=== PATIENT | female | born 2000 | race Asian ===

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

== ENCOUNTER 2018-05-29 17:30 | Emergency (ER) | payer MEDICAID, SELFPAY ==
[2018-05-29 17:32] VITALS: BP 162/122; PULSE 86; RESP 18; TEMP 36.7; O2SAT 98; BMI 34.2
--- NOTE | 2018-05-29 17:54 | ED.VISSUMM ---
- ER Visit Summary Date of Service: 05/29/18 Chief Complaint: Cyclic vomiting History of Present Illness: The patient is a 17 F presenting for evaluation secondary to cyclic vomiting syndrome. Patient has a history of this in the past, states that it typically is associated with onset of her menses. About 4 days ago she had onset of menses and profuse nausea and vomiting. She reports that she has a mild amount of chest burning associated with this. She denies any fevers or abdominal pain. She denies any diarrhea. View of systems otherwise negative. Physical Examination: Vital signs are within normal limits, patient is afebrile. General: Patient is well-nourished well-developed and in no acute distress. Head: Normocephalic, atraumatic Eyes: Pupils equal round and reactive bilaterally, extra occular motion intact bialterally ENT: Dry mucous membranes Neck: Supple, no lymphadenopathy, no JVD, no meningismus CVS: Heart regular rate and rhythm, no murmurs, rubs or gallops, radial pulses 2+ bilaterally Resp: Respirations nondistressed, lung sounds clear bilaterally, minimal chest tenderness that is diffuse without any evidence of crepitus or Vinicio's crunch Abdomen: Soft, nontender, nondistended, no palpable masses, normal bowel sounds Back: Nontender Extremities: Nontender, atraumatic, active full range of motion, no peripheral edema Skin: warm, no rashes, no petechia Neuro: Alert and oriented x 4, CN 2-12 intact, no lateralizing neurological defecits Psyc: Normal affect Test Results: CBC shows mild leukocytosis 11.2, chemistry shows hypochloremia at 97 and an elevated creatinine of 1.1 Emergency Department Course and Treatment: Patient presented secondary to cyclic vomiting syndrome. Laboratory studies were not significantly abnormal. Patient was given Ativan and Zofran and a liter normal saline. Repeat evaluation showed improvement. I believe the patient to be safe for discharge. She was discharged home with family. Disposition: Discharge Impression: 1. Cyclic vomiting syndrome This note was generated with [employer] dictation software. It may contain incorrect words, spelling, and punctuation that were not noted in review of the chart prior to signing ED Disposition - Plan for ED Patient: Disposition: Home or Assisted Living Chief Complaint: Nausea/Vomiting Diagnosis: Cyclical vomiting Instructions: When Your Child Has Cyclic Vomiting Syndrome (CVS) Referrals: Fanny Sharif MD [Primary Care Provider] - 1-2 Days if not improving
[2018-05-29 18:02] LABS: Absolute Lymphocyte Count 2.95 X10^3/ul (0.83-4.51); Absolute Neutrophil Count 7.5 X10^3/uL (2.0-7.7); Basophil# 0.02 X10^3/uL; Basophil% 0.2 % (0-1); Eosinophil# 0.05 X10^3/uL; Eosinophils% 0.4 % (0-5); Hematocrit 41.5 % (37-47); Hemoglobin 13.3 g/dl (12.0-15.0); Lymphocyte # 2.95 X10^3/ul (4.0); Lymphocyte % 26.4 % (19-41); Mean Corpuscular Hgb 22.3 pg (27.0-32.0); Mean Corpuscular Volume 69.6 fL (81-99); Mean Platelet Vol. 11.3 fl (6.2-12.0); Monocyte# 0.68 X10^3/uL; Monocyte% 6.1 % (0-10); Neutrophil # 7.45 X10^3/uL (2.7-7.7); Neutrophil % 66.7 % (47-70); POSITIVE COUNT NO; POSITIVE DIFFERENTIAL NO; POSITIVE MORPHOLOGY NO; Platelet Count 446 K/mm3 (150-450); RBC Distribution Width CV 15.4 % (11.6-14.6); RBC Distribution Width SD 39.1 fl (35.1-43.9); Red Blood Count 5.96 M/mm3 (4.2-5.4); White Blood Count 11.2 K/mm3 (4.4-11.0)
[2018-05-29 18:14] LABS: Anion Gap 14 (5-15); BUN 23 mg/dL (7-18); BUN/Creat Ratio 20.4 RATIO (10-20); Calcium,Total 9.8 mg/dL (8.5-10.1); Chloride 97 mmol/L (98-107); Creatinine, Serum 1.13 mg/dL (0.55-1.02); EST Glomerular Filtration Rate 65 mL/min (>60); Est Glom Filt Rate - Afr Amer 79 mL/min (>60); Estimated Creatinine Clearance 69.15 ml/min; Glucose 80 mg/dL (74-106); Potassium 4.5 mmol/L (3.5-5.1); Sodium Level 135 mmol/L (136-145)
[2018-05-29] MEDS: 0.9% Normal Saline 1,000 ML 999 ML IV (18:38)
[2018-05-29] MEDS: Ondansetron 4 MG/2 ML Vial IV ×2 (18:38→19:30)
[2018-05-29] MEDS: LORazepam 2 MG/ML Syringe 0.5 MG IV (18:38)
[2018-05-29] MEDS: Ketorolac 15 MG/ML Vial IV (19:07)
[2018-05-29 19:59] VITALS: BP 145/70; BP 145/75; PULSE 75; RESP 14; O2SAT 98
== END 2018-05-29 20:14 | disposition home or self-care (01) ==
PROVIDERS: Emergency Provider Emergency Medicine; Family Provider Pediatrics; PCP Pediatrics
DX: G43.A0 Cyclical vomiting, in migraine, not intractable (principal)
CPT/HCPCS: 80048; 85025; 96374; 96375; 96376; 99283; J7030; A4216; J2405

== ENCOUNTER 2018-06-06 21:31 | Emergency (ER) | payer MEDICAID, SELFPAY ==
[2018-06-06 21:31] VITALS: BP 163/111; PULSE 116; RESP 20; O2SAT 94
[2018-06-06 21:32] VITALS: BP 195/137; PULSE 129; RESP 18; TEMP 36.7; O2SAT 99; BMI 33.5
--- NOTE | 2018-06-06 22:09 | ED.DCSUM_ITS ---
- ER Visit Summary Date of Service: 06/06/18 Chief Complaint: Nausea and vomiting History of Present Illness: The patient is a 17 F well-known to this emergency department with a history of cyclic vomiting syndrome. No prior abdominal surgeries. Patient states she started having nausea and vomiting this morning. No abdominal pain. No fever. No dysuria. No abdominal trauma. No diarrhea. No constipation. No vaginal bleeding. Last menstrual period was a week ago. Physical Examination: Young female. Vital signs initial blood pressure 195/113. Heart rate 129. Pulse ox 9 9% on room air no hypoxia. Afebrile. She does not look septic or toxic. HEENT exam mildly dry mucous membranes. Otherwise unremarkable. Neck nontender. No lymphadenopathy. Lungs clear to auscultation bilaterally. Heart tachycardic rate about 125 no murmur. Abdomen is soft. Nontender. Nondistended. No hernias or masses. No signs of obstruction. Patient is moving all 4 extremities. No edema. Back nontender. Neurologically awake and alert with no focal motor deficits. Test Results: BMP shows no acute abnormality. Emergency Department Course and Treatment: Patient treated with 1 L normal saline. Phenergan IV. Thorazine IV. Multiple repeat exams patient is doing well. Resting comfortably. Abdomen is benign. After being medicated she is had no further vomiting in the ER. I spoke to her sister at bedside and she is comfortable with her being discharged to home. Treatment Plan: Fluids and rest. She already has both Zofran and Phenergan at home. Increase diet slowly. Follow-up as needed. Disposition: Discharge Impression: Acute nausea and vomiting Acute exacerbation of cyclic vomiting syndrome This note was generated with [employer] dictation software. It may contain incorrect words, spelling, and punctuation that were not noted in review of the chart prior to signing ED Disposition - Plan for ED Patient: Disposition: Home or Assisted Living Instructions: ED Nausea Vomiting Referrals: Fanny Sharif MD [Primary Care Provider] - 3-5 Days if not improving Additional Instructions: Plenty of fluids and rest. Increase diet slowly and as tolerated. Zofran and/or Phenergan as needed for nausea. Follow-up with your doctor as needed.
[2018-06-06] MEDS: proMETHazine 25 MG/ML Syringe 12.5 MG IV (22:26)
[2018-06-06] MEDS: ChlorproMAZINE 50 MG/2 ML Ampul IV (22:26)
[2018-06-06] MEDS: 0.9% Normal Saline 1,000 ML 1000 ML IV (22:26)
[2018-06-06 22:46] LABS: Anion Gap 9 (5-15); BUN 8 mg/dL (7-18); BUN/Creat Ratio 7.7 RATIO (10-20); Calcium,Total 9.4 mg/dL (8.5-10.1); Chloride 106 mmol/L (98-107); Creatinine, Serum 1.04 mg/dL (0.55-1.02); EST Glomerular Filtration Rate 72 mL/min (>60); Est Glom Filt Rate - Afr Amer 87 mL/min (>60); Estimated Creatinine Clearance 75.13 ml/min; Glucose 112 mg/dL (74-106); Potassium 4.1 mmol/L (3.5-5.1); Sodium Level 138 mmol/L (136-145)
== END 2018-06-06 23:48 | disposition home or self-care (01) ==
PROVIDERS: Emergency Provider Emergency Medicine; Family Provider Pediatrics; PCP Pediatrics
DX: G43.A0 Cyclical vomiting, in migraine, not intractable (principal)
CPT/HCPCS: 80048; 96361; 96374; 96375; 99285; J7030

== ENCOUNTER 2018-06-30 16:57 | Emergency (ER) | payer MEDICAID, SELFPAY ==
[2018-06-30 16:58] VITALS: BP 136/93; PULSE 111; RESP 18; TEMP 36.3; O2SAT 98; BMI 33.4
[2018-06-30] MEDS: Ondansetron 4 MG/2 ML Vial IV (18:38)
[2018-06-30] MEDS: 0.9% Normal Saline 1,000 ML 1000 ML IV (18:38)
[2018-06-30] MEDS: Ketorolac 30 MG/ML Syringe IV (18:38)
[2018-06-30 18:55] LABS: Absolute Lymphocyte Count 2.52 X10^3/ul (0.83-4.51); Absolute Neutrophil Count 7.9 X10^3/uL (2.0-7.7); Basophil# 0.02 X10^3/uL; Basophil% 0.2 % (0-1); Eosinophil# 0.01 X10^3/uL; Eosinophils% 0.1 % (0-5); Hematocrit 41.7 % (37-47); Lymphocyte # 2.52 X10^3/ul (4.0); Lymphocyte % 22.6 % (19-41); Mean Corp Hgb Conc 31.2 g/gl (32-36); Mean Corpuscular Volume 70.7 fL (81-99); Mean Platelet Vol. 9.8 fl (6.2-12.0); Monocyte# 0.73 X10^3/uL; Monocyte% 6.5 % (0-10); Neutrophil # 7.87 X10^3/uL (2.7-7.7); Neutrophil % 70.4 % (47-70); Platelet Count 519 K/mm3 (150-450); RBC Distribution Width CV 15.4 % (11.6-14.6); RBC Distribution Width SD 39.8 fl (35.1-43.9); White Blood Count 11.2 K/mm3 (4.4-11.0)
[2018-06-30 18:56] LABS: POSITIVE COUNT NO; POSITIVE DIFFERENTIAL NO; POSITIVE MORPHOLOGY NO
[2018-06-30 18:59] LABS: Anion Gap 11 (5-15); BUN 21 mg/dL (7-18); BUN/Creat Ratio 20.2 RATIO (10-20); Chloride 99 mmol/L (98-107); Creatinine, Serum 1.04 mg/dL (0.55-1.02); EST Glomerular Filtration Rate 72 mL/min (>60); Est Glom Filt Rate - Afr Amer 87 mL/min (>60); Estimated Creatinine Clearance 75.13 ml/min; Glucose 88 mg/dL (74-106); Potassium 3.5 mmol/L (3.5-5.1); Sodium Level 135 mmol/L (136-145)
[2018-06-30 20:10] LABS: Pregnancy, Serum, hCG Quali. NEGATIVE Negative (0-9 Nonpreg)
--- NOTE | 2018-06-30 20:29 | ED.VISSUMM ---
- ER Visit Summary Date of Service: 06/30/18 Chief Complaint: Nausea and vomiting History of Present Illness: The patient is a 17 F who presents for abdominal pain and flank pain for the past 3 days. Patient admits to nausea and vomiting. Patient states she did have one episode of hematemesis a couple days ago but this has resolved. Patient denies any diarrhea, melena, or hematochezia. Patient states she has a history of cyclic vomiting syndrome. Patient denies any urinary complaints. Patient describes her pain is sharp. Patient states the pain is over the left upper quadrant and left flank area. Physical Examination: Vital signs are stable. Patient is afebrile. Patient is in no acute distress. Oral mucosa is pink and moist. Neck is supple. Trachea is midline. There is no JVD noted. Heart was regular rate and rhythm. Lungs are clear and equal bilateral. Abdomen is soft. Bowel sounds are normal. There is left upper quadrant tenderness. There is no rebound or guarding noted. There is some left CVA tenderness noted. Skin is warm dry. Cranial nerves II through XII are intact. There are no focal motor or sensory deficits noted. The remaining physical exam is within normal limits. Test Results: CBC shows a white blood cell count of 11.2. Platelets were slightly elevated at 519. BUN and creatinine was slightly elevated at 21 and 1.04. hCG was negative. Emergency Department Course and Treatment: Patient was given IV fluids, Zofran, and Toradol here. Patient was feeling better on reevaluation. Patient was given prescriptions for Zofran and analgesics. Patient was instructed to use start with a liquid diet and advance as tolerated. Patient was instructed to follow-up with her primary care physician in 7-10 days. Patient understood and was agreeable with the plan. All questions were answered. Disposition: Discharge home Impression: 1. Abdominal pain 2. Nausea and vomiting This note was generated with [employer] dictation software. It may contain incorrect words, spelling, and punctuation that were not noted in review of the chart prior to signing ED Disposition - Plan for ED Patient: Disposition: Home or Assisted Living Diagnosis: Abdominal pain, Nausea and vomiting Instructions: ED Abdominal Pain Unkn Cause, ED Nausea Vomiting Prescriptions: Ondansetron [Zofran Odt] 4 mg PO Q8H PRN PRN #10 tab PRN Reason: Nausea RX: Dicyclomine HCl [Bentyl] 20 mg PO TIDAC PRN #20 cap PRN Reason: Pain Referrals: Fanny Sharif MD [Primary Care Provider] -
[2018-06-30] MEDS: Morphine 2 MG/ML Syringe IV (20:36)
[2018-06-30 20:38] VITALS: BP 141/102; PULSE 82; RESP 16; O2SAT 100
[2018-06-30 20:56] VITALS: BP 139/80; PULSE 73; RESP 17; O2SAT 98
--- NOTE | 2018-06-30 20:57 | ED.RN ---
IV DC'ED, CATHETER INTACT, SMALL GAUZE DRESSING PLACED. DISCHARGE INSTRUCTIONS GIVEN TO AND REVIEWED WITH PATIENT, PATIENT DENIES QUESTIONS OR CONCERNS AND VOICES UNDERSTANDING OF DISCHARGE INSTRUCTIONS. PT AMBULATES OUT OF ROOM WITHOUT ISSUE.
== END 2018-06-30 20:57 | disposition home or self-care (01) ==
PROVIDERS: Emergency Provider Emergency Medicine; Family Provider Pediatrics; PCP Pediatrics
DX: R11.2 Nausea with vomiting, unspecified (principal); R10.12 Left upper quadrant pain
CPT/HCPCS: 80048; 84703; 85025; 96361; 96374; 96375; 99285; J7030; A4216; J2405

== ENCOUNTER 2018-07-01 11:26 | Emergency (ER) | payer MEDICAID, SELFPAY ==
[2018-06-30 16:58] VITALS: BMI 33.4
[2018-07-01 11:27] VITALS: BP 166/119; PULSE 87; RESP 18; TEMP 36.6; O2SAT 100; BMI 33.4
[2018-07-01] MEDS: LORazepam 2 MG/ML Syringe 0.5 MG IV (11:48)
[2018-07-01] MEDS: Ondansetron 4 MG/2 ML Vial IV (11:48)
[2018-07-01] MEDS: 0.9% Normal Saline 1,000 ML 1000 ML IV (11:48)
[2018-07-01 11:54] LABS: Absolute Lymphocyte Count 2.39 X10^3/ul (0.83-4.51); Basophil# 0.02 X10^3/uL; Basophil% 0.2 % (0-1); Eosinophil# 0.01 X10^3/uL; Eosinophils% 0.1 % (0-5); Hematocrit 40.6 % (37-47); Hemoglobin 12.3 g/dl (12.0-15.0); Lymphocyte # 2.39 X10^3/ul (4.0); Lymphocyte % 21.5 % (19-41); Mean Corp Hgb Conc 30.3 g/gl (32-36); Mean Corpuscular Hgb 21.6 pg (27.0-32.0); Mean Corpuscular Volume 71.2 fL (81-99); Mean Platelet Vol. 9.4 fl (6.2-12.0); Monocyte# 0.74 X10^3/uL; Monocyte% 6.6 % (0-10); Neutrophil # 7.95 X10^3/uL (2.7-7.7); Neutrophil % 71.4 % (47-70); Platelet Count 483 K/mm3 (150-450); RBC Distribution Width CV 15.3 % (11.6-14.6); RBC Distribution Width SD 39.9 fl (35.1-43.9); White Blood Count 11.1 K/mm3 (4.4-11.0)
[2018-07-01 11:56] LABS: POSITIVE COUNT NO; POSITIVE DIFFERENTIAL NO
[2018-07-01 11:57] LABS: Differential Indicated SCAN CRITERIA MET; POSITIVE MORPHOLOGY YES
[2018-07-01 12:05] LABS: Anion Gap 12 (5-15); BUN 24 mg/dL (7-18); BUN/Creat Ratio 21.6 RATIO (10-20); Calcium,Total 9.3 mg/dL (8.5-10.1); Chloride 99 mmol/L (98-107); Creatinine, Serum 1.11 mg/dL (0.55-1.02); EST Glomerular Filtration Rate 67 mL/min (>60); Est Glom Filt Rate - Afr Amer 81 mL/min (>60); Estimated Creatinine Clearance 70.39 ml/min; Glucose 94 mg/dL (74-106); Potassium 3.4 mmol/L (3.5-5.1); Sodium Level 134 mmol/L (136-145)
[2018-07-01 12:28] LABS: Pregnancy, Serum, hCG Quali. NEGATIVE Negative (0-9 Nonpreg)
--- NOTE | 2018-07-01 12:30 | CM.ED ---
Social Work Assessment Referral Date: 07/01/18 Date of Assessment: 07/01/18 Informant: NURSING Reason for Consult:FREQUENT VISITS Information obtained from: PATIENT AND PATIENT'S SISTERPRIYANKA Living Arrangements: PATIENT LIVES HOME WITH MOTHER, FATHER AND SISTER. 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 PATIENT CURRENTLY NOT ATTENDING COLLEGE AT THIS TIME. Supports: PATIENT REPORTS GOOD SUPPORT FROM FAMILY. PATIENT STATES IS CURRENTLY ACTIVE WITH COUNSELING AT [facility] [id number] AND FOLLOWS WITH RONY. Social/Family Stressors: PATIENT REPORTS STRESS FROM DEALING WITH NAUSEA AND VOMITING FOR 4 YEARS. PATIENT EXTREMELY TEARFUL DURING ASSESSMENT. MUCH EMOTIONAL SUPPORT PROVIDED. Mental Health History: PATIENT ADMITS TO HX OF ANXIETY AND DEPRESSION AND STATES IS NOT PRESCRIBED MEDICATION. Substance Abuse History: PATIENT AND SISTER BOTH DENY ANY SUBSTANCE ABUSE. Interventions: PCP-DR. MARQUEZ FOLLOW UP APPOINTMENT 07/09/18 AT 2:15P. COUNSELING APPOINTMENT AT [facility] SCHEDULED FOR 07/07/18 AT 1P. Assessment: PATIENT IS A 17 Y/O FEMALE WHO PRESENTS TO ED C/O NAUSEA AND VOMITING. PT WITH FREQUENT VISITS FOR SAME. INTRODUCED THIS WORKER'S ROLE AND REASON FOR REFERRAL. PT GAVE PERMISSION FOR PRIYANKA BULLOCK TO STAY IN ROOM DURING ASSESSMENT. SISTER VOICED MUCH CONCERN FOR PT. SISTER STATES PARENTS HAD BEEN AGAINST COUNSELING, BUT SISTER ADVOCATED FOR PT TO START COUNSELING SERVICES AT [facility]. PT ADMITS TO HX OF ANXIETY AND DEPRESSION. PT DENIES ANY SUBSTANCE ABUSE AND SISTER CONFIRMED. PT STATES MANY STRESSORS FROM DEALING WITH THE NAUSEA AND VOMITING. SISTER REPORTS IT HAS CAUSED PT TO HAVE MORE ANXIETY. DISCUSSED FOLLOWING UP WITH PSYCH OR PRIMARY CARE FOR MEDICATION TO ASSIST WITH ANXIETY AND DEPRESSION. PT AND SISTER IN AGREEMENT. PT GAVE PERMISSION FOR THIS WORKER TO SET UP FOLLOW UP APPOINTMENTS WITH PCP AND COUNSELING. PT AND SISTER UPDATED ON DATE AND TIMES OF APPOINTMENTS. THIS WORKER TO REMAIN AVAILABLE FOR NEEDS. PLAN: HOME WITH FAMILY AND FOLLOW UP SCHEDULED
--- NOTE | 2018-07-01 12:40 | CM.ED ---
SOCIAL WORK NOTE PT'S MOTHER PRESENT IN ED. THIS WORKER MET WITH PT'S MOTHER. MOTHER TEARFUL WHEN DISCUSSING PT'S MEDICAL NEEDS OVER THE LAST 4 YEARS. MUCH EMOTIONAL SUPPORT AND EDUCATION PROVIDED. DISCUSSED PT'S MENTAL HEALTH. MOTHER STATES PT IS NORMALLY A HAPPY PERSON AND REPORTS PT WITH MANY STRESSORS AND ANXIETY. MOTHER DENIES ANY DRUG USE FOR PT. DISCUSSED FOLLOW UP APPOINTMENTS AND ENCOURAGED MOTHER TO ATTEND APPOINTMENTS WITH PT. MOTHER VERBALIZED UNDERSTANDING AND IN AGREEMENT WITH PLAN. DR. DAMON AND NURSING UPDATED ON THIS WORKER'S ASSESSMENT OF PT AND CONVERSATION WITH MOTHER. MARITZA QUINONES, AUDIO ENGINEER, CASE RESOLUTION SPECIALIST.
--- NOTE | 2018-07-01 14:08 | ED.VISSUMM ---
- ER Visit Summary Date of Service: 07/01/18 Chief Complaint: [Nausea and vomiting] History of Present Illness: The patient is a 17 F [presents the emergency department complaint of nausea and vomiting that started 3 days ago. Patient has a history of cyclic vomiting syndrome and states that her symptoms are typical. Patient does describe diffuse abdominal discomfort. She has had no fever. She denies any diarrhea. She denies urinary symptoms. Last menstrual period was end of May. Patient does not believe she is .] Physical Examination: [HEENT-PERRLA, EOMI. Cranial nerves II through XII grossly intact. TMs clear. Mucous membranes moist. No adenopathy. Cardiovascular-regular rate and rhythm without murmur or ectopy Lungs-clear to auscultation, chest wall stable without crepitus or subcu emphysema Abdomen-normoactive bowel sounds, soft. Patient has diffuse tenderness to palpation. There is no rebound, rigidity, or perineal signs. Extremities-intact ?4, normal range of motion, normal pulses, atraumatic] Test Results: [CBC with differential obtained showed a white count 11.1, hemoglobin 12, hematocrit 41, platelets 483. Chemistries unremarkable. BUN was 24 and creatinine 1.11. HCG was negative.] Emergency Department Course and Treatment: [Patient was medicated with Ativan as well as Benadryl and Thorazine. Patient also received Zofran. Patient was given a liter normal same fluid bolus.] Treatment Plan: [Patient has antiemetics at home and she is to continue with those. Patient also was seen by social service coordinator in the emergency department as patient has had multiple visits for same. Patient is not had any further vomiting in the emergency department. Patient advised to push fluids and follow-up with her physicians.] Disposition: [Discharged home in stable condition] Impression: [Cyclic vomiting syndrome] This note was generated with [employer] dictation software. It may contain incorrect words, spelling, and punctuation that were not noted in review of the chart prior to signing ED Disposition - Plan for ED Patient: Referrals: Fanny Sharif MD [Primary Care Provider] -
--- NOTE | 2018-07-01 14:10 | ED.DEP ---
ED Disposition - Plan for ED Patient: Instructions: ED Nausea Vomiting, When Your Child Has Cyclic Vomiting Syndrome (CVS) Referrals: Fanny Sharif MD [Primary Care Provider] - 3-5 Days
[2018-07-01 14:27] VITALS: BP 132/99; PULSE 91; RESP 16; O2SAT 97
== END 2018-07-01 14:29 | disposition home or self-care (01) ==
LOC: ED 12:50
PROVIDERS: Emergency Provider Emergency Medicine; Family Provider Pediatrics; PCP Pediatrics
DX: G43.A0 Cyclical vomiting, in migraine, not intractable (principal)
CPT/HCPCS: 80048; 84703; 85025; 96361; 96365; 96375; 99283; J7030; J2405; J3490

== ENCOUNTER 2018-07-03 14:50 | Emergency (ER) | payer MEDICAID, SELFPAY ==
[2018-07-03 14:53] VITALS: BP 146/91; PULSE 84; RESP 16; TEMP 36.5; O2SAT 99; BMI 33.7
--- NOTE | 2018-07-03 16:12 | ED.DCSUM_ITS ---
- ER Visit Summary Date of Service: 07/03/18 Chief Complaint: Vomiting History of Present Illness: The patient is a [address] Almanzar. She has a history of cyclic vomiting. She reports that she started her period today and that often with this her vomiting worsens. States that she began vomiting again today. She is vomited 10-15 times. No blood in her emesis. She also complains of diffuse cramping abdominal pain is 10 out of 10 severity. Patient also reports that she had 2 episodes of diarrhea today. No blood in her stools or black tarry stools. No dysuria or frequency. Physical Examination: Vitals: Stable. Afebrile. General: Well-nourished and well-developed. Head: Normocephalic atraumatic. Neck: Supple, no lymphadenopathy. No JVD. Nontender. Cardiovascular: Regular rate and rhythm. No murmurs. Respiratory: No respiratory distress. Clear to auscultation bilaterally. Abdominal: Soft, mild diffuse tenderness to palpation nondistended, normal bowel sounds. No guarding, rebound, or peritoneal signs. Back: Nontender. Extremities: Nontender, no edema. Skin: Normal color, no rash. Neurologic: Alert and oriented ?3. Cranial nerves II through XII are intact. Normal strength and sensation. Psych: Normal affect. Test Results: test is negative. Emergency Department Course and Treatment: Patient had an IV placed. She was given a liter normal saline. She was given Toradol, Benadryl, Zofran, Ativan, and Thorazine IV. She has had no vomiting while here. Treatment Plan: Patient will be discharged with Zofran. Instructed to follow-up her primary care physician 1-2 days if not improving. Return to the emergency department for any worsening symptoms. Disposition: To home in improved and stable condition. Impression: 1. Cyclic vomiting. This note was generated with [employer] dictation software. It may contain incorrect words, spelling, and punctuation that were not noted in review of the chart prior to signing ED Disposition - Plan for ED Patient: Instructions: When Your Child Has Cyclic Vomiting Syndrome (CVS) Prescriptions: Ondansetron [Zofran Odt] 4 mg PO Q8H PRN PRN #10 tablet PRN Reason: Nausea Referrals: Fanny Sharif MD [Primary Care Provider] - 1-2 Days if not improving
[2018-07-03] MEDS: Ondansetron 4 MG/2 ML Vial IV (16:24)
[2018-07-03] MEDS: 0.9% Normal Saline 1,000 ML 1000 ML IV (16:24)
[2018-07-03] MEDS: Ketorolac 30 MG/ML Syringe IV (16:25)
[2018-07-03] MEDS: LORazepam 2 MG/ML Syringe 0.5 MG IV (16:26)
[2018-07-03 16:54] LABS: Pregnancy, Serum, hCG Quali. NEGATIVE Negative (0-9 Nonpreg)
--- NOTE | 2018-07-03 17:15 | ED.RN ---
called for new Benadryl and Thorazine. 1st medication was unclamped and fell on floor.
[2018-07-03 17:19] VITALS: PULSE 81; RESP 18; O2SAT 100
[2018-07-03 17:29] VITALS: BP 154/104
[2018-07-03] MEDS: proMETHazine 25 MG/ML Syringe 6.25 MG IV (18:53)
[2018-07-03 19:23] VITALS: BP 145/78; PULSE 87; RESP 16; O2SAT 95
== END 2018-07-03 19:28 | disposition home or self-care (01) ==
LOC: ED 16:41
PROVIDERS: Emergency Provider Emergency Medicine; Family Provider Pediatrics; PCP Pediatrics
DX: G43.A0 Cyclical vomiting, in migraine, not intractable (principal)
CPT/HCPCS: 84703; 96365; 96366; 96375; 99283; J7030; A4216; J2405; J3490

== ENCOUNTER 2018-07-23 15:22 | Emergency (ER) | payer MEDICAID, SELFPAY ==
[2018-07-23 15:24] VITALS: BP 156/80; PULSE 96; RESP 15; TEMP 36.4; O2SAT 99
--- NOTE | 2018-07-23 15:54 | ED.DCSUM_ITS ---
- ER Visit Summary Date of Service: 07/23/18 Chief Complaint: Nausea and vomiting History of Present Illness: The patient is a 17 F who presents with nausea and vomiting that began today. Patient has a history of cyclic vomiting syndrome. Patient denies any hematemesis or coffee-ground emesis. Patient admits to diffuse abdominal pain. Patient denies any diarrhea, melena, or hematochezia. Patient denies any dysuria or hematuria. Patient states her last menstrual period was 07/08/2018. Patient denies any abnormal vaginal bleeding or discharge. Physical Examination: Vital signs are stable. Patient is afebrile. Patient is in no acute distress. Oral mucosa is pink and moist. Neck is supple. Trachea is midline. Heart was regular rate and rhythm. Lungs are clear and equal bilateral. Abdomen is soft. Bowel sounds are normal. There is diffuse tenderness. There is no rebound or guarding noted. Cranial nerves II through XII are intact. There are no focal deficits noted. Test Results: HCG was negative. Emergency Department Course and Treatment: Patient was given IV fluids here. Patient was given Toradol, Phenergan, and Thorazine. Patient still complained of nausea and abdominal pain. Patient was given Zofran and Bentyl. Patient states she had minimal relief with this. Patient was given Compazine and Benadryl. Patient was instructed to go home and rest. Patient had no further episodes of vomiting here in the emergency department. Patient and family understood and were agreeable with the plan. All questions were answered. Disposition: Discharge home Impression: Nausea and vomiting This note was generated with [employer] dictation software. It may contain incorrect words, spelling, and punctuation that were not noted in review of the chart prior to signing ED Disposition - Plan for ED Patient: Disposition: Home or Assisted Living Diagnosis: Nausea and vomiting Instructions: ED Nausea Vomiting Prescriptions: Ondansetron [Zofran Odt] 4 mg PO Q8H PRN PRN #10 tab PRN Reason: Nausea Referrals: Fanny Sharif MD [Primary Care Provider] - 3-5 Days
[2018-07-23] MEDS: proMETHazine 25 MG/ML Syringe 6.25 MG IV (16:06)
[2018-07-23] MEDS: Ketorolac 30 MG/ML Syringe IV (16:06)
[2018-07-23] MEDS: 0.9% Normal Saline 1,000 ML 1000 ML IV (16:07)
[2018-07-23] MEDS: ChlorproMAZINE 50 MG/2 ML Ampul 25 MG IM (16:15)
[2018-07-23 16:45] LABS: Pregnancy, Serum, hCG Quali. NEGATIVE Negative (0-9 Nonpreg)
[2018-07-23] MEDS: Ondansetron 4 MG/2 ML Vial IV (17:53)
[2018-07-23] MEDS: proCHLORPERazine 10 MG/2 ML Vial IV (18:47)
[2018-07-23] MEDS: DiphenhydrAMINE 50 MG/ML Syringe 25 MG IV (18:47)
[2018-07-23 18:50] VITALS: PULSE 82; RESP 17; O2SAT 99
[2018-07-23 19:11] VITALS: RESP 14
== END 2018-07-23 19:11 | disposition home or self-care (01) ==
PROVIDERS: Emergency Provider Emergency Medicine; Family Provider Pediatrics; PCP Pediatrics
DX: R11.2 Nausea with vomiting, unspecified (principal); Z79.899 Other long term (current) drug therapy
CPT/HCPCS: 84703; 96361; 96372; 96374; 96375; 99284; J7030; A4216; J2405

== ENCOUNTER 2018-07-25 08:26 | Emergency (ER) | payer MEDICAID, SELFPAY ==
[2018-07-25 08:27] VITALS: BP 159/106; PULSE 86; RESP 15; TEMP 36.8; O2SAT 100; BMI 33.5
[2018-07-25 09:39] LABS: Anion Gap 9 (5-15); BUN 14 mg/dL (7-18); Calcium,Total 9.3 mg/dL (8.5-10.1); Chloride 101 mmol/L (98-107); EST Glomerular Filtration Rate 75 mL/min (>60); Est Glom Filt Rate - Afr Amer 91 mL/min (>60); Estimated Creatinine Clearance 78.14 ml/min; Glucose 86 mg/dL (74-106); Potassium 3.7 mmol/L (3.5-5.1); Sodium Level 135 mmol/L (136-145)
[2018-07-25 09:40] LABS: Absolute Lymphocyte Count 2.26 X10^3/ul (0.83-4.51); Absolute Neutrophil Count 7.5 X10^3/uL (2.0-7.7); Basophil# 0.02 X10^3/uL; Basophil% 0.2 % (0-1); Hematocrit 38.7 % (37-47); Hemoglobin 11.9 g/dl (12.0-15.0); Lymphocyte # 2.26 X10^3/ul (4.0); Lymphocyte % 21.8 % (19-41); Mean Corp Hgb Conc 30.7 g/gl (32-36); Mean Corpuscular Hgb 22.1 pg (27.0-32.0); Mean Corpuscular Volume 71.9 fL (81-99); Mean Platelet Vol. 9.7 fl (6.2-12.0); Monocyte# 0.53 X10^3/uL; Monocyte% 5.1 % (0-10); Neutrophil # 7.53 X10^3/uL (2.7-7.7); Neutrophil % 72.7 % (47-70); Platelet Count 455 K/mm3 (150-450); RBC Distribution Width CV 16.2 % (11.6-14.6); RBC Distribution Width SD 42.8 fl (35.1-43.9); Red Blood Count 5.38 M/mm3 (4.2-5.4); White Blood Count 10.4 K/mm3 (4.4-11.0)
[2018-07-25 09:42] LABS: Differential Indicated SCAN CRITERIA MET; POSITIVE COUNT NO; POSITIVE DIFFERENTIAL NO; POSITIVE MORPHOLOGY YES
[2018-07-25 09:43] LABS: Pregnancy, Serum, hCG Quali. NEGATIVE Negative (0-9 Nonpreg)
[2018-07-25 09:59] LABS: Anisocytosis 2+; Differential Comment SCANNED; Microcytosis 2+; Ovalocyte 1+; Poikilocytosis 1+
--- NOTE | 2018-07-25 10:05 | ED.DCSUM_ITS ---
- ER Visit Summary Date of Service: 07/25/18 Chief Complaint: Cyclic vomiting History of Present Illness: The patient is a 17 F well-known to this emergency room with a history of cyclic vomiting. She states this episode started 4 days ago. She has diffuse abdominal pain, worse in the epigastric region. She denies fever. She has no urinary symptoms. Physical Examination: Vital signs significant for blood pressure of 159/106, otherwise unremarkable. Patient is lying in bed. Head neck examination does reveal moist mucous membranes. Heart is regular rate and rhythm. Lung sounds are clear pedal and abdomen is soft with epigastric tenderness. No guarding or rebound. Hypoactive bowel sounds noted. Test Results: CBC significant only for hemoglobin 11.9 and platelet count of 455,000. Chemistry studies normal. test negative. Emergency Department Course and Treatment: Patient was given a liter IV fluids along with Ativan and Zofran. On repeat evaluation she is resting comfortably. She states her nausea is improved but she still complaining of abdominal pain. We discussed the fact that she has been vomiting for the past 4 days and will still have some pain. She will be given a dose of Bentyl. At this time patient feels comfortable with discharge to home. Treatment Plan: [] Disposition: Discharge Impression: Vomiting, improved This note was generated with [employer] dictation software. It may contain incorrect words, spelling, and punctuation that were not noted in review of the chart prior to signing ED Disposition - Plan for ED Patient: Referrals: Fanny Sharif MD [Primary Care Provider] -
[2018-07-25] MEDS: LORazepam 2 MG/ML Syringe 0.5 MG IV (10:56)
[2018-07-25] MEDS: Ondansetron 4 MG/2 ML Vial IV (10:56)
[2018-07-25] MEDS: 0.9% Normal Saline 1,000 ML 1000 ML IV (10:57)
--- NOTE | 2018-07-25 12:13 | ED.DEP ---
ED Disposition - Plan for ED Patient: Disposition: Home or Assisted Living Instructions: ED Nausea Vomiting Referrals: Fanny Sharif MD [Primary Care Provider] - 5-7 Days
[2018-07-25] MEDS: Ketorolac 60 MG/2 ML Vial IM (12:37)
[2018-07-25 12:42] VITALS: BP 121/85; PULSE 80; O2SAT 100
== END 2018-07-25 13:02 | disposition home or self-care (01) ==
PROVIDERS: Emergency Provider Emergency Medicine; Family Provider Pediatrics; PCP Pediatrics
DX: R11.2 Nausea with vomiting, unspecified (principal); Z79.899 Other long term (current) drug therapy
CPT/HCPCS: 80048; 84703; 85025; 96361; 96372; 96374; 96375; 99284; J7030; J2405

== ENCOUNTER 2018-07-28 11:10 | Emergency (ER) | payer MEDICAID, SELFPAY ==
[2018-07-28 11:11] VITALS: BP 160/108; PULSE 110; RESP 18; TEMP 36.9; O2SAT 100
[2018-07-28 11:12] VITALS: BP 160/108; PULSE 95; RESP 18; TEMP 36.9; O2SAT 95; BMI 34.3
--- NOTE | 2018-07-28 11:23 | ED.VISSUMM ---
- ER Visit Summary Date of Service: 07/28/18 Chief Complaint: Nausea, vomiting History of Present Illness: The patient is a 18 F with history of cyclic vomiting syndrome presents to the emergency department nausea and vomiting. The patient was seen here 3 days ago. At that time, she was treated with antiemetics and fluids and felt improved. However, since being home, she is continued to vomit. She states she is vomiting multiple times a day. She is been trying oral Zofran with little improvement. She had diffuse abdominal cramping pain. The patient has no history of abdominal surgery. She has had both upper and lower endoscopy. She does follow with [facility]. She denies any blood in her emesis. Physical Examination: Vital signs reviewed General: Well-nourished, well-developed Head: Normocephalic, atraumatic Eyes: Pupils equal and reactive, extraocular muscles intact Neck, supple, no lymphadenopathy Heart: Regular rate and rhythm Respiratory: No distress, clear bilaterally Abdomen: Soft, nontender, nondistended, no peritoneal signs Back: Nontender Extremities: Nontender, no edema, no cords Skin: Normal color no rash Neuro: Alert and oriented, no focal or lateralizing deficits Test Results: [] Emergency Department Course and Treatment: The patient's abdomen soft nontender. She has a history of recurrent cyclic vomiting syndrome. IV was established. She was given fluids, Ativan, and Zofran. She was complaining of some pain. Pain was addressed. Her symptoms were improved. The patient had no further emesis for an hour and a half. She was resting comfortably. I did obtain a urine. We are unable to obtain any blood work, but the patient did have normal labs 3 days ago. Her urine shows no ketones. I do not suspect her to be dehydrated. At this time, if the patient is safe for outpatient therapy. She will be discharged home. Treatment Plan: [] Disposition: Discharge Impression: 1. Cyclic vomiting syndrome This note was generated with [employer] software. It may contain incorrect words, spelling, and punctuation that were not noted in review of the chart prior to signing ED Disposition - Plan for ED Patient: Instructions: ED Nausea Vomiting Referrals: Fanny Sharif MD [Primary Care Provider] -
[2018-07-28] MEDS: LORazepam 2 MG/ML Syringe 0.5 MG IV (11:30)
[2018-07-28] MEDS: 0.9% Normal Saline 1,000 ML 999 ML IV ×2 (11:30→11:44)
[2018-07-28] MEDS: Ondansetron 4 MG/2 ML Vial IV (11:30)
[2018-07-28] MEDS: Morphine 4 MG/ML Syringe IV (11:52)
[2018-07-28 12:54] LABS: Bacteria 0 SEEN /hpf (None Seen); Mucous, Urine 0 SEEN /hpf (<or=2+); Red Blood Cells-Urine 0 SEEN /hpf (0-5); White Blood Cells 0 SEEN /hpf (0-5)
[2018-07-28 12:58] LABS: Color, Urine Yellow (Yellow); Glucose, Dipstick Normal (Normal); Ketone-Dipstick Negative (Negative); Leukocyte Esterase-Dipstick Negative /ul (Negative); Nitrite-Dipstick Negative (Negative); Occult Blood-Urine Negative /ul (Negative); Protein-Dipstick Negative (Negative); Urine Bilirubin Dipstick Negative (Negative); Urine Clarity Sl. Cloudy (Clear); Urine Urobilinogen Normal (Normal)
[2018-07-28 13:05] LABS: Squamous Epithelial Cells - UA 0-5 SEEN /hpf (5-10)
[2018-07-28 14:42] VITALS: BP 163/93; PULSE 90; RESP 14; RESP 17; O2SAT 99
== END 2018-07-28 14:45 | disposition home or self-care (01) ==
LOC: ED 12:04
PROVIDERS: Emergency Provider Emergency Medicine; Family Provider Pediatrics; PCP Pediatrics
DX: K31.89 Other diseases of stomach and duodenum (principal); R11.2 Nausea with vomiting, unspecified
CPT/HCPCS: 81001; 96361; 96365; 96366; 96375; 99282; J7030; A4216; J2405; J3490

== ENCOUNTER 2018-08-16 15:45 | Emergency (ER) | payer MEDICAID, SELFPAY ==
[2018-08-16 15:45] VITALS: BP 162/104; PULSE 97; RESP 16; TEMP 37.2; O2SAT 99; BMI 33.9
[2018-08-16] MEDS: LORazepam 2 MG/ML Syringe 0.5 MG IV (17:48)
[2018-08-16] MEDS: Ondansetron 4 MG/2 ML Vial IV (17:48)
[2018-08-16] MEDS: 0.9% Normal Saline 1,000 ML 999 ML IV (17:57)
[2018-08-16 18:34] VITALS: BP 147/74; PULSE 115; RESP 17; O2SAT 97
--- NOTE | 2018-08-16 19:39 | ED.DCSUM_ITS ---
- ER Visit Summary Date of Service: 08/16/18 Chief Complaint: [Nausea and vomiting] History of Present Illness: The patient is a 18 F [presents to the emergency department complaint of nausea and vomiting that started yesterday. Patient has a history of cyclic vomiting syndrome. Patient having a exacerbation. Her last visit to the ER she believes was on 30 July. Patient denies any fevers. She describes diffuse abdominal discomfort that is typical with her exacerbations. She denies any urinary symptoms. Her last menstrual period was August 07. She does not believe to be Reglan.] Physical Examination: HEENT-PERRLA, EOMI. Cranial nerves II through XII grossly intact. TMs clear. Mucous membranes moist. No adenopathy. Cardiovascular-regular rate and rhythm without murmur or ectopy Lungs-clear to auscultation, chest wall stable without crepitus or subcu emphysema Abdomen-normoactive bowel sounds, soft, nontender, no rebound or rigidity, no peritoneal signs. Extremities-intact ?4, normal range of motion, normal pulses, atraumatic [] Test Results: None indicated [] Emergency Department Course and Treatment: [Patient was medicated with a liter normal same fluid bolus as well as Ativan, Zofran, Thorazine, and Benadryl. Patient had no further vomiting.] Treatment Plan: [Discharged to home with instructions to follow-up with her primary care physician. Given a prescription for Zofran.] Disposition: [Discharged home in stable condition] Impression: [Cyclic vomiting syndrome] This note was generated with [employer] dictation software. It may contain incorrect words, spelling, and punctuation that were not noted in review of the chart prior to signing ED Disposition - Plan for ED Patient: Referrals: Fanny Sharif MD [Primary Care Provider] -
--- NOTE | 2018-08-16 19:39 | ED.DEP ---
ED Disposition - Plan for ED Patient: Instructions: ED Nausea Vomiting Prescriptions: Ondansetron [Zofran Odt] 4 mg PO Q8H PRN PRN #10 tab PRN Reason: Nausea Referrals: Fanny Sharif MD [Primary Care Provider] - 3-5 Days
[2018-08-16] MEDS: proMETHazine 25 MG/ML Syringe 12.5 MG IV (19:53)
[2018-08-16 20:37] VITALS: BP 114/71; PULSE 96; RESP 16; O2SAT 98
== END 2018-08-16 20:38 | disposition home or self-care (01) ==
LOC: ED 18:06
PROVIDERS: Emergency Provider Emergency Medicine; Family Provider Pediatrics; PCP Pediatrics
DX: G43.A0 Cyclical vomiting, in migraine, not intractable (principal)
CPT/HCPCS: 96365; 96375; 99282; J7030; A4216; J2405; J3490

== ENCOUNTER 2018-08-17 14:18 | Emergency (ER) | payer MEDICAID, SELFPAY ==
[2018-08-16 15:45] VITALS: BMI 33.9
[2018-08-17 14:19] VITALS: BP 161/81; PULSE 92; RESP 18; TEMP 37.1; O2SAT 100; BMI 33.1
[2018-08-17] MEDS: LORazepam 2 MG/ML Syringe 1 MG IV (14:56)
[2018-08-17] MEDS: Ondansetron 4 MG/2 ML Vial IV (14:56)
[2018-08-17] MEDS: 0.9% Normal Saline 1,000 ML 1000 ML IV (14:56)
--- NOTE | 2018-08-17 15:09 | ED.DCSUM_ITS ---
- ER Visit Summary Date of Service: 08/17/18 Chief Complaint: Vomiting History of Present Illness: The patient is a 18 F who is well-known to the emergency department for her frequent presentations for cyclic vomiting syndrome. This is her 10th visit this year. She was seen here yesterday. She states that she has an appointment at the [facility] on with her chisel grinder. She denies any fevers. No diarrhea. She notes abdominal pain which she has with her vomiting. Physical Examination: Afebrile vital signs are stable Gen: Well-nourished well-developed Head: Normocephalic atraumatic Eyes: Perrl EOMI patient is tearful ENT: TMs clear no rhinorrhea moist mucous membranes Neck: Supple no lymphadenopathy no JVD nontender CVS: Regular rate rhythm no murmurs normal S1-S2 Respiratory: No distress clear to auscultation bilaterally chest nontender Abdomen: Soft diffuse tenderness nonsurgical nondistended normal bowel sounds no masses Back: Nontender Extremity: Nontender no edema Skin: Normal color no rash Neuro: alert orientated ?3 CN II-XII intact normal strength sensation reflexes Psych: Tearful Emergency Department Course and Treatment: IV was established and the patient received Ativan and Zofran and IV fluids. Patient will be checked out to oncoming physician for repeat examination and final appropriate disposition Impression: 1. Cyclic vomiting syndrome This note was generated with [employer] dictation software. It may contain incorrect words, spelling, and punctuation that were not noted in review of the chart prior to signing <Kishor Mccain - Last Filed: 08/17/18 15:14> - ER Visit Summary Date of Service: 08/17/18 Chief Complaint: Patient was signed out to me for reevaluation after receiving medication for her cyclic vomiting syndrome. Patient was sleeping at time of reevaluation, and upon wakening her, she stated she still was having abdominal discomfort. Patient was given a dose of IV Haldol. Upon reevaluation, patient was again sleeping. She was awakened and stated she felt much better. Father requested rx for her abdominal pain. Pt given rx for bentyl. DC home in improved condition. Impression: 1) cyclic vomiting syndrome This note was generated with [employer] dictation software. It may contain incorrect words, spelling, and punctuation that were not noted in review of the chart prior to signing <Lauren Alberto - Last Filed: 08/17/18 17:50> ED Disposition <Kishor Mccain - Last Filed: 08/17/18 15:14> <Lauren Alberto - Last Filed: 08/17/18 17:50> - Plan for ED Patient: Disposition: Home or Assisted Living Instructions: When Your Child Has Cyclic Vomiting Syndrome ([facility]) Prescriptions: Dicyclomine HCl [Bentyl] 20 mg PO TIDAC 5 Days #40 cap Referrals: Fanny Sharif MD [Primary Care Provider] - As Needed
--- NOTE | 2018-08-17 16:57 | ED.RN ---
FATHER STATED HE WAS READY TO TAKE PT HOME BUT WANTED PAIN MEDICINE TO GO HOME. PT IS SOUND ASLEEP WITH NO DISTRESS NOTED. FACIAL EXPRESSION IS RELAXED BREATHING IS EQUAL AND UNLABORED. WHEN PT IS WOKEN UP SHE THEN ASKS FOR PAIN MEDICINE. NE EVIDENCE OF PAIN BUT PHYSICIAN ORDERED HALDOL.
[2018-08-17] MEDS: Haloperidol Lactate 5 MG/ML Vial IV (17:03)
[2018-08-17 17:33] VITALS: RESP 18
--- NOTE | 2018-08-17 17:34 | ED.RN ---
PT SLEEPING, MEDICATION GIVEN PER ORDER, SEE MAR. FAMILY MEMBER AT BEDSIDE REQUESTS MEDICATION FOR HOME. PT GIVEN MEDICATION AT BEDSIDE. WILL CONTINUE TO MONITOR.
[2018-08-17 18:01] VITALS: BP 110/70; PULSE 73; RESP 16
== END 2018-08-17 18:01 | disposition home or self-care (01) ==
PROVIDERS: Emergency Provider Emergency Medicine; Family Provider Pediatrics; PCP Pediatrics
DX: G43.A0 Cyclical vomiting, in migraine, not intractable (principal); K21.9 Gastro-esophageal reflux disease without esophagitis
CPT/HCPCS: 96361; 96374; 96375; 99284; J7030; J7050; A4216; J2405

== ENCOUNTER 2018-08-24 12:14 | Emergency (ER) | payer MEDICAID, SELFPAY ==
[2018-08-24 12:16] VITALS: BP 176/106; PULSE 110; RESP 18; TEMP 36.4; O2SAT 98; BMI 34.3
[2018-08-24] MEDS: ChlorproMAZINE 50 MG/2 ML Ampul 25 MG IV (15:09)
[2018-08-24] MEDS: LORazepam 2 MG/ML Syringe 1 MG IV (15:10)
[2018-08-24] MEDS: 0.9% Normal Saline 1,000 ML 1000 ML IV (15:11)
[2018-08-24] MEDS: proMETHazine 25 MG/ML Syringe 12.5 MG IV (15:13)
[2018-08-24 15:26] VITALS: BP 150/80; PULSE 110; RESP 14; O2SAT 99
[2018-08-24 15:40] LABS: Internal QC Validated? YES +Cl - CLEAR BKGD; Pregnancy, Serum, hCG Quali. NEGATIVE Negative
[2018-08-24 15:45] LABS: Absolute Lymphocyte Count 1.11 X10^3/ul (0.83-4.51); Absolute Neutrophil Count 5.8 X10^3/uL (2.0-7.7); Basophil# 0.01 X10^3/uL; Basophil% 0.1 % (0-1); Hematocrit 36.7 % (37-47); Hemoglobin 11.4 g/dl (12.0-15.0); Lymphocyte # 1.11 X10^3/ul (4.0); Lymphocyte % 15.7 % (19-41); Mean Corp Hgb Conc 31.1 g/gl (32-36); Mean Corpuscular Hgb 22.2 pg (27.0-32.0); Mean Corpuscular Volume 71.5 fL (81-99); Mean Platelet Vol. 10.4 fl (6.2-12.0); Monocyte# 0.14 X10^3/uL; Neutrophil # 5.81 X10^3/uL (2.7-7.7); Neutrophil % 82.1 % (47-70); Platelet Count 358 K/mm3 (150-450); RBC Distribution Width CV 15.3 % (11.6-14.6); RBC Distribution Width SD 40.4 fl (35.1-43.9); Red Blood Count 5.13 M/mm3 (4.2-5.4); White Blood Count 7.1 K/mm3 (4.4-11.0)
[2018-08-24 15:46] LABS: AST(SGOT) 13 U/L (15-37); Alanine Aminotransfer ALT/SGPT 22 U/L (13-56); Albumin, Serum 4.8 g/dL (3.2-5.0); Alkaline Phosphatase 79 U/L (45-117); Anion Gap 8 (5-15); BUN 7 mg/dL (7-18); BUN/Creat Ratio 8.9 RATIO (10-20); Bilirubin, Direct 0.08 mg/dL (0.00-0.30); Calcium,Total 9.2 mg/dL (8.5-10.1); Chloride 107 mmol/L (98-107); Creatinine, Serum 0.79 mg/dL (0.55-1.02); EST Glomerular Filtration Rate 99 mL/min (>60); Est Glom Filt Rate - Afr Amer 120 mL/min (>60); Estimated Creatinine Clearance 98.09 ml/min; Globulin 3.7 g/dL (2.2-4.2); Glucose 111 mg/dL (74-106); Lipase 89 U/L (73-393); Potassium 3.6 mmol/L (3.5-5.1); Protein, Total 8.5 g/dL (6.4-8.2); Sodium Level 139 mmol/L (136-145)
[2018-08-24 15:50] LABS: POSITIVE COUNT NO; POSITIVE DIFFERENTIAL NO; POSITIVE MORPHOLOGY NO
--- NOTE | 2018-08-24 16:19 | ED.DCSUM_ITS ---
- ER Visit Summary Date of Service: 08/24/18 Chief Complaint: Nausea, vomiting and abdominal pain with a history of cyclic vomiting syndrome History of Present Illness: The patient is a 18 F history of cyclic vomiting. Started having nausea and vomiting this morning. Complaining of epigastric abdominal pain. No hematemesis. No melena. No fever. No dysuria. No prior abdominal surgeries. Last menstrual period was 08/07/2018. Similar episodes in the past. She is on antinausea medications at home. Physical Examination: Young female actively retching vomiting the room. Initial blood pressure is 176/106. Otherwise vital signs are stable and afebrile. HEENT exam unremarkable. Moist weeks membranes. Neck nontender no lymphadenopathy. Lungs clear to auscultation bilaterally. Heart regular rhythm no murmur rate about 110. Abdomen is soft. Nondistended normal bowel sounds. No peritoneal signs. Right upper and lower quadrants are unremarkable. Normal bowel sounds. No hernias or masses. No signs of obstruction. Patient is moving all 4 extremities. Neurologically she is awake and alert. No focal motor deficit. Test Results: CBC normal. White count of 7. She is chronically anemic her hemoglobin is 11. That is her baseline. Electrolytes normal gap of 8. Normal creatinine. Liver and lipase are normal. Serum test negative. Emergency Department Course and Treatment: Treated with IV fluids, Thorazine and Phenergan. Next On repeat exam at 1605 p.m. she is doing well. She is resting comfortably. Her nausea and vomiting is resolved. Her abdomen is benign. I discussed with her mom and her mom is comfortable with her being discharged home. She has antinausea medications at home. Treatment Plan: Phenergan at home for nausea. Disposition: dc Impression: Acute nausea and vomiting secondary to exacerbation of cyclic vomiting syndrome Abdominal pain secondary to above This note was generated with [employer] software. It may contain incorrect words, spelling, and punctuation that were not noted in review of the chart prior to signing ED Disposition - Plan for ED Patient: Referrals: Fanny Sharif MD [Primary Care Provider] -
--- NOTE | 2018-08-24 16:19 | ED.DEP ---
ED Disposition - Plan for ED Patient: Disposition: Home or Assisted Living Instructions: ED Nausea Vomiting, When Your Child Has Cyclic Vomiting Syndrome ([facility]) Referrals: Fanny Sharif MD [Primary Care Provider] - 3-5 Days if not improving Additional Instructions: Plenty of fluids and rest. Phenergan as needed for nausea. Follow-up if not improving return to ER if getting worse.
[2018-08-24 16:29] VITALS: BP 106/73; PULSE 52; RESP 16; O2SAT 99
== END 2018-08-24 16:31 | disposition home or self-care (01) ==
PROVIDERS: Emergency Provider Emergency Medicine; Family Provider Pediatrics; PCP Pediatrics
DX: G43.A0 Cyclical vomiting, in migraine, not intractable (principal); R10.13 Epigastric pain; D64.9 Anemia, unspecified
CPT/HCPCS: 80048; 80076; 83690; 84703; 85025; 96361; 96374; 96375; 99283; J7030; A4216

== ENCOUNTER 2018-08-26 07:27 | Emergency (ER) | payer MEDICAID, SELFPAY ==
[2018-08-26 07:29] VITALS: BP 157/96; PULSE 84; RESP 17; TEMP 36.7; O2SAT 99; BMI 33.5
--- NOTE | 2018-08-26 07:49 | ED.VISSUMM ---
- ER Visit Summary Date of Service: 08/26/18 Chief Complaint: Nausea and vomiting History of Present Illness: The patient is a 18 F history of cyclic vomiting syndrome. Seen and treated here 2 days ago. Has had multiple visits over the last several months. Patient's had both upper and lower endoscopy over the last year without any significant findings. She has had no other abdominal surgeries. Was seen here on Friday was feeling better prior to being discharged and has been vomiting the last day and a half. No hematemesis. No melena. No fever. Never she has these episodes she has also associated abdominal pain. No diarrhea or dysuria. No fever. Physical Examination: Vital signs are stable afebrile with initial blood pressure 157/96. She does not look septic or toxic. Currently she is not actively vomiting. HEENT exam unremarkable. Moist mucous membranes. Neck nontender no lymphadenopathy. Lungs clear to auscultation bilaterally. Heart regular rhythm no murmur. Abdomen is soft. Nondistended normal bowel sounds. There is no rebound, guarding or rigidity. Patient is moving all 4 extremities. They are neurovascularly intact. There is no edema. Neurologically she is awake and alert with no focal motor deficits. Test Results: None. Patient had multiple labs done 2 days ago all of which were negative. Including a CBC, chemistry, liver, lipase and test. Emergency Department Course and Treatment: Treated with IV fluids, Phenergan, Ativan and Thorazine IV. Repeat exam patient is doing well at 10:50 AM. Abdomen is benign. Resting comfortably. No further vomiting since being medicated. I do long discussion with mom she does need to follow-up with her primary care physician. She saw her public works technician last week. Treatment Plan: Continue her current nausea medications and follow-up with her primary care physician. Disposition: Discharge Impression: Acute nausea and vomiting secondary to exacerbation of cyclic vomiting syndrome This note was generated with [employer] dictation software. It may contain incorrect words, spelling, and punctuation that were not noted in review of the chart prior to signing ED Disposition - Plan for ED Patient: Disposition: Home or Assisted Living Instructions: ED Nausea Vomiting Prescriptions: proMETHazine tablet [Phenergan tablet] 25 mg PO Q4H PRN PRN #10 tab PRN Reason: Nausea Referrals: Fanny Sharif MD [Primary Care Provider] - As soon as possible Additional Instructions: Phenergan as needed for nausea. Plenty of fluids and rest. Follow-up with primary care physician and/or public works technician. Next Advance her diet slowly.
--- NOTE | 2018-08-26 07:52 | ED.DCSUM_ITS ---
- ER Visit Summary Date of Service: 08/26/18 Chief Complaint: Nausea and vomiting History of Present Illness: The patient is a 18 F history of cyclic vomiting syndrome. Seen and treated here 2 days ago. Has had multiple visits over the last several months. Patient's had both upper and lower endoscopy over the last year without any significant findings. She has had no other abdominal surgeries. Was seen here on Friday was feeling better prior to being discharged and has been vomiting the last day and a half. No hematemesis. No melena. No fever. Never she has these episodes she has also associated abdominal pain. No diarrhea or dysuria. No fever. Physical Examination: Vital signs are stable afebrile with initial blood pressure 157/96. She does not look septic or toxic. Currently she is not actively vomiting. HEENT exam unremarkable. Moist mucous membranes. Neck nontender no lymphadenopathy. Lungs clear to auscultation bilaterally. Heart regular rhythm no murmur. Abdomen is soft. Nondistended normal bowel sounds. There is no rebound, guarding or rigidity. Patient is moving all 4 extremities. They are neurovascularly intact. There is no edema. Neurologically she is awake and alert with no focal motor deficits. Test Results: None. Patient had multiple labs done 2 days ago all of which were negative. Including a CBC, chemistry, liver, lipase and test. Emergency Department Course and Treatment: Treated with IV fluids, Phenergan, Ativan and Thorazine IV. Repeat exam patient is doing well at 10:50 AM. Abdomen is benign. Resting comfortably. No further vomiting since being medicated. I do long discussion with mom she does need to follow-up with her primary care physician. She saw her musical instrument maker or repairer last week. Treatment Plan: Continue her current nausea medications and follow-up with her primary care physician. Disposition: Discharge Impression: Acute nausea and vomiting secondary to exacerbation of cyclic vomiting syndrome This note was generated with [employer] dictation software. It may contain incorrect words, spelling, and punctuation that were not noted in review of the chart pr ior to signing ED Disposition - Plan for ED Patient: Disposition: Home or Assisted Living Instructions: ED Nausea Vomiting Prescriptions: proMETHazine tablet [Phenergan tablet] 25 mg PO Q4H PRN PRN #10 tab PRN Reason: Nausea Referrals: Fanny Sharif MD [Primary Care Provider] - As soon as possible Additional Instructions: Phenergan as needed for nausea. Plenty of fluids and rest. Follow-up with primary care physician and/or musical instrument maker or repairer. Next Advance her diet slowly.
--- NOTE | 2018-08-26 07:55 | DCINST.ED_ITS ---
ED Disposition - Plan for ED Patient: Disposition: Home or Assisted Living Instructions: ED Nausea Vomiting Prescriptions: proMETHazine tablet [Phenergan tablet] 25 mg PO Q4H PRN PRN #10 tab PRN Reason: Nausea Referrals: Fanny Sharif MD [Primary Care Provider] - As soon as possible Additional Instructions: Phenergan as needed for nausea. Plenty of fluids and rest. Follow-up with primary care physician and/or district fire chief. Next Advance her diet slowly.
[2018-08-26] MEDS: proMETHazine 25 MG/ML Syringe 12.5 MG IV (08:15)
[2018-08-26] MEDS: LORazepam 2 MG/ML Syringe 1 MG IV (08:15)
[2018-08-26] MEDS: 0.9% Normal Saline 1,000 ML 1000 ML IV (08:15)
[2018-08-26] MEDS: ChlorproMAZINE 50 MG/2 ML Ampul 25 MG IV (08:16)
== END 2018-08-26 11:13 | disposition home or self-care (01) ==
PROVIDERS: Emergency Provider Emergency Medicine; Family Provider Pediatrics; PCP Pediatrics
DX: G43.A0 Cyclical vomiting, in migraine, not intractable (principal)
CPT/HCPCS: 96361; 96374; 96375; 99283; J7030

== ENCOUNTER 2018-09-10 19:21 | Observation (INO) | payer MEDICAID, SELFPAY ==
[2018-09-10 19:22] VITALS: BP 155/106; PULSE 113; RESP 18; TEMP 36.9; O2SAT 96; BMI 33.7
[2018-09-10] MEDS: 0.9% Normal Saline 1,000 ML 1000 ML IV (20:00)
[2018-09-10] MEDS: LORazepam 2 MG/ML Syringe 0.5 MG IV (20:00)
[2018-09-10] MEDS: Ondansetron 4 MG/2 ML Vial IV (20:01)
--- NOTE | 2018-09-10 20:19 | ED.VISSUMM ---
- ER Visit Summary Date of Service: 09/10/18 Chief Complaint: [Nausea, vomiting, abdominal pain.] History of Present Illness: The patient is a 18 F [resents the emergency department with symptoms that started yesterday. Patient has history of cyclic vomiting syndrome. She denies any fever. She denies urinary symptoms. Patient states that this feels like her typical exacerbations. Patient had multiple visits to this emergency department for same. Patient does not believe she might be . She otherwise has no medical history. No prior surgeries.] Physical Examination: [HEENT-PERRLA, EOMI. Cranial nerves II through XII grossly intact. TMs clear. Mucous membranes moist. No adenopathy. Cardiovascular-regular rate and rhythm without murmur or ectopy Lungs-clear to auscultation, chest wall stable without crepitus or subcu emphysema Abdomen-normoactive bowel sounds, soft. Patient has tenderness to palpation diffusely about the abdomen. There is no rebound, rigidity, or perineal signs. Extremities-intact ?4, normal range of motion, normal pulses, atraumatic] Test Results: [CBC, chemistries, hCG will be pending.] Emergency Department Course and Treatment: [Patient had an IV line established she was given a liter normal same fluid bolus. Patient was medicated with Ativan, Thorazine, and Benadryl.] Treatment Plan: [Patient continues to complain of nausea and continues to vomit despite multiple antiemetics. Patient had to be remedicated with Thorazine. Patient was also given Reglan. At this point decision was made to admit patient for intractable nausea and vomiting.] Disposition: [Admit] Impression: [Intractable nausea and vomiting secondary to cyclic vomiting syndrome] This note was generated with [employer] software. It may contain incorrect words, spelling, and punctuation that were not noted in review of the chart prior to signing ED Disposition - Plan for ED Patient: Referrals: Fanny Sharif MD [Primary Care Provider] -
[2018-09-10 21:34] VITALS: PULSE 101; RESP 16; O2SAT 98
[2018-09-10] MEDS: Metoclopramide 10 MG/2 ML Vial IV (21:50)
[2018-09-10 21:53] VITALS: BP 124/77; PULSE 106; RESP 18; O2SAT 100
--- NOTE | 2018-09-10 22:47 | PCM.HP.STD ---
Problem List (1) Intractable nausea and vomiting Status: Acute Qualifiers: Vomiting type: cyclical vomiting Qualified Code(s): G43.A1 - Cyclical vomiting, intractable (2) Cyclic vomiting syndrome Status: Chronic Qualifiers: Vomiting Intractability: unspecified Nausea presence: with nausea Qualified Code(s): G43.A0 - Cyclical vomiting, not intractable (3) Obesity (BMI 30.0-34.9) Status: Chronic History of Present Illness Date of Admission: 09/10/18 Chief Complaint: Intractable nausea, emesis The patient is a 18 y/o F w/ PMHx: GERD, Obesity, Known Cyclic Vomiting Syndrome w/ serial ED visits who presents to the [facility] ED on 09/10/18 with history of ongoing intractable generalized cramping abdominal pain, severe, 02/11 with intractable nausea, emesis starting the evening prior with no marked changes in recent bowel movements, presentation very similar to all prior upon ED presentation. Despite aggressive ED regimen patient w/ ongoing nausea, emesis in the ED. Work-up in the ED included T 98.5, heart rate 113, BP 155/106, respiratory rate 18, 96% on room air, CBC, CMP, lipase, serum ordered per ED physician but not obtained prior to requested evaluation of patient, no imaging obtained prior to requested evaluation of patient. In the ED patient administered normal saline, Zofran, Reglan, Ativan, Thorazine, diphenhydramine chloral promazine IV. Past Medical History Past Medical History (Chronic Problems): Chronic Problems Cyclic vomiting syndrome (Chronic) Obesity (BMI 30.0-34.9) (Chronic) Allergies No Known Allergies Allergy (Verified 08/26/18 07:28) Home Medications: Ambulatory Orders Medication Instructions Recorded RX: Amitriptyline HCl 50 mg PO QHS 02/26/16 Omeprazole 40 mg PO DAILY 12/23/17 RX: Norgestimate-Ethinyl Estradiol 1 tab PO DAILY 12/23/17 [Previfem] Ondansetron [Zofran Odt] 4 mg PO Q8H PRN PRN 05/29/18 RX: Dicyclomine HCl [Bentyl] 20 mg PO TIDAC PRN #20 cap 06/30/18 proMETHazine tablet [Phenergan 25 mg PO Q4H PRN PRN #10 tab 08/26/18 tablet] Surgical History: no surgical history Psychiatric History: No pertinent psych hx [employer]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 Paternal History Items: - - Patient denies any marked maternal or paternal family history including heart disease, diabetes or cancer. Review of Systems Constitutional: Reports: Anorexia, Malaise, Weakness, Fatigue. Denies: Chills, Fever, Weight Change HEENT: Denies: Head Aches, Sinus Congestion, Sinus Drainage Cardiovascular: Denies: Chest Pain, Palpitations Respiratory: Denies: Cough, Shortness of breath at rest, Sputum production Gastrointestinal: Reports: Abdominal Pain, Nausea, Vomiting Genitourinary: Denies: Dysuria Musculoskeletal: Denies: Joint Pain, Joint Tenderness Skin: Denies: Rash, Wounds Neurological: Denies: Numbness, Tingling, Focal weakness Psychiatric: Denies: Anxiety, Depression, Homicidal Ideations, Suicidal Ideations Hematologic/ Lymphatic: Denies: Easy Bruising, Easy Bleeding VTE Information - Inpt Only VTE Present on Admission: No VTE Mechan Device Prophylaxis: None Reason prophylaxis not ordered:: Treatment Not Indicated Subjective: Fatigued, laying in the ED bed, mild improvement from prior, lethargic. Objective: Physical Examination: General: awakens to stimuli but very fatigued, decreased alertness, does answer some questions appropriately but has been given notable sedate of regimens for nausea and emesis, family states she has not had any recent assist, laying in the ED bed. Skin: normal color, turgor, no icterus, cyanosis. HEENT: AT/NC, EOMI, PERRLA, dry MM, no carotid bruits or JVD noted. Lungs: CTA bilaterally, moderate effort, mild decrease BL bases, no rales, ronchi or wheezing. Heart: Tachycardic with regular rhythm; no gallop, rub audible. Abdomen: soft, obese, with palpation and stethoscope no grimacing but had been prior having generalized discomfort per ED physician, difficult to assess distention with habitus, hyperactive bowel sounds currently, no HSM but difficult assessment given habitus. Extremities: no cyanosis, clubbing, or edema. Neurological: awakens to stimuli but very fatigued, decreased alertness, does answer some questions appropriately but has been given notable sedate of regimens for nausea and emesis, family states she has not had any recent assist, laying in the ED bed; cognitive function currently decreased given sedate of regimen; pupils equally reactive to light and accomodation; cranial nerves II-XII grossly normal, moving all 4 extremities, strength severely global decreased secondary to acute presentation and recent sedate of medications. Psychiatric: affect appears fatigued, flat, no acute evidence of depressive or anxiety feelings. - Physical Exam Vital Signs Temp Pulse Resp BP Pulse Ox 98.5 F 106 H 18 124/77 H 100 09/10/18 19:22 09/10/18 21:53 09/10/18 21:53 09/10/18 21:53 09/10/18 21:53 Oxygen Delivery Method Room Air Weight: 196 lb 10.437 oz Body Mass Index (BMI) 33.7 Assessment/Plan All Active Problems Intractable nausea and vomiting (Acute) The patient is a 18 y/o F w/ PMHx: GERD, Obesity, Known Cyclic Vomiting Syndrome w/ serial ED visits who presents to the [facility] ED on 09/10/18 with history of ongoing intractable generalized cramping abdominal pain, severe, / with intractable nausea, emesis. (1) Acute on Chronic Cyclic Vomiting Syndrome: Pending ED CBC, CMP, , lipase, also requested addition of UDS but denied drug abuse. Will admit to [facility], maintain on IVFs, clears once improving with ADAT, continue aggressive antiemetic regimen w/ PRN zofran, phenergan, thorazine, from records review no prior MRI has been obtained and unclear autonomic dysfunction work-up, maintain on IV PPI, scheduled toradol, increase home amitriptyline to 100 mg q HS, from discussion with family patient has had prior endoscopic evaluation as well as MRI brain therefore per discussion with family likely cyclic vomiting syndrome etiology and noted prior 12/2017 CT A/P unremarkable but unenhanced. Family also notes that she has had abdominal ultrasounds prior as well. (2) Obesity: Weight loss and lifestyle changes encouraged. (3) GERD: IV PPI while unable to tolerate oral intake. (4) DVT prophylaxis: Low risk, ambulation once able. Code Visit OBSV E&M: 28059 Initial observation care L3
--- NOTE | 2018-09-10 22:53 | HP.PCM_ITS ---
Problem List (1) Intractable nausea and vomiting Status: Acute Qualifiers: Vomiting type: cyclical vomiting Qualified Code(s): G43.A1 - Cyclical vomiting, intractable (2) Cyclic vomiting syndrome Status: Chronic Qualifiers: Vomiting Intractability: unspecified Nausea presence: with nausea Qualified Code(s): G43.A0 - Cyclical vomiting, not intractable (3) Obesity (BMI 30.0-34.9) Status: Chronic History of Present Illness Date of Admission: 09/10/18 Chief Complaint: Intractable nausea, emesis The patient is a 18 y/o F w/ PMHx: GERD, Obesity, Known Cyclic Vomiting Syndrome w/ serial ED visits who presents to the [facility] ED on 09/10/18 with history of ongoing intractable generalized cramping abdominal pain, severe, 02/11 with intractable nausea, emesis starting the evening prior with no marked changes in recent bowel movements, presentation very similar to all prior upon ED presentation. Despite aggressive ED regimen patient w/ ongoing nausea, emesis in the ED. Work-up in the ED included T 98.5, heart rate 113, BP 155/106, respiratory rate 18, 96% on room air, CBC, CMP, lipase, serum ordered per ED physician but not obtained prior to requested evaluation of patient, no imaging obtained prior to requested evaluation of patient. In the ED patient administered normal saline, Zofran, Reglan, Ativan, Thorazine, diphenhydramine chloral promazine IV. Past Medical History Past Medical History (Chronic Problems): Chronic Problems Cyclic vomiting syndrome (Chronic) Obesity (BMI 30.0-34.9) (Chronic) Allergies No Known Allergies Allergy (Verified 08/26/18 07:28) Home Medications: Ambulatory Orders Medication Instructions Recorded RX: Amitriptyline HCl 50 mg PO QHS 02/26/16 Omeprazole 40 mg PO DAILY 12/23/17 RX: Norgestimate-Ethinyl Estradiol 1 tab PO DAILY 12/23/17 [Previfem] Ondansetron [Zofran Odt] 4 mg PO Q8H PRN PRN 05/29/18 RX: Dicyclomine HCl [Bentyl] 20 mg PO TIDAC PRN #20 cap 06/30/18 proMETHazine tablet [Phenergan 25 mg PO Q4H PRN PRN #10 tab 08/26/18 tablet] Surgical History: no surgical history Psychiatric History: No pertinent psych hx [employer]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 Paternal History Items: - - Patient denies any marked maternal or paternal family history including heart disease, diabetes or cancer. Review of Systems Constitutional: Reports: Anorexia, Malaise, Weakness, Fatigue. Denies: Chills, Fever, Weight Change HEENT: Denies: Head Aches, Sinus Congestion, Sinus Drainage Cardiovascular: Denies: Chest Pain, Palpitations Respiratory: Denies: Cough, Shortness of breath at rest, Sputum production Gastrointestinal: Reports: Abdominal Pain, Nausea, Vomiting Genitourinary: Denies: Dysuria Musculoskeletal: Denies: Joint Pain, Joint Tenderness Skin: Denies: Rash, Wounds Neurological: Denies: Numbness, Tingling, Focal weakness Psychiatric: Denies: Anxiety, Depression, Homicidal Ideations, Suicidal Ideations Hematologic/ Lymphatic: Denies: Easy Bruising, Easy Bleeding VTE Information - Inpt Only VTE Present on Admission: No VTE Mechan Device Prophylaxis: None Reason prophylaxis not ordered:: Treatment Not Indicated Subjective: Fatigued, laying in the ED bed, mild improvement from prior, lethargic. Objective: Physical Examination: General: awakens to stimuli but very fatigued, decreased alertness, does answer some questions appropriately but has been given notable sedate of regimens for nausea and emesis, family states she has not had any recent assist, laying in the ED bed. Skin: normal color, turgor, no icterus, cyanosis. HEENT: AT/NC, EOMI, PERRLA, dry MM, no carotid bruits or JVD noted. Lungs: CTA bilaterally, moderate effort, mild decrease BL bases, no rales, ronchi or wheezing. Heart: Tachycardic with regular rhythm; no gallop, rub audible. Abdomen: soft, obese, with palpation and stethoscope no grimacing but had been prior having generalized discomfort per ED physician, difficult to assess distention with habitus, hyperactive bowel sounds currently, no HSM but difficult assessment given habitus. Extremities: no cyanosis, clubbing, or edema. Neurological: awakens to stimuli but very fatigued, decreased alertness, does answer some questions appropriately but has been given notable sedate of regimens for nausea and emesis, family states she has not had any recent assist, laying in the ED bed; cognitive function currently decreased given sedate of regimen; pupils equally reactive to light and accomodation; cranial nerves II- XII grossly normal, moving all 4 extremities, strength severely global decreased secondary to acute presentation and recent sedate of medications. Psychiatric: affect appears fatigued, flat, no acute evidence of depressive or anxiety feelings. - Physical Exam Vital Signs Temp Pulse Resp BP Pulse Ox 98.5 F 106 H 18 124/77 H 100 09/10/18 19:22 09/10/18 21:53 09/10/18 21:53 09/10/18 21:53 09/10/18 21:53 Oxygen Delivery Method Room Air Weight: 196 lb 10.437 oz Body Mass Index (BMI) 33.7 Assessment/Plan All Active Problems Intractable nausea and vomiting (Acute) The patient is a 18 y/o F w/ PMHx: GERD, Obesity, Known Cyclic Vomiting Syndrome w/ serial ED visits who presents to the [facility] ED on 09/10/18 with history of ongoing intractable generalized cramping abdominal pain, severe, / with intractable nausea, emesis. (1) Acute on Chronic Cyclic Vomiting Syndrome: Pending ED CBC, CMP, , lipase, also requested addition of UDS but denied drug abuse. Will admit to MS, maintain on IVFs, clears once improving with ADAT, continue aggressive antiemetic regimen w/ PRN zofran, phenergan, thorazine, from records review no prior MRI has been obtained and unclear autonomic dysfunction work-up, maintain on IV PPI, scheduled toradol, increase home amitriptyline to 100 mg q HS, from discussion with family patient has had prior endoscopic evaluation as well as MRI brain therefore per discussion with family likely cyclic vomiting syndrome etiology and noted prior 12/2017 CT A/P unremarkable but unenhanced. Family also notes that she has had abdominal ultrasounds prior as well. (2) Obesity: Weight loss and lifestyle changes encouraged. (3) GERD: IV PPI while unable to tolerate oral intake. (4) DVT prophylaxis: Low risk, ambulation once able. Code Visit OBSV E&M: 93340 Initial observation care L3
[2018-09-10 22:57] LABS: Absolute Lymphocyte Count 2.25 X10^3/ul (0.83-4.51); Absolute Neutrophil Count 5.8 X10^3/uL (2.0-7.7); Basophil# 0.02 X10^3/uL; Basophil% 0.2 % (0-1); Eosinophil# 0.02 X10^3/uL; Eosinophils% 0.2 % (0-5); Hematocrit 38.8 % (37-47); Lymphocyte # 2.25 X10^3/ul (4.0); Lymphocyte % 26.8 % (19-41); Mean Corp Hgb Conc 30.9 g/gl (32-36); Mean Corpuscular Hgb 22.2 pg (27.0-32.0); Mean Corpuscular Volume 71.7 fL (81-99); Mean Platelet Vol. 10.8 fl (6.2-12.0); Monocyte% 3.6 % (0-10); Neutrophil # 5.82 X10^3/uL (2.7-7.7); Neutrophil % 69.2 % (47-70); Platelet Count 457 K/mm3 (150-450); RBC Distribution Width CV 14.8 % (11.6-14.6); RBC Distribution Width SD 39.2 fl (35.1-43.9); Red Blood Count 5.41 M/mm3 (4.2-5.4); White Blood Count 8.4 K/mm3 (4.4-11.0)
[2018-09-10 23:02] LABS: Differential Indicated SCAN CRITERIA MET; POSITIVE COUNT NO; POSITIVE DIFFERENTIAL NO; POSITIVE MORPHOLOGY YES
[2018-09-10 23:10] LABS: Internal QC Validated? YES +Cl - CLEAR BKGD; Pregnancy, Serum, hCG Quali. NEGATIVE Negative
[2018-09-10 23:12] LABS: ALB/GLOB Ratio 1.2 RATIO (0.9-2.4); AST(SGOT) 18 U/L (15-37); Alanine Aminotransfer ALT/SGPT 31 U/L (13-56); Albumin, Serum 4.9 g/dL (3.2-5.0); Alkaline Phosphatase 76 U/L (45-117); Anion Gap 10 (5-15); BUN 13 mg/dL (7-18); Calcium,Total 9.7 mg/dL (8.5-10.1); Chloride 106 mmol/L (98-107); Creatinine, Serum 1.08 mg/dL (0.55-1.02); EST Glomerular Filtration Rate 69 mL/min (>60); Est Glom Filt Rate - Afr Amer 83 mL/min (>60); Estimated Creatinine Clearance 71.75 ml/min; Globulin 4.1 g/dL (2.2-4.2); Glucose 88 mg/dL (74-106); Lipase 110 U/L (73-393); Potassium 3.9 mmol/L (3.5-5.1); Sodium Level 141 mmol/L (136-145)
[2018-09-10 23:29] LABS: Platelet Estimate SLT INC (ADEQ)
[2018-09-10 23:30] LABS: Anisocytosis 1+; Microcytosis 1+; Ovalocyte 1+
[2018-09-10 23:33] VITALS: PULSE 99; RESP 16; O2SAT 100
[2018-09-10] MEDS: ChlorproMAZINE 50 MG/2 ML Ampul 25 MG IV (23:33)
[2018-09-10 23:39] LABS: Magnesium 2.2 mg/dL (1.6-2.6); Phosphorus 4.6 mg/dL (2.5-4.9); Thyroid Stim Hormone (TSH) 0.54 uIU/mL (0.358-3.74)
[2018-09-11 00:05] VITALS: BMI 33.9
[2018-09-11 00:08] VITALS: BMI 33.9
[2018-09-11] MEDS: Ketorolac 30 MG/ML Syringe IV ×4 (00:19→22:38)
[2018-09-11] MEDS: proMETHazine 25 MG/ML Syringe 12.5 MG IV ×3 (00:19→11:48)
[2018-09-11] MEDS: 0.9% Normal Saline 1,000 ML 150 ML IV ×2 (00:19→05:54)
[2018-09-11 00:29] VITALS: BP 124/69; PULSE 125; RESP 18; TEMP 36.9; O2SAT 98
[2018-09-11] MEDS: Ondansetron 4 MG/2 ML Vial IV ×3 (03:28→22:31)
[2018-09-11 03:30] VITALS: BP 152/100; PULSE 120; RESP 18; TEMP 36.7; O2SAT 97
[2018-09-11] MEDS: DiphenhydrAMINE 50 MG/ML Syringe 25 MG IV ×2 (04:47→11:48)
[2018-09-11 06:25] LABS: Absolute Lymphocyte Count 1.11 X10^3/ul (0.83-4.51); Absolute Neutrophil Count 7.5 X10^3/uL (2.0-7.7); Basophil# 0.01 X10^3/uL; Basophil% 0.1 % (0-1); Hematocrit 34.3 % (37-47); Hemoglobin 10.7 g/dl (12.0-15.0); Lymphocyte # 1.11 X10^3/ul (4.0); Lymphocyte % 12.6 % (19-41); Mean Corp Hgb Conc 31.2 g/gl (32-36); Mean Corpuscular Hgb 22.1 pg (27.0-32.0); Mean Corpuscular Volume 70.7 fL (81-99); Mean Platelet Vol. 10.9 fl (6.2-12.0); Monocyte# 0.18 X10^3/uL; Monocyte% 2.1 % (0-10); Neutrophil # 7.46 X10^3/uL (2.7-7.7); Platelet Count 340 K/mm3 (150-450); RBC Distribution Width CV 14.9 % (11.6-14.6); RBC Distribution Width SD 37.2 fl (35.1-43.9); Red Blood Count 4.85 M/mm3 (4.2-5.4); White Blood Count 8.8 K/mm3 (4.4-11.0)
[2018-09-11 06:31] LABS: Differential Indicated SCAN CRITERIA MET; POSITIVE COUNT NO; POSITIVE DIFFERENTIAL NO; POSITIVE MORPHOLOGY YES
[2018-09-11 06:37] LABS: AST(SGOT) 15 U/L (15-37); Alanine Aminotransfer ALT/SGPT 29 U/L (13-56); Albumin, Serum 4.1 g/dL (3.2-5.0); Alkaline Phosphatase 69 U/L (45-117); Anion Gap 12 (5-15); BUN 11 mg/dL (7-18); BUN/Creat Ratio 14.2 RATIO (10-20); Calcium,Total 9.1 mg/dL (8.5-10.1); Chloride 107 mmol/L (98-107); Creatinine, Serum 0.77 mg/dL (0.55-1.02); EST Glomerular Filtration Rate 101 mL/min (>60); Est Glom Filt Rate - Afr Amer 122 mL/min (>60); Estimated Creatinine Clearance 100.64 ml/min; Glucose 109 mg/dL (74-106); Protein, Total 8.1 g/dL (6.4-8.2); Sodium Level 141 mmol/L (136-145)
[2018-09-11 06:50] LABS: Differential Comment SCAN; Platelet Estimate ADEQUATE (ADEQ)
[2018-09-11 06:51] LABS: Anisocytosis 1+; Hypochromasia 1+; Microcytosis 1+
[2018-09-11 07:35] LABS: Amphetamine Urine VISTA NEGATIVE (<1000 ng/mL); Barbiturate Urine VISTA NEGATIVE (< 200 ng/mL); Benzodiazepine Urine VISTA NEGATIVE (< 200 ng/mL); Cocaine Urine VISTA NEGATIVE (< 300 ng/mL); Ecstacy Urine VISTA NEGATIVE (< 500 ng/mL); Methadone Urine VISTA NEGATIVE (< 300 ng/mL); PCP Urine VISTA NEGATIVE (< 25 ng/mL); THC Urine VISTA NEGATIVE (< 50 ng/mL); Vista UDS pH Range 5
[2018-09-11 09:30] VITALS: BP 143/89; PULSE 89; RESP 16; TEMP 36.7; O2SAT 100
--- NOTE | 2018-09-11 10:43 | PCM.PN.HOSP ---
Subjective: Patient is still has nausea vomiting and abdominal cramps. Patient is tossing on the bed because of pain. Patient had extensive work-up in [facility] including EGD and possible gastric emptying study was found negative and labeled as cyclical vomiting syndrome. She used to have this vomiting episode about 6 months or yearly but for last Vitals/I&O's: Vital Signs Temp Pulse Resp BP Pulse Ox 98.1 F 89 16 143/89 H 100 09/11/18 09:30 09/11/18 09:30 09/11/18 09:30 09/11/18 09:30 09/11/18 09:30 Oxygen Delivery Method Room Air Weight: 197 lb 12.074 oz Body Mass Index (BMI) 33.9 Intake and Output for Last 24 Hours 09/09/18 09/10/18 09/11/18 23:59 23:59 23:59 Intake Total 956 / 956 Balance 956 / 956 General: Alert, Oriented x3, Cooperative HEENT: Atraumatic, PERRLA, EOMI, Normocephalic Neck: Supple, No JVD, Negative Carotid Bruits Lungs: Clear to auscultation, Normal air movement, No rhonchi, No wheeze, No rales Cardiovascular: Regular rate, Regular Rhythm, Normal S1, Normal S2, No murmurs Abdomen: Bowel Sounds Present, Soft, Non-Distended, Tender Extremities: No edema, Capillary Refill Less than 3 Seconds Skin: No rashes, No breakdown Musculoskeletal: No Tenderness to Palpation of Joints or Extremities, Arthritic Changes Neurological: Cranial nerves II-XII grossly intact, Deep Tendon Reflexes 2+/4 and Symmetrical, Neuro grossly intact Psych/Mental Status: Normal Affect, Appropriate Laboratory Results 09/10/18 19:35: WBC 8.4, RBC 5.41 H, Hgb 12.0, Hct 38.8, MCV 71.7 L, MCH 22.2 L, MCHC 30.9 L, RDW 14.8 H, RDW Differential 39.2, Plt Count 457 H, MPV 10.8, Immature Gran % (Auto) 0.000, Neut % (Auto) 69.2, Lymph % (Auto) 26.8, [place] % (Auto) 3.6, Eos % (Auto) 0.2, Baso % (Auto) 0.2, Absolute Neuts (auto) 5.8, Absolute Lymphs (auto) 2.25, Total Counted Not Reportable, Platelet Estimate SLT INC, Anisocytosis 1+, Microcytosis 1+, Ovalocytes 1+ 09/10/18 19:35: Sodium 141, Potassium 3.9, Chloride 106, Carbon Dioxide 25.0, Anion Gap 10, BUN 13, Creatinine 1.08 H, Estim Creat Clear Calc 71.75, Est GFR (MDRD) Af Amer 83, Est GFR (MDRD) Non-Af 69, BUN/Creatinine Ratio 12.0, Glucose 88, Calcium 9.7, Total Bilirubin 0.50, AST 18, ALT 31, Alkaline Phosphatase 76, Total Protein 9.0 H, Albumin 4.9, Globulin 4.1, Albumin/Globulin Ratio 1.2, Lipase 110 09/10/18 19:35: Serum , Qual NEGATIVE 09/10/18 19:35: Phosphorus 4.6, Magnesium 2.2, TSH 0.54 09/10/18 22:48: Urine Opiates Screen NEGATIVE, Urine Methadone Screen NEGATIVE, Ur Barbiturates Screen NEGATIVE, Ur Phencyclidine Scrn NEGATIVE, Ur Amphetamines Screen NEGATIVE, U Methamphetamin-MDMA NEGATIVE, U Benzodiazepines Scrn NEGATIVE, Urine Cocaine Screen NEGATIVE, U Cannabinoids Screen NEGATIVE, Ur Drug Screen Comment 09/11/18 05:25: WBC 8.8, RBC 4.85, Hgb 10.7 L, Hct 34.3 L, MCV 70.7 L, MCH 22.1 L, MCHC 31.2 L, RDW 14.9 H, RDW Differential 37.2, Plt Count 340, MPV 10.9, Immature Gran % (Auto) 0.200, Neut % (Auto) 85.0 H, Lymph % (Auto) 12.6 L, [place] % (Auto) 2.1, Eos % (Auto) 0.0, Baso % (Auto) 0.1, Absolute Neuts (auto) 7.5, Absolute Lymphs (auto) 1.11, Total Counted Not Reportable, Differential Comment SCAN, Platelet Estimate ADEQUATE, Hypochromasia 1+, Anisocytosis 1+, Microcytosis 1+ 09/11/18 05:25: Sodium 141, Potassium 4.0, Chloride 107, Carbon Dioxide 22.0, Anion Gap 12, BUN 11, Creatinine 0.77, Estim Creat Clear Calc 100.64, Est GFR (MDRD) Af Amer 122, Est GFR (MDRD) Non-Af 101, BUN/Creatinine Ratio 14.2, Glucose 109 H, Calcium 9.1, Total Bilirubin 0.30, AST 15, ALT 29, Alkaline Phosphatase 69, Total Protein 8.1, Albumin 4.1, Globulin 4.0, Albumin/Globulin Ratio 1.0 Current Medications Acetaminophen (Tylenol) 650 mg PO Q6H PRN PRN PRN Reason: Non-cardiac pain (mod-severe) Al Hydroxide/Mg Hydroxide (Mylanta Ii) 15 - 30 ml PO Q4H PRN PRN PRN Reason: INDIGESTION Albuterol Sulfate (Ventolin Aerosols) 2.5 mg INHALATION Q2H PRN PRN PRN Reason: dyspnea, wheezing Amitriptyline HCl (Elavil) 100 mg PO QHS [facility] Last Admin: 09/11/18 00:25 Dose: Not Given Chlorpromazine HCl (Thorazine) 45 mg 0.5 mg/kg (45 mg) IV .X1 PRN PRN PRN Reason: intractable severe N/V Dicyclomine HCl (Bentyl) 20 mg PO TIDAC PRN PRN Reason: PAIN Diphenhydramine HCl (Benadryl) 25 mg IV Q6H [facility] Stop: 09/11/18 11:55 Last Admin: 09/11/18 04:47 Dose: 25 mg Hydralazine HCl (Apresoline Iv) 10 mg IV Q4H PRN PRN PRN Reason: SBP > 160 Sodium Chloride () 1,000 mls @ 150 mls/hr IV .Q6H40M [facility] Last Admin: 09/11/18 05:54 Dose: 150 mls/hr Pantoprazole Sodium 40 mg/ (Sodium Chloride) 110 mls @ 330 mls/hr IV Q12 [facility] Last Admin: 09/11/18 09:39 Dose: 330 mls/hr Ketorolac Tromethamine (Toradol) 30 mg IV Q8 [facility] Stop: 09/12/18 06:01 Last Admin: 09/11/18 05:54 Dose: 30 mg Ondansetron HCl (Zofran) 4 mg IV Q6H PRN PRN PRN Reason: nausea, emesis Last Admin: 09/11/18 03:28 Dose: 4 mg Promethazine HCl (Phenergan) 12.5 mg IV Q6 [facility] Stop: 09/11/18 12:01 Last Admin: 09/11/18 05:54 Dose: 12.5 mg Sodium Chloride () 5 - 15 ml IV UD PRN PRN Reason: SALINE FLUSH Temazepam (Restoril) 15 mg PO QHS PRN PRN PRN Reason: INSOMNIA Medical Necessity - Tobacco Use Smoking Status: Never smoker Tobacco Use: Non-smoker Assessment/Plan All Active Problems Intractable nausea and vomiting (Acute) This is a 18-year-old female with recurrent admission for persistent nausea and vomiting, intractable in nature. SHe had extensive evaluation for cause of nausea and vomiting in [facility] and later labeled to be cyclical vomiting syndrome. She was admitted for intractable nausea and vomiting and abdominal so due to retching and vomiting, 10 x 10 intensity and not able to keep food or fluid in the stomach. 1. Intractable nausea and vomiting due to cyclic vomiting syndrome -patient is on amitriptyline, Thorazine, Zofran, Phenergan. He is also on IV PPI, Bentyl. Benadryl. Labs reviewed. Electrolytes within normal limits. LFT within normal limit. H&H was hemoconcentrated. H&H 12.0-38.8 dropped to 10.7/34.3. No obvious GI bleed. Decreased IV fluid. Encouraged p.o. intake. 2. HTN - likely pain and N/V related - prn hydralazine 3. Anxiety / Depression -during previous admission in September 2016 patient had refused for evaluation for anxiety or depression. DVT ppx : not indicated Active Medications Acetaminophen (Tylenol) 650 mg PO Q6H PRN PRN PRN Reason: Non-cardiac pain (mod-severe) Al Hydroxide/Mg Hydroxide (Mylanta Ii) 15 - 30 ml PO Q4H PRN PRN PRN Reason: INDIGESTION Albuterol Sulfate (Ventolin Aerosols) 2.5 mg INHALATION Q2H PRN PRN PRN Reason: dyspnea, wheezing Amitriptyline HCl (Elavil) 100 mg PO QHS [facility] Last Admin: 09/11/18 00:25 Dose: Not Given Chlorpromazine HCl (Thorazine) 45 mg 0.5 mg/kg (45 mg) IV .X1 PRN PRN PRN Reason: intractable severe N/V Dicyclomine HCl (Bentyl) 20 mg PO TIDAC PRN PRN Reason: PAIN Diphenhydramine HCl (Benadryl) 25 mg IV Q6H [facility] Stop: 09/11/18 11:55 Last Admin: 09/11/18 04:47 Dose: 25 mg Hydralazine HCl (Apresoline Iv) 10 mg IV Q4H PRN PRN PRN Reason: SBP > 160 Sodium Chloride () 1,000 mls @ 150 mls/hr IV .Q6H40M [facility] Last Admin: 09/11/18 05:54 Dose: 150 mls/hr Pantoprazole Sodium 40 mg/ (Sodium Chloride) 110 mls @ 330 mls/hr IV Q12 [facility] Last Admin: 09/11/18 09:39 Dose: 330 mls/hr Ketorolac Tromethamine (Toradol) 30 mg IV Q8 [facility] Stop: 09/12/18 06:01 Last Admin: 09/11/18 05:54 Dose: 30 mg Ondansetron HCl (Zofran) 4 mg IV Q6H PRN PRN PRN Reason: nausea, emesis Last Admin: 09/11/18 03:28 Dose: 4 mg Promethazine HCl (Phenergan) 12.5 mg IV Q6 [facility] Stop: 09/11/18 12:01 Last Admin: 09/11/18 05:54 Dose: 12.5 mg Sodium Chloride () 5 - 15 ml IV UD PRN PRN Reason: SALINE FLUSH Temazepam (Restoril) 15 mg PO QHS PRN PRN PRN Reason: INSOMNIA Code Visit Inpatient E&M: 86102 Subs Hosp L3 OBSV E&M: 94566 Subsequent observation care L3
--- NOTE | 2018-09-11 10:54 | PN_ITS ---
Subjective: Patient is still has nausea vomiting and abdominal cramps. Patient is tossing on the bed because of pain. Patient had extensive work-up in [facility] including EGD and possible gastric emptying study was found negative and labeled as cyclical vomiting syndrome. She used to have this vomiting episode about 6 months or yearly but for last Vitals/I&O's: Vital Signs Temp Pulse Resp BP Pulse Ox 98.1 F 89 16 143/89 H 100 09/11/18 09:30 09/11/18 09:30 09/11/18 09:30 09/11/18 09:30 09/11/18 09:30 Oxygen Delivery Method Room Air Weight: 197 lb 12.074 oz Body Mass Index (BMI) 33.9 Intake and Output for Last 24 Hours 09/09/18 09/10/18 09/11/18 23:59 23:59 23:59 Intake Total 956 / 956 Balance 956 / 956 General: Alert, Oriented x3, Cooperative HEENT: Atraumatic, PERRLA, EOMI, Normocephalic Neck: Supple, No JVD, Negative Carotid Bruits Lungs: Clear to auscultation, Normal air movement, No rhonchi, No wheeze, No rales Cardiovascular: Regular rate, Regular Rhythm, Normal S1, Normal S2, No murmurs Abdomen: Bowel Sounds Present, Soft, Non-Distended, Tender Extremities: No edema, Capillary Refill Less than 3 Seconds Skin: No rashes, No breakdown Musculoskeletal: No Tenderness to Palpation of Joints or Extremities, Arthritic Changes Neurological: Cranial nerves II-XII grossly intact, Deep Tendon Reflexes 2+/4 and Symmetrical, Neuro grossly intact Psych/Mental Status: Normal Affect, Appropriate Laboratory Results 09/10/18 19:35: WBC 8.4, RBC 5.41 H, Hgb 12.0, Hct 38.8, MCV 71.7 L, MCH 22.2 L, MCHC 30.9 L, RDW 14.8 H, RDW Differential 39.2, Plt Count 457 H, MPV 10.8, Immature Gran % (Auto) 0.000, Neut % (Auto) 69.2, Lymph % (Auto) 26.8, Slope % (Auto) 3.6, Eos % (Auto) 0.2, Baso % (Auto) 0.2, Absolute Neuts (auto) 5.8, Absolute Lymphs (auto) 2.25, Total Counted Not Reportable, Platelet Estimate SLT INC, Anisocytosis 1+, Microcytosis 1+, Ovalocytes 1+ 09/10/18 19:35: Sodium 141, Potassium 3.9, Chloride 106, Carbon Dioxide 25.0, Anion Gap 10, BUN 13, Creatinine 1.08 H, Estim Creat Clear Calc 71.75, Est GFR (MDRD) Af Amer 83, Est GFR (MDRD) Non-Af 69, BUN/Creatinine Ratio 12.0, Glucose 88, Calcium 9.7, Total Bilirubin 0.50, AST 18, ALT 31, Alkaline Phosphatase 76, Total Protein 9.0 H, Albumin 4.9, Globulin 4.1, Albumin/Globulin Ratio 1.2, Lipase 110 09/10/18 19:35: Serum , Qual NEGATIVE 09/10/18 19:35: Phosphorus 4.6, Magnesium 2.2, TSH 0.54 09/10/18 22:48: Urine Opiates Screen NEGATIVE, Urine Methadone Screen NEGATIVE, Ur Barbiturates Screen NEGATIVE, Ur Phencyclidine Scrn NEGATIVE, Ur Amphetamines Screen NEGATIVE, U Methamphetamin-MDMA NEGATIVE, U Benzodiazepines Scrn NEGATIVE, Urine Cocaine Screen NEGATIVE, U Cannabinoids Screen NEGATIVE, Ur Drug Screen Comment 09/11/18 05:25: WBC 8.8, RBC 4.85, Hgb 10.7 L, Hct 34.3 L, MCV 70.7 L, MCH 22.1 L, MCHC 31.2 L, RDW 14.9 H, RDW Differential 37.2, Plt Count 340, MPV 10.9, Immature Gran % (Auto) 0.200, Neut % (Auto) 85.0 H, Lymph % (Auto) 12.6 L, Slope % (Auto) 2.1, Eos % (Auto) 0.0, Baso % (Auto) 0.1, Absolute Neuts (auto) 7.5, Absolute Lymphs (auto) 1.11, Total Counted Not Reportable, Differential Comment SCAN, Platelet Estimate ADEQUATE, Hypochromasia 1+, Anisocytosis 1+, Microcytosis 1+ 09/11/18 05:25: Sodium 141, Potassium 4.0, Chloride 107, Carbon Dioxide 22.0, Anion Gap 12, BUN 11, Creatinine 0.77, Estim Creat Clear Calc 100.64, Est GFR (MDRD) Af Amer 122, Est GFR (MDRD) Non-Af 101, BUN/Creatinine Ratio 14.2, Glucose 109 H, Calcium 9.1, Total Bilirubin 0.30, AST 15, ALT 29, Alkaline Phosphatase 69, Total Protein 8.1, Albumin 4.1, Globulin 4.0, Albumin/Globulin Ratio 1.0 Current Medications Acetaminophen (Tylenol) 650 mg PO Q6H PRN PRN PRN Reason: Non-cardiac pain (mod-severe) Al Hydroxide/Mg Hydroxide (Mylanta Ii) 15 - 30 ml PO Q4H PRN PRN PRN Reason: INDIGESTION Albuterol Sulfate (Ventolin Aerosols) 2.5 mg INHALATION Q2H PRN PRN PRN Reason: dyspnea, wheezing Amitriptyline HCl (Elavil) 100 mg PO QHS [facility] Last Admin: 09/11/18 00:25 Dose: Not Given Chlorpromazine HCl (Thorazine) 45 mg 0.5 mg/kg (45 mg) IV .X1 PRN PRN PRN Reason: intractable severe N/V Dicyclomine HCl (Bentyl) 20 mg PO TIDAC PRN PRN Reason: PAIN Diphenhydramine HCl (Benadryl) 25 mg IV Q6H [facility] Stop: 09/11/18 11:55 Last Admin: 09/11/18 04:47 Dose: 25 mg Hydralazine HCl (Apresoline Iv) 10 mg IV Q4H PRN PRN PRN Reason: SBP > 160 Sodium Chloride () 1,000 mls @ 150 mls/hr IV .Q6H40M [facility] Last Admin: 09/11/18 05:54 Dose: 150 mls/hr Pantoprazole Sodium 40 mg/ (Sodium Chloride) 110 mls @ 330 mls/hr IV Q12 [facility] Last Admin: 09/11/18 09:39 Dose: 330 mls/hr Ketorolac Tromethamine (Toradol) 30 mg IV Q8 [facility] Stop: 09/12/18 06:01 Last Admin: 09/11/18 05:54 Dose: 30 mg Ondansetron HCl (Zofran) 4 mg IV Q6H PRN PRN PRN Reason: nausea, emesis Last Admin: 09/11/18 03:28 Dose: 4 mg Promethazine HCl (Phenergan) 12.5 mg IV Q6 [facility] Stop: 09/11/18 12:01 Last Admin: 09/11/18 05:54 Dose: 12.5 mg Sodium Chloride () 5 - 15 ml IV UD PRN PRN Reason: SALINE FLUSH Temazepam (Restoril) 15 mg PO QHS PRN PRN PRN Reason: INSOMNIA Medical Necessity - Tobacco Use Smoking Status: Never smoker Tobacco Use: Non-smoker Assessment/Plan All Active Problems Intractable nausea and vomiting (Acute) This is a 18-year-old female with recurrent admission for persistent nausea and vomiting, intractable in nature. SHe had extensive evaluation for cause of nausea and vomiting in [facility] and later labeled to be cyclical vomiting syndrome. She was admitted for intractable nausea and vomiting and abdominal so due to retching and vomiting, 10 x 10 intensity and not able to keep food or fluid in the stomach. 1. Intractable nausea and vomiting due to cyclic vomiting syndrome -patient is on amitriptyline, Thorazine, Zofran, Phenergan. He is also on IV PPI, Bentyl. Benadryl. Labs reviewed. Electrolytes within normal limits. LFT within normal limit. H&H was hemoconcentrated. H&H 12.0-38.8 dropped to 10.7/34.3. No obvious GI bleed. Decreased IV fluid. Encouraged p.o. intake. 2. HTN - likely pain and N/V related - prn hydralazine 3. Anxiety / Depression -during previous admission in September 2016 patient had refused for evaluation for anxiety or depression. DVT ppx : not indicated Active Medications Acetaminophen (Tylenol) 650 mg PO Q6H PRN PRN PRN Reason: Non-cardiac pain (mod-severe) Al Hydroxide/Mg Hydroxide (Mylanta Ii) 15 - 30 ml PO Q4H PRN PRN PRN Reason: INDIGESTION Albuterol Sulfate (Ventolin Aerosols) 2.5 mg INHALATION Q2H PRN PRN PRN Reason: dyspnea, wheezing Amitriptyline HCl (Elavil) 100 mg PO QHS [facility] Last Admin: 09/11/18 00:25 Dose: Not Given Chlorpromazine HCl (Thorazine) 45 mg 0.5 mg/kg (45 mg) IV .X1 PRN PRN PRN Reason: intractable severe N/V Dicyclomine HCl (Bentyl) 20 mg PO TIDAC PRN PRN Reason: PAIN Diphenhydramine HCl (Benadryl) 25 mg IV Q6H [facility] Stop: 09/11/18 11:55 Last Admin: 09/11/18 04:47 Dose: 25 mg Hydralazine HCl (Apresoline Iv) 10 mg IV Q4H PRN PRN PRN Reason: SBP > 160 Sodium Chloride () 1,000 mls @ 150 mls/hr IV .Q6H40M [facility] Last Admin: 09/11/18 05:54 Dose: 150 mls/hr Pantoprazole Sodium 40 mg/ (Sodium Chloride) 110 mls @ 330 mls/hr IV Q12 [facility] Last Admin: 09/11/18 09:39 Dose: 330 mls/hr Ketorolac Tromethamine (Toradol) 30 mg IV Q8 [facility] Stop: 09/12/18 06:01 Last Admin: 09/11/18 05:54 Dose: 30 mg Ondansetron HCl (Zofran) 4 mg IV Q6H PRN PRN PRN Reason: nausea, emesis Last Admin: 09/11/18 03:28 Dose: 4 mg Promethazine HCl (Phenergan) 12.5 mg IV Q6 [facility] Stop: 09/11/18 12:01 Last Admin: 09/11/18 05:54 Dose: 12.5 mg Sodium Chloride () 5 - 15 ml IV UD PRN PRN Reason: SALINE FLUSH Temazepam (Restoril) 15 mg PO QHS PRN PRN PRN Reason: INSOMNIA Code Visit Inpatient E&M: 84411 Subs Hosp L3 OBSV E&M: 64326 Subsequent observation care L3
[2018-09-11] MEDS: Dextrose 5%-0.2% NS 1,000 ML 75 ML IV (11:49)
[2018-09-11 14:45] VITALS: BP 148/100; PULSE 82; RESP 16; TEMP 36.9; O2SAT 100
[2018-09-11] MEDS: Dicyclomine 10 MG Capsule 20 MG PO (19:25)
[2018-09-11 22:30] VITALS: BP 145/99; PULSE 82; RESP 18; TEMP 37.1; O2SAT 100
[2018-09-11] MEDS: Amitriptyline 100 MG Tablet PO (22:38)
[2018-09-11] MEDS: Temazepam 15 MG Capsule PO (22:48)
[2018-09-11 23:00] VITALS: O2SAT 100
[2018-09-12] MEDS: Dextrose 5%-0.2% NS 1,000 ML 75 ML IV (01:25)
[2018-09-12 04:49] VITALS: BP 109/71; PULSE 70; RESP 16; TEMP 36.3; O2SAT 100
[2018-09-12] MEDS: Ondansetron 4 MG/2 ML Vial IV (04:51)
[2018-09-12] MEDS: Dicyclomine 10 MG Capsule 20 MG PO (04:51)
[2018-09-12] MEDS: Ketorolac 30 MG/ML Syringe IV (06:07)
[2018-09-12 09:51] VITALS: BP 135/68; PULSE 90; RESP 18; TEMP 36.8; O2SAT 100
--- NOTE | 2018-09-12 11:03 | DCINST_ITS ---
- Discharge Diagnoses Current Active Problems: Current Active and Chronic Problems Cyclic vomiting syndrome (Chronic) Obesity (BMI 30.0-34.9) (Chronic) You will use the following diet at home:: Regular - Gradually advance from clear liquid to regular diet as per tolerated Your food should be the consistency of: Regular Discharge Activity: May Not Drive - For 2 to 3 days Call your doctor if you observe: Fever of 101 or Higher, Inability to urinate, Inability to have a bowel movement, Using more than one pad per hour, Shortness of breath, Fainting spells, Chest pain, Prolonged hiccoughing, Increased palpitations (irregular heartbeat), Uncontrolled pain Allergies/Adverse Reactions: Allergies No Known Allergies Allergy (Verified 09/11/18 00:10) Medications to take at Discharge Amitriptyline HCl 50 mg PO QHS 02/26/16 Norgestimate-Ethinyl Estradiol [Previfem] 1 tab PO DAILY 12/23/17 Omeprazole 40 mg PO DAILY 12/23/17 Dicyclomine HCl [Bentyl] 20 mg PO TIDAC PRN #20 cap 06/30/18 proMETHazine tablet [Phenergan tablet] 25 mg PO Q4H PRN PRN #10 tab 08/26/18 Ondansetron [Zofran Odt] 4 mg PO Q8H PRN PRN #20 tablet 09/12/18 The following prescriptions were given: Ondansetron [Zofran Odt] 4 mg PO Q8H PRN PRN #20 tablet PRN Reason: Vomiting Primary Care Physician: Fanny Sharif MD [Primary Care Provider] - Please follow up with your Primary Care Physician in: In 2 weeks Test Results: Test results from this visit will be discussed in further detail at your follow- up appointment, if applicable.
--- NOTE | 2018-09-12 11:03 | DS.PCM_ITS ---
Discharge Date and Diagnosis Date of Admission: 09/10/18 Date of Discharge: 09/12/18 - Primary Discharge Diagnosis Cyclical vomiting syndrome with intractable nausea and vomiting - Secondary Discharge Diagnosis Chronic Problems Cyclic vomiting syndrome (Chronic) Obesity (BMI 30.0-34.9) (Chronic) Hospital Course and Treatment Operations: None Summary of Care Provided: [] This is a 18-year-old female with recurrent admission for persistent nausea and vomiting, intractable in nature. SHe had extensive evaluation for cause of nausea and vomiting in [facility] and later labeled to be cyclical vomiting syndrome. She was admitted for intractable nausea and vomiting and abdominal so due to retching and vomiting, 10 x 10 intensity and not able to keep food or fluid in the stomach. 1. Intractable nausea and vomiting due to cyclic vomiting syndrome -patient is on amitriptyline, Thorazine, Zofran, Phenergan. He is also on IV PPI, Bentyl. Benadryl. Labs reviewed. Electrolytes within normal limits. LFT within normal limit. H&H was hemoconcentrated. H&H 12.0-38.8 dropped to 10.7/34.3. No obvious GI bleed. Decreased IV fluid. The patient is tolerating clear liquid diet. No further vomiting for more than 12 hours. Patient is currently stable to be discharged home on Zofran, Phenergan and amitriptyline. She did not require Thorazine. 2. HTN - likely pain and N/V related - prn hydralazine. Blood pressure is controlled. 3. Anxiety / Depression -during previous admission in September 2016 patient had ref used for evaluation for anxiety or depression. DVT ppx : not indicated Discharge medication reconciliation done. Discharge follow-up instructions completed. Discharge process discussed with the patient and patient's mother and all questions were answered to patient's satisfaction Subjective: Patient feels better. Had vomiting since last night. Able to drink clear liquid. Currently patient is sleeping. Had nausea and retching in the morning. - Physical Exam General: - - Sleeping but wakes up. HEENT: Atraumatic - Sleeping, PERRLA, EOMI, Normocephalic Neck: Supple, No JVD, Negative Carotid Bruits Lungs: Clear to auscultation, Normal air movement, No rhonchi, No wheeze, No rales Cardiovascular: Regular rate, Regular Rhythm, Normal S1, Normal S2, No murmurs Abdomen: Bowel Sounds Present, Soft, Non Tender, Non-Distended Extremities: No edema, Capillary Refill Less than 3 Seconds Skin: No rashes, No breakdown Musculoskeletal: No Tenderness to Palpation of Joints or Extremities Lymphatic: No Cervical, Supraclavicular, or Inguinal Adenopathy Neurological: Cranial nerves II-XII grossly intact, Deep Tendon Reflexes 2+/4 and Symmetrical, Neuro grossly intact, Motor Exam 5/5 strength throughout Vital Signs Temp Pulse Resp BP Pulse Ox 98.3 F 90 18 135/68 H 100 09/12/18 09:51 09/12/18 09:51 09/12/18 09:51 09/12/18 09:51 09/12/18 09:51 Oxygen Delivery Method Room Air Weight: 197 lb 12.074 oz Body Mass Index (BMI) 33.9 Intake and Output for Last 24 Hours 09/10/18 09/11/18 09/12/18 23:59 23:59 23:59 Intake Total 2315 / 2315 1036 / 1036 Output Total 1250 / 1250 Balance 2315 / 2315 -214 / -214 Discharge Activity: May Not Drive - For 2 to 3 days Call your doctor if you observe: Fever of 101 or Higher, Inability to urinate, Inability to have a bowel movement, Using more than one pad per hour, Shortness of breath, Fainting spells, Chest pain, Prolonged hiccoughing, Increased palpitations (irregular heartbeat), Uncontrolled pain Home Medications: Medications to take at Discharge Amitriptyline HCl 50 mg PO QHS 02/26/16 Norgestimate-Ethinyl Estradiol [Previfem] 1 tab PO DAILY 12/23/17 Omeprazole 40 mg PO DAILY 12/23/17 Dicyclomine HCl [Bentyl] 20 mg PO TIDAC PRN #20 cap 06/30/18 proMETHazine tablet [Phenergan tablet] 25 mg PO Q4H PRN PRN #10 tab 08/26/18 Ondansetron [Zofran Odt] 4 mg PO Q8H PRN PRN #20 tablet 09/12/18 Following Prescrptions Were Given to Patient: Ondansetron [Zofran Odt] 4 mg PO Q8H PRN PRN #20 tablet PRN Reason: Vomiting Primary Care Physician: Fanny Sharif MD [Primary Care Provider] - Please follow up with your Primary Care Physician in: In 2 weeks Medical Necessity - Tobacco Use Smoking Status: Never smoker Tobacco Use: Non-smoker Meaningful Use Info Meaningful Use Diagnoses (Choose all that apply): None applicable Code Visit Inpatient E&M: 72277 Disch Hosp
== END 2018-09-12 11:57 | disposition home or self-care (01) ==
LOC: ED 19:52 → MS3 23:09
PROVIDERS: Admitting Provider Family Medicine; Emergency Provider Emergency Medicine; Family Provider Pediatrics; PCP Pediatrics; Visit Provider Internal Medicine
DX: G43.A1 Cyclical vomiting, in migraine, intractable (principal); E66.9 Obesity, unspecified; Z71.3 Dietary counseling and surveillance; K21.9 Gastro-esophageal reflux disease without esophagitis; F41.9 Anxiety disorder, unspecified; F32.9 Major depressive disorder, single episode, unspecified; I10 Essential (primary) hypertension
CPT/HCPCS: 36415; 80053; 80307; 83690; 83735; 84100; 84443; 84703; 85025; 96361; 96365; 96366; 96367; 96375; 96376; 99218; 99285; J7030; A4216; G0378; J2405; J3490

== ENCOUNTER 2018-10-03 20:19 | Emergency (ER) | payer MEDICAID, SELFPAY ==
[2018-10-03 20:19] VITALS: BP 156/101; PULSE 117; RESP 15; TEMP 36.8; BMI 32.1
[2018-10-03] MEDS: proMETHazine 25 MG/ML Syringe 6.25 MG IV (21:24)
[2018-10-03] MEDS: DiphenhydrAMINE 50 MG/ML Syringe 25 MG IV (21:24)
[2018-10-03] MEDS: 0.9% Normal Saline 1,000 ML 999 ML IV (21:24)
[2018-10-03] MEDS: LORazepam 2 MG/ML Syringe 0.5 MG IV (21:25)
--- NOTE | 2018-10-03 21:56 | ED.DCSUM_ITS ---
- ER Visit Summary Date of Service: 10/03/18 Chief Complaint: Vomiting History of Present Illness: The patient is a 18 F presenting with vomiting. She states this started earlier today. She states that she has had over 20 episodes of vomiting today. She tried Zofran at home. She has history of cyclic vo miting syndrome with multiple visits with similar complaints. She denies fever. Denies possibility of . Physical Examination: Vitals are stable. Patient is afebrile. Alert no acute distress. HEENT exam dry mucous membranes Neck is supple. Lungs are clear and equal bilaterally. Heart is regular and tachycardic Abdomen is soft nontender nondistended. No guarding or rebound Extremities are unremarkable. Skin is warm and dry. No focal neurologic deficit. Remainder of exam is unremarkable. Emergency Department Course and Treatment: Patient given IV fluids, Phenergan, Benadryl, Ativan. On reevaluation, patient is improved. She is requesting a prescription for Bentyl. She is given prescription for Bentyl and Phenergan. She is advised to follow-up with her primary care physician. Advised return to ED if worsening complaints. Disposition: Discharge home Impression: Vomiting with history of cyclic vomiting syndrome This note was generated with [employer] dictation software. It may contain incorrect words, spelling, and punctuation that were not noted in review of the chart prior to signing ED Disposition - Plan for ED Patient: Instructions: ED Nausea Vomiting Prescriptions: proMETHazine tablet [Phenergan] 25 mg PO Q6H PRN PRN #10 tablet PRN Reason: Nausea Dicyclomine HCl [Bentyl] 20 mg PO TIDAC #20 capsule Referrals: Fanny Sharif MD [Primary Care Provider] -
--- NOTE | 2018-10-03 22:12 | ED.DEP ---
ED Disposition - Plan for ED Patient: Instructions: ED Nausea Vomiting Prescriptions: proMETHazine tablet [Phenergan] 25 mg PO Q6H PRN PRN #10 tablet PRN Reason: Nausea Dicyclomine HCl [Bentyl] 20 mg PO TIDAC #20 capsule Referrals: Fanny Sharif MD [Primary Care Provider] -
[2018-10-03] MEDS: Ondansetron 4 MG/2 ML Vial IV (22:32)
[2018-10-03] MEDS: Ketorolac 30 MG/ML Syringe IV (22:35)
[2018-10-03] MEDS: Dicyclomine 10 MG Capsule 20 MG PO (23:18)
[2018-10-03 23:26] VITALS: BP 144/106; PULSE 94; RESP 18; O2SAT 100
--- NOTE | 2018-10-03 23:26 | ED.RN ---
REVALED PATIENT AFTER MEDICATION. PATIENT ASLEEP IN BED SNORING. PER MOTHER SHE FEELS COMFORTABLE TAKING PATIENT HOME AT THIS TIME. DISCHARGE INSTRUCTIONS OBTAINED. CAME BACK INTO THE ROOM AND PATIENT IS DRY HEAVING AT THIS TIME. WATER GIVEN TO PATIENT ABLE TO KEEP DOWN. ORAL BENTYL GIVEN TO PATIENT. PATIENT ABLE TO KEEP MEDICATION DOWN. PATIENT DISCHARGED AT THIS TIME
== END 2018-10-03 23:28 | disposition home or self-care (01) ==
LOC: ED 20:49
PROVIDERS: Emergency Provider Emergency Medicine; Family Provider Pediatrics; PCP Pediatrics
DX: G43.A0 Cyclical vomiting, in migraine, not intractable (principal)
CPT/HCPCS: 96361; 96374; 96375; 99283; J7030; J2405

== ENCOUNTER 2018-10-09 19:12 | Emergency (ER) | payer MEDICAID, SELFPAY ==
[2018-10-09 19:12] VITALS: BP 162/106; PULSE 117; RESP 22; TEMP 36.7; O2SAT 99; BMI 34.0
[2018-10-09] MEDS: 0.9% Normal Saline 1,000 ML 999 ML IV (21:00)
--- NOTE | 2018-10-09 21:57 | ED.VIS.GEN ---
History of Present Illness Chief Complaint: Nausea/Vomiting Informant: Patient Onset: Hours - 24 Context: Gradual Onset Timing: Continuous Quality: pain Location: upper abd Current Severity: Severe Maximum Severity: Severe Worsened by: eating/drinking/vomiting Relieved by: nothing Associated Symptoms: n/v, no blood/coffee-ground emesis Narrative: Patient states she feels she is having a flareup of her cyclic vomiting syndrome. No fevers or diarrhea, urinating okay, no syncope. Prior similar symptoms: Yes - cyclic vtg - Past Medical History (1) Cyclic vomiting syndrome Status: Chronic Past Medical History - Allergies and Home Meds Allergies/Adverse Reactions: Allergies No Known Allergies Allergy (Verified 10/09/18 20:54) Primary Care Physician: Fanny Sharif MD [Primary Care Provider] - Surgical History: no surgical history Lives: Roommate Smoking Status: Never smoker - Family History Maternal Family History: Reports: - - Patient denies any marked maternal or paternal family history including heart disease, diabetes or cancer. Paternal Family History: Reports: - - Patient denies any marked maternal or paternal family history including heart disease, diabetes or cancer. Review of Systems General: Reports: Malaise. Denies: Chills, Fever, Sweats Eyes: Denies: Visual changes - bilaterally, Diplopia ENT: Denies: Rhinorrhea, Sore throat Cardiovascular: Denies: Chest pain, Palpitations Respiratory: Denies: Dyspnea, Cough, Dyspnea on exertion Gastrointestinal: Reports: Abdominal pain, Nausea, Vomiting. Denies: Diarrhea, Melena, Hematochezia Genitourinary: Denies: Dysuria, Hematuria, Frequency Musculoskeletal: Denies: Back pain, Extremity Pain Skin: Denies: Rash, Wounds Neurological: Denies: Headache, Weakness, Numbness Physical Exam Vital Signs/Narrative: Vital Signs Temp Pulse Resp BP Pulse Ox 10/09/18 19:12 98.0 F 117 H 22 H 162/106 H 99 Inital Vital Signs reviewed: Yes General: Well nourished, Well developed, No Acute Distress Head: Normocephalic, Atraumatic Eyes: Perrl, EOMI ENT: Moist mucous membranes, No rhinorrhea Neck: Supple, Nontender Cardiovascular: Regular rate, Regular rhythm, No murmurs, Tachycardia Respiratory: No distress, CTA bilaterally, Chest nontender Abdomen: Soft, Nondistended, Normal bowel sounds, Tender - Throughout upper abdomen, mostly epigastrium. Negative for: Guarding, Rebound tenderness Back: Nontender, Normal Inspection Extremities: Nontender, No edema Skin: Normal color, No rash, No Trauma Neurological: Alert, Oriented x3, Cranial nerves II-XII grossly intact, Normal Strength, Normal Sensation Psychological: - - anxious Diagnostic/Tx/Re-eval - Medical Decision Making Patient is frequent visitor to this emergency department with the symptoms. She was treated with a couple liters of IV fluid, initially Thorazine, morphine, she had some improvement but not a lot. We then added IV Zofran and IM Bentyl. She is feeling much better and she and her sister are comfortable taking her home. ED Disposition - Plan for ED Patient: Disposition: Home or Assisted Living Diagnosis: Cyclic vomiting syndrome Instructions: ED Nausea Vomiting Referrals: Fanny Sharif MD [Primary Care Provider] - 1-2 Days if not improving
[2018-10-09] MEDS: Morphine 4 MG/ML Syringe IV (22:05)
[2018-10-09] MEDS: ChlorproMAZINE 50 MG/2 ML Ampul 25 MG IV (22:05)
[2018-10-09] MEDS: DiphenhydrAMINE 50 MG/ML Syringe 25 MG IV (22:05)
[2018-10-09] MEDS: Ondansetron 4 MG/2 ML Vial IV (23:40)
[2018-10-09] MEDS: Dicyclomine 20 MG/2 ML Vial IM (23:41)
[2018-10-09 23:43] VITALS: BP 142/90; PULSE 72; RESP 16
[2018-10-10 00:57] VITALS: BP 142/77; PULSE 85; RESP 16; O2SAT 100
== END 2018-10-10 00:57 | disposition home or self-care (01) ==
PROVIDERS: Emergency Provider Emergency Medicine; Family Provider Pediatrics; PCP Pediatrics
DX: G43.A0 Cyclical vomiting, in migraine, not intractable (principal)
CPT/HCPCS: 96361; 96372; 96374; 96375; 99285; J7030; J7040; A4216; J2405

== ENCOUNTER 2018-11-03 17:46 | Emergency (ER) | payer MEDICAID, SELFPAY ==
[2018-11-03 17:46] VITALS: BP 154/104; PULSE 78; RESP 22; TEMP 36.1; O2SAT 100; BMI 33.3
--- NOTE | 2018-11-03 18:06 | ED.DCSUM_ITS ---
- ER Visit Summary Date of Service: 11/03/18 Chief Complaint: Cyclic vomiting History of Present Illness: The patient is a 18 F who presents with cyclic vomiting that became worse over the past 3 days. Patient states she has been unable to keep anything down. Patient states this is similar to prior episodes of her cyclic vomiting. Patient denies any hematemesis or coffee-ground emesis. Patient admits to left upper quadrant abdominal pain. Patient describes the pain as sharp. Patient states nothing makes the pain better or worse. Patient denies any diarrhea, melena, or hematochezia. Patient denies any dysuria hematuria. Patient denies any abnormal vaginal bleeding or discharge. Physical Examination: Vital signs are stable. Patient is afebrile. Patient is in no acute distress. Oromucosa is pink and moist. Neck is supple. Trachea is midline. There is no JVD noted. Heart was regular rate and rhythm. Lungs are clear and equal bilaterally. Abdomen is soft. Bowel sounds are normal. There is left upper quadrant tenderness. There is no rebound or guarding noted. Cranial nerves II through XII are intact. There are no focal motor or sensory deficits noted. Emergency Department Course and Treatment: Patient was given IV fluids, Phenergan, Bentyl, Thorazine, and Benadryl. Patient began complaining of tingling in her hands and feet. Patient was given a dose of Ativan here. Patient felt better after this and wants to go home. 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 Patient and family understood and were agreeable with plan. All questions were answered. Disposition: Discharge home Impression: Cyclic vomiting syndrome This note was generated with [employer] dictation software. It may contain incorrect words, spelling, and punctuation that were not noted in review of the chart prior to signing ED Disposition - Plan for ED Patient: Disposition: Home or Assisted Living Diagnosis: Cyclic vomiting syndrome Instructions: VOMITING (4y-Adult) Referrals: Fanny Sharif MD [Primary Care Provider] - 3-5 Days
[2018-11-03] MEDS: Dicyclomine 20 MG/2 ML Vial IM (18:28)
[2018-11-03] MEDS: proMETHazine 25 MG/ML Syringe 6.25 MG IV (18:28)
[2018-11-03] MEDS: 0.9% Normal Saline 1,000 ML 1000 ML IV (18:28)
[2018-11-03 20:48] VITALS: BP 134/84; PULSE 87; RESP 18; O2SAT 99
== END 2018-11-03 20:48 | disposition home or self-care (01) ==
PROVIDERS: Emergency Provider Emergency Medicine; Family Provider Pediatrics; PCP Pediatrics
DX: G43.A0 Cyclical vomiting, in migraine, not intractable (principal); R20.2 Paresthesia of skin
CPT/HCPCS: 96365; 96372; 96374; 99283; J7030; A4216; J3490

== ENCOUNTER 2018-11-04 12:55 | Emergency (ER) | payer MEDICAID, SELFPAY ==
[2018-11-03 17:46] VITALS: BMI 33.3
[2018-11-04 12:55] VITALS: BP 160/102; PULSE 75; RESP 16; TEMP 36.8; BMI 33.1
[2018-11-04] MEDS: LORazepam 2 MG/ML Syringe 1 MG IV (13:20)
[2018-11-04] MEDS: 0.9% Normal Saline 1,000 ML 1000 ML IV (13:20)
[2018-11-04] MEDS: Ondansetron 4 MG/2 ML Vial IV (13:20)
[2018-11-04] MEDS: 0.9% Normal Saline 1,000 ML 999 ML IV (13:20)
[2018-11-04] MEDS: Ziprasidone IM 20 MG/ML VIAL IM (13:21)
--- NOTE | 2018-11-04 13:22 | ED.DCSUM_ITS ---
History of Present Illness Chief Complaint: Nausea/Vomiting Informant: Patient, Family Onset: Days Current Severity: Mild Narrative: Patient has a history of cyclic vomiting syndrome presents with similar symptoms protracted vomiting she was seen yesterday in the emergency department work-up was unremarkable she improved and felt better went home and woke today and had persistence of vomiting per the patient and the family she has had extensive prior work-up in the [facility] area physicians with imaging studies multiple types scopes other procedures are unremarkable she was never told she required surgery per the father the physicians in [place] do not have any other management options for her and when she suffers exacerbations she comes to the emergency department. She was seen yesterday and treated she felt better than again this morning had recurrence of symptoms currently on her menstrual cycle which at times can trigger her cyclic vomiting but her menstrual cycles are very mild no other concurrent exacerbate her's Past Medical History - Allergies and Home Meds Allergies/Adverse Reactions: Allergies No Known Allergies Allergy (Verified 11/04/18 12:57) Primary Care Physician: Fanny Sharif MD [Primary Care Provider] - Past Medical History: - - As above Surgical History: no surgical history Smoking Status: Never smoker - Family History Maternal Family History: Reports: - - Patient denies any marked maternal or paternal family history including heart disease, diabetes or cancer. Paternal Family History: Reports: - - Patient denies any marked maternal or paternal family history including heart disease, diabetes or cancer. Review of Systems General: Denies: Chills, Fever, Sweats Eyes: Denies: Visual changes - bilaterally, Diplopia ENT: Denies: Rhinorrhea, Sore throat Cardiovascular: Denies: Chest pain, Palpitations Respiratory: Denies: Dyspnea, Cough, Dyspnea on exertion Gastrointestinal: Reports: Nausea, Vomiting. Denies: Abdominal pain, Diarrhea, Melena, Hematochezia Genitourinary: Denies: Dysuria, Hematuria, Frequency Musculoskeletal: Denies: Back pain, Extremity Pain Skin: Denies: Rash, Wounds Neurological: Denies: Headache, Weakness, Numbness Physical Exam Vital Signs/Narrative: Vital Signs Temp Pulse Resp BP 11/04/18 12:55 98.2 F 75 16 160/102 H General: Well nourished, Well developed, No Acute Distress Head: Normocephalic, Atraumatic Eyes: Perrl, EOMI ENT: Moist mucous membranes, No rhinorrhea Neck: Supple, Nontender Cardiovascular: Regular rate, Regular rhythm, No murmurs Respiratory: No distress, CTA bilaterally, Chest nontender Abdomen: Soft, Nontender, Nondistended, Normal bowel sounds Back: Nontender, Normal Inspection Extremities: Nontender, No edema Skin: Normal color, No rash Neurological: Alert, Oriented x3, Cranial nerves II-XII grossly intact, Normal Strength, Normal Sensation Psychological: Normal affect, Normal Mood Diagnostic/Tx/Re-eval - Medical Decision Making Patient's physical exam is generally unremarkable no acute findings on the abdominal exam really no pain just sense of protracted vomiting and nausea this time we will provide IV fluids Ativan Geodon as Thorazine because sense of uneasiness and the patient We were unable to obtain blood draw lab tried as well, except for hCG that was negative after IV fluids therapy as above the patient symptoms resolved no vomiting this time patient was discharged home on Zofran follow-up for outpatient providers for further management Home stable Final impression Acute recurrent vomiting syndrome ED Disposition - Plan for ED Patient: Diagnosis: Intractable nausea and vomiting, Cyclic vomiting syndrome Instructions: VOMITING (4y-Adult) Prescriptions: Ondansetron [Zofran Odt] 4 mg PO Q8H PRN PRN #10 tab PRN Reason: Nausea Prescription Printed Referrals: Fanny Sharif MD [Primary Care Provider] -
[2018-11-04 14:18] LABS: Internal QC Validated? YES +Cl - CLEAR BKGD; Pregnancy, Serum, hCG Quali. NEGATIVE Negative
[2018-11-04 15:36] VITALS: PULSE 87; RESP 16
== END 2018-11-04 15:37 | disposition home or self-care (01) ==
LOC: ED 13:26
PROVIDERS: Emergency Provider Emergency Medicine; Family Provider Pediatrics; PCP Pediatrics
DX: G43.A1 Cyclical vomiting, in migraine, intractable (principal)
CPT/HCPCS: 36415; 84703; 96361; 96372; 96374; 96375; 99283; J7030; A4216; J2405; J3486

== ENCOUNTER 2018-11-05 16:47 | Emergency (ER) | payer MEDICAID, SELFPAY ==
[2018-11-04 12:55] VITALS: BMI 33.1
[2018-11-05 16:48] VITALS: BP 162/116; PULSE 83; RESP 17; TEMP 36.1; O2SAT 100; BMI 32.5
--- NOTE | 2018-11-05 17:03 | ED.VISSUMM ---
- ER Visit Summary Date of Service: 11/05/18 Chief Complaint: Vomiting History of Present Illness: The patient is a 18 F who presents with nausea and vomiting that became worse again today. Patient has a history of cyclic vomiting syndrome. Patient has been seen here in the last 2 days and was treated. Patient felt better when she was discharged. Patient states that the vomiting came back again today. Patient denies any hematemesis or coffee-ground emesis. Patient states she has some pain over her upper abdomen. Patient states nothing makes it better or worse. Patient denies any diarrhea, melena, or hematochezia. Patient denies any dysuria or hematuria. Physical Examination: Vital signs are stable. Patient is afebrile. Patient is in no acute distress. Oral mucosa is pink and moist. Neck is supple. Trachea is midline. There is no JVD noted. Heart was regular rate and rhythm. Lungs are clear and equal bilaterally. Abdomen is soft. Bowel sounds are normal. There is some mild upper abdominal tenderness. There is no rebound or guarding noted. Cranial nerves II through XII are intact. There are no focal motor or sensory deficits noted. Test Results: CBC and comprehensive metabolic profile were within normal limits. Lipase was normal. Emergency Department Course and Treatment: Patient was given IV fluids, Zofran, Benadryl, and Ativan initially. Patient was also given an IM injection of Bentyl. Patient was sleeping on reevaluation. Patient is feeling better patient had no further episodes of vomiting. Patient was given a prescription for Bentyl. Patient was instructed to follow-up with her primary care physician in 3 to 5 days. Patient and her father understood and were agreeable with the plan. All questions were answered. Disposition: Discharge home Impression: Cyclic vomiting This note was generated with [employer] dictation software. It may contain incorrect words, spelling, and punctuation that were not noted in review of the chart prior to signing ED Disposition - Plan for ED Patient: Disposition: Home or Assisted Living Diagnosis: Cyclic vomiting syndrome Prescriptions: Dicyclomine HCl [Bentyl] 20 mg PO TIDAC #20 cap Prescription Printed Referrals: Fanny Sharif MD [Primary Care Provider] - 3-5 Days
[2018-11-05] MEDS: Dicyclomine 20 MG/2 ML Vial IM (17:52)
--- NOTE | 2018-11-05 18:31 | ED.RN ---
IV ATTEMPTS 8 X BY MULTIPLE STAFF. BLOOD WORK. IV FLUSHED. PT REPORTS PAINFUL.
[2018-11-05] MEDS: Ondansetron 4 MG/2 ML Vial IV (18:37)
[2018-11-05] MEDS: DiphenhydrAMINE 50 MG/ML Syringe 25 MG IV (18:37)
[2018-11-05] MEDS: LORazepam 2 MG/ML Syringe 0.5 MG IV (18:39)
[2018-11-05] MEDS: 0.9% Normal Saline 1,000 ML 1000 ML IV (18:42)
[2018-11-05 18:53] LABS: Absolute Lymphocyte Count 2.25 X10^3/ul (0.83-4.51); Absolute Neutrophil Count 6.8 X10^3/uL (2.0-7.7); Basophil# 0.01 X10^3/uL; Basophil% 0.1 % (0-1); Eosinophil# 0.05 X10^3/uL; Eosinophils% 0.5 % (0-5); Hematocrit 36.3 % (37-47); Hemoglobin 11.5 g/dl (12.0-15.0); Lymphocyte # 2.25 X10^3/ul (4.0); Lymphocyte % 23.3 % (19-41); Mean Corp Hgb Conc 31.7 g/gl (32-36); Mean Corpuscular Hgb 22.5 pg (27.0-32.0); Mean Corpuscular Volume 70.9 fL (81-99); Mean Platelet Vol. 10.1 fl (6.2-12.0); Monocyte# 0.58 X10^3/uL; Neutrophil # 6.75 X10^3/uL (2.7-7.7); Neutrophil % 69.9 % (47-70); Platelet Count 335 K/mm3 (150-450); RBC Distribution Width CV 14.6 % (11.6-14.6); RBC Distribution Width SD 38.2 fl (35.1-43.9); Red Blood Count 5.12 M/mm3 (4.2-5.4); White Blood Count 9.7 K/mm3 (4.4-11.0)
[2018-11-05 18:56] LABS: Differential Indicated SCAN CRITERIA MET; POSITIVE COUNT NO; POSITIVE DIFFERENTIAL NO; POSITIVE MORPHOLOGY YES
[2018-11-05 19:01] LABS: ALB/GLOB Ratio 1.2 RATIO (0.9-2.4); AST(SGOT) 12 U/L (15-37); Alanine Aminotransfer ALT/SGPT 20 U/L (13-56); Albumin, Serum 4.5 g/dL (3.2-5.0); Alkaline Phosphatase 74 U/L (45-117); Anion Gap 7 (5-15); BUN 14 mg/dL (7-18); BUN/Creat Ratio 15.8 RATIO (10-20); Calcium,Total 9.1 mg/dL (8.5-10.1); Chloride 102 mmol/L (98-107); Creatinine, Serum 0.88 mg/dL (0.55-1.02); EST Glomerular Filtration Rate 86 mL/min (>60); Est Glom Filt Rate - Afr Amer 105 mL/min (>60); Estimated Creatinine Clearance 88.06 ml/min; Globulin 3.9 g/dL (2.2-4.2); Glucose 76 mg/dL (74-106); Lipase 85 U/L (73-393); Potassium 3.3 mmol/L (3.5-5.1); Protein, Total 8.4 g/dL (6.4-8.2); Sodium Level 135 mmol/L (136-145)
[2018-11-05 19:05] VITALS: BP 151/100; PULSE 87; RESP 16; O2SAT 98
[2018-11-05 19:42] LABS: Differential Comment SCANNED
== END 2018-11-05 21:33 | disposition home or self-care (01) ==
PROVIDERS: Emergency Provider Emergency Medicine; Family Provider Pediatrics; PCP Pediatrics
DX: G43.A0 Cyclical vomiting, in migraine, not intractable (principal)
CPT/HCPCS: 80053; 83690; 85025; 96361; 96372; 96374; 96375; 99285; J7030; A4216; J2405; J3490

== ENCOUNTER 2018-12-27 18:41 | Emergency (ER) | payer MEDICAID, SELFPAY ==
[2018-12-27 18:42] VITALS: BP 136/89; PULSE 89; RESP 17; TEMP 36.2; O2SAT 100; BMI 32.5
[2018-12-27] MEDS: 0.9% Normal Saline 1,000 ML 1000 ML IV (19:20)
[2018-12-27 19:24] LABS: Absolute Neutrophil Count 5.1 X10^3/uL (2.0-7.7); Basophil# 0.04 X10^3/uL; Basophil% 0.5 % (0-1); Eosinophil# 0.03 X10^3/uL; Eosinophils% 0.4 % (0-5); Hematocrit 44.3 % (37-47); Hemoglobin 13.5 g/dL (12.0-15.0); Lymphocyte % 32.9 % (19-41); Mean Corp Hgb Conc 30.5 g/dL (32-36); Mean Corpuscular Hgb 22.4 pg (27.0-32.0); Mean Corpuscular Volume 73.3 fL (81-99); Mean Platelet Vol. 10.4 fl (6.2-12.0); Monocyte# 0.55 X10^3/uL; Monocyte% 6.5 % (0-10); NRBC Flagged by Analyzer 0 % (0-5); Neutrophil # 5.08 X10^3/uL (2.7-7.7); Neutrophil % 59.5 % (47-70); Platelet Count 390 K/mm3 (150-450); RBC Distribution Width CV 15.4 % (11.6-14.6); RBC Distribution Width SD 39.2 fl (35.1-43.9); Red Blood Count 6.04 M/mm3 (4.2-5.4); White Blood Count 8.5 K/mm3 (4.4-11.0)
[2018-12-27] MEDS: proMETHazine 25 MG/ML Syringe 12.5 MG IV (19:30)
[2018-12-27] MEDS: LORazepam 2 MG/ML Syringe 1 MG IV (19:32)
[2018-12-27] MEDS: Mag Hydrox/Al Hydrox/Simeth 30 ML UDC PO (19:34)
[2018-12-27 19:35] VITALS: RESP 18
[2018-12-27] MEDS: Dicyclomine 20 MG/2 ML Vial IM (19:37)
[2018-12-27 19:54] LABS: Internal QC Validated? YES +Cl - CLEAR BKGD; Pregnancy, Serum, hCG Quali. NEGATIVE Negative
[2018-12-27 19:56] LABS: ALB/GLOB Ratio 1.1 RATIO (0.9-2.4); AST(SGOT) 12 U/L (15-37); Alanine Aminotransfer ALT/SGPT 22 U/L (13-56); Albumin, Serum 4.9 g/dL (3.2-5.0); Alkaline Phosphatase 79 U/L (45-117); Anion Gap 9 (5-15); BUN 22 mg/dL (7-18); BUN/Creat Ratio 20.4 RATIO (10-20); Calcium,Total 9.5 mg/dL (8.5-10.1); Chloride 101 mmol/L (98-107); Creatinine, Serum 1.08 mg/dL (0.55-1.02); EST Glomerular Filtration Rate 69 mL/min (>60); Est Glom Filt Rate - Afr Amer 83 mL/min (>60); Estimated Creatinine Clearance 71.75 ml/min; Globulin 4.5 g/dL (2.2-4.2); Glucose 93 mg/dL (74-106); Lipase 77 U/L (73-393); Potassium 3.8 mmol/L (3.5-5.1); Protein, Total 9.4 g/dL (6.4-8.2); Sodium Level 139 mmol/L (136-145)
--- NOTE | 2018-12-27 20:42 | ED.DCSUM_ITS ---
- ER Visit Summary Date of Service: 12/27/18 Chief Complaint: Vomiting History of Present Illness: The patient is a 18 F with a history of cyclic vomiting syndrome. She reports increasing upper abdominal pain and vomiting over the past 5 to 6 days. No new or different symptoms from previous episodes. Physical Examination: Afebrile and vital signs unremarkable. Patient appears uncomfortable but not toxic or in distress. Heart regular. Lungs clear. Abdomen soft and nontender. Test Results: CBC, CMP, lipase unremarkable. hCG negative. Emergency Department Course and Treatment: Patient treated with fluids, Ativan, Bentyl, Phenergan, GI cocktail. On reevaluation, patient was still having some pain, but no further vomiting. She was resting. She would like to rest here in the ED. We will continue to monitor. She may be discharged when she is feeling better. Patient will follow up with her doctor. Treatment Plan: As above Disposition: Discharge Impression: 1. Nausea and vomiting This note was generated with [employer] dictation software. It may contain incorrect words, spelling, and punctuation that were not noted in review of the chart prior to signing ED Disposition - Plan for ED Patient: Referrals: Fanny Sharif MD [Primary Care Provider] -
--- NOTE | 2018-12-27 20:44 | ED.DEP ---
ED Disposition - Plan for ED Patient: Instructions: When Your Child Has Cyclic Vomiting Syndrome ([facility]) Prescriptions: proMETHazine tablet [Phenergan] 25 mg PO Q6H PRN PRN #10 tab PRN Reason: Nausea Prescription Printed Referrals: Fanny Sharif MD [Primary Care Provider] -
[2018-12-27 20:54] VITALS: BP 142/91; PULSE 82; RESP 16; O2SAT 98
== END 2018-12-27 20:56 | disposition home or self-care (01) ==
LOC: ED 19:09
PROVIDERS: Emergency Provider Emergency Medicine; Family Provider Pediatrics; PCP Pediatrics
DX: G43.A0 Cyclical vomiting, in migraine, not intractable (principal)
CPT/HCPCS: 80053; 83690; 84703; 85025; 96361; 96372; 96374; 96375; 99284; J7030; A4216

== ENCOUNTER 2019-01-22 17:25 | Emergency (ER) | payer MEDICAID, SELFPAY ==
[2019-01-22 17:26] VITALS: BP 168/96; PULSE 86; RESP 18; TEMP 36.6; O2SAT 100; BMI 38.0
[2019-01-22] MEDS: Morphine 4 MG/ML Syringe IV (17:56)
[2019-01-22] MEDS: proMETHazine 25 MG/ML Syringe 12.5 MG IV (17:57)
[2019-01-22] MEDS: LORazepam 2 MG/ML Syringe 1 MG IV (17:57)
--- NOTE | 2019-01-22 19:56 | ED.DCSUM_ITS ---
- ER Visit Summary Date of Service: 01/22/19 Chief Complaint: Vomiting History of Present Illness: The patient is a 18 F with a history of cyclic vomiting syndrome. She reports symptoms that started this morning. Denies any bleeding or any pain or any new symptoms. She normally receives Ativan, Phenergan, and morphine. Physical Examination: Afebrile and vital signs unremarkable. Patient is alert and oriented. No acute distress. Normal heart rate. No respiratory distress. Abdomen soft. Skin appears normal. Test Results: None performed Emergency Department Course and Treatment: Patient was treated with IV fluids, morphine, Phenergan, Ativan. On reevaluation, patient was resting comfortably. She still felt nauseated. We will also treat with Bentyl and additional fluids as this has worked in the past. Patient will be discharged home. Treatment Plan: As above Disposition: Discharge Impression: 1. Nausea and vomiting This note was generated with [employer] dictation software. It may contain incorrect words, spelling, and punctuation that were not noted in review of the chart prior to signing ED Disposition - Plan for ED Patient: Referrals: Fanny Sharif MD [Primary Care Provider] -
--- NOTE | 2019-01-22 19:59 | ED.DEP ---
ED Disposition - Plan for ED Patient: Instructions: When Your Child Has Cyclic Vomiting Syndrome ([facility]) Referrals: Fanny Sharif MD [Primary Care Provider] -
[2019-01-22] MEDS: Dicyclomine 20 MG/2 ML Vial IM (20:04)
[2019-01-22 20:05] VITALS: BP 147/101; PULSE 79; RESP 16; O2SAT 100
[2019-01-22] MEDS: Ondansetron 4 MG/2 ML Vial IV (20:15)
[2019-01-22 20:49] VITALS: BP 142/100; PULSE 85; RESP 18; O2SAT 95
== END 2019-01-22 20:50 | disposition home or self-care (01) ==
LOC: ED 18:03
PROVIDERS: Emergency Provider Emergency Medicine; Family Provider Pediatrics; PCP Pediatrics
DX: G43.A0 Cyclical vomiting, in migraine, not intractable (principal)
CPT/HCPCS: 96361; 96372; 96374; 96375; 99284; J7040; A4216; J2405

== ENCOUNTER 2019-01-24 16:10 | Emergency (ER) | payer MEDICAID, SELFPAY ==
[2019-01-24 16:10] VITALS: BP 148/89; PULSE 110; RESP 16
[2019-01-24 16:11] VITALS: BP 148/89; PULSE 110; RESP 16; TEMP 36.3; BMI 33.0
--- NOTE | 2019-01-24 16:29 | ED.VIS.GEN ---
History of Present Illness Chief Complaint: Nausea/Vomiting Informant: Patient Onset: Days Context: Gradual Onset Current Severity: Moderate Maximum Severity: Moderate Narrative: Patient has a history of cyclic vomiting. She reports this episode started 2 days ago. She has pain across the upper abdomen. She has not had any blood in her vomitus. She has not had fever. She denies dysuria. She is currently on her menstrual cycle. Past Medical History - Allergies and Home Meds Allergies/Adverse Reactions: Allergies chlorpromazine [From Thorazine] Adverse Reaction (Verified 01/22/19 17:27) Other BODY FEELS NUMB Primary Care Physician: Fanny Sharif MD [Primary Care Provider] - Surgical History: no surgical history Lives: With Family Smoking Status: Never smoker - Family History Maternal Family History: Reports: - - Patient denies any marked maternal or paternal family history including heart disease, diabetes or cancer. Paternal Family History: Reports: - - Patient denies any marked maternal or paternal family history including heart disease, diabetes or cancer. Review of Systems General: Denies: Chills, Fever Eyes: Denies: Visual changes - bilaterally ENT: Denies: Bilateral ear pain Cardiovascular: Denies: Chest pain Respiratory: Denies: Dyspnea Gastrointestinal: Reports: Abdominal pain, Nausea, Vomiting. Denies: Diarrhea Genitourinary: Denies: Dysuria Musculoskeletal: Reports: Back pain Neurological: Denies: Headache Endocrine: Denies: Polyuria, Polydipsia Hematologic: Denies: Easy bruising Allergy: Denies: Uticaria Physical Exam Vital Signs/Narrative: Vital Signs Temp Pulse Resp BP 01/24/19 16:11 97.4 F L 110 H 16 148/89 H 01/24/19 16:10 110 H 16 148/89 H General: Well nourished, Well developed Head: Normocephalic ENT: Moist mucous membranes Cardiovascular: Regular rate, Regular rhythm Respiratory: No distress, CTA bilaterally Abdomen: Soft, Tender - Epigastric tenderness palpation., Hypoactive bowel sounds. Negative for: Guarding, Rebound tenderness Back: Negative for: CVA tenderness Skin: Normal color, No rash Neurological: Alert, Oriented x3 Psychological: Tearful Diagnostic/Tx/Re-eval Laboratory Results 01/24/19 01/24/19 17:23 17:23 WBC 8.8 RBC 5.34 Hgb 11.9 L Hct 39.2 MCV 73.4 L MCH 22.3 L MCHC 30.4 L RDW Std Deviation 39.8 RDW Coeff of Iggy 15.1 H Plt Count 359 MPV 10.5 Immature Gran % (Auto) 0.500 Neut % (Auto) 65.7 Lymph % (Auto) 26.6 Laurens % (Auto) 6.6 Eos % (Auto) 0.1 Baso % (Auto) 0.5 Absolute Neuts (auto) 5.8 Absolute Lymphs (auto) 2.34 Nucleated RBC % 0 Sodium 138 Potassium 3.5 Chloride 106 Carbon Dioxide 24.0 Anion Gap 8 BUN 23 H Creatinine 0.98 Estim Creat Clear Calc 79.07 Est GFR (MDRD) Af Amer 93 Est GFR (MDRD) Non-Af 77 BUN/Creatinine Ratio 23.6 H Glucose 86 Calcium 9.1 Total Bilirubin 0.40 Direct Bilirubin 0.13 AST 11 L ALT 24 Alkaline Phosphatase 72 Total Protein 8.7 H Albumin 4.5 Globulin 4.2 Lipase 65 L - Medical Decision Making She was given morphine, Ativan, and Phenergan which usually resolves her symptoms. She is been sleeping comfortably. When I wake her she states she does feel improved. She is ready to go home and asks if it is okay for her to go to class tomorrow. ED Disposition - Plan for ED Patient: Disposition: Home or Assisted Living Diagnosis: Vomiting Instructions: VOMITING (4y-Adult) Referrals: Fanny Sharif MD [Primary Care Provider] -
[2019-01-24] MEDS: LORazepam 2 MG/ML Syringe 1 MG IV (16:52)
[2019-01-24] MEDS: 0.9% Normal Saline 1,000 ML 1000 ML IV (16:52)
[2019-01-24] MEDS: proMETHazine 25 MG/ML Syringe 12.5 MG IV (16:54)
[2019-01-24] MEDS: Morphine 4 MG/ML Syringe IV (16:57)
[2019-01-24 17:38] LABS: Absolute Lymphocyte Count 2.34 X10^3/uL (0.83-4.51); Absolute Neutrophil Count 5.8 X10^3/uL (2.0-7.7); Basophil# 0.04 X10^3/uL; Basophil% 0.5 % (0-1); Eosinophil# 0.01 X10^3/uL; Eosinophils% 0.1 % (0-5); Hematocrit 39.2 % (37-47); Hemoglobin 11.9 g/dL (12.0-15.0); Lymphocyte # 2.34 X10^3/ul (4.0); Lymphocyte % 26.6 % (19-41); Mean Corp Hgb Conc 30.4 g/dL (32-36); Mean Corpuscular Hgb 22.3 pg (27.0-32.0); Mean Corpuscular Volume 73.4 fL (81-99); Mean Platelet Vol. 10.5 fl (6.2-12.0); Monocyte# 0.58 X10^3/uL; Monocyte% 6.6 % (0-10); NRBC Flagged by Analyzer 0 % (0-5); Neutrophil # 5.78 X10^3/uL (2.7-7.7); Neutrophil % 65.7 % (47-70); Platelet Count 359 K/mm3 (150-450); RBC Distribution Width CV 15.1 % (11.6-14.6); RBC Distribution Width SD 39.8 fl (35.1-43.9); Red Blood Count 5.34 M/mm3 (4.2-5.4); White Blood Count 8.8 K/mm3 (4.4-11.0)
[2019-01-24 17:52] LABS: AST(SGOT) 11 U/L (15-37); Alanine Aminotransfer ALT/SGPT 24 U/L (13-56); Albumin, Serum 4.5 g/dL (3.2-5.0); Alkaline Phosphatase 72 U/L (45-117); Anion Gap 8 (5-15); BUN 23 mg/dL (7-18); BUN/Creat Ratio 23.6 RATIO (10-20); Bilirubin, Direct 0.13 mg/dL (0.00-0.30); Calcium,Total 9.1 mg/dL (8.5-10.1); Chloride 106 mmol/L (98-107); Creatinine, Serum 0.98 mg/dL (0.55-1.02); EST Glomerular Filtration Rate 77 mL/min (>60); Est Glom Filt Rate - Afr Amer 93 mL/min (>60); Estimated Creatinine Clearance 79.07 ml/min; Globulin 4.2 g/dL (2.2-4.2); Glucose 86 mg/dL (74-106); Lipase 65 U/L (73-393); Potassium 3.5 mmol/L (3.5-5.1); Protein, Total 8.7 g/dL (6.4-8.2); Sodium Level 138 mmol/L (136-145)
[2019-01-24 18:46] VITALS: BP 115/70; PULSE 73; RESP 16; O2SAT 99
[2019-01-24 19:14] VITALS: RESP 16
== END 2019-01-24 19:14 | disposition home or self-care (01) ==
PROVIDERS: Emergency Provider Emergency Medicine; Family Provider Pediatrics; PCP Pediatrics
DX: G43.A0 Cyclical vomiting, in migraine, not intractable (principal); M54.5 Low back pain
CPT/HCPCS: 36415; 80048; 80076; 83690; 85025; 96361; 96374; 96375; 99285; J7030; A4216

== ENCOUNTER 2019-02-02 07:29 | Emergency (ER) | payer MEDICAID, SELFPAY ==
[2019-02-02 07:30] VITALS: BP 163/120; PULSE 100; RESP 18; TEMP 36.6; O2SAT 99; BMI 32.5
--- NOTE | 2019-02-02 07:42 | ED.VISSUMM ---
- ER Visit Summary Date of Service: 02/02/19 Chief Complaint: Nausea and vomiting History of Present Illness: The patient is a 18 F who has nausea and vomiting. Started yesterday. Patient has a history of cyclical vomiting syndrome. She was last seen on January 24 for the same symptoms. She states that she took nothing for these symptoms at home this time. She states she has had multiple episodes of vomiting at home. She also combines with diffuse abdominal pain. She denies diarrhea. Physical Examination: Vital signs are reviewed. HEENT exam unremarkable. Heart is tachycardic and regular rhythm without murmurs. Lungs are clear to auscultation bilaterally. Abdomen is soft with diffuse tenderness. There is no guarding or rebound tenderness. Extremities have no edema. Her neurologic exam is normal. Skin exam reveals no rashes. Test Results: None performed Emergency Department Course and Treatment: Patient states that she is allergic to Thorazine as it makes her whole body go numb. The last time she was given morphine, Ativan and Phenergan and this helped. She was given the same medications here today. Upon reevaluation, the patient is feeling improved. Her abdomen is soft and nontender. Patient will finish her IV fluids and will be discharged to use her home medications. Treatment Plan: [] Disposition: Discharge Impression: Cyclical vomiting syndrome This note was generated with [employer] dictation software. It may contain incorrect words, spelling, and punctuation that were not noted in review of the chart prior to signing ED Disposition - Plan for ED Patient: Referrals: Fanny Sharif MD [Primary Care Provider] -
[2019-02-02] MEDS: LORazepam 2 MG/ML Syringe 1 MG IV (07:53)
[2019-02-02] MEDS: Morphine 4 MG/ML Syringe IV (07:53)
[2019-02-02] MEDS: proMETHazine 25 MG/ML Syringe 12.5 MG IV (07:53)
[2019-02-02] MEDS: 0.9% Normal Saline 1,000 ML 999 ML IV (07:54)
--- NOTE | 2019-02-02 08:31 | ED.DEP ---
ED Disposition - Plan for ED Patient: Disposition: Home or Assisted Living Instructions: VOMITING (4y-Adult) Prescriptions: proMETHazine tablet [Phenergan] 25 mg PO Q6H PRN PRN #10 tab PRN Reason: Nausea Prescription Printed Referrals: Fanny Sharif MD [Primary Care Provider] -
[2019-02-02 08:51] VITALS: BP 124/78; PULSE 81; RESP 16; O2SAT 99
== END 2019-02-02 08:54 | disposition home or self-care (01) ==
PROVIDERS: Emergency Provider Emergency Medicine; Family Provider Pediatrics; PCP Pediatrics
DX: G43.A0 Cyclical vomiting, in migraine, not intractable (principal)
CPT/HCPCS: 96361; 96374; 96375; 99283; J7030; A4216

== ENCOUNTER 2019-02-16 16:21 | Emergency (ER) | payer MEDICAID, SELFPAY ==
[2019-02-16 16:22] VITALS: BP 143/75; PULSE 97; RESP 16; TEMP 36.3; O2SAT 100; BMI 34.2
[2019-02-16 18:08] VITALS: BP 111/79; PULSE 94; RESP 17; O2SAT 100
[2019-02-16] MEDS: 0.9% Normal Saline 1,000 ML 999 ML IV (18:10)
[2019-02-16] MEDS: proMETHazine 25 MG/ML Syringe 6.25 MG IV ×2 (18:10→19:36)
[2019-02-16] MEDS: Morphine 4 MG/ML Syringe IV (18:11)
[2019-02-16] MEDS: LORazepam 2 MG/ML Syringe 1 MG IV (18:13)
--- NOTE | 2019-02-16 18:14 | ED.VISSUMM ---
- ER Visit Summary Date of Service: 02/16/19 Chief Complaint: Vomiting History of Present Illness: The patient is a 18 F presenting with vomiting. This started today. Patient has had several episodes of vomiting today. She has a history of cyclic vomiting syndrome and this feels similar. She denies fever. Denies possibility of . She did not try any medication prior to arrival. She has been seen by [facility]. Her family states all of her tests have been normal. Physical Examination: Vitals are stable. Patient is afebrile. Alert no acute distress. HEENT exam is unremarkable. Neck is supple. Lungs are clear and equal bilaterally. Heart is regular rate and rhythm. Abdomen is soft nontender nondistended. Extremities are unremarkable. Skin is warm and dry. No focal neurologic deficit. Remainder of exam is unremarkable. Emergency Department Course and Treatment: Patient states typically morphine, Phenergan, Ativan work for her. These medications were ordered. On repeat evaluation, patient continues to have nausea. She was given second dose of Phenergan and observed. She is now requesting discharge home. She is advised to follow-up with her primary care physician. She is given prescription for Zofran and Phenergan suppositories. Advised return to ED for worsening complaints. Disposition: Discharge home Impression: Cyclic vomiting syndrome This note was generated with [employer] dictation software. It may contain incorrect words, spelling, and punctuation that were not noted in review of the chart prior to signing ED Disposition - Plan for ED Patient: Instructions: VOMITING (4y-Adult) Prescriptions: proMETHazine suppository [Phenergan Suppository] 25 mg RECTAL Q6H PRN PRN #6 suppos. PRN Reason: Nausea Prescription Printed Ondansetron [Zofran Odt] 4 mg PO Q8H PRN PRN #10 tab PRN Reason: Nausea Prescription Printed Referrals: Fanny Sharif MD [Primary Care Provider] -
[2019-02-16 19:47] VITALS: PULSE 91; RESP 17; O2SAT 100
--- NOTE | 2019-02-16 20:12 | ED.DEP ---
ED Disposition - Plan for ED Patient: Instructions: VOMITING (4y-Adult) Prescriptions: proMETHazine suppository [Phenergan Suppository] 25 mg RECTAL Q6H PRN PRN #6 suppos. PRN Reason: Nausea Ondansetron [Zofran Odt] 4 mg PO Q8H PRN PRN #10 tablet PRN Reason: Nausea Referrals: Fanny Sharif MD [Primary Care Provider] -
[2019-02-16] MEDS: Ondansetron 4 MG/2 ML Vial IV (21:01)
[2019-02-16] MEDS: Ketorolac 15 MG/ML Vial IV (21:09)
[2019-02-16 21:30] VITALS: BP 156/97; PULSE 99; RESP 16; O2SAT 100
--- NOTE | 2019-02-16 21:31 | ED.RN ---
REVIEWED D/C INSTRUCTIONS, FOLLOW UP CARE, PRESCRIPTIONS, AND S/S THAT WOULD WARRANT A RETURN TO THE ED WITH PT. PT VERBALIZED AN UNDERSTANDING AND DENIES FURTHER QUESTIONS FOR THIS RN. PT SKIN WARM/DRY, RESP EVEN AND UNLABORED, PT A&O X 3, NO DISTRESS NOTED.
== END 2019-02-16 21:32 | disposition home or self-care (01) ==
LOC: ED 17:39
PROVIDERS: Emergency Provider Emergency Medicine; Family Provider Pediatrics; PCP Pediatrics
DX: R11.15 Cyclical vomiting syndrome unrelated to migraine (principal)
CPT/HCPCS: 96361; 96374; 96375; 96376; 99285; J7030; A4216; J2405

== ENCOUNTER 2019-02-22 22:33 | Emergency (ER) | payer MEDICAID, SELFPAY ==
[2019-02-22 22:34] VITALS: BP 146/113; PULSE 100; RESP 17; TEMP 37.5; O2SAT 100; BMI 34.3
--- NOTE | 2019-02-22 22:52 | ED.DCSUM_ITS ---
History of Present Illness Chief Complaint: Nausea/Vomiting Informant: Patient Onset: Today Current Severity: Moderate Maximum Severity: Moderate Narrative: Patient has a history of cyclic vomiting syndrome. She states she developed upper abdominal pain with nausea and vomiting this afternoon. This morning she felt well. Patient states that she is due to start her period this week and she thinks that typically sets off her episodes. Past Medical History - Allergies and Home Meds Allergies/Adverse Reactions: Allergies chlorpromazine [From Thorazine] Adverse Reaction (Verified 02/22/19 22:34) Other BODY FEELS NUMB Primary Care Physician: Fanny Sharif MD [Primary Care Provider] - Prior records reviewed: Yes Past Medical History: - - Reviewed Surgical History: no surgical history Lives: With Family Smoking Status: Never smoker - Family History Maternal Family History: Reports: - - Patient denies any marked maternal or paternal family history including heart disease, diabetes or cancer. Paternal Family History: Reports: - - Patient denies any marked maternal or paternal fa danielle history including heart disease, diabetes or cancer. Review of Systems General: Denies: Chills, Fever Eyes: Denies: Visual changes - bilaterally ENT: Denies: Bilateral ear pain Cardiovascular: Denies: Chest pain Respiratory: Denies: Dyspnea, Cough Gastrointestinal: Reports: Abdominal pain, Nausea, Vomiting Genitourinary: Denies: Dysuria Skin: Denies: Rash Neurological: Denies: Headache Hematologic: Denies: Easy bruising Allergy: Denies: Uticaria Physical Exam Vital Signs/Narrative: Vital Signs Temp Pulse Resp BP Pulse Ox 02/22/19 22:34 99.5 F H 100 17 146/113 H 100 Inital Vital Signs reviewed: Yes General: Well nourished, Well developed Head: Normocephalic ENT: Moist mucous membranes Neck: Supple, Nontender Cardiovascular: Regular rate, Regular rhythm Respiratory: No distress, CTA bilaterally Abdomen: Soft, Tender - Mild epigastric tenderness to palpation., Hypoactive bowel sounds. Negative for: Guarding, Rebound tenderness Extremities: Nontender Skin: Normal color Neurological: Alert, Oriented x3 Psychological: Tearful Diagnostic/Tx/Re-eval Laboratory Results 02/22/19 22:44 Sodium 142 Potassium 3.7 Chloride 106 Carbon Dioxide 27.0 Anion Gap 9 BUN 10 Creatinine 0.94 Estim Creat Clear Calc 82.44 Est GFR (MDRD) Af Amer 97 Est GFR (MDRD) Non-Af 80 BUN/Creatinine Ratio 10.6 Glucose 90 Calcium 9.7 - Medical Decision Making Patient was initially given morphine, Ativan, and Phenergan which typically resolves her symptoms. On repeat evaluation she states she was still having some pain, but nausea is improved. She will be given a dose of Bentyl. She will be rechecked by oncoming physician for final disposition. I anticipate discharge. ED Disposition - Plan for ED Patient: Disposition: Home or Assisted Living Diagnosis: Cyclical vomiting Instructions: VOMITING (4y-Adult) Referrals: Fanny Sharif MD [Primary Care Provider] - 3-5 Days if not improving
[2019-02-22] MEDS: 0.9% Normal Saline 1,000 ML 1000 ML IV (22:53)
[2019-02-22] MEDS: Morphine 4 MG/ML Syringe IV (22:54)
[2019-02-22] MEDS: LORazepam 2 MG/ML Syringe 1 MG IV (22:54)
[2019-02-22] MEDS: proMETHazine 25 MG/ML Syringe 6.25 MG IV (22:54)
[2019-02-22 23:06] LABS: Anion Gap 9 (5-15); BUN 10 mg/dL (7-18); BUN/Creat Ratio 10.6 RATIO (10-20); Calcium,Total 9.7 mg/dL (8.5-10.1); Chloride 106 mmol/L (98-107); Creatinine, Serum 0.94 mg/dL (0.55-1.02); EST Glomerular Filtration Rate 80 mL/min (>60); Est Glom Filt Rate - Afr Amer 97 mL/min (>60); Estimated Creatinine Clearance 82.44 ml/min; Glucose 90 mg/dL (74-106); Potassium 3.7 mmol/L (3.5-5.1); Sodium Level 142 mmol/L (136-145)
[2019-02-23 00:34] VITALS: RESP 18
[2019-02-23] MEDS: Ondansetron 4 MG/2 ML Vial IV (00:48)
[2019-02-23] MEDS: Dicyclomine 20 MG/2 ML Vial IM (00:53)
[2019-02-23] MEDS: Morphine 4 MG/ML Syringe IV (02:29)
[2019-02-23 02:35] VITALS: BP 156/87; PULSE 96; RESP 18; O2SAT 100
== END 2019-02-23 02:52 | disposition home or self-care (01) ==
PROVIDERS: Emergency Provider Emergency Medicine; Family Provider Pediatrics; PCP Pediatrics
DX: R11.15 Cyclical vomiting syndrome unrelated to migraine (principal)
CPT/HCPCS: 80048; 96361; 96372; 96374; 96375; 96376; 99283; J7030; A4216; J2405

== ENCOUNTER 2019-03-18 17:27 | Emergency (ER) | payer MEDICAID, SELFPAY ==
[2019-03-18 17:29] VITALS: BP 154/103; PULSE 94; RESP 18; TEMP 36.9; O2SAT 100; BMI 34.4
--- NOTE | 2019-03-18 18:25 | ED.RN ---
pt is a difficult iv access, delay in medicating.
--- NOTE | 2019-03-18 18:42 | ED.VIS.GEN ---
History of Present Illness Chief Complaint: Abd Pain Informant: Patient, Family Onset: Today - Vomiting started several hours prior to presentation. She states she vomited 7 times., Yesterday - Abdominal pain Context: Sudden Onset Timing: Continuous Quality: History of cyclic vomiting Location: GI Current Severity: Moderate Maximum Severity: Moderate Worsened by: Eat or drink anything Relieved by: Nothing Associated Symptoms: No other symptoms Narrative: Is a 18-year-old female has had a significant work-up and has history of cyclic vomiting. She presents with nausea vomiting x5 hours prior to presentation. She also relates abdominal pain. She reports she cannot take Thorazine. She has a dystonic reaction, akathisia. She denies any constitutional, ocular, visual auditory sense. She denies cardiac respiratory symptoms. She denies urologic symptoms. She does report thirst and dry mouth. Her abdominal pain is upper abdomen bilaterally. Prior similar symptoms: Yes Recent Illness/Hospitalization: Yes - Past Medical History (1) Cyclic vomiting syndrome Status: Chronic (2) Obesity (BMI 30.0-34.9) Status: Chronic Past Medical History - Allergies and Home Meds Allergies/Adverse Reactions: Allergies chlorpromazine [From Thorazine] Adverse Reaction (Verified 03/18/19 17:28) Other BODY FEELS NUMB Primary Care Physician: Fanny Sharif MD [Primary Care Provider] - Prior records reviewed: Yes Surgical History: no surgical history Lives: With Family Smoking Status: Never smoker Alcohol: None Drugs: None - Family History Maternal Family History: Reports: - - Patient denies any marked maternal or paternal family history including heart disease, diabetes or cancer. Paternal Family History: Reports: - - Patient denies any marked maternal or paternal family history including heart disease, diabetes or cancer. Review of Systems General: Denies: Chills, Fever, Sweats Eyes: Denies: Visual changes - bilaterally, Blurred Vision - bilaterally, Diplopia ENT: Denies: Rhinorrhea, Sore throat Cardiovascular: Denies: Chest pain, Palpitations Respiratory: Denies: Dyspnea, Cough, Dyspnea on exertion Gastrointestinal: Reports: Abdominal pain, Nausea, Vomiting. Denies: Diarrhea, Constipation, Melena, Hematochezia, -, - Genitourinary: Denies: Dysuria, Hematuria, Frequency Musculoskeletal: Denies: Myalgias, Arthralgias, Neck pain, Back pain, Swelling, Extremity Pain, -, - Skin: Denies: Rash, Wounds Neurological: Denies: Headache, Weakness, Numbness Hematologic: Denies: Easy bruising, Easy bleeding Physical Exam Vital Signs/Narrative: Vital Signs Temp Pulse Resp BP Pulse Ox 03/18/19 17:29 98.4 F 94 18 154/103 H 100 Inital Vital Signs reviewed: Yes General: Well nourished, Well developed, Obese Head: Normocephalic, Atraumatic Eyes: Perrl, EOMI ENT: No rhinorrhea, TM's clear, Dry mucous membranes Neck: Supple, Nontender, No lymphadenopathy, No JVD Cardiovascular: Regular rate, Regular rhythm, No murmurs, Normal S1, Normal S2 Respiratory: No distress, CTA bilaterally, Chest nontender Abdomen: Soft, Nondistended, Normal bowel sounds, Tender Back: Nontender, Normal Inspection. Negative for: CVA tenderness Extremities: Nontender, No edema Skin: Normal color, No rash Neurological: Alert, Oriented x3, Cranial nerves II-XII grossly intact, Normal Strength, Normal Sensation Psychological: Normal affect, Normal Mood Diagnostic/Tx/Re-eval - Medical Decision Making Patient is dehydrated. Will administer 1 L normal saline. Cyclic vomiting order set was initiated. Thorazine was held from the order set since she reports reaction in spite of appropriate dose of Benadryl. I was informed by nurse that she is requesting pain medicine. Patient was told she would not receive pain medicine since pain medicine has side effect of nausea and vomiting. Patient will receive promethazine IM since her IV blew. Patient is refusing p.o. challenge. I was informed at 2044 the patient was doing better. She was reevaluated at 2139. She is vomiting. Emesis appears yellow-green in color. Nurse was not informed that an IV was ordered and that she is to receive a liter of normal saline. An additional dose of Benadryl was ordered and 10 mg of Reglan IV push was ordered. She was reassessed at 2354. He has passed p.o. challenge. She states she feels markedly better. Parents would like to take her home. Procedures Procedure(s): 2 attempts were made to establish IV even using ultrasound guidance. Unable to after greater than 4 attempts by nursing staff. A 22-gauge was placed dorsal surface left foot by me. The area was prepped draped. The vessels cannula excessively at first attempt. Blood flowed freely. ED Disposition - Plan for ED Patient: Disposition: Home or Assisted Living Diagnosis: Cyclic vomiting syndrome, Dehydration Instructions: When Your Child Has Cyclic Vomiting Syndrome ([facility]) Referrals: Fanny Sharif MD [Primary Care Provider] - As Needed
[2019-03-18] MEDS: Ondansetron 4 MG/2 ML Vial IV (19:02)
[2019-03-18] MEDS: DiphenhydrAMINE 50 MG/ML Syringe IV (19:02)
[2019-03-18] MEDS: Famotidine 200 MG/20 ML MDV 20 MG in 0.9% Normal Saline (Pres. free 8 ML 300 MG IV (19:04)
[2019-03-18 19:29] VITALS: BP 148/108; PULSE 88; RESP 16; O2SAT 100
[2019-03-18] MEDS: proMETHazine 25 MG/ML Syringe 12.5 MG IM (20:36)
[2019-03-18 21:26] VITALS: BP 151/98; PULSE 77; O2SAT 100
[2019-03-18] MEDS: 0.9% Normal Saline 1,000 ML 999 ML IV (22:16)
[2019-03-18] MEDS: DiphenhydrAMINE 50 MG/ML Syringe 25 MG IV (22:20)
[2019-03-18] MEDS: Metoclopramide 10 MG/2 ML Vial IV (22:20)
[2019-03-18] MEDS: LORazepam 2 MG/ML Syringe 1 MG IV (22:24)
[2019-03-18 23:02] VITALS: BP 159/101; PULSE 70; RESP 16
== END 2019-03-18 23:20 | disposition home or self-care (01) ==
PROVIDERS: Emergency Provider Emergency Medicine; Family Provider Pediatrics; PCP Pediatrics
DX: R11.15 Cyclical vomiting syndrome unrelated to migraine (principal); E86.0 Dehydration; E66.9 Obesity, unspecified
CPT/HCPCS: 96361; 96372; 96374; 96375; 96376; 99285; J7030; A4216; J2405; J3490

== ENCOUNTER 2019-03-19 11:52 | Emergency (ER) | payer MEDICAID, SELFPAY ==
[2019-03-18 17:29] VITALS: BMI 34.4
[2019-03-19 11:53] VITALS: BP 161/82; PULSE 104; RESP 19; TEMP 36.8; O2SAT 100; BMI 33.5
--- NOTE | 2019-03-19 12:06 | ED.VISSUMM ---
- ER Visit Summary Date of Service: 03/19/19 Chief Complaint: [Abdominal pain] History of Present Illness: The patient is a 18 F [presents to the emergency department complaint of abdominal pain and nausea and vomiting. Patient was seen in the emergency department for same yesterday. Patient has history of cyclic vomiting syndrome. Patient states that when she is on her. Symptoms typically get worse and she is currently on her menstrual period. Patient denies any fever. Denies any diarrhea. She denies urinary symptoms. She denies blood in her stool. States symptoms are typical of her cyclic vomiting exacerbations.] Physical Examination: [HEENT-PERRLA, EOMI. Cranial nerves II through XII grossly intact. TMs clear. Mucous membranes moist. No adenopathy. Cardiovascular-regular rate and rhythm without murmur or ectopy Lungs-clear to auscultation, chest wall stable without crepitus or subcu emphysema Abdomen-normoactive bowel sounds, soft. Patient has mild diffuse tenderness. There is no rebound, rigidity, or perineal signs. Extremities-intact ?4, normal range of motion, normal pulses, atraumatic] Test Results: [CBC with differential obtained was normal. Chemistries unremarkable. hCG was negative.] Emergency Department Course and Treatment: [Had a liter normal same fluid bolus given. Patient was given Ativan 2 mg IV. Patient was given Phenergan 12.5 mill grams IV. She had no further vomiting.] Treatment Plan: [Follow-up with her customer quality specialist and continue to use her antiemetics at home.] Disposition: [Discharged to home in stable condition.] Impression: [Cyclic vomiting syndrome] This note was generated with [employer] dictation software. It may contain incorrect words, spelling, and punctuation that were not noted in review of the chart prior to signing ED Disposition - Plan for ED Patient: Referrals: Fanny Sharif MD [Primary Care Provider] -
[2019-03-19 12:45] LABS: Anion Gap 10 (5-15); BUN 15 mg/dL (7-18); BUN/Creat Ratio 16.4 RATIO (10-20); Calcium,Total 9.6 mg/dL (8.5-10.1); Chloride 108 mmol/L (98-107); Creatinine, Serum 0.92 mg/dL (0.55-1.02); EST Glomerular Filtration Rate 83 mL/min (>60); Est Glom Filt Rate - Afr Amer 100 mL/min (>60); Estimated Creatinine Clearance 84.23 ml/min; Glucose 101 mg/dL (74-106); Potassium 3.6 mmol/L (3.5-5.1); Sodium Level 141 mmol/L (136-145)
[2019-03-19 12:47] LABS: Absolute Lymphocyte Count 1.74 X10^3/uL (0.83-4.51); Absolute Neutrophil Count 6.9 X10^3/uL (2.0-7.7); Basophil# 0.01 X10^3/uL; Basophil% 0.1 % (0-1); Hematocrit 37.9 % (37-47); Hemoglobin 11.6 g/dL (12.0-15.0); Lymphocyte # 1.74 X10^3/ul (4.0); Lymphocyte % 19.2 % (19-41); Mean Corp Hgb Conc 30.6 g/dL (32-36); Mean Corpuscular Hgb 22.4 pg (27.0-32.0); Mean Corpuscular Volume 73.2 fL (81-99); Mean Platelet Vol. 10.9 fl (6.2-12.0); Monocyte# 0.44 X10^3/uL; Monocyte% 4.8 % (0-10); NRBC Flagged by Analyzer 0 % (0-5); Neutrophil # 6.86 X10^3/uL (2.7-7.7); Neutrophil % 75.6 % (47-70); Platelet Count 357 K/mm3 (150-450); RBC Distribution Width CV 15.1 % (11.6-14.6); RBC Distribution Width SD 39.7 fl (35.1-43.9); Red Blood Count 5.18 M/mm3 (4.2-5.4); White Blood Count 9.1 K/mm3 (4.4-11.0)
[2019-03-19] MEDS: proMETHazine 25 MG/ML Syringe 12.5 MG IV (12:53)
[2019-03-19] MEDS: 0.9% Normal Saline 1,000 ML 1000 ML IV (12:53)
[2019-03-19] MEDS: LORazepam 2 MG/ML Syringe IV (12:54)
[2019-03-19 13:05] LABS: Internal QC Validated? YES +Cl - CLEAR BKGD; Pregnancy, Serum, hCG Quali. NEGATIVE Negative
--- NOTE | 2019-03-19 14:31 | ED.DEP ---
ED Disposition - Plan for ED Patient: Instructions: When Your Child Has Cyclic Vomiting Syndrome ([facility]) Referrals: Fanny Sharif MD [Primary Care Provider] - 3-5 Days Additional Instructions: see your student services vice president
[2019-03-19 14:42] VITALS: BP 121/63; PULSE 59; RESP 16; O2SAT 97
== END 2019-03-19 14:44 | disposition home or self-care (01) ==
LOC: ED 12:16
PROVIDERS: Emergency Provider Emergency Medicine; Family Provider Pediatrics; PCP Pediatrics
DX: R11.15 Cyclical vomiting syndrome unrelated to migraine (principal)
CPT/HCPCS: 80048; 84703; 85025; 96361; 96374; 96375; 99283; J7030; A4216

== ENCOUNTER 2019-03-20 14:32 | Emergency (ER) | payer MEDICAID, SELFPAY ==
[2019-03-19 11:53] VITALS: BMI 33.5
[2019-03-20 14:33] VITALS: BP 149/102; RESP 101; TEMP 37.6; O2SAT 100; BMI 33.3
--- NOTE | 2019-03-20 15:19 | ED.VIS.GEN ---
History of Present Illness <Asael Quesada - Last Filed: 03/20/19 16:14> Informant: Patient Narrative: 1-year-old female with a history of cyclic vomiting syndrome presents with nausea vomiting abdominal pain. Patient states that she has been having symptoms over the last 3 days. Was seen in the ED twice in the last 2 days. States symptoms are typical of her cyclic vomiting syndrome. Admits to nausea, vomiting has been nonbloody nonbilious. Admits to diarrhea has been nonbloody. States that she has been having abdominal pain which is typical of her cyclic vomiting syndrome. States that morphine and Phenergan usually help her symptoms. She follows with a GI doctor in [facility] <Ned Benitez - Last Filed: 03/20/19 18:16> Chief Complaint: Nausea/Vomiting Past Medical History <Asael Quesada - Last Filed: 03/20/19 16:14> Surgical History: no surgical history Smoking Status: Never smoker - Family History Maternal Family History: Reports: - - Patient denies any marked maternal or paternal family history including heart disease, diabetes or cancer. Paternal Family History: Reports: - - Patient denies any marked maternal or paternal family history including heart disease, diabetes or cancer. <Ned Benitez - Last Filed: 03/20/19 18:16> - Allergies and Home Meds Allergies/Adverse Reactions: Allergies chlorpromazine [From Thorazine] Adverse Reaction (Verified 03/20/19 14:52) Other BODY FEELS NUMB Primary Care Physician: Fanny Sharif MD [Primary Care Provider] - 3-5 Days Review of Systems General: Denies: Chills, Fever, Sweats Eyes: Denies: Visual changes - bilaterally, Diplopia ENT: Denies: Rhinorrhea, Sore throat Cardiovascular: Denies: Chest pain, Palpitations Respiratory: Denies: Dyspnea, Cough, Dyspnea on exertion Gastrointestinal: Reports: Abdominal pain, Nausea, Vomiting, Diarrhea. Denies: Melena, Hematochezia Genitourinary: Denies: Dysuria, Hematuria, Frequency Musculoskeletal: Denies: Back pain, Extremity Pain Skin: Denies: Rash, Wounds Neurological: Denies: Headache, Weakness, Numbness <Ned Benitez - Last Filed: 03/20/19 18:16> Physical Exam Vital Signs/Narrative: Vital Signs Temp Resp BP Pulse Ox 03/20/19 14:33 99.6 F H 101 H 149/102 H 100 <Asael Quesada - Last Filed: 03/20/19 16:14> Vital Signs/Narrative: Vital Signs Temp Resp BP Pulse Ox 03/20/19 14:33 99.6 F H 101 H 149/102 H 100 General: Well nourished, Well developed, No Acute Distress Head: Normocephalic, Atraumatic Eyes: Perrl, EOMI ENT: Moist mucous membranes, No rhinorrhea Neck: Supple, Nontender Cardiovascular: Regular rate, Regular rhythm, No murmurs Respiratory: No distress, CTA bilaterally, Chest nontender Abdomen: Soft, Nondistended, Normal bowel sounds, - - Admits to diffuse tenderness during examination. Abdomen is soft, nondistended. Non-peritoneal. Extremities: Nontender, No edema Skin: Normal color, No rash Neurological: Alert, Oriented x3, Cranial nerves II-XII grossly intact, Normal Strength, Normal Sensation Psychological: Normal affect, Normal Mood <Ned Benitez - Last Filed: 03/20/19 18:16> Diagnostic/Tx/Re-eval - Medical Decision Making Seen and evaluated independently and in conjunction with resident physician. Agree with notes above unless documented otherwise. Pt well known to this ED for these symptoms. Labs unremarkable yest, adding preg to rule that out. Will treat her symptoms, hydrate, reevaluate. <Asael Quesada - Last Filed: 03/20/19 16:14> - Medical Decision Making Evaluate for nausea, vomiting abdominal pain. States that this is typical of her cyclic vomiting syndrome. Patient was seen in the ED yesterday. Labs were reviewed. She had normal BMP. Normal renal function. CBC was also obtained and was unremarkable. Given that this is typical of the patient's normal cyclic vomiting syndrome she will be given fluids, Phenergan and Toradol. Urine test obtained. I do not feel repeat blood work is indicated. On reevaluation patient symptoms improved with Toradol, morphine and Phenergan. He was comfortable going home at this time. Longer had emesis and was resting comfortably. Patient will be given Phenergan tablets and suppositories for home. Instructed to follow-up with her staff development manager. Patient was in agreement with the plan discharged home <Ned Benitez - Last Filed: 03/20/19 18:16> ED Disposition <Asael Quesada - Last Filed: 03/20/19 16:14> <Ned Benitez - Last Filed: 03/20/19 18:16> - Plan for ED Patient: Disposition: Home or Assisted Living Diagnosis: Cyclic vomiting syndrome Instructions: VOMITING (4y-Adult) Prescriptions: proMETHazine suppository [Phenergan Suppository] 25 mg RECTAL Q6H PRN PRN #6 suppos. PRN Reason: Nausea Prescription Printed proMETHazine tablet [Phenergan] 25 mg PO Q6H PRN PRN #10 tab PRN Reason: Nausea Prescription Printed Referrals: Fanny Sharif MD [Primary Care Provider] - 3-5 Days
[2019-03-20] MEDS: proMETHazine 25 MG/ML Syringe 12.5 MG IV (15:45)
[2019-03-20] MEDS: 0.9% Normal Saline 1,000 ML 1000 ML IV (15:45)
[2019-03-20 16:34] LABS: Internal QC Validated? YES +Cl - CLEAR BKGD; Pregnancy, Urine Negative Negative
[2019-03-20] MEDS: Morphine 4 MG/ML Syringe IV (16:57)
[2019-03-20] MEDS: Ketorolac 15 MG/ML Vial IV (16:57)
[2019-03-20 18:10] VITALS: PULSE 87; O2SAT 100
== END 2019-03-20 18:18 | disposition home or self-care (01) ==
PROVIDERS: Emergency Provider Emergency Medicine; Family Provider Pediatrics; PCP Pediatrics
DX: R11.15 Cyclical vomiting syndrome unrelated to migraine (principal)
CPT/HCPCS: 81025; 96361; 96374; 96375; 99285; J7030; A4216

== ENCOUNTER 2019-04-09 18:20 | Emergency (ER) | payer MEDICAID, SELFPAY ==
[2019-04-09 18:21] VITALS: BP 167/106; PULSE 109; RESP 18; TEMP 36.7; O2SAT 97; BMI 33.7
[2019-04-09] MEDS: Dicyclomine 20 MG/2 ML Vial IM (19:42)
[2019-04-09] MEDS: 0.9% Normal Saline 1,000 ML 999 ML IV (19:55)
[2019-04-09] MEDS: proMETHazine 25 MG/ML Syringe 12.5 MG IV (19:56)
[2019-04-09] MEDS: Morphine 4 MG/ML Syringe IV ×2 (19:56→22:21)
[2019-04-09] MEDS: DiphenhydrAMINE 50 MG/ML Syringe 25 MG IV (19:56)
[2019-04-09 22:00] VITALS: BP 159/98; PULSE 89; RESP 16; O2SAT 100
[2019-04-09] MEDS: proMETHazine 25 MG/ML Syringe 6.25 MG IV (22:21)
--- NOTE | 2019-04-09 22:26 | ED.DCSUM_ITS ---
- ER Visit Summary Date of Service: 04/09/19 Chief Complaint: Nausea and vomiting History of Present Illness: The patient is a 18 F with a history of cyclic vomiting syndrome. Presents for typical symptoms. Physical Examination: Afebrile and vital signs unremarkable except for heart r ate of 109. Abdomen is soft and nontender. Skin is normal. Test Results: None indicated. Emergency Department Course and Treatment: Patient treated with IV fluids, morphine, Phenergan, Benadryl, Bentyl. On reevaluation, she had continued pain and mild nausea. She was treated with additional morphine and Phenergan. Her exam, history, and vitals are reassuring. She is appropriate for outpatient care. She will follow-up with her [facility] information clerk. Treatment Plan: As above Disposition: Discharge Impression: 1. Cyclic vomiting syndrome This note was generated with [employer] dictation software. It may contain incorrect words, spelling, and punctuation that were not noted in review of the chart prior to signing ED Disposition - Plan for ED Patient: Referrals: Fanny Sharif MD [Primary Care Provider] -
--- NOTE | 2019-04-09 22:28 | ED.DEP ---
ED Disposition - Plan for ED Patient: Instructions: VOMITING (4y-Adult) Referrals: Fanny Sharif MD [Primary Care Provider] -
== END 2019-04-09 22:45 | disposition home or self-care (01) ==
PROVIDERS: Emergency Provider Emergency Medicine; Family Provider Pediatrics; PCP Pediatrics
DX: R11.15 Cyclical vomiting syndrome unrelated to migraine (principal)
CPT/HCPCS: 96361; 96372; 96374; 96375; 96376; 99285; J7030; A4216

== ENCOUNTER 2019-04-12 12:04 | Emergency (ER) | payer MEDICAID, SELFPAY ==
[2019-04-12 12:05] VITALS: BP 118/58; PULSE 84; RESP 16; TEMP 36.4; O2SAT 100; BMI 34.3
--- NOTE | 2019-04-12 12:33 | ED.VIS.GEN ---
History of Present Illness Chief Complaint: Nausea/Vomiting Informant: Patient Onset: Today, Month(s) Current Severity: Mild Narrative: Cyclic vomiting syndrome exacerbation today Patient reports chronic history of cyclic vomiting cysts syndrome extensive prior outpatient evaluation with multiple providers EGD scopes, CAT scans, all unremarkable she is scheduled to see her outpatient provider at 2:00 today she had an exacerbation of the cyclic vomiting syndrome and she came in for evaluation nothing triggered no fever no cough Exacerbation consists of chronic abdominal cramping some loose stools no exposures to tainted food sick individuals or antibiotics She indicates is always treated with morphine Ativan, her outpatient providers multiple have her on amitriptyline and her not using any controlled substances at home to control her symptoms Past Medical History - Allergies and Home Meds Allergies/Adverse Reactions: Allergies chlorpromazine [From Thorazine] Adverse Reaction (Verified 04/12/19 12:08) Other BODY FEELS NUMB Primary Care Physician: Fanny Sharif MD [Primary Care Provider] - Past Medical History: - - cyclic vomiting syndrome Surgical History: no surgical history Smoking Status: Never smoker - Family History Maternal Family History: Reports: - - Patient denies any marked maternal or paternal family history including heart disease, diabetes or cancer. Paternal Family History: Reports: - - Patient denies any marked maternal or paternal family history including heart disease, diabetes or cancer. Review of Systems General: Denies: Chills, Fever, Sweats Eyes: Denies: Visual changes - bilaterally, Diplopia ENT: Denies: Rhinorrhea, Sore throat Cardiovascular: Denies: Chest pain, Palpitations Respiratory: Denies: Dyspnea, Cough, Dyspnea on exertion Gastrointestinal: Reports: Abdominal pain, Nausea, Vomiting. Denies: Diarrhea, Melena, Hematochezia Genitourinary: Denies: Dysuria, Hematuria, Frequency Musculoskeletal: Denies: Back pain, Extremity Pain Skin: Denies: Rash, Wounds Neurological: Denies: Headache, Weakness, Numbness Physical Exam Vital Signs/Narrative: Vital Signs Temp Pulse Resp BP Pulse Ox 04/12/19 12:05 97.6 F L 84 16 118/58 L 100 General: Well nourished, Well developed, No Acute Distress, - - Patient is in no distress her mucous membranes are moist her vital signs are normal and unremarkable Head: Normocephalic, Atraumatic Eyes: Perrl, EOMI ENT: Moist mucous membranes, No rhinorrhea Neck: Supple, Nontender Cardiovascular: Regular rate, Regular rhythm, No murmurs Respiratory: No distress, CTA bilaterally, Chest nontender Abdomen: Soft, Nontender, Nondistended, Normal bowel sounds, - - Soft there is no rebound guarding organomegaly, Back: Nontender, Normal Inspection Extremities: Nontender, No edema Skin: Normal color, No rash Neurological: Alert, Oriented x3, Cranial nerves II-XII grossly intact, Normal Strength, Normal Sensation Psychological: Normal affect, Normal Mood Diagnostic/Tx/Re-eval - Medical Decision Making I had a long conversation with the patient regarding all of the above we discussed her outpatient prior management she agrees no studies are indicated at this time she is demanding to be treated with morphine and Ativan I explained to her that those are controlled substances that can radiate lead to addiction other complications I explained this to her mother that was here explained to her we would have to try to use non-addicting opioid type medications, she did agree to try Zofran Toradol and we will give her 1 dose of subcu morphine, and she will keep her appoint with her outpatient providers for further management of all the above Home stable Final impression acute recurrent cycles of vomiting and abdominal pain history of cyclic vomiting syndrome ED Disposition - Plan for ED Patient: Diagnosis: Cyclic vomiting syndrome Instructions: VOMITING AND DIARRHEA, Nonspecific (Adult) Referrals: Fanny Sharif MD [Primary Care Provider] -
[2019-04-12] MEDS: Ondansetron ODT 4 MG Tablet 8 MG PO (12:53)
[2019-04-12] MEDS: Morphine 4 MG/ML Syringe SC (12:53)
[2019-04-12] MEDS: Ketorolac 60 MG/2 ML Vial IM (12:54)
[2019-04-12 13:28] VITALS: BP 120/77; PULSE 84; RESP 16; O2SAT 98
--- NOTE | 2019-04-12 13:31 | ED.RN ---
pt states continues to have pain and nausea. MD aware and stated he already talked with pt and she can be discharged. pt waiting in room for mother to give ride home.
--- NOTE | 2019-04-12 13:35 | ED.RN ---
PT AMBULATES OUT OF ROOM WITHOUT DIFFICULTY.
== END 2019-04-12 13:36 | disposition home or self-care (01) ==
PROVIDERS: Emergency Provider Emergency Medicine; Family Provider Pediatrics; PCP Pediatrics
DX: R11.15 Cyclical vomiting syndrome unrelated to migraine (principal)
CPT/HCPCS: 96372; 99283

== ENCOUNTER 2019-04-16 14:49 | Emergency (ER) | payer MEDICAID, SELFPAY ==
[2019-04-16 14:50] VITALS: BP 160/109; PULSE 102; RESP 18; TEMP 36.6; O2SAT 98; BMI 32.5
--- NOTE | 2019-04-16 15:08 | ED.VISSUMM ---
- ER Visit Summary Date of Service: 04/16/19 Chief Complaint: Vomiting History of Present Illness: The patient is a 18 F presenting with vomiting. Patient states this has been going on for several days. She has history of cyclic vomiting syndrome. She has had 4 episodes of vomiting today. She tried Phenergan at home. She has diffuse abdominal pain similar to her chronic abdominal pain. She denies diarrhea. Denies urinary complaints. She is currently on her menstrual period and denies possibility of . She has a follow-up appointment with her primary care physician in May. She follows with [facility]. Denies new complaints. Physical Examination: Vitals are stable. Patient is afebrile. Alert no acute distress. HEENT exam dry mucous membranes Neck is supple. Lungs are clear and equal bilaterally. Heart is regular rate and rhythm. Abdomen is soft mild diffuse tenderness with no guarding or rebound Extremities are unremarkable. Skin is warm and dry. Remainder of exam is unremarkable. Emergency Department Course and Treatment: Patient was given IV fluids, Ativan, Zofran, Toradol, Pepcid. Patient is requesting morphine. She was seen by social work in the ED. Care plan is in process. I advised her that narcotic pain medication is not indicated for these symptoms. She was given Bentyl and Phenergan. She was set up to see behavioral health next week. On reevaluation, she is resting comfortably. Family is requesting prescription for Naprosyn. Advised to follow-up with primary care physician. Advised return to ED for worsening complaints. Disposition: Discharge home Impression: Cyclic vomiting syndrome This note was generated with [employer] dictation software. It may contain incorrect words, spelling, and punctuation that were not noted in review of the chart prior to signing ED Disposition - Plan for ED Patient: Instructions: VOMITING (4y-Adult) Prescriptions: Naproxen [Naprosyn] 500 mg PO BID PRN #20 tab Prescription Printed Referrals: Fanny Sharif MD [Primary Care Provider] -
[2019-04-16] MEDS: 0.9% Normal Saline 1,000 ML 999 ML IV (15:33)
[2019-04-16] MEDS: LORazepam 2 MG/ML Syringe 0.5 MG IV (15:34)
[2019-04-16] MEDS: Ondansetron 4 MG/2 ML Vial IV (15:34)
[2019-04-16] MEDS: Ketorolac 30 MG/ML Syringe IV (15:34)
[2019-04-16] MEDS: Famotidine 200 MG/20 ML MDV 20 MG in 0.9% Normal Saline (Pres. free 8 ML 300 MG IV (15:40)
--- NOTE | 2019-04-16 15:40 | CM.ED ---
SOCIAL WORK INFORMANT: DR. PINEDA REASON FOR REFERRAL: ED CARE PLAN/RESOURCES MET WITH PATIENT, MOTHER AND SISTER IN ROOM. INTRODUCED ROLE AND REASON FOR REFERRAL. PATIENT KNOWN TO SOCIAL WORK. DISCUSSED PREVIOUS VISITS AND RECOMMENDATIONS. PATIENT REPORTS HAS SEEN A COUNSELOR IN THE PAST. ASKED PATIENT ABOUT EMPLOYMENT AND SCHOOLING. PATIENT STATES ATTEND [employer] IN [place] AND WORKS AT [employer]. PATIENT REPORTS SCHOOL IS GOING WELL AND HAS BEEN ABLE TO MAINTAIN EMPLOYMENT. DISCUSSED MENTAL HEALTH AND PHYSICAL HEALTH. PATIENT ADMITS TO ANXIETY AND DEPRESSION AND STATES IS WORSE WHEN NOT FEELING WELL. PATIENT'S SISTER STRONGLY ENCOURAGING MENTAL HEALTH FOLLOW UP AND PATIENT SEEING A PSYCHIATRIST. PATIENT INFORMED OF RECOMMENDATION FOR ED CARE PLAN. EXPLAINED WHAT AN ED CARE PLAN LOOKS LIKE. PATIENT VERBALIZED UNDERSTANDING. EDUCATION PROVIDED ON THE [facility]. PATIENT OPEN TO INTAKE APPOINTMENT AND REQUESTS APPOINTMENT BE ON FRIDAY NEXT WEEK. CALL TO BEHAVIORAL HEALTH, SPOKE WITH [facility]. PATIENT SCHEDULED FOR INTAKE ON 04/21/19 AT . PATIENT PROVIDED WITH [facility] ON BEHAVIORAL HEALTH SERVICES AND GIVEN APPOINTMENT TIME, DATE AND LOCATION. PATIENT GIVEN WHEN AND WHERE TO GO HANDOUT. SISTER PROVIDED WITH THIS WORKER'S BUSINESS CARD PER REQUEST. THIS WORKER TO REMAIN AVAILABLE FOR NEEDS. NO FURTHER QUESTIONS AT THIS TIME. Nolan QUINONES, SKINNING MACHINE FEEDER, INKER AND OPAQUER.
--- NOTE | 2019-04-16 16:03 | ED.RN ---
PT REQUESTING PAIN MEDICATION. DR AWARE. MENDOZA FROM LIME SUPERVISOR IN PROCESS OF MAKING A CARE PLAN. PT NOT TO RECEIVE NARCOTIC MEDICATION. THIS RN IN TO TALK WITH PT REGARDING PLAN OF CARE AND THAT PT TO BE OBSERVED AT THIS TIME
--- NOTE | 2019-04-16 17:04 | ED.RN ---
PT REQUESTING SOMETHING MORE FOR PAIN AND PROMETHAZINE FOR NAUSEA
--- NOTE | 2019-04-16 17:15 | CM.ED ---
SOCIAL WORK PATIENT CONTINUES TO REQUEST PAIN MEDICATION. THIS WORKER AND DR. PINEDA TO ROOM. DR. PINEDA INFORMED PATIENT HAS BEEN GIVEN MEDICATION FOR PAIN AND WILL NOT GIVE MORPHINE. DISCUSSED RISKS OF BECOMING HABIT FORMING AND PATIENT'S MULTIPLE ED VISITS. PATIENT HAS BEEN SCHEDULED FOR INTAKE WITH THE [facility]. SOCIAL WORK WORKING ON ED CARE PLAN FOR PATIENT. Nolan QUINONES MSW, CORPORATE COORDINATOR.
[2019-04-16] MEDS: proMETHazine 25 MG/ML Syringe 6.25 MG IV (17:53)
[2019-04-16] MEDS: Dicyclomine 20 MG/2 ML Vial IM (17:55)
--- NOTE | 2019-04-16 19:00 | CM.ED ---
SOCIAL WORK UPDATED BY NURSING, PATIENT'S FATHER PRESENT. MET WITH PATIENT AND FAMILY IN ROOM. PATIENT SLEEPING. INTRODUCED SELF AND DISCUSSED DISCHARGE. FATHER ASKING FOR SCRIPT FOR OVER THE COUNTER PAIN MEDICATION FOR PATIENT. DR. PINEDA UPDATED. PLAN: HOME WITH REFERRAL FOR INTAKE APPOINTMENT WITH [facility]. PATIENT AND FAMILY AWARE OF ED CARE PLAN REFERRAL. Nolan QUINONES MSW, GINNER HELPER.
--- NOTE | 2019-04-16 19:01 | ED.DEP ---
ED Disposition - Plan for ED Patient: Instructions: VOMITING (4y-Adult) Prescriptions: Naproxen [Naprosyn] 500 mg PO BID PRN #20 tablet Referrals: Fanny Sharif MD [Primary Care Provider] -
--- NOTE | 2019-04-16 19:10 | ED.DEP ---
ED Disposition - Plan for ED Patient: Instructions: VOMITING (4y-Adult) Prescriptions: Naproxen [Naprosyn] 500 mg PO BID PRN #20 tab Prescription Printed Referrals: Fanny Sharif MD [Primary Care Provider] -
[2019-04-16 19:20] VITALS: BP 167/109; PULSE 94; RESP 16; O2SAT 99
== END 2019-04-16 19:22 | disposition home or self-care (01) ==
LOC: ED 15:00
PROVIDERS: Emergency Provider Emergency Medicine; Family Provider Pediatrics; PCP Pediatrics
DX: R11.15 Cyclical vomiting syndrome unrelated to migraine (principal)
CPT/HCPCS: 96361; 96372; 96374; 96375; 99284; J7030; A4216; J2405; J3490

== ENCOUNTER 2019-08-18 17:07 | Emergency (ER) | payer MEDICAID, SELFPAY ==
[2019-08-18 17:08] VITALS: BP 152/107; PULSE 84; RESP 17; TEMP 36.6; O2SAT 97; BMI 30.9
--- NOTE | 2019-08-18 17:34 | ED.DCSUM_ITS ---
- ER Visit Summary Date of Service: 08/18/19 Chief Complaint: Nausea and vomiting History of Present Illness: The patient is a 19 F who presents with nausea and vomiting that is been constant for the past 4 days. Patient states she has a history of cyclic vomiting syndrome and has been taking Zofran and Phenergan at home with no relief. Patient also admits to some diarrhea which is loose. Patient denies any hematemesis or coffee-ground emesis. Patient denies any melena or hematochezia. Patient denies any urinary complaints. Patient states she is currently on her menstrual cycle. Patient admits to some sharp pain over the epigastric area. Patient states this is been constant but waxes and wanes. Physical Examination: Vital signs are stable except for mildly elevated blood pressure of 152/107. Patient is afebrile. Patient is in no acute distress. Oral mucosa is pink and moist. Neck is supple. Trachea is midline. There is no JVD. Heart was regular rate and rhythm. Lungs are clear and equal bilaterally. Abdomen is soft. Bowel sounds are normal. There is epigastric tenderness. There is no rebound or guarding noted. Extremities are intact. There is no calf tenderness or edema. Cranial nerves II through XII are intact. There are no focal motor or sensory deficits. Test Results: CBC was obtained and was within normal limits. Comprehensive metabolic profile showed a mild hypokalemia of 3.1. The remainder was within normal limits. Lipase was normal. Emergency Department Course and Treatment: Patient was given IV fluids. Patient was given Ativan, Zofran and Pepcid. Patient's nausea has improved. Patient was still complaining of some mild pain. Patient was given a dose of morphine here. Patient was given prescriptions for Zofran ODT and Phenergan suppositories. Patient was instructed to start with a liquid diet and advance as tolerated. Patient was instructed to follow-up with her primary care physician in 3 to 5 days. Patient understood and was agreeable with the plan. All questions were answered. Disposition: Discharge home Impression: Cyclic vomiting This note was generated with [employer] software. It may contain incorrect words, spelling, and punctuation that were not noted in review of the chart prior to signing ED Disposition - Plan for ED Patient: Disposition: Home or Assisted Living Diagnosis: Cyclic vomiting syndrome Instructions: ED Nausea Vomiting Adult Prescriptions: proMETHazine suppository [Phenergan Suppository] 25 mg RECTAL Q6H PRN PRN #6 suppos. PRN Reason: Nausea Prescription Printed Ondansetron [Zofran Odt] 4 mg PO Q8H PRN PRN #10 tab PRN Reason: Nausea Prescription Printed Referrals: Fanny Sharif MD [Primary Care Provider] - 3-5 Days
[2019-08-18 18:07] LABS: Absolute Neutrophil Count 5.2 X10^3/uL (2.0-7.7); Basophil# 0.03 X10^3/uL; Basophil% 0.3 % (0-1); Eosinophil# 0.03 X10^3/uL; Eosinophils% 0.3 % (0-5); Hematocrit 42.3 % (37-47); Lymphocyte % 32.7 % (19-41); Mean Corp Hgb Conc 30.7 g/dL (32-36); Mean Corpuscular Hgb 22.6 pg (27.0-32.0); Mean Corpuscular Volume 73.4 fL (81-99); Mean Platelet Vol. 10.1 fl (6.2-12.0); Monocyte% 7.9 % (0-10); NRBC Flagged by Analyzer 0 % (0-5); Neutrophil # 5.17 X10^3/uL (2.7-7.7); Neutrophil % 58.5 % (47-70); Platelet Count 411 K/mm3 (150-450); RBC Distribution Width CV 14.5 % (11.6-14.6); RBC Distribution Width SD 37.6 fl (35.1-43.9); Red Blood Count 5.76 M/mm3 (4.2-5.4); White Blood Count 8.9 K/mm3 (4.4-11.0)
[2019-08-18] MEDS: Famotidine 200 MG/20 ML MDV 20 MG in 0.9% Normal Saline (Pres. free 8 ML 300 MG IV (18:14)
[2019-08-18] MEDS: 0.9% Normal Saline 1,000 ML 1000 ML IV (18:14)
[2019-08-18] MEDS: Ondansetron 4 MG/2 ML Vial IV (18:14)
[2019-08-18] MEDS: LORazepam 2 MG/ML Syringe 0.5 MG IV (18:15)
[2019-08-18 18:40] LABS: ALB/GLOB Ratio 1.2 RATIO (0.9-2.4); AST(SGOT) 77 U/L (15-37); Alanine Aminotransfer ALT/SGPT 59 U/L (13-56); Albumin, Serum 4.9 g/dL (3.2-5.0); Alkaline Phosphatase 80 U/L (45-117); Anion Gap 8 (5-15); BUN 25 mg/dL (7-18); BUN/Creat Ratio 24.5 RATIO (10-20); Calcium,Total 9.4 mg/dL (8.5-10.1); Chloride 102 mmol/L (98-107); Creatinine, Serum 1.02 mg/dL (0.55-1.02); EST Glomerular Filtration Rate 73 mL/min (>60); Est Glom Filt Rate - Afr Amer 88 mL/min (>60); Estimated Creatinine Clearance 75.34 ml/min; Globulin 4.1 g/dL (2.2-4.2); Glucose 95 mg/dL (74-106); Lipase 67 U/L (73-393); Potassium 3.1 mmol/L (3.5-5.1); Sodium Level 137 mmol/L (136-145)
[2019-08-18] MEDS: Morphine 2 MG/ML Syringe IV (19:00)
[2019-08-18 19:01] VITALS: BP 141/98; PULSE 96; RESP 14; O2SAT 99
== END 2019-08-18 19:03 | disposition home or self-care (01) ==
PROVIDERS: Emergency Provider Emergency Medicine; PCP Pediatrics
DX: R11.15 Cyclical vomiting syndrome unrelated to migraine (principal); E87.6 Hypokalemia
CPT/HCPCS: 80053; 83690; 85025; 96361; 96374; 96375; 99285; J7030; A4216; J2405; J3490

== ENCOUNTER 2019-09-27 20:55 | Emergency (ER) | payer MEDICAID, SELFPAY ==
[2019-09-27 20:56] VITALS: BP 143/36; PULSE 90; RESP 16; TEMP 36.6; O2SAT 100; BMI 33.0
--- NOTE | 2019-09-27 21:32 | ED.DCSUM_ITS ---
History of Present Illness Chief Complaint: Nausea/Vomiting Informant: Patient Onset: Days - 2 Narrative: History of cyclic vomiting syndrome recurrent symptoms for 2 days ago. No hematemesis. No diarrhea. Abdominal cramping due to vomiting. Sees [facility]. Reports has been placed on a new oral contraceptive regimen by [employer] and has come down symptoms somewhat. Last flare a month ago. Zofran and Phenergan oral no relief. No fevers. No chest pains or shortness of breath. No urinary symptoms. Last month's regimen reported Ativan, Zofran and Pepcid did help with symptoms. Prior similar symptoms: Yes Past Medical History - Allergies and Home Meds Allergies/Adverse Reactions: Allergies chlorpromazine [From Thorazine] Adverse Reaction (Verified 09/27/19 20:56) Other BODY FEELS NUMB Primary Care Physician: Fanny Sharif MD [Primary Care Provider] - Past Medical History: - - Cyclic vomiting syndrome Surgical History: no surgical history Smoking Status: Never smoker - Family History Maternal Family History: Reports: - - Patient denies any marked maternal or paternal family history including heart disease, diabetes or cancer. Paternal Family History: Reports: - - Patient denies any marked maternal or paternal family history including heart disease, diabetes or cancer. Review of Systems General: Denies: Chills, Fever, Sweats Eyes: Denies: Visual changes - bilaterally, Diplopia ENT: Denies: Rhinorrhea, Sore throat Cardiovascular: Denies: Chest pain, Palpitations Respiratory: Denies: Dyspnea, Cough, Dyspnea on exertion Gastrointestinal: Reports: Abdominal pain, Nausea, Vomiting. Denies: Diarrhea, Melena, Hematochezia Genitourinary: Denies: Dysuria, Hematuria, Frequency Musculoskeletal: Denies: Back pain, Extremity Pain Skin: Denies: Rash, Wounds Neurological: Denies: Headache, Weakness, Numbness Physical Exam Vital Signs/Narrative: Vital Signs Temp Pulse Resp BP Pulse Ox 09/27/19 20:56 97.9 F 90 16 143/36 H 100 Inital Vital Signs reviewed: Yes General: Well nourished, Well developed, No Acute Distress Head: Normocephalic, Atraumatic Eyes: Perrl, EOMI ENT: Moist mucous membranes, No rhinorrhea Neck: Supple, Nontender Cardiovascular: Regular rate, Regular rhythm, No murmurs Respiratory: No distress, CTA bilaterally, Chest nontender Abdomen: Soft, Nondistended, Normal bowel sounds, - - Mild epigastric tenderness, no guarding or rebound. Negative Agrawal's McBurney's tenderness. Back: Nontender, Normal Inspection Extremities: Nontender, No edema Skin: Normal color, No rash Neurological: Alert, Oriented x3, Cranial nerves II-XII grossly intact, Normal Strength, Normal Sensation Psychological: Normal affect, Normal Mood Diagnostic/Tx/Re-eval Abnormal Lab Results 09/27/19 09/27/19 21:50 22:28 Sodium 144 Potassium 4.3 Chloride 112 H Carbon Dioxide 23.0 Anion Gap 9 BUN 13 Creatinine 0.95 Estim Creat Clear Calc 80.89 Est GFR (MDRD) Af Amer 95 Est GFR (MDRD) Non-Af 79 BUN/Creatinine Ratio 13.7 Glucose 101 Calcium 9.6 Magnesium 2.5 Serum , Qual NEGATIVE - Medical Decision Making Patient vital signs stable, nonsurgical abdomen. She had abnormal electrolytes previously, her cyclic vomiting, IVs placed given fluids, checked electrolytes which were normal today. She reported her normal regimen was Ativan Zofran Pepcid which was given, reevaluation states still nauseated additional Reglan was given. States was improving compared to her when she arrived. She states typically with Phenergan and along with pain control morphine this can help alleviate her symptoms. She states she did not want to be admitted states the medication will help. This was ordered with improving symptoms. She does have prescriptions of Phenergan and Zofran at home to continue to use. She will follow-up as an outpatient, she return if any worsening symptoms. All questions were answered. ED Disposition - Plan for ED Patient: Disposition: Home or Assisted Living Diagnosis: Cyclic vomiting syndrome Instructions: When Your Child Has Cyclic Vomiting Syndrome ([facility]) Referrals: Fanny Sharif MD [Primary Care Provider] - 1-2 Days if not improving
[2019-09-27] MEDS: 0.9% Normal Saline 1,000 ML 1000 ML IV (21:43)
[2019-09-27] MEDS: Famotidine 200 MG/20 ML MDV 20 MG in 0.9% Normal Saline (Pres. free 8 ML 300 MG IV (21:43)
[2019-09-27] MEDS: Ondansetron 4 MG/2 ML Vial IV (21:44)
[2019-09-27] MEDS: LORazepam 2 MG/ML Syringe 1 MG IV (21:49)
[2019-09-27 22:15] LABS: Anion Gap 9 (5-15); BUN 13 mg/dL (7-18); BUN/Creat Ratio 13.7 RATIO (10-20); Calcium,Total 9.6 mg/dL (8.5-10.1); Chloride 112 mmol/L (98-107); Creatinine, Serum 0.95 mg/dL (0.55-1.02); EST Glomerular Filtration Rate 79 mL/min (>60); Est Glom Filt Rate - Afr Amer 95 mL/min (>60); Estimated Creatinine Clearance 80.89 ml/min; Glucose 101 mg/dL (74-106); Magnesium 2.5 mg/dL (1.6-2.6); Potassium 4.3 mmol/L (3.5-5.1); Sodium Level 144 mmol/L (136-145)
[2019-09-27 22:43] LABS: Internal QC Validated? YES +Cl - CLEAR BKGD
[2019-09-27 22:44] LABS: Pregnancy, Serum, hCG Quali. NEGATIVE Negative
[2019-09-27] MEDS: Metoclopramide 10 MG/2 ML Vial 5 MG IV (23:17)
[2019-09-28] MEDS: Morphine 4 MG/ML Syringe IV (00:35)
[2019-09-28] MEDS: proMETHazine 25 MG/ML Syringe 6.25 MG IV (00:35)
[2019-09-28] MEDS: 0.9% Normal Saline 1,000 ML 150 ML IV (00:47)
[2019-09-28 00:53] VITALS: BP 147/101; PULSE 97; RESP 14; O2SAT 100
--- NOTE | 2019-09-28 20:00 | CM.ED ---
[employer]IAL WORK ED CARE PLAN REVIEWED AND APPROVED BY DR. BANKS. COPY OF ED CARE PLAN AND RESOURCES MAILED TO PATIENT VIA CERTIFIED MAIL. TRACKING # [id number] [phone] [id number]. ED CARE PLAN FAXED TO PATIENT'S PCP- DR. MARQUEZ. Nolan QUINONES, CLAIMS ADJUDICATOR, MOBILE MARKETING MANAGER.
== END 2019-09-28 01:07 | disposition home or self-care (01) ==
PROVIDERS: Emergency Provider Emergency Medicine; PCP Pediatrics
DX: R11.15 Cyclical vomiting syndrome unrelated to migraine (principal)
CPT/HCPCS: 80048; 83735; 84703; 96361; 96374; 96375; 99283; J7030; A4216; J2405; J3490

== ENCOUNTER 2019-09-29 18:38 | Emergency (ER) | payer MEDICAID, SELFPAY ==
[2019-09-29 18:39] VITALS: BP 158/63; PULSE 90; RESP 16; TEMP 36.6; O2SAT 100; BMI 33.5
--- NOTE | 2019-09-29 19:06 | ED.DCSUM_ITS ---
History of Present Illness Chief Complaint: Nausea/Vomiting Informant: Patient - Abdominal Pain/Flank Pain Onset: Days Context: Gradual Onset Timing: Continuous Quality: Cramping Location: Diffuse Current Severity: Severe Maximum Severity: Severe Worsened by: Nothing Relieved by: Nothing - Nausea/Vomiting/Emesis GI Symptom: Nausea, Vomiting Onset: Days Quality: Nonbilious. Negative for: Blood streaks, Coffee ground, Hematemesis - Diarrhea/Melena/Hematochezia GI Symptom: Negative for: Diarrhea, Melena, Hematochezia Narrative: Patient is a 19-year-old female with history of cyclic vomiting syndrome well- known to our emergency room presenting with nausea, vomiting and abdominal pain. Patient seen 2 days ago for the same symptoms. She states she never felt significantly better and her symptoms persisted. She states she is vomited 7-8 times today. She denies any coffee-ground emesis or blood in her vomit. She states she has had normal bowel movements with no diarrhea, melena or bright red blood per rectum. She denies any urinary symptoms. She states she is actually better for a while and is not sure what triggered these episode/flare. She denies any fever or chills. She denies any change in her symptoms since 2 days ago when she was evaluated. She describes her abdominal pain is diffuse and cramping. She denies any other complaints at this time. Past Medical History - Allergies and Home Meds Allergies/Adverse Reactions: Allergies chlorpromazine [From Thorazine] Adverse Reaction (Verified 09/29/19 19:18) Other BODY FEELS NUMB Primary Care Physician: Fanny Sharif MD [Primary Care Provider] - Past Medical History: - - Anxiety, cyclic vomiting syndrome Surgical History: no surgical history Lives: With Family Smoking Status: Never smoker - Family History Maternal Family History: Reports: - - Patient denies any marked maternal or paternal family history including heart disease, diabetes or cancer. Paternal Family History: Reports: - - Patient denies any marked maternal or paternal fam tiffany history including heart disease, diabetes or cancer. Review of Systems General: Denies: Chills, Fever, Sweats Eyes: Denies: Visual changes - bilaterally, Diplopia ENT: Denies: Rhinorrhea, Sore throat Cardiovascular: Denies: Chest pain, Palpitations Respiratory: Denies: Dyspnea, Cough, Dyspnea on exertion Gastrointestinal: Reports: Abdominal pain, Nausea, Vomiting. Denies: Diarrhea, Melena, Hematochezia Genitourinary: Denies: Dysuria, Hematuria, Frequency Musculoskeletal: Denies: Back pain, Extremity Pain Skin: Denies: Rash, Wounds Neurological: Denies: Headache, Weakness, Numbness Physical Exam Vital Signs/Narrative: Vital Signs Temp Pulse Resp BP Pulse Ox 09/29/19 18:39 98 F 90 16 158/63 H 100 Inital Vital Signs reviewed: Yes General: Well nourished, Well developed, No Acute Distress Head: Normocephalic, Atraumatic Eyes: Perrl, EOMI ENT: Moist mucous membranes, No rhinorrhea Neck: Supple, Nontender Cardiovascular: Regular rate, Regular rhythm, No murmurs Respiratory: No distress, CTA bilaterally, Chest nontender Abdomen: Soft, Nondistended, Normal bowel sounds, Tender - Mild diffuse. Negative for: Guarding, Rebound tenderness Back: Nontender, Normal Inspection. Negative for: CVA tenderness Extremities: Nontender, No edema Skin: Normal color, No rash Neurological: Alert, Oriented x3, Cranial nerves II-XII grossly intact, Normal Strength, Normal Sensation Psychological: Normal affect, Normal Mood Diagnostic/Tx/Re-eval - Medical Decision Making Patient is evaluated for abdominal pain, nausea and vomiting. This is consistent with her episodes of cyclic vomiting syndrome. Patient is well-known to our emergency room and has a care plan. Patient was seen 2 days ago she did have lab work which was all grossly normal. She was treated and discharged home. Patient states she never really felt much better. The patient does not have an acute change of her symptoms and is hemodynamically stable I do not think repeat blood work is indicated today. Patient is given cyclic vomiting order set including Ativan, Zofran, Pepcid and then Benadryl and Thorazine. On reevaluation she states she is feeling much better but is sleepy. She will be discharged home. She states she has refills of her nausea medications at home. She is encouraged to follow-up with her GI specialist in [place]. Patient is counseled on signs and symptoms requiring return to the emergency room. Patient verbalizes agreement and understand this plan. Patient discharged home in stable and improved condition. ED Disposition - Plan for ED Patient: Disposition: Home or Assisted Living Diagnosis: Cyclic vomiting syndrome Instructions: ED Nausea Vomiting Adult Referrals: Fanny Sharif MD [Primary Care Provider] - Additional Instructions: Please follow-up with your GI specialist in [place].
[2019-09-29] MEDS: Ondansetron 4 MG/2 ML Vial IV (19:26)
[2019-09-29] MEDS: Famotidine 200 MG/20 ML MDV 20 MG in 0.9% Normal Saline (Pres. free 8 ML 300 MG IV (19:26)
[2019-09-29] MEDS: LORazepam 2 MG/ML Syringe 0.5 MG IV (19:29)
[2019-09-29 20:59] VITALS: BP 133/85; PULSE 70; RESP 14; O2SAT 100
[2019-09-29 23:48] VITALS: BP 132/81; PULSE 87; RESP 16; O2SAT 98
== END 2019-09-29 23:49 | disposition home or self-care (01) ==
PROVIDERS: Emergency Provider Emergency Medicine; PCP Pediatrics
DX: R11.15 Cyclical vomiting syndrome unrelated to migraine (principal)
CPT/HCPCS: 96365; 96374; 96375; 99283; J7030; A4216; J2405; J3490

== ENCOUNTER 2019-10-19 21:00 | Emergency (ER) | payer MEDICAID, SELFPAY ==
[2019-10-19 21:01] VITALS: BP 149/111; PULSE 100; RESP 15; TEMP 36.9; O2SAT 100; BMI 31.9
--- NOTE | 2019-10-19 21:26 | ED.VIS.GI ---
History of Present Illness Chief Complaint: Nausea/Vomiting Informant: Patient - Abdominal Pain/Flank Pain Onset: Yesterday Context: Gradual Onset Timing: Continuous Quality: Aching Location: Epigastric - Nausea/Vomiting/Emesis GI Symptom: Nausea, Vomiting Onset: Yesterday Quality: Nonbilious. Negative for: Blood streaks, Coffee ground, Hematemesis Severity: Severe - Diarrhea/Melena/Hematochezia GI Symptom: Negative for: Diarrhea, Melena, Hematochezia Associated Symptoms: Negative for: Dysuria, Frequency, Hematuria, Urgency LMP: this week Narrative: Patient is a 19-year-old female well-known to the emergency room with history of cyclic vomiting syndrome presenting with nausea and vomiting. Patient states started yesterday. It coincides with her starting her period. Patient states she is had numerous episodes of nausea and vomiting today and yesterday. She denies any black or blood in her vomit. She denies any change in her bowel movements and states they have been regular. She states is typical of her episodes. She did recently change control pills hoping that would help with her symptoms. Patient follows up with a GI specialist in [place] as well as an INSURANCE RISK MANAGER for her symptoms. She does also note that she feels that there is something lodged in her upper esophagus and she has some discomfort associated from her vomiting. She denies any difficulty breathing or shortness of breath. She denies any other complaints at this time. Past Medical History - Allergies and Home Meds Allergies/Adverse Reactions: Allergies chlorpromazine [From Thorazine] Adverse Reaction (Verified 10/19/19 21:01) Other BODY FEELS NUMB Primary Care Physician: Fanny Sharif MD [Primary Care Provider] - Past Medical History: - - Cyclic vomiting syndrome Surgical History: no surgical history Lives: With Family Smoking Status: Never smoker - Family History Maternal Family History: Reports: - - Patient denies any marked maternal or paternal family history including heart disease, diabetes or cancer. Paternal Family History: Reports: - - Patient denies any marked maternal or paternal family history including heart disease, diabetes or cancer. Review of Systems General: Denies: Chills, Fever, Sweats Eyes: Denies: Visual changes - bilaterally, Diplopia ENT: Denies: Rhinorrhea, Sore throat Cardiovascular: Denies: Chest pain, Palpitations Respiratory: Denies: Dyspnea, Cough, Dyspnea on exertion Gastrointestinal: Reports: Abdominal pain, Nausea, Vomiting. Denies: Diarrhea, Melena, Hematochezia Genitourinary: Denies: Dysuria, Hematuria, Frequency Musculoskeletal: Denies: Back pain, Extremity Pain Skin: Denies: Rash, Wounds Neurological: Denies: Headache, Weakness, Numbness Physical Exam Vital Signs/Narrative: Vital Signs Temp Pulse Resp BP Pulse Ox 10/19/19 21:01 98.4 F 100 15 149/111 H 100 Inital Vital Signs reviewed: Yes General: Well nourished, Well developed, No Acute Distress Head: Normocephalic, Atraumatic Eyes: Perrl, EOMI ENT: Moist mucous membranes, No rhinorrhea Neck: Supple, Nontender Cardiovascular: Regular rate, Regular rhythm, No murmurs Respiratory: No distress, CTA bilaterally, Chest nontender Abdomen: Soft, Nondistended, Normal bowel sounds, No masses, Tender - Diffuse. Negative for: Guarding, Rebound tenderness Back: Nontender, Normal Inspection Extremities: Nontender, No edema Skin: Normal color, No rash Neurological: Alert, Oriented x3, Cranial nerves II-XII grossly intact, Normal Strength, Normal Sensation Psychological: Normal affect, Normal Mood Diagnostic/Tx/Re-eval Clinical Impression(s) from Imaging Studies Chest X-Ray 10/19/19 22:34 IMPRESSION: No acute cardiopulmonary disease or interval change. Electronically Signed: Manuel Arita DO at 22:54 EDT Tel [phone], Service support , Laboratory Data 10/19/19 10/19/19 10/19/19 22:22 22:22 22:22 WBC 9.8 RBC 5.64 H Hgb 12.4 Hct 40.9 MCV 72.5 L MCH 22.0 L MCHC 30.3 L RDW Std Deviation 40.0 RDW Coeff of Iggy 15.8 H Plt Count 419 MPV 10.6 Immature Gran % (Auto) 0.300 Neut % (Auto) 75.0 H Lymph % (Auto) 19.8 Major % (Auto) 4.7 Eos % (Auto) 0.0 Baso % (Auto) 0.2 Absolute Neuts (auto) 7.3 Absolute Lymphs (auto) 1.94 Nucleated RBC % 0 Sodium 140 Potassium 3.6 Chloride 107 Carbon Dioxide 25.0 Anion Gap 8 BUN 13 Creatinine 0.94 Estim Creat Clear Calc 81.75 Est GFR (MDRD) Af Amer 97 Est GFR (MDRD) Non-Af 80 BUN/Creatinine Ratio 13.9 Glucose 90 Calcium 9.7 Total Bilirubin 0.40 Direct Bilirubin 0.13 AST 14 L ALT 27 Alkaline Phosphatase 63 Total Protein 8.9 H Albumin 4.7 Globulin 4.2 Lipase 80 - Medical Decision Making Patient is evaluated for nausea, vomiting and abdominal pain. This is consistent with her cyclic vomiting syndrome. She appears nontoxic and is hemodynamically stable in the emergency room. She does not appear clinically dehydrated. Abdomen is mildly tender. Her presentation is highly consistent with her prior episodes. She has having some chest discomfort so I did obtain a chest x-ray to rule out pneumomediastinum. This is negative. Patient is given medications for cyclic vomiting syndrome. She is now resting. Patient will be discharged home. Her episode today seems to be triggered by her menstrual cycle. She is encouraged to follow-up with her GI doctor as well as her INSURANCE RISK MANAGER. ED Disposition - Plan for ED Patient: Disposition: Home or Assisted Living Diagnosis: Cyclic vomiting syndrome Instructions: ED Nausea Vomiting Adult Referrals: Fanny Sharif MD [Primary Care Provider] -
--- NOTE | 2019-10-19 22:11 | ED.RN ---
DELAY IN CARE GETTING IV ACCESS. 3RD RN TO TRY NOW.
[2019-10-19] MEDS: 0.9% Normal Saline 1,000 ML 999 ML IV (22:27)
[2019-10-19 22:28] LABS: Absolute Lymphocyte Count 1.94 X10^3/uL (0.83-4.51); Absolute Neutrophil Count 7.3 X10^3/uL (2.0-7.7); Basophil# 0.02 X10^3/uL; Basophil% 0.2 % (0-1); Hematocrit 40.9 % (37-47); Hemoglobin 12.4 g/dL (12.0-15.0); Lymphocyte # 1.94 X10^3/ul (4.0); Lymphocyte % 19.8 % (19-41); Mean Corp Hgb Conc 30.3 g/dL (32-36); Mean Corpuscular Volume 72.5 fL (81-99); Mean Platelet Vol. 10.6 fl (6.2-12.0); Monocyte# 0.46 X10^3/uL; Monocyte% 4.7 % (0-10); NRBC Flagged by Analyzer 0 % (0-5); Neutrophil # 7.34 X10^3/uL (2.7-7.7); Platelet Count 419 K/mm3 (150-450); RBC Distribution Width CV 15.8 % (11.6-14.6); Red Blood Count 5.64 M/mm3 (4.2-5.4); White Blood Count 9.8 K/mm3 (4.4-11.0)
[2019-10-19] MEDS: Ondansetron 4 MG/2 ML Vial IV (22:28)
[2019-10-19] MEDS: LORazepam 2 MG/ML Syringe 0.5 MG IV (22:28)
[2019-10-19] MEDS: Famotidine 200 MG/20 ML MDV 20 MG in 0.9% Normal Saline (Pres. free 8 ML 300 MG IV (22:28)
--- NOTE | 2019-10-19 22:34 | RAD_ITS ---
STUDY: X-RAY CHEST REASON FOR EXAM: Female, 19 years old. Nausea and vomiting. TECHNIQUE: PIC line COMPARISON: None. FINDINGS: The lungs are clear and expanded. There is no demonstrated pleural abnormality. Normal size heart. Normal mediastinum and pal. Normal visualized pulmonary arteries. Normal visualized aortic arch and descending thoracic aorta. Normal visualized thoracic spine. Normal visualized ribs, clavicles, and shoulders. There is no demonstrated abnormality of the visualized soft tissue structures of the upper abdomen. RAD/Chest PA and Lateral IMPRESSION: No acute cardiopulmonary disease or interval change. Electronically Signed: Manuel Arita DO at 22:54 EDT Tel [phone], Service support ,
[2019-10-19 22:44] LABS: AST(SGOT) 14 U/L (15-37); Alanine Aminotransfer ALT/SGPT 27 U/L (13-56); Albumin, Serum 4.7 g/dL (3.2-5.0); Alkaline Phosphatase 63 U/L (45-117); Bilirubin, Direct 0.13 mg/dL (0.00-0.30); Globulin 4.2 g/dL (2.2-4.2); Protein, Total 8.9 g/dL (6.4-8.2)
[2019-10-19 22:46] LABS: Anion Gap 8 (5-15); BUN 13 mg/dL (7-18); BUN/Creat Ratio 13.9 RATIO (10-20); Calcium,Total 9.7 mg/dL (8.5-10.1); Chloride 107 mmol/L (98-107); Creatinine, Serum 0.94 mg/dL (0.55-1.02); EST Glomerular Filtration Rate 80 mL/min (>60); Est Glom Filt Rate - Afr Amer 97 mL/min (>60); Estimated Creatinine Clearance 81.75 ml/min; Glucose 90 mg/dL (74-106); Lipase 80 U/L (73-393); Potassium 3.6 mmol/L (3.5-5.1); Sodium Level 140 mmol/L (136-145)
[2019-10-19 23:40] VITALS: BP 107/63; PULSE 106; RESP 15; O2SAT 97
== END 2019-10-19 23:56 | disposition home or self-care (01) ==
PROVIDERS: Emergency Provider Emergency Medicine; PCP Pediatrics
DX: R11.15 Cyclical vomiting syndrome unrelated to migraine (principal); Z79.3 Long term (current) use of hormonal contraceptives
CPT/HCPCS: 71046; 80048; 80076; 83690; 85025; 96365; 96368; 96375; 99285; J7030; A4216; J2405; J3490

== ENCOUNTER 2019-11-05 23:34 | Emergency (ER) | payer MEDICAID, SELFPAY ==
[2019-11-05 23:34] VITALS: BP 151/77; PULSE 104; RESP 15; TEMP 36.2; O2SAT 99; BMI 32.1
--- NOTE | 2019-11-05 23:51 | ED.VIS.GEN ---
History of Present Illness Chief Complaint: Nausea/Vomiting/Diarrhea Informant: Patient, Family Onset: Yesterday Narrative: Patient presents the emergency department with a flare of her cyclic vomiting syndrome. Symptoms began yesterday. She states that she is due to start her menstrual period next week. She states that this is a very typical time for her to have a flare. She reports that this is a typical flare and that there is really nothing different from her normal flareups. No bleeding. No rashes. No fevers. She does have a care plan was reviewed. Past Medical History - Allergies and Home Meds Allergies/Adverse Reactions: Allergies chlorpromazine [From Thorazine] Adverse Reaction (Verified 11/05/19 23:38) Other BODY FEELS NUMB Primary Care Physician: Fanny Sharif MD [Primary Care Provider] - Surgical History: no surgical history Smoking Status: Never smoker - Family History Maternal Family History: Reports: - - Patient denies any marked maternal or paternal family history including heart disease, diabetes or cancer. Paternal Family History: Reports: - - Patient denies any marked maternal or paternal family history including heart disease, diabetes or cancer. Review of Systems General: Denies: Chills, Fever, Sweats Eyes: Denies: Visual changes - bilaterally, Diplopia ENT: Denies: Rhinorrhea, Sore throat Cardiovascular: Denies: Chest pain, Palpitations Respiratory: Denies: Dyspnea, Cough, Dyspnea on exertion Gastrointestinal: Reports: Abdominal pain, Nausea, Vomiting. Denies: Diarrhea, Melena, Hematochezia Genitourinary: Denies: Dysuria, Hematuria, Frequency Musculoskeletal: Denies: Back pain, Extremity Pain Skin: Denies: Rash, Wounds Neurological: Denies: Headache, Weakness, Numbness Physical Exam Vital Signs/Narrative: Vital Signs Temp Pulse Resp BP Pulse Ox 11/05/19 23:34 97.1 F L 104 H 15 151/77 H 99 Inital Vital Signs reviewed: Yes General: Well nourished, Well developed, No Acute Distress Head: Normocephalic, Atraumatic Eyes: Perrl, EOMI ENT: Moist mucous membranes, No rhinorrhea Neck: Supple, Nontender Cardiovascular: Regular rate, No murmurs, Tachycardia Respiratory: No distress, CTA bilaterally, Chest nontender Abdomen: Soft, Nondistended, Normal bowel sounds, Tender. Negative for: Guarding, Rebound tenderness Back: Nontender, Normal Inspection Extremities: Nontender, No edema Skin: Normal color, No rash Neurological: Alert, Oriented x3, Cranial nerves II-XII grossly intact, Normal Strength, Normal Sensation Psychological: Normal affect, Normal Mood Diagnostic/Tx/Re-eval - Medical Decision Making IV was established and the patient received Phenergan Ativan and Pepcid. She also received 2 L of IV fluids. Repeat examination the patient is resting comfortably. Her mother tells me that they have plenty of medication at home. She has had no further vomiting since she has been here. Patient will be discharged home return if worsening or concerns ED Disposition - Plan for ED Patient: Diagnosis: Cyclic vomiting syndrome Instructions: ED Nausea Vomiting Adult Referrals: Fanny Sharif MD [Primary Care Provider] - As Needed
[2019-11-06] MEDS: proMETHazine 25 MG/ML Syringe 12.5 MG IV (00:08)
[2019-11-06] MEDS: 0.9% Normal Saline 1,000 ML 1000 ML IV ×2 (00:08→01:55)
[2019-11-06] MEDS: LORazepam 2 MG/ML Syringe 1 MG IV (00:10)
[2019-11-06] MEDS: Famotidine 200 MG/20 ML MDV 20 MG in 0.9% Normal Saline (Pres. free 8 ML 300 MG IV (00:12)
[2019-11-06 02:54] VITALS: BP 140/80; PULSE 72; RESP 16; O2SAT 99
== END 2019-11-06 02:54 | disposition home or self-care (01) ==
LOC: ED 11-06 00:17
PROVIDERS: Emergency Provider Emergency Medicine; PCP Pediatrics
DX: R11.15 Cyclical vomiting syndrome unrelated to migraine (principal)
CPT/HCPCS: 96361; 96374; 96375; 99284; J7030; A4216; J3490

== ENCOUNTER 2019-11-23 20:44 | Emergency (ER) | payer MEDICAID, SELFPAY ==
[2019-11-23 20:45] VITALS: BP 148/99; PULSE 120; RESP 18; TEMP 36.2; O2SAT 97; BMI 31.1
[2019-11-23 22:16] VITALS: RESP 18
--- NOTE | 2019-11-23 22:24 | ED.VIS.GEN ---
History of Present Illness Chief Complaint: Nausea/Vomiting Informant: Patient Onset: Hours - 2 Context: Gradual Onset Timing: Continuous Quality: nonbilious nonbloody emesis Current Severity: Severe Maximum Severity: Severe Worsened by: trying to eat/drink Relieved by: nothing Associated Symptoms: epigastric/periumbilical pain Narrative: Patient has a history of cyclic vomiting syndrome and experiencing a flare. Started couple hours ago, no obvious trigger. She had her gallbladder and appendix taken out in July thinking that might help all this but it has not. That was done in [place]. She states that of her symptoms are unusual tonight. She had vomiting followed by development of discomfort. No urinary symptoms. Last normal menstrual cycle was about 1 week ago, normal timing, denies chance of . She states prior to this, she had no illnesses. She denies any respiratory symptoms, contact with coronavirus-infected persons that she knows of, or travel out of the area. - Past Medical History (1) Cyclic vomiting syndrome Status: Chronic Past Medical History - Allergies and Home Meds Allergies/Adverse Reactions: Allergies chlorpromazine [From Thorazine] Adverse Reaction (Verified 11/23/19 20:47) Other BODY FEELS NUMB Primary Care Physician: Fanny Sharif MD [Primary Care Provider] - Surgical History: appendectomy, cholecystectomy Lives: With Family Smoking Status: Never smoker - Family History Maternal Family History: Reports: - - Patient denies any marked maternal or paternal family history including heart disease, diabetes or cancer. Paternal Family History: Reports: - - Patient denies any marked maternal or paternal family history including heart disease, diabetes or cancer. Review of Systems General: Reports: Malaise. Denies: Chills, Fever, Sweats Eyes: Denies: Visual changes - bilaterally, Diplopia ENT: Denies: Bilateral ear pain, Rhinorrhea, Sore throat Cardiovascular: Denies: Chest pain, Palpitations Respiratory: Denies: Dyspnea, Cough, Dyspnea on exertion Gastrointestinal: Reports: Abdominal pain, Nausea, Vomiting. Denies: Diarrhea, Melena, Hematochezia Genitourinary: Denies: Dysuria, Hematuria, Frequency Musculoskeletal: Reports: Back pain - Chronic, low, unchanged. Denies: Swelling, Extremity Pain Skin: Denies: Rash, Wounds Neurological: Denies: Headache, Weakness, Numbness Physical Exam Vital Signs/Narrative: Vital Signs Temp Pulse Resp BP Pulse Ox 11/23/19 22:16 18 11/23/19 20:45 97.1 F L 120 H 18 148/99 H 97 Inital Vital Signs reviewed: Yes General: Well nourished, Well developed, No Acute Distress Head: Normocephalic, Atraumatic Eyes: Perrl, EOMI ENT: Moist mucous membranes, No rhinorrhea Neck: Supple, Nontender, No lymphadenopathy Cardiovascular: Regular rate, Regular rhythm, No murmurs Respiratory: No distress, CTA bilaterally, Chest nontender Abdomen: Soft, Nondistended, Normal bowel sounds, No masses, Tender - Epigastrium only. Negative for: Guarding, Rebound tenderness Back: Nontender, Normal Inspection. Negative for: CVA tenderness Extremities: Nontender, No edema Skin: Normal color, No rash, No Trauma Neurological: Alert, Oriented x3, Cranial nerves II-XII grossly intact, Normal Strength, Normal Sensation, Normal Gait Psychological: Normal affect, Normal Mood Diagnostic/Tx/Re-eval - Medical Decision Making Since patient has been vomiting for just a couple hours I do not think checking electrolytes would be necessary. This is similar presentation that she has had here in the past, she is fairly well-known to this emergency department, and she agrees that she does not need any testing tonight. She was initially given Reglan and Bentyl along with IV fluids and still had vomiting and pain but did not feel like she was much better. She was given Thorazine in the past and it helped and she agrees, and it has since appeared on her allergy list and she states that is because it makes her feel numb and she is comfortable getting it in context of the other medicines not helping. I would give her Phenergan which is also helped in the past, but there is restriction on giving it intravenously in his hospital. She wants to get the medication and then go home despite the fact that she has still been vomiting. She understands she may have to come back. I am fine with that I do not think she has an emergent medical condition. She will be given Zofran along with Thorazine, and discharged with family. She does not think she will be able to keep a GI cocktail down at this time. ED Disposition - Plan for ED Patient: Disposition: Home or Assisted Living Diagnosis: Cyclic vomiting syndrome, Vomiting Instructions: ED Nausea Vomiting Adult Referrals: Fanny Sharif MD [Primary Care Provider] - 1-2 Days if not improving (Or return to emergency department)
[2019-11-23] MEDS: 0.9% Normal Saline 1,000 ML 999 ML IV (23:45)
[2019-11-23] MEDS: Metoclopramide 10 MG/2 ML Vial IV (23:45)
[2019-11-23] MEDS: Ketorolac 30 MG/ML Syringe IV (23:46)
[2019-11-23] MEDS: Dicyclomine 20 MG/2 ML Vial IM (23:48)
[2019-11-24 01:55] VITALS: BP 152/113; PULSE 103; RESP 16; O2SAT 100
[2019-11-24] MEDS: Ondansetron 4 MG/2 ML Vial IV (02:21)
[2019-11-24] MEDS: ChlorproMAZINE 50 MG/2 ML Ampul 25 MG IM (02:22)
== END 2019-11-24 02:47 | disposition home or self-care (01) ==
PROVIDERS: Emergency Provider Emergency Medicine; PCP Pediatrics
DX: R11.15 Cyclical vomiting syndrome unrelated to migraine (principal)
CPT/HCPCS: 96361; 96372; 96374; 96375; 99282; J7030; A4216; J2405

== ENCOUNTER 2019-12-28 15:29 | Emergency (ER) | payer MEDICAID, SELFPAY ==
[2019-12-28 15:29] VITALS: BP 147/92; PULSE 95; RESP 18; TEMP 36.6; O2SAT 98; BMI 31.4
--- NOTE | 2019-12-28 16:45 | CM.ED ---
SOCIAL WORK Reason for Consult: Active ED Care Plan Staff educated on patient's ED Care Plan. This worker to remain available for needs. Nolan Parsons, MOVABLE B[employer] INSTALLER, F[employer]IT[employer] MECHANIC
--- NOTE | 2019-12-28 17:00 | ED.DCSUM_ITS ---
History of Present Illness Chief Complaint: Nausea/Vomiting Narrative: Patient has a history of cyclic vomiting syndrome she has had these symptoms for the past 4 days. She tried to manage it at home with her home antiemetics. She has no fever chills cough or congestion she has epigastric pain. She has no diarrhea or constipation. These are the same symptoms she has had multiple times before they have not changed. Past Medical History - Allergies and Home Meds Allergies/Adverse Reactions: Allergies chlorpromazine [From Thorazine] Adverse Reaction (Verified 12/28/19 15:32) Other BODY FEELS NUMB Primary Care Physician: Fanny Sharif MD [Primary Care Provider] - Past Medical History: - - Cyclic vomiting syndrome Surgical History: appendectomy, cholecystectomy Smoking Status: Former smoker - Family History Maternal Family History: Reports: - - Patient denies any marked maternal or paternal family history including heart disease, diabetes or cancer. Paternal Family History: Reports: - - Patient denies any marked maternal or paternal family history including heart disease, diabetes or cancer. Review of Systems General: Denies: Fever Cardiovascular: Denies: Chest pain, Palpitations Respiratory: Denies: Dyspnea, Cough Gastrointestinal: Reports: Abdominal pain, Nausea, Vomiting Genitourinary: Denies: Dysuria Musculoskeletal: Denies: Myalgias Skin: Denies: Rash Neurological: Denies: Headache Psych: Denies: Depression Endocrine: Denies: Polyuria Hematologic: Denies: Easy bruising Allergy: Denies: Uticaria, Swelling of the mouth Physical Exam Vital Signs/Narrative: Vital Signs Temp Pulse Resp BP Pulse Ox 12/28/19 15:29 97.9 F 95 18 147/92 H 98 General: - - He appears in some distress Head: Normocephalic ENT: - - Membranes are moist, no obvious signs of dehydration Neck: Supple Cardiovascular: Regular rate, Regular rhythm Respiratory: No distress, CTA bilaterally Abdomen: Soft, Nontender Back: Nontender, Normal Inspection Extremities: Nontender, No edema Skin: Normal color Neurological: Alert, Normal Strength, Weakness Diagnostic/Tx/Re-eval - Medical Decision Making Work-up she is hydrated with IV fluids, she received antiemetics antispasmodics and she is significantly improved I walked in the room she is comfortable she is sleeping I had to wake her up and she was no more evidence of vomiting. She wi ll be discharged in stable condition. ED Disposition - Plan for ED Patient: Diagnosis: Cyclical vomiting syndrome Instructions: ED Nausea Vomiting Adult Referrals: Fanny Sharif MD [Primary Care Provider] - 3-5 Days
[2019-12-28] MEDS: 0.9% Normal Saline 1,000 ML 1000 ML IV (18:00)
[2019-12-28] MEDS: Haloperidol Lactate 5 MG/ML Vial 2 MG IV (18:01)
[2019-12-28] MEDS: Metoclopramide 10 MG/2 ML Vial IV (18:01)
[2019-12-28] MEDS: Dicyclomine 20 MG/2 ML Vial IM (18:01)
[2019-12-28 18:36] LABS: Absolute Lymphocyte Count 2.27 X10^3/uL (0.83-4.51); Absolute Neutrophil Count 6.7 X10^3/uL (2.0-7.7); Basophil# 0.03 X10^3/uL; Basophil% 0.3 % (0-1); Eosinophil# 0.01 X10^3/uL; Eosinophils% 0.1 % (0-5); Hematocrit 41.1 % (37-47); Hemoglobin 12.2 g/dL (12.0-15.0); Lymphocyte # 2.27 X10^3/ul (4.0); Lymphocyte % 23.5 % (19-41); Mean Corp Hgb Conc 29.7 g/dL (32-36); Mean Corpuscular Hgb 22.7 pg (27.0-32.0); Mean Corpuscular Volume 76.5 fL (81-99); Mean Platelet Vol. 10.2 fl (6.2-12.0); Monocyte# 0.58 X10^3/uL; NRBC Flagged by Analyzer 0 % (0-5); Neutrophil # 6.72 X10^3/uL (2.7-7.7); Neutrophil % 69.8 % (47-70); Platelet Count 402 K/mm3 (150-450); RBC Distribution Width CV 15.5 % (11.6-14.6); RBC Distribution Width SD 42.6 fl (35.1-43.9); Red Blood Count 5.37 M/mm3 (4.2-5.4); White Blood Count 9.6 K/mm3 (4.4-11.0)
[2019-12-28 18:59] LABS: ALB/GLOB Ratio 1.2 RATIO (0.9-2.4); AST(SGOT) 14 U/L (15-37); Alanine Aminotransfer ALT/SGPT 21 U/L (13-56); Albumin, Serum 4.6 g/dL (3.2-5.0); Alkaline Phosphatase 66 U/L (45-117); Anion Gap 7 (5-15); BUN 22 mg/dL (7-18); BUN/Creat Ratio 21.8 RATIO (10-20); Calcium,Total 9.1 mg/dL (8.5-10.1); Chloride 106 mmol/L (98-107); Creatinine, Serum 1.01 mg/dL (0.55-1.02); EST Glomerular Filtration Rate 73 mL/min (>60); Est Glom Filt Rate - Afr Amer 89 mL/min (>60); Estimated Creatinine Clearance 76.09 ml/min; Glucose 91 mg/dL (74-106); Lipase 719 U/L (73-393); Potassium 3.1 mmol/L (3.5-5.1); Protein, Total 8.6 g/dL (6.4-8.2); Sodium Level 140 mmol/L (136-145)
[2019-12-28] MEDS: Ondansetron 4 MG/2 ML Vial IV (19:32)
[2019-12-28 19:42] VITALS: BP 166/99; PULSE 89; RESP 20; O2SAT 97
== END 2019-12-28 19:43 | disposition home or self-care (01) ==
PROVIDERS: Emergency Provider Emergency Medicine; PCP Pediatrics
DX: R11.15 Cyclical vomiting syndrome unrelated to migraine (principal); Z87.891 Personal history of nicotine dependence
CPT/HCPCS: 80053; 83690; 85025; 96361; 96372; 96374; 96375; 99285; J7030; J2405

== ENCOUNTER 2020-07-24 16:55 | Emergency (ER) | payer MEDICAID, SELFPAY ==
[2020-07-24 16:56] VITALS: BP 155/109; PULSE 107; RESP 19; TEMP 36.4; O2SAT 98; BMI 32.9
--- NOTE | 2020-07-24 17:12 | ED.VIS.GEN ---
History of Present Illness Chief Complaint: Nausea/Vomiting Informant: Patient Onset: Days Context: Sudden Onset Timing: Continuous Quality: Nausea and vomiting for the past 2 to 3 days Location: Home Current Severity: Severe Maximum Severity: Severe Worsened by: History of cyclic vomiting last ER visit December 2019 Relieved by: Nothing Associated Symptoms: Bilateral upper abdominal pain Narrative: Patient is a 19-year-old female with history of cyclic vomiting. She reports allergy to Thorazine. She has a dystonic reaction, akathisia. She denies fever or chills. She denies headache. She denies visual, ocular auditory symptoms. She denies rhinorrhea. She does report thirst and dry mouth. She states she is not having to eat in 4 days. She denies blood or coffee grounds in her emesis. She reports decreased urine output otherwise no urinary symptoms. She denies gynecologic symptoms. She denies myalgias or arthralgias. Prior similar symptoms: Yes Recent Illness/Hospitalization: No - Past Medical History (1) Cyclic vomiting syndrome Status: Chronic (2) Obesity (BMI 30.0-34.9) Status: Chronic Past Medical History - Allergies and Home Meds Allergies/Adverse Reactions: Allergies chlorpromazine [From Thorazine] Adverse Reaction (Verified 07/24/20 16:57) Other BODY FEELS NUMB Primary Care Physician: Fanny Sharif MD [Primary Care Provider] - Prior records reviewed: Yes Surgical History: appendectomy, cholecystectomy Lives: With Family Smoking Status: Former smoker Alcohol: None Drugs: None - Family History Maternal Family History: Reports: - - Patient denies any marked maternal or paternal family history including heart disease, diabetes or cancer. Paternal Family History: Reports: - - Patient denies any marked maternal or paternal family history including heart disease, diabetes or cancer. Review of Systems General: Reports: Malaise. Denies: Chills, Fever, Subjective, Sweats Eyes: Denies: Visual changes - bilaterally, Blurred Vision - bilaterally ENT: Reports: - - Dry mouth. Denies: Bilateral ear pain, Rhinorrhea, Sore throat Cardiovascular: Denies: Chest pain, Palpitations Respiratory: Denies: Dyspnea, Cough, Dyspnea on exertion Gastrointestinal: Reports: Abdominal pain, Nausea, Vomiting. Denies: Diarrhea, Melena, Hematochezia Genitourinary: Denies: Dysuria, Hematuria, Frequency Musculoskeletal: Denies: Myalgias, Arthralgias, Neck pain, Back pain, Swelling, Extremity Pain, -, - Skin: Denies: Rash, Wounds Neurological: Denies: Headache, Parasthesia, Numbness Psych: Reports: Depression, Anxiety Endocrine: Denies: Polyuria, Polydipsia Physical Exam Vital Signs/Narrative: Vital Signs Temp Pulse Resp BP Pulse Ox 07/24/20 16:56 97.5 F L 107 H 19 H 155/109 H 98 Inital Vital Signs reviewed: Yes General: Well nourished, Well developed, Obese, Acute Distress Head: Normocephalic, Atraumatic Eyes: Perrl, EOMI. Negative for: Pale conjunctiva, Scleral icterus ENT: No rhinorrhea, TM's clear, Dry mucous membranes, Nasal congestion Neck: Supple, Nontender, No lymphadenopathy, No JVD Cardiovascular: Regular rhythm, No murmurs, Normal S1, Normal S2, Tachycardia Respiratory: No distress, CTA bilaterally, Chest nontender Abdomen: Soft, Nondistended, Normal bowel sounds, No masses, Tender. Negative for: Nontender, Guarding, Rebound tenderness Rectal: Deferred Extremities: Nontender, No edema Skin: Normal color, No rash Neurological: Alert, Oriented x3, Cranial nerves II-XII grossly intact, Normal Strength, Normal Sensation Psychological: Depressed, Tearful Diagnostic/Tx/Re-eval - Medical Decision Making Patient presents with cyclic vomiting. She was treated with the cyclic vomiting order set meds except Thorazine was not given. She received Reglan instead. Will reassess in 1 hour. Patient was reassessed at 1825. She feels better, but she does not feel comfortable going home. Patient was still complained of nausea. She received an additional 5 mg of Reglan. She was able to drink small amount of fluid and take the Bentyl that was ordered without vomiting. She has been in the emergency department for 3.5 hours and has not vomited. Plan is to discharge to home. ED Disposition - Plan for ED Patient: Disposition: Home or Assisted Living Diagnosis: Acute bilateral upper abdominal pain, Cyclic vomiting syndrome, Mild dehydration Instructions: ED Vomiting (Adult), ED Dehydration (Adult) Referrals: Fanny Sharif MD [Primary Care Provider] - As Needed
[2020-07-24] MEDS: Famotidine 200 MG/20 ML MDV 20 MG in 0.9% Normal Saline (Pres. free 8 ML 300 MG IV (17:37)
[2020-07-24] MEDS: LORazepam 2 MG/ML Syringe 0.5 MG IV (17:37)
[2020-07-24] MEDS: DiphenhydrAMINE 50 MG/ML Syringe 25 MG IV (17:38)
[2020-07-24] MEDS: Ondansetron 4 MG/2 ML Vial IV (17:38)
[2020-07-24] MEDS: Metoclopramide 10 MG/2 ML Vial 5 MG IV ×2 (17:38→19:03)
[2020-07-24 18:55] VITALS: BP 145/95; PULSE 100; RESP 18; O2SAT 98
[2020-07-24] MEDS: Dicyclomine 10 MG Capsule 20 MG PO (20:12)
== END 2020-07-24 20:54 | disposition home or self-care (01) ==
PROVIDERS: Emergency Provider Emergency Medicine; PCP Pediatrics
DX: R11.15 Cyclical vomiting syndrome unrelated to migraine (principal); E86.0 Dehydration; R10.11 Right upper quadrant pain; R10.12 Left upper quadrant pain; E66.9 Obesity, unspecified; Z87.891 Personal history of nicotine dependence
CPT/HCPCS: 96365; 96375; 96376; 99283; J7030; A4216; J2405; J3490

== ENCOUNTER 2021-01-17 10:00 | Emergency (ER) | payer MEDICAID, SELFPAY ==
[2021-01-17 10:00] VITALS: BP 147/111; PULSE 114; RESP 16; TEMP 36.8; O2SAT 99; BMI 33.3
[2021-01-17 11:22] LABS: Absolute Lymphocyte Count 2.24 X10^3/uL (0.83-4.51); Absolute Neutrophil Count 6.8 X10^3/uL (2.0-7.7); Basophil# 0.04 X10^3/uL; Basophil% 0.4 % (0-1); Eosinophil# 0.01 X10^3/uL; Eosinophils% 0.1 % (0-5); Hematocrit 37.8 % (37-47); Hemoglobin 11.1 g/dL (12.0-15.0); Lymphocyte # 2.24 X10^3/ul (0.83-4.51); Lymphocyte % 23.4 % (19-41); Mean Corp Hgb Conc 29.4 g/dL (32-36); Mean Corpuscular Hgb 20.8 pg (27.0-32.0); Mean Corpuscular Volume 70.9 fL (81-99); Mean Platelet Vol. 11.3 fl (6.2-12.0); Monocyte# 0.44 X10^3/uL; Monocyte% 4.6 % (0-10); NRBC Flagged by Analyzer 0 % (0-5); Neutrophil # 6.83 X10^3/uL (2.7-7.7); Neutrophil % 71.2 % (47-70); Platelet Count 509 K/mm3 (150-450); RBC Distribution Width CV 14.3 % (11.6-14.6); RBC Distribution Width SD 35.4 fl (35.1-43.9); Red Blood Count 5.33 M/mm3 (4.2-5.4); White Blood Count 9.6 K/mm3 (4.4-11.0)
[2021-01-17] MEDS: Ondansetron 4 MG/2 ML Vial IV (11:25)
[2021-01-17] MEDS: LORazepam 2 MG/ML Syringe 0.5 MG IV (11:26)
[2021-01-17] MEDS: Famotidine 200 MG/20 ML MDV 20 MG in 0.9% Normal Saline (Pres. free 8 ML 300 MG IV (11:27)
[2021-01-17] MEDS: 0.9% Normal Saline 1,000 ML 999 ML IV ×2 (11:29→13:04)
--- NOTE | 2021-01-17 11:42 | NURSING ---
PER LAB, CMP CANCELED. THEY WILL PRINT A NEW LABEL
[2021-01-17 12:13] LABS: AST(SGOT) 19 U/L (15-37); Alanine Aminotransfer ALT/SGPT 29 U/L (13-56); Albumin, Serum 4.3 g/dL (3.2-5.0); Alkaline Phosphatase 74 U/L (45-117); Anion Gap 9 (5-15); BUN 19 mg/dL (7-18); BUN/Creat Ratio 18.8 RATIO (10-20); Calcium,Total 8.9 mg/dL (8.5-10.1); Chloride 108 mmol/L (98-107); Creatinine, Serum 1.01 mg/dL (0.55-1.02); EST Glomerular Filtration Rate 73 mL/min (>60); Est Glom Filt Rate - Afr Amer 88 mL/min (>60); Estimated Creatinine Clearance 75.45 ml/min; Globulin 4.2 g/dL (2.2-4.2); Glucose 105 mg/dL (74-106); Protein, Total 8.5 g/dL (6.4-8.2); Sodium Level 140 mmol/L (136-145)
--- NOTE | 2021-01-17 12:30 | EX.ED.DYSGE1 ---
HPI History of Present Illness Chief Complaint: Nausea/Vomiting Informant: patient Narrative Narrative: Patient has a history of cyclic vomiting syndrome for about 9 years. This started with the onset of her menses. Diagnosis or specific causes never been found. She has been seen by multiple specialists. She has amitriptyline and Zofran at home. However, she states she does not take it because she knows ahead of time it will not work. No other meds at home. Only allergy is Thorazine which sounds like it gives her a slightly dystonic reaction. She had cholecystectomy and appendectomy a few years ago in an attempt to help the symptoms. It did not make any significant change. She states she has been having nausea and vomiting for about 9 days. No meds have been tried. She has epigastric area discomfort which is typical for her. No urinary symptoms. No fevers or chills. PFSH PFS Medical History Cyclic vomiting syndrome Home Medications L norgest/e.estradiol-e.estrad 1 ea PO DAILY 09/27/19 [History Last Taken Unknown] Allergy/AdvReac Type Severity Reaction Status Date / Time chlorpromazine AdvReac Other Verified 01/17/21 10:02 [From Thorazine] Surgical History Hx of appendectomy Hx of cholecystectomy Social History Smoking Status: Never smoker ROS ROS ED Constitutional Constitutional ED: Denies chills or fever(s) Eyes Eyes: Denies blurry vision ENT ENT ED: Denies rhinorrhea or sore throat Cardiovascular Cardiovascular: Denies chest pain Respiratory/Chest Respiratory/Chest: Denies cough or dyspnea Gastrointestinal Gastrointestinal: Reports abdominal pain, nausea and vomiting; Denies constipation, diarrhea or melena Genitourinary Genitourinary ED: Denies dysuria, hematuria or urinary frequency Musculoskeletal Musculoskeletal: Denies arthralgias, back pain or myalgias Integumentary Denies rash Neurologic Neurologic: Denies headache(s) Endocrine Endocrinology: Denies polydipsia or polyuria Allergic/Immunologic Allergic/Immunologic ED: Denies urticaria EXAM Physical Exam Const Vital Signs: 01/17/21 10:00 01/17/21 13:29 Temperature 98.2 F Temperature Source Temporal Pulse Rate 114 H 80 Respiratory Rate 16 16 Blood Pressure 147/111 H 128/62 H Blood Pressure Mean 123 84 Pulse Ox 99 99 Oxygen Delivery Method Room Air Room Air Positive well nourished and well developed General Appearance ED: well developed and NAD HEENT Reports dry mucous membranes Mouth ED: Yes dry mucous membranes Mouth: dry mucous membranes Eyes EOMs intact bilaterally General Eye ED: Negative for pale conjunctiva or scleral icterus Neck no JVD Resp normal respiratory effort and clear to auscultation bilaterally Cardio regular rhythm and no murmurs Rate: tachycardic GI normal to inspection, nondistended, normoactive bowel sounds GI Narrative: Patient has very mild epigastric to left upper quadrant tenderness. No mass. No rebound or guarding. Palpation: soft Back/Spine no CVA tenderness Extremity normal to inspection Neuro oriented x3 Sensorium / Orientation: alert Psych mental status grossly normal Skin no rashes or lesions noted MDM MDM MDM Narrative Medical decision making narrative: Patient CBC shows minimally low hemoglobin. Electrolytes and CBC do show some mildly low potassium but no other acute process. No sign of acute dehydration. I rechecked the patient. Her heart rate is way down. She still having symptoms. She did vomit a little bit of clear material in the bottom of the bag just recently. I discussed Thorazine with her. She states one time she got it and it sounds like she got a dystonic reaction. She states other times she has had about reaction. She already did have 50 of Benadryl. We will try a dose of Thorazine and an IV bag. Lab Data Attestation: I reviewed the patient's lab results. Labs: Laboratory Results - last 24 hr 01/17/21 01/17/21 01/17/21 11:15 11:15 11:30 WBC 9.6 RBC 5.33 Hgb 11.1 L Hct 37.8 MCV 70.9 L MCH 20.8 L MCHC 29.4 L RDW Std Deviation 35.4 RDW Coeff of Iggy 14.3 Plt Count 509 H MPV 11.3 Immature Gran % (Auto) 0.300 Neut % (Auto) 71.2 H Lymph % (Auto) 23.4 [place] % (Auto) 4.6 Eos % (Auto) 0.1 Baso % (Auto) 0.4 Absolute Neuts (auto) 6.8 Absolute Lymphs (auto) 2.24 Nucleated RBC % 0 Sodium Cancelled 140 Potassium Cancelled 3.0 L Chloride Cancelled 108 H Carbon Dioxide Cancelled 23.0 Anion Gap Cancelled 9 BUN Cancelled 19 H Creatinine Cancelled 1.01 Estim Creat Clear Calc Cancelled 75.45 Est GFR (MDRD) Af Amer Cancelled 88 Est GFR (MDRD) Non-Af Cancelled 73 BUN/Creatinine Ratio Cancelled 18.8 Glucose Cancelled 105 Calcium Cancelled 8.9 Total Bilirubin Cancelled 0.40 AST Cancelled 19 ALT Cancelled 29 Alkaline Phosphatase Cancelled 74 Total Protein Cancelled 8.5 H Albumin Cancelled 4.3 Globulin Cancelled 4.2 Albumin/Globulin Ratio Cancelled 1.0 Discharge Plan Triage Chief Complaint: Nausea/Vomiting ED Provider: Rogelio Toscano Dx/Rx/DC Orders Clinical Impression: Cyclic vomiting syndrome Instructions: ED Cyclic Vomiting Syndrome Prescriptions: No Action L norgest/e.estradiol-e.estrad 1 EACH tablets,dose pack,3 month 1 ea PO DAILY RF: 0 Primary Care Provider: Fanny Sharif Referrals: Fanny Sharif MD [Primary Care Provider] - As Needed Activity Restrictions/Additional Instructions: Plenty of fluids and rest. Increase your diet as tolerated. Return if worse. Follow-up with your primary care as needed. Zofran as needed. Disposition Disposition: Home, Self Care Discharge Date/Time: 01/17/21 18:18
[2021-01-17] MEDS: Metoclopramide 10 MG/2 ML Vial 5 MG IV (12:43)
[2021-01-17] MEDS: Ketorolac 15 MG/ML Vial IV (12:45)
[2021-01-17] MEDS: DiphenhydrAMINE 50 MG/ML Syringe IV (12:46)
[2021-01-17 13:29] VITALS: BP 128/62; PULSE 80; RESP 16; O2SAT 99
--- NOTE | 2021-01-17 14:00 | CM.ED ---
SOCIAL WORK Active ED Care Plan Reviewed ED Care Plan with Dr. Toscano. This worker to remain available for needs. Nolan Parsons, FINANCE ACCOUNTING INTER[employer]IP, POWDER COMPOUNDER
[2021-01-17] MEDS: ChlorproMAZINE 50 MG/2 ML Ampul 25 MG IV (15:14)
[2021-01-17] MEDS: Dicyclomine 20 MG/2 ML Vial IM (15:19)
[2021-01-17] MEDS: Potassium Chloride 10mEq/100mL 10 MEQ/100 ML IV.SOLN. 100 MEQ IV BOLUS ×2 (16:16→17:16)
[2021-01-17 18:17] VITALS: BP 115/70; PULSE 68; RESP 15; O2SAT 99
== END 2021-01-17 18:18 | disposition home or self-care (01) ==
PROVIDERS: Emergency Provider Emergency Medicine; PCP Pediatrics
DX: R11.2 Nausea with vomiting, unspecified (principal); R10.9 Unspecified abdominal pain; D64.9 Anemia, unspecified; E87.6 Hypokalemia
CPT/HCPCS: 80053; 85025; 96365; 96366; 96368; 96372; 96375; 99283; J7030; A4216; J2405; J3490

== ENCOUNTER 2023-12-17 09:41 | Emergency (ER) | payer SELFPAY ==
[2023-12-17 09:42] VITALS: BP 166/95; PULSE 97; RESP 18; TEMP 36.1; O2SAT 99; BMI 36.6
--- NOTE | 2023-12-17 09:53 | EDS_ITS ---
HPI History of Present Illness HPI Narrative: 23-year-old female history of cyclic vomiting. Stepped on a shoe twisted her right ankle 2 days ago on Friday and fell down 2-3 steps. No LOC. Only complaints of right ankle. She wanting an x-ray. Chief Complaint: Lower Extremity Injury Informant: patient Occured/Mechanism Mechanism/Context: Yes injury and Yes blunt trauma Onset/Context/Timing Onset: Days Context: Sudden Onset Timing: Continuous Quality of Pain: Dull and Aching Current Severity: Mild Maximum Severity: Mild Narrative Narrative: 23-year-old female injured her right ankle 2 days ago. Prior similar symptoms: Yes Recent Illness/Hospitalization: No PFSH PFSH Medical History Cyclic vomiting syndrome Home Medications ?Medication ?Instructions ?Recorded ?Last Taken ?Type L norgest/E estradiol-E estrad 1 ea PO DAILY 09/27/19 Unknown History 0.15 mg-30 mcg (84)/10 mcg(7) tabs,3mos Allergy/AdvReac Type Severity Reaction Status Date / Time chlorpromazine (From AdvReac Other Verified 12/17/23 09:42 Thorazine) Surgical History Hx of appendectomy Hx of cholecystectomy Social History Smoking Status: Never smoker ROS ROS ED ROS Narrative Denies recent illness. Constitutional Constitutional ED: Denies chills or fever(s) Eyes Eyes: Denies blurry vision ENT ENT ED: Denies ear pain Cardiovascular Cardiovascular: Denies chest pain Respiratory/Chest Respiratory/Chest: Denies cough Gastrointestinal Gastrointestinal: Denies abdominal pain Genitourinary Genitourinary ED: Denies dysuria Musculoskeletal Musculoskeletal: Denies arthralgias Integumentary Denies abscess Neurologic Neurologic: Denies headache(s) Psychiatric Psychiatric: Denies anxiety Endocrine Endocrinology: Denies polydipsia Hematologic/Lymphatic Hematologic/Lymphatic: Denies easy bleeding or easy bruising Allergic/Immunologic Allergic/Immunologic ED: Denies mouth swelling, tongue swelling or urticaria EXAM Physical Exam Narrative Exam Narrative: Well-appearing 23-year-old female. Vital signs stable afebrile. H EENT exam pupils are round and reactive light. No trauma to her face or scalp. Nontender. Neck nontender. Back and spine nontender. Lungs clear. Heart regular rhythm rate about 95 no murmur. Chest wall ribs nontender. Abdomen soft nontender. Pelvic girdle intact. Moving all 4 extremities. Normal range of motion. She has mild tenderness right lateral ankle. Minimal swelling. Dorsi and plantarflexion limited due to discomfort. Medial malleolus nontender. Achilles intact. Foot nontender. Normal DP pulse intact sensation. Able to wiggle her toes. Const Vital Signs: 12/17/23 09:42 Temperature 97 F L Temperature Source Temporal Pulse Rate 97 Respiratory Rate 18 Blood Pressure 166/95 H Blood Pressure Mean 118 Pulse Ox 99 Oxygen Delivery Method Room Air Positive well nourished and well developed; Negative for cachectic, contractures or unkempt General Appearance ED: well developed and NAD; Negative for unkempt, cachectic or contractures Nutritional Appearance: Negative for cachectic HEENT Reports moist mucous membranes normocephalic and atraumatic; Negative for trauma or tenderness Eyes PERRL General Eye ED: Negative for other Neck full ROM and supple Thyroid: Negative for tender Lymph Lymphatic: Negative for other Chest Wall inspection of chest normal and palpation of chest normal Chest: Negative for other Resp normal respiratory effort, no retractions and clear to auscultation bilaterally Effort and Inspection: Negative for pain with movement Auscultation: Negative for rales, rhonchi, wheezes or diminished lung sounds Cardio regular rate, regular rhythm, S1 normal heart sound, S2 normal heart sound and no murmurs Rate: Negative for bradycardia or tachycardic Rhythm: Negative for abnormal rhythm Bruits: Negative for other GI non-tender, non-distended and no masses Inspection: Negative for abdominal distention Auscultation: normoactive bowel sounds Palpation: soft; Negative for tender, guarding or rebound tenderness present Back/Spine no CVA tenderness General Back: Negative for CVA tenderness or swelling Cervical Spine: Negative for cervical spine tenderness Thoracic Spine / Upper Back: Negative for thoracic spinal tenderness Lumbar Spine / Lower Back: Negative for lumbar spinal tenderness Extremity normal to inspection and full ROM Extremity Narrative: Except right lateral malleolus tenderness. Mild swelling. Limited dorsi and plantarflexion due to pain. James malleolus nontender. Achilles tendon intact. Able to wiggle her toes. Normal DP pulse. General Extremety ED: Yes edema General Extremity: edema Neuro oriented x3, CN's II-XII intact bilaterally and moves all extremities Sensorium / Orientation: alert, oriented to person, oriented to place and oriented to time; Negative for orientation impaired or confused Motor Exam: strength 5/5 throughout Psych mental status grossly normal Appearance: Negative for unkempt Speech: No other Mood & Affect: Negative for anxious Skin no wounds Rashes: no rashes Trauma: Negative for abrasion or laceration MDM MDM MDM Narrative Medical decision making narrative: 23-year-old female right ankle injury after she stepped on a shoe 2 days ago. X-ray being obtained. She did not want a thing for pain. No other injuries. Repeat exam unchanged. We discussed her x-ray results. Diagnosed and treated as an ankle sprain with an Aircast. History & Record Review Discussion w/independent historian: Patient and Family Radiography Chest X-Ray - ED: Read by ED Physician Diagnostic Testing: Clinical Impression(s) from Imaging Studies Ankle X-Ray 12/17/23 10:08 IMPRESSION: Mild diffuse soft tissue swelling. No other abnormality. Electronically Signed: Saturnino Capps MD at 10:19 EDT Reading Location ID and State: [facility] [place] / [place] , Service support , Right ankle x-ray, 3 views, interpreted by myself shows no acute abnormality. No fracture. Soft tissue swelling on the right lateral malleolus. Also interpreted by the radiologist who agrees. Discharge Plan Triage Chief Complaint: Lower Extremity Injury ED Provider: Clifton Johnson Dx/Rx/DC Orders Clinical Impression: Ankle sprain, Fall Instructions: ED Ankle Sprain (Adult) Prescriptions: No Action L norgest/e.estradiol-e.estrad 1 EACH tablets,dose pack,3 month 1 ea PO DAILY Primary Care Provider: Emil Cordova Referrals: Fanny Sharif MD [Non-Staff] - 1 Week if not improving Activity Restrictions/Additional Instructions: Ice and elevate. To decrease pain and swelling. Motrin for pain and swelling Tylenol for pain. Aircast to walk around. Increase activity as tolerated. If not improving have it reevaluated. Print Language: Uzbek Disposition Disposition: Home, Self Care
--- NOTE | 2023-12-17 10:08 | RAD_ITS ---
STUDY: X-RAY - RIGHT ANKLE REASON FOR EXAM: Female, 23 years old. Twisted right ankle. Pain. TECHNIQUE: 3 view(s) of the ankle. COMPARISON: None. FINDINGS: Normal visualized distal tibia and fibula. Normal medial and lateral malleoli. Normal tibiotalar articulation and ankle mortise. Normal visualized talus and calcaneus. The visualized subtalar, talonavicular, calcaneocuboid and tarsal articulations are normal. Mild diffuse soft tissue swelling. RAD/Ankle min 3 Views IMPRESSION: Mild diffuse soft tissue swelling. No other abnormality. Electronically Signed: Saturnino Capps MD at 10:19 EDT ,
== END 2023-12-17 11:03 | disposition home or self-care (01) ==
PROVIDERS: Emergency Provider Emergency Medicine; PCP Family Medicine; Visit Provider Emergency Medicine
DX: S93.401A Sprain of unspecified ligament of right ankle, initial encounter (principal); W10.9XXA Fall (on) (from) unspecified stairs and steps, initial encounter
CPT/HCPCS: 73610; 99283

== ENCOUNTER 2024-10-25 20:01 | Emergency (ER) | payer OTHER, SELFPAY ==
[2024-10-25 20:01] VITALS: BP 136/101; PULSE 115; RESP 20; TEMP 35.9; O2SAT 99; BMI 36.1
[2024-10-25 22:01] VITALS: BP 145/91; PULSE 94; RESP 20; TEMP 36.9; O2SAT 100
--- NOTE | 2024-10-25 22:42 | ED.VIS.GI ---
HPI HPI - GI History of Present Illness Chief Complaint: Nausea/Vomiting Informant: patient Narrative Narrative: 24-year-old female with a history of cyclic vomiting syndrome, she states she is having a bad flareup of it for the past 3 to 4 days. Periumbilical and epigastric abdominal discomfort has been mild but gradually worsening after each vomiting. She states she has been vomiting a lot this past day. Trying to drink sips of fluid. She is urinating and it is unremarkable. No hematochezia or hematemesis, no melena. Similar symptoms she has had in the past, she states she only comes to the ER when she can get through an episode, and this is a particularly bad 1 and she has not had one like this in a while, the pain is worse than it had been in the past as well. It is still the same pain in the same location, feels like things are tightening up and squeezing. States typically when she has these episodes at home, she takes hot showers, and tries not to eat anything that will make it worse, and eventually wakes up in the morning and things are better but not this time. She had prior cholecystectomy and appendectomy to try to help with the symptoms although they were unsuccessful. [facility] Medical History Cyclic vomiting syndrome Home Medications ?Medication ?Instructions ?Recorded ?Last Taken ?Type promethazine 25 mg tablet 25 mg PO Q6H PRN PRN Nausea #12 10/26/24 Unknown Rx TABLETS Allergy/AdvReac Type Severity Reaction Status Date / Time chlorpromazine (From AdvReac Other Verified 10/25/24 20:02 Thorazine) Surgical History Hx of appendectomy Hx of cholecystectomy Social History Smoking Status: Never smoker ROS ROS ED Constitutional Constitutional ED: Denies chills or fever(s) Eyes Eyes: Denies change in vision or diplopia ENT ENT ED: Denies rhinorrhea or sore throat Cardiovascular Cardiovascular: Denies chest pain or palpitations Respiratory/Chest Respiratory/Chest: Denies cough or dyspnea Gastrointestinal Gastrointestinal: Reports abdominal pain, nausea and vomiting; Denies diarrhea or melena Genitourinary Genitourinary ED: Denies dysuria or hematuria Musculoskeletal Musculoskeletal: Denies back pain or neck pain Integumentary Denies abscess or rash Neurologic Neurologic: Denies headache(s), paresthesias or weakness Psychiatric Psychiatric: Denies anxiety or suicidal thoughts EXAM Physical Exam Const Vital Signs: 10/25/24 20:01 10/25/24 22:01 10/26/24 00:00 Temperature 96.6 F L 98.5 F Temperature Source Oral Oral Pulse Rate 115 H 94 89 Respiratory Rate 20 H 20 H 18 Blood Pressure 136/101 H 145/91 H 139/79 H Blood Pressure Mean 112 109 99 Pulse Ox 99 100 100 Oxygen Delivery Method Room Air Room Air 10/26/24 01:23 10/26/24 02:57 10/26/24 04:00 Temperature Temperature Source Pulse Rate 79 82 91 Respiratory Rate 16 16 16 Blood Pressure 131/82 H 144/97 H 132/89 H Blood Pressure Mean 98 112 103 Pulse Ox 100 100 99 Oxygen Delivery Method Room Air Room Air Room Air Positive well nourished, well developed and obese General Appearance ED: well developed and NAD Nutritional Appearance: obese HEENT Reports moist mucous membranes normocephalic and atraumatic Eyes PERRL and EOMs intact bilaterally Neck full ROM and supple Resp normal respiratory effort and clear to auscultation bilaterally Cardio regular rate, regular rhythm and no murmurs GI non-distended GI Narrative: Subjectively patient states hurts to palpate, but objectively exam is benign. Auscultation: normoactive bowel sounds Palpation: soft Back/Spine no CVA tenderness General Back: other FROM Extremity normal to inspection General Extremety ED: Negative for edema, pulses abnormal or tenderness General Extremity: Negative for edema or pulses abnormal Neuro oriented x3, CN's II-XII intact bilaterally and no sensory deficits noted Sensorium / Orientation: awake and alert Motor Exam: strength 5/5 throughout Skin no rashes or lesions noted and no wounds MDM MDM MDM Narrative Medical decision making narrative: Patient with a fairly benign abdomen, normal vital signs except for mild tachycardia. I did labs which are unremarkable including liver enzymes and lipase. Serum is negative ruling out ectopic. I do not think she needs advanced imaging of the abdomen/pelvis given that she has had the symptoms multiple times in the past with her cyclic vomiting and has had normal CT scans in the past under these circumstances. Initially she was given Reglan, Benadryl, Toradol, she did not have a lot of relief from that so we added Compazine, morphine, Ativan which really seem to help. She wanted to relax for a little while without trying any oral fluids or other medications so we observed her for about 2.5 hours, and on reevaluation she is feeling much better and wants to go home and sleep and requesting a prescription for some promethazine which was also given. Lab Data Attestation: I reviewed the patient's lab results. Labs: Laboratory Results - last 24 hr 10/25/24 21:15 WBC 9.8 RBC 5.69 H Hgb 13.2 Hct 42.7 MCV 75.0 L MCH 23.2 L MCHC 30.9 L RDW Std Deviation 37.2 RDW Coeff of Iggy 14.0 Plt Count 442 MPV 10.6 Immature Gran % (Auto) 0.300 Neut % (Auto) 61.6 Lymph % (Auto) 32.5 [place] % (Auto) 4.7 Eos % (Auto) 0.4 Baso % (Auto) 0.5 Absolute Neuts (auto) 6.0 Absolute Lymphs (auto) 3.19 Nucleated RBC % 0 Sodium 141 Potassium 3.3 Chloride 103 Carbon Dioxide 21.1 Anion Gap 17 H BUN 14 Creatinine 1.15 Estim Creat Clear Calc 83.04 Est GFR (MDRD) Non-Af 67 BUN/Creatinine Ratio 12.3 Glucose 103 H Calcium 9.6 Total Bilirubin 0.39 AST 26 ALT 31 Alkaline Phosphatase 89 Total Protein 9.1 H Albumin 5.1 H Globulin 4.0 Albumin/Globulin Ratio 1.3 Lipase 38 Serum , Qual NEGATIVE Discharge Plan Triage Chief Complaint: Nausea/Vomiting ED Provider: Asael Quesada Dx/Rx/DC Orders Clinical Impression: N&V (nausea and vomiting), Cyclic vomiting syndrome, Diffuse abdominal pain Instructions: ED Cyclic Vomiting Syndrome, ED Diet Vomiting Diarrhea Prescriptions: New promethazine 25 mg tablet 25 mg PO Q6H PRN PRN (Reason: Nausea) Qty: 12 0RF Print Language: Amharic Disposition Disposition: Home, Self Care
[2024-10-25] MEDS: DiphenhydrAMINE 50 MG/ML Syringe 25 MG IV (22:44)
[2024-10-25] MEDS: Metoclopramide 10 MG/2 ML Vial IV (22:44)
[2024-10-25] MEDS: 0.9% Normal Saline (1000mL) 1,000 ML 999 ML IV (22:44)
[2024-10-25] MEDS: Ketorolac 30 MG/ML Syringe IV (22:45)
[2024-10-25 22:55] LABS: Absolute Lymphocyte Count 3.19 X10^3/uL (0.83-4.51); Basophil# 0.05 X10^3/uL; Basophil% 0.5 % (0-1); Eosinophil# 0.04 X10^3/uL; Eosinophils% 0.4 % (0-5); Hematocrit 42.7 % (37-47); Hemoglobin 13.2 g/dL (12.0-15.0); Lymphocyte # 3.19 X10^3/ul (0.83-4.51); Lymphocyte % 32.5 % (19-41); Mean Corp Hgb Conc 30.9 g/dL (32-36); Mean Corpuscular Hgb 23.2 pg (27.0-32.0); Mean Platelet Vol. 10.6 fl (6.2-12.0); Monocyte# 0.46 X10^3/uL; Monocyte% 4.7 % (0-10); NRBC Flagged by Analyzer 0 % (0-5); Neutrophil # 6.04 X10^3/uL (2.7-7.7); Neutrophil % 61.6 % (47-70); Platelet Count 442 K/mm3 (150-450); RBC Distribution Width SD 37.2 fl (35.1-43.9); Red Blood Count 5.69 M/mm3 (4.2-5.4); White Blood Count 9.8 K/mm3 (4.4-11.0)
[2024-10-25 23:09] LABS: Internal QC Validated? YES +Cl - CLEAR BKGD; Pregnancy, Serum, hCG Quali. NEGATIVE Negative
[2024-10-25 23:24] LABS: ALB/GLOB Ratio 1.3 RATIO (0.9-2.4); AST(SGOT) 26 U/L (<=31); Alanine Aminotransfer ALT/SGPT 31 U/L (<=34); Albumin, Serum 5.1 g/dL (3.5-5.0); Alkaline Phosphatase 89 U/L (35-104); Anion Gap 17 (5-15); BUN 14 mg/dL (4-19); BUN/Creat Ratio 12.3 RATIO (10-20); Calcium,Total 9.6 mg/dL (7.6-11.0); Carbon Dioxide 21.1 mmol/L (21.0-32.0); Chloride 103 mmol/L (98-108); Creatinine, Serum 1.15 mg/dL (0.70-1.20); EST Glomerular Filtration Rate 67 (>60); Estimated Creatinine Clearance 83.04 ml/min (50-250); Glucose 103 mg/dL (70-99); Lipase 38 U/L (13-75); Potassium 3.3 mmol/L (3.3-5.1); Protein, Total 9.1 g/dL (5.9-8.4); Sodium Level 141 mmol/L (133-145); Total Bilirubin 0.39 mg/dL (0.00-1.30)
[2024-10-26] VITALS: BP 139/79; PULSE 89; RESP 18; O2SAT 100
[2024-10-26] MEDS: Ondansetron 4 MG/2 ML Vial IV (01:19)
[2024-10-26 01:23] VITALS: BP 131/82; PULSE 79; RESP 16; O2SAT 100
[2024-10-26] MEDS: proCHLORPERazine 10 MG/2 ML Vial 5 MG IV (02:53)
[2024-10-26] MEDS: Morphine 4 MG/ML Syringe IV (02:54)
[2024-10-26] MEDS: Lorazepam 2 MG/ML WCH Syringe 0.5 MG IV (02:54)
[2024-10-26 02:57] VITALS: BP 144/97; PULSE 82; RESP 16; O2SAT 100
[2024-10-26 04:00] VITALS: BP 132/89; PULSE 91; RESP 16; O2SAT 99
[2024-10-26 06:33] VITALS: BP 129/67; PULSE 74; RESP 16; TEMP 36.2; O2SAT 96
== END 2024-10-26 06:34 | disposition home or self-care (01) ==
PROVIDERS: Emergency Provider Emergency Medicine; Visit Provider Emergency Medicine
DX: R11.15 Cyclical vomiting syndrome unrelated to migraine (principal); R10.13 Epigastric pain; Z90.49 Acquired absence of other specified parts of digestive tract; R10.33 Periumbilical pain
CPT/HCPCS: 80053; 83690; 84703; 85025; 96361; 96374; 96375; 99283; A4216; J2405

== ENCOUNTER 2024-10-30 08:07 | Emergency (ER) | payer OTHER, SELFPAY ==
[2024-10-30 08:08] VITALS: BP 149/101; PULSE 108; RESP 18; TEMP 36.4; O2SAT 100; BMI 35.2
--- OUTSIDE RECORDS SUMMARY | 2024-10-30 08:56 | XMS RPT_ITS | CCD ---
Author Organization [facility] Care Team Providers Care Photographer Finish Name Role Phone Sonu Eldridge Unavailable Unavailable None Unavailable Unavailable HethAsael E Unavailable Unavailable None Unavailable Unavailable None Unavailable Unavailable Cheyenne Pizarro A Unavailable Unavailable MADISONESKA, JANE Unavailable Unavailable KOLE, FANNY M. Unavailable Unavailable BALCOMSARAVANAN E. Unavailable Unavailable KOLE, FANNY M. Unavailable Unavailable CLINT DURBIN. Unavailable Unavailable KOLE, FANNY M. Unavailable Unavailable KOLE, FANNY M. Unavailable Unavailable SABOTA, BRYANT W Unavailable Unavailable SABOTA, BRYANT W Unavailable Unavailable ALINE, JANE W Unavailable Unavailable MILLAN, SONU Unavailable Unavailable KOLE, FANNY M. Unavailable Unavailable Kole, Fanny Janay Primary Care Provider [phone] NURIS TOBIAS N. Attending Unavailable MICHELINE, NURIS N. Attending Unavailable KOLE, FANNY JANAY Primary Care Unavailab le MICHELINE, NURIS N. Attending Unavailable MICHELINE, NURIS N. Referring Unavailable KOLE, FANNY JANAY Primary Care Unavailab le MICHELINE, NURIS N. Admitting Unavailable MICHELINE, NURIS N. Attending Unavailable KOLE, FANNY JANAY Primary Care Unavailab le MICHELINE, NURIS N. Admitting Unavailable KOLE, FANNY JANAY Primary Care Unavailab le KOLE, FANNY JANAY Primary Care Unavailab ELISHA Galeano Attending Unavailabl e KOLE, FANNY JANAY Primary Care Unavailab le GINIPAUL GOLDEN Admitting Unavailable NORAH, BAHZAT Attending Unavailable Unavailable Primary Care Provider Unavailjerad Jackson MD, Siri Walters Primary Care Provider Siri Jackson MD Primary Care Provider PELON BRITT Attending Unavailable SIRI JACKSON Primary Care Unavailable Siri Jackson MD Primary Care Provider Dr. Asael Quesada MD Emergency Provider Clifton Johnson Attending Unavailable Emil Jackson Primary Care Unavailable Asael Quesada Attending Unavailable Emil Jackson Primary Care Unavailable Allergies Allergy Classification Reported Allergen(s) Allergy Type Date of Onset Reaction(s) Facility (18 sources) chlorproMAZINE; Translations: [Unknown] Drug Allergy 9 Other (See Comments), Other: See Comments [facility] Comment on above: BODY FEELS NUMB (1 source) chlorproMAZINE Drug Allergy 5 [facility] Repository Medications Current Medications Medication Drug Class(es) Dates Sig (Normalized) Sig (Original) acetaminophen 325 mg / HYDROcodone bitartrate 5 mg oral tablet (3 sources) Opioid Agonist Start: 07-10-2019 End: 07-13-2019 take 1 tablet by mouth every six hours as needed for pain, then take 3 tablets by mouth as needed for pain HYDROcodone-aceta minophen (NORCO) 5-325 mg per tablet Indications: Post-op pain Take 1 (one) tablet by mouth every 6 (six) hours as needed for pain (Days supply per fill: 3) . 12 tablet 0 07/10/2019 07/13/2019 Active Start: 07-08-2019 End: 07-10-2019 take 1-2 tablets by mouth every four hours as needed 1-2 tablet, Oral, Every 4 hours PRN (may repeat), moderate to severe pain, Starting [facility] 07/08/19 at 1427 [] Initiate with 1 tablet oral every 4 hours prn moderate to severe pain. [] For unrelieved pain, may repeat one tablet oral dose within 60 minutes of initial dose. [] If pain is RELIEVED after repeat dose, change to two tablets of 5/325 mg oral every 4 hours prn moderate to severe pain. [] If pain is UNrelieved after repeat dose, or patient requires dose reduction, call physician. Start: 06-26-2019 End: 06-29-2019 take 1 tablet by mouth every six hours as needed for pain HYDROcodone-acetaminophen (NORCO) 5-325 MG per tablet Indications: Dysmenorrhea Take 1 tablet by mouth every 6 hours as needed for Pain for up to 3 days. 8 tablet 0 06/26/2019 06/29/2019 Active Ethinyl Estradiol / norgestimate (14 sources) Progestin, Estrogen Start: 12-05-2022 take 1 tablet by mouth once daily norgestimate 0.25 mg-ethinyl estradiol 35 mcg 0.25-35 mg-mcg per tablet Indications: Dysmenorrhea Take 1 tablet by mouth once daily. Skip placebo week of pills and start a new pack immediately 84 tablet 3 12/05/2022 Active Start: 12-05-2022 End: 11-06-2023 take 1 tablet by mouth once daily norgestimate 0.25 mg-ethinyl estradiol 35 mcg 0.25-35 mg-mcg per tablet Indications: Dysmenorrhea Take 1 tablet by mouth once daily. Skip placebo week of pills and start a new pack immediately 84 tablet 3 12/05/2022 11/06/2023 Active Start: 04-02-2021 End: 12-05-2022 take 1 tablet by mouth once daily norgestimate 0.25 mg-ethinyl estradiol 35 mcg (SPRINTEC, ORTHO-CYCLEN) 0.25-35 mg-mcg per tablet Indications: Dysmenorrhea Take 1 tablet by mouth once daily. Skip placebo week of pills and start a new pack immediately 84 tablet 1 04/02/2021 12/05/2022 Discontinued (Discontinued by Patient) Start: 04-02-2021 take 1 tablet by nacho once daily norgestimate 0.25 mg-ethinyl estradiol 35 mcg (SPRINTEC, ORTHO-CYCLEN) 0.25-35 mg-mcg per tablet Indications: Dysmenorrhea Take 1 tablet by mouth once daily. Skip placebo week of pills and start a new pack immediately 84 tablet 1 04/02/2021 Active Start: 04-02-2021 End: 03-04-2022 take 1 tablet by mouth once daily norgestimate 0.25 mg-ethinyl estradiol 35 mcg (SPRINTEC, ORTHO-CYCLEN) 0.25-35 mg-mcg per tablet Indications: Dysmenorrhea Take 1 tablet by mouth once daily. Skip placebo week of pills and start a new pack immediately 84 tablet 1 04/02/2021 03/04/2022 Active Start: 11-18-2017 take 1 tablet by nacho th once daily at bedtime norgestimate-ethinyl estradiol (ORTHO-CYCLEN) 0.25-35 mg-mcg per tablet Take 1 tablet by mouth every night at bedtime . 0 11/18/2017 Active Comment on above: Take 1 tablet by nacho th once daily. Skip placebo week of pills and start a new pack immediately hyoscyamine sulfate 0.125 mg sublingual tablet (8 sources) Start: 9 take 1 tablet by mouth every eight hours as needed hyoscyamine (LEVSIN/SL) 0.125 mg SL tablet Take 0.125 mg by mouth every 8 (eight) hours as needed . 0 08/20/2018 Active ibuprofen 600 mg oral tablet (1 source) Nonsteroidal Anti-inflammatory Drug Start: 0 take 1 tablet by mouth every six hours as needed for pain ibuprofen (ADVIL;MOTRIN) 600 MG tablet Take 1 tablet by mouth every 6 hours as needed for Pain 28 tablet 0 06/26/2019 Active Start: 06-26-2019 take 1 tablet by nacho th every six hours as needed for pain ibuprofen (ADVIL;MOTRIN) 600 MG tablet Take 1 tablet by mouth every 6 hours as needed for Pain 28 tablet 0 06/26/2019 Active naproxen 500 mg oral tablet (8 sources) Nonsteroidal Anti-inflammatory Drug Start: 04-16-2019 take 1 tablet by mouth twice daily as needed naproxen (NAPROSYN) 500 MG tablet Take 500 mg by mouth 2 (two) times a day as needed . 0 04/16/2019 Active polysaccharide iron complex 150 mg oral capsule (8 sources) Start: 08-20-2018 polysaccharide iron complex (NIFEREX) 150 mg iron capsule Take 150 mg by mouth . 0 08/20/2018 Active promethazine hydrochloride 25 mg oral tablet (20 sources) Phenothiazine Start: 10-26-2024 take 1 tablet by mouth every six hours as needed for nausea Promethazine 25 mg tablet Active 25 mg PO EVERY 6 HOURS NEEDED as needed for Nausea October 26, 2024 12:00am Start: 04-02-2021 End: 12-05-2022 take 1 tablet by mouth every eight hours as needed promethazine (PHENERGAN) 50 mg tab(s) Indications: Intractable cyclical vomiting with nausea Take 1 tablet by mouth every 8 hours as needed. 30 tablet 5 04/02/2021 12/05/2022 Discontinued (Course of therapy completed) Start: 03-20-2019 End: 08-21-2019 take 1 tablet by mouth every six hours as needed promethazine (PHENERGAN) 25 MG tablet Take 1 (one) tablet (25 mg total) by mouth every 6 (six) hours as needed for nausea . 10 tablet 0 07/10/2019 Active Start: 03-20-2019 End: 07-08-2019 Phenadoz 25 mg suppository I NSERT 1 SUPPOSITORY RECTALLY EVERY 6 HOURS NEEDED FOR NAUSEA 0 03/20/2019 07/08/2019 Discontinued Comment on above: Take 1 tablet by nacho th every 8 hours as needed. propranolol hydrochloride 80 mg oral tablet (8 sources) beta-Adrenergic Doris Start: 9 take 1 tablet by mouth once daily at bedtime propranolol (INDERAL) 80 MG tablet Take 80 mg by mouth every night at bedtime . 0 08/20/2018 Active Completed/Discontinued Medications Medication Drug Class(es) Dates Sig (Normalized) Sig (Original) acetaminophen 325 mg oral tablet (1 source) Start: 08-20-2019 End: 08-21-2019 take 1 tablet by mouth every four hours as needed 650 mg, Oral, Every 4 hours PRN, mild pain, fever 100.4 F or greater, headaches, Starting 08/20/19 at 2019 amitriptyline hydrochloride 25 mg oral tablet (10 sources) Tricyclic Antidepressant Start: 04-02-2021 End: 12-05-2022 take 1 tablet by mouth once daily at bedtime amitriptyline (ELAVIL) 25 mg tablet Indications: Adjustment insomnia Take 1 tablet by mouth daily at bedtime. 30 tablet 5 04/02/2021 12/05/2022 Discontinued (Course of therapy completed) Start: 08-20-2018 End: 07-08-2019 amitriptyline (ELAVIL) 50 MG tablet Take 50 mg by mouth . 0 08/20/2018 07/08/2019 Discontinued Comment on above: Take 1 tablet by nacho th daily at bedtime. calcium chloride 0.001 meq/ml / glucose 50 mg/ml / potassium chloride 0.004 meq/ml / sodium chloride 0.103 meq/ml / sodium lactate 0.028 meq/ml injectable solution (1 source) Start: 07-08-2019 End: 07-10-2019 take 50 mL intravenous route every hour 50 mL/hr, Intravenous, Continuous, Starting Dione 07/08/19 at 1515 calcium chloride 0.0014 meq/ml / potassium chloride 0.004 meq/ml / sodium chloride 0.103 meq/ml / sodium lactate 0.028 meq/ml injectable solution (2 sources) Start: 07-08-2019 End: 07-10-2019 take 100 mL intravenous route every hour 100 mL/hr, Intravenous, Continuous, Starting D[facility] 07/08/19 at 1300, PACU (only) Start: 07-08-2019 End: 07-08-2019 lactated Ringers infusion dicyclomine hydrochloride 10 mg oral capsule (1 source) Anticholinergic Start: 08-17-2018 End: 08-22-2018 take 2 capsules by mouth three times daily before mealtime Dicyclomine 10 MG capsule Discontinued 20 mg PO THREE TIMES DAILY BEFORE MEALS 40 5 August 17, 2018 12:00am August 21, 2018 12:00am August 22, 2018 12:09am diphenhydrAMINE (2 sources) Histamine-1 Receptor Antagonist Start: 08-20-2019 End: 08-20-2019 diphenhydrAMINE (BENADRYL) injection 50 mg Start: 04-08-2016 End: 09-06-2016 take 1 tablet by mouth twice daily as needed for nausea Diphenhydramine Hcl (Benadryl) 25 MG capsule Discontinued 25 mg PO TWICE DAILY NEEDED as needed for Nausea/Emesis April 08, 2016 1:00am September 06, 2016 12:23pm Please take one tablet twice a day as needed for nausea/vomiting 0.4 ml enoxaparin sodium 100 mg/ml prefilled syringe (2 sources) Low Molecular Weight Heparin Start: 07-08-2019 End: 07-10-2019 inject 40 mg by subcutaneous injection once daily 40 mg, Subcutaneous, Daily, First dose on Dione 07/08/19 at 1545 Administer in abdomen unless otherwise directed by prescriber. Notify physician if patient refuses. Indication: VTE Prophylaxis esomeprazole 20 mg delayed release oral capsule (5 sources) Proton Pump Inhibitor Start: 04-23-2016 End: 07-08-2019 take 1 capsule by mouth once daily at bedtime esomeprazole (NEXIUM) 20 MG capsule Take 20 mg by mouth every night at bedtime . 0 04/23/2016 07/08/2019 Discontinued L Norgest/E.Estradio l-E.Estrad (1 source) Progestin, Estrogen, Progestin-contain ing Intrauterine Device Start: 09-27-2019 End: 10-25-2024 take 1 tablet by mouth once daily L Norgest/E.Estradio l-E.Estrad 1 EACH tablets,dose pack,3 month Discontinued 1 NMA PO DAILY September 27, 2019 12:00am October 25, 2024 8:02pm Famotidine (1 source) Histamine-2 Receptor Antagonist Start: 07-08-2019 End: 07-10-2019 famotidine (PEPCID) tablet 20 mg 1 ml HYDROmorphone hydrochloride 1 mg/ml injection (2 sources) Opioid Agonist Start: 07-08-2019 End: 07-10-2019 take 0.25-0.5 mg intravenous route every three hours as needed 0.25-0.5 mg, Intravenous, Every 3 hours PRN (may repeat), moderate to severe pain, Starting Dione 07/08/19 at 1427 [] Initiate with 0.25 mg IV every 3 hours prn moderate to severe pain. [] For unrelieved pain, may repeat 0.25 mg IV dose within 30 minutes of initial dose. [] If pain is RELIEVED after repeat dose, change to 0.5 mg IV every 3 hours prn mod erate to severe pain. [] If pain is UNrelieved after repeat dose, or patient requires dose reduction, call physician. [] May use IV for breakthrough pain or if unable to tolerate oral route. Start: 07-08-2019 End: 07-08-2019 0.5 mg, Intravenous, Every 5 min PRN, Pain, Starting Dione 07/08/19 at 1206, For 6 doses, PACU (only) [] Give if fentanyl not effective or not ordered. [] Do not give more than 3 mg total. 1 ml ketorolac tromethamine 30 mg/ml injection (3 sources) Nonsteroidal Anti-inflammatory Drug, Cyclooxygenase Inhibitor Start: 08-20-2019 End: 08-21-2019 take 15 mg intravenous route every four hours as needed ketorolac (TORADOL) injection 15 mg Start: 07-08-2019 End: 07-10-2019 take 15 mg intravenous route every six hours as needed 15 mg, Intravenous, Every 6 hours PRN, mild pain, Starting Dione 07/08/19 at 1427, For 48 hours Ketorolac (TORADOL) has an automatic 48 hour stop date. Start: 06-26-2019 End: 06-26-2019 ketorolac (TORADOL) injectio n 30 mg 4 ml labetalol hydrochloride 5 mg/ml cartridge (1 source) beta-Adrenergic Doris Start: 07-08-2019 End: 07-08-2019 5 mg, Intravenous, Every 5 min PRN, SBP greater than 180 or DBP greater than 120, Starting Dione 07/08/19 at 1206, For 4 doses, PACU (only) [] Do not give more than 20 mg total. [] Hold for HR less than 50. metoclopramide 10 mg oral tablet (10 sources) Dopamine-2 Receptor Antagonist Start: 08-20-2019 End: 08-21-2019 take 10 mg by mouth three times daily as needed 10 mg, Oral, 3 times daily PRN, n/v, Starting Fri08/20/19 at 2038 Start: 08-20-2019 metoclopramide (REGLAN) injection 10 mg Start: 07-08-2019 metoclopramide (REGLAN) injection 5 mg Start: 06-18-2019 take 1 tablet by nacho th four times daily metoclopramide (REGLAN) 10 MG tablet TAKE 1 TABLET BY MOUTH 4 TIMES DAILY FOR 5 DAYS 0 06/18/2019 Active 1 ml morphine sulfate 10 mg/ml cartridge (1 source) Opioid Agonist Start: 06-26-2019 End: 06-26-2019 morphine (PF) injection 4 mg naloxone (NARCAN) injection 0.1 mg (1 source) Start: 07-08-2019 End: 07-10-2019 naloxone (NARCAN) injection 0.1 mg 2 ml ondansetron 2 mg/ml injection (14 sources) Serotonin-3 Receptor Antagonist Start: 08-20-2019 End: 08-21-2019 take 4 mg intravenous route every six hours as needed 4 mg, Intravenous, Every 6 hours PRN, nausea, vomiting, Starting 08/20/19 at 2020 Start: 07-08-2019 End: 07-08-2019 take 4 mg intravenous route every twenty-four hours as needed 4 mg, Intravenous, Once as needed, nausea, vomiting, Starting Dione 07/08/19 at 1206, For 1 dose, PACU (only) Administer first as needed for nausea/vomiting, or as directed by anesthesia Start: 06-26-2019 take 1 tablet by nacho th every eight hours as needed for nausea ondansetron (ZOFRAN ODT) 4 MG disintegrating tablet Take 1 tablet by mouth every 8 hours as needed for Nausea 20 tablet 0 06/26/2019 Active Start: 06-26-2019 ondansetron (Z OFRAN) injection 4 mg Start: 02-16-2019 ondansetron (Z OFRAN-ODT) 4 MG disintegrating tablet Start: 05-29-2018 End: 09-12-2018 take 1 tablet by mouth every eight hours as needed for vomiting Ondansetron 4 MG tablet Discontinued 4 mg PO EVERY 8 HOURS NEEDED as needed for Vomiting May 29, 2018 1:00am September 12, 2018 11:01am Start: 04-05-2016 End: 09-06-2016 take 1 tablet by mouth every eight hours as needed for nausea Ondansetron 4 MG tablet Discontinued 4 mg PO EVERY 8 HOURS NEEDED as needed for Nausea April 05, 2016 1:00am September 06, 2016 12:24pm ondansetron (ZOFRAN-ODT) disintegrating tablet 4 mg (1 source) Start: 07-08-2019 End: 07-10-2019 take 1 tablet by mouth every six hours as needed ondansetron (ZOFRAN-ODT) disintegrating tablet 4 mg pantoprazole 40 mg injection (7 sources) Proton Pump Inhibitor Start: 08-21-2019 End: 08-21-2019 40 mg, Intravenous, Daily, First dose on 08/21/19 at 0900 Start: 06-17-2019 End: 07-17-2019 take 1 tablet by mouth once daily pantoprazole (PROTONIX) 40 MG tablet Take 40 mg by mouth daily . 0 06/17/2019 Active 100 ml potassium chloride 0.2 meq/ml injection (1 source) Start: 08-21-2019 End: 08-21-2019 take 20 mEq intravenous route every two hours potassium chloride 20 mEq in 100 mL IVPB 1000 ml potassium chloride 0.02 meq/ml / sodium chloride 9 mg/ml injection (1 source) Start: 08-20-2019 End: 08-21-2019 sodium chloride 0.9 % with KCl 20 mEq/L infusion 72 hr scopolamine 0.0139 mg/hr transdermal system (1 source) Anticholinergic Start: 07-09-2019 End: 07-10-2019 scopolamine (TRANSDERM-SCOP) 1 mg over 3 days patch 1 patch 1000 ml sodium chloride 9 mg/ml injection (4 sources) Start: 08-20-2019 End: 08-20-2019 sodium chloride 0.9% (NS) bolus 1,000 mL Start: 08-20-2019 End: 08-21-2019 sodium chloride (PF) (NS) fl ush 5 mL Start: 07-09-2019 End: 07-09-2019 sodium chloride 0.9% (NS) ghassan wyatt 500 mL Start: 06-26-2019 End: 06-26-2019 0.9 % sodium chloride bolus technetium (Tc-99m) mebrofenin (CHOLETEC) injection 6 millicurie (1 source) Start: 05-31-2019 End: 05-31-2019 technetium (Tc-99m) mebrofenin (CHOLETEC) injection 6 millicurie zolpidem tartrate 5 mg oral tablet (1 source) gamma-Aminobutyric Acid-ergic Agonist Start: 08-20-2019 End: 08-21-2019 zolpidem (AMBIEN) tablet 10 mg Problems Active Problems Problem Classification Problem Date Documented Date Episodic/Chronic Abdominal pain (7 sources) Periumbilical pain; Translations: [Upper abdominal pain] 10-26-2024 Episodic Biliary tract disease (8 sources) Biliary dyskinesia; Translations: [Biliary dyskinesia] Onset: 06-21-2019 06-21-2019 Episodic Contraceptive and procreative management (2 sources) Patient encounter status; Translations: [Encounter for initial prescription of contraceptive pills] 12-05-2022 Episodic Deficiency and other anemia (6 sources) Heterozygous thalassemia; 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] Onset: 01-15-2015 01-15-2015 Chronic E Codes: Fall (1 source) Fall; Translations: [Unspecified fall, initial encounter] 12-25-2023 Episodic Fluid and electrolyte disorders (4 sources) Dehydration; Translations: [Dehydration] Onset: 06-16-2015 Resolved: 11-29-2015 11-29-2015 Episodic Gastritis and duodenitis (2 sources) Gastritis; Translations: [Gastritis, unspecified, without bleeding] Onset: 01-15-2015 Resolved: 01-19-2015 01-19-2015 Episodic Headache; including migraine (14 sources) Cyclical vomiting syndrome; Translations: [Cyclical vomiting syndrome unrelated to migraine] Onset: 06-16-2015 Resolved: 12-05-2022 12-29-2017 Episodic Immunizations and screening for infectious disease (2 sources) Requires measles, mumps and rubella vaccination; Translations: [Encounter for immunization] 12-05-2022 Episodic Menstrual disorders (2 sources) Dysmenorrhea; Translations: [Dysmenorrhea, unspecified] 12-05-2022 Chronic Nausea and vomiting (20 sources) Intractable nausea and vomiting; Translations: [Nausea and vomiting] Onset: 01-15-2015 Resolved: 12-05-2022 08-20-2019 Episodic Other aftercare (1 source) Surgical follow-up; Translations: [Encounter for surgical aftercare following surgery of digestive system] Episodic Other circulatory disease (1 source) Elevated blood-pressure reading without diagnosis of hypertension; Translations: [Elevated blood-pressure reading, without diagnosis of hypertension] 12-05-2022 Episodic Other nervous system disorders (1 source) Postoperative pain ; Translations: [Post-op pain] Episodic Other nutritional; endocrine; and metabolic disorders (7 sources) Obese class II; Translations: [Obesity, unspecified] Onset: 08-07-2017 08-09-2017 Chronic Other nutritional; endocrine; and metabolic disorders (1 source) Obese class I; Translations: [Class 1 obesity] 09-10-2018 Chronic Sprains and strains (1 source) Sprain of ankle; Translations: [Sprain of unspecified ligament of unspecified ankle, initial encounter] 12-25-2023 Episodic Thyroid disorders (1 source) Goiter; Translations: [Iodine-deficiency related diffuse (endemic) goiter] 12-05-2022 Chronic Unclassified (1 source) Wound finding; Translations: [Visit for wound check] Past or Other Problems Problem Classification Problem Date Documented Date Episodic/Chronic Essential hypertension (5 sources) Hypertensive disorder; Translations: [Essential (primary) hypertension] Onset: 11-29-2015 Resolved: 12-05-2022 11-18-2017 Chronic Joint disorders and dislocations; trauma-related (1 source) Dislocation of patellofemoral joint; Translations: [Unspecified dislocation of left patella, initial encounter] Onset: 03-01-2014 Resolved: 01-19-2015 01-19-2015 Episodic Noninfectious gastroenteritis (1 source) Enteritis of small intestine; Translations: [Noninfective gastroenteritis and colitis, unspecified] Onset: 01-15-2015 Resolved: 01-19-2015 01-19-2015 Episodic Other injuries and conditions due to external causes (1 source) Unspecified injury of right ankle, initial encounter; Translations: [Unspecified injury of right ankle, initial encounter] Onset: 12-29-2023 Episodic Other liver diseases (1 source) Aspartate aminotransferase serum level raised; Translations: [Elevated AST (SGOT)] Onset: 03-13-2015 Resolved: 12-03-2016 04-30-2021 Episodic Other nutritional; endocrine; and metabolic disorders (5 sources) Obesity; Translations: [Obesity, unspecified] Onset: 03-21-2016 Resolved: 12-05-2022 03-21-2016 Chronic Results Test Name Value Interpretation Reference Range Facility Absolute lymphocyte countOrd ered By: Asael Quesada on 10-25-2024 Lymphocytes Auto (Unsp spec) [#/Vol] 3.19 10*3/uL 0.83-4.51 [facility] Absolute neutrophil countOrd ered By: Asael Quesada on 10-25-2024 Neutrophils (Bld) [#/Vol] 6.0 10*3/uL 2.0-7.7 [facility] Anion gap in Serum or Plasma Ordered By: Asael Quesada on 10-25-2024 Anion gap [Moles/Vol] 17 mmol/L High 5-15 [facility] Automated lymphocyte count a s percentage of total leukocytesOrdered By: Asael Quesada on 10-25-2024 Lymphocytes/100 WBC Auto (Unsp spec) 32.5 % 19-41 [facility] BUN/creatinine ratioOrdered By: Asael Quesada on 10-25-2024 Urea nitrogen/Creatinine [Mass ratio] 12.3 mg/mg 10-20 [facility] Basophil percentageOrdered B y: Asael Quesada on 10-25-2024 Basophils/100 WBC (Bld) 0.5 % 0-[address] [facility] Bilirubin, totalOrdered By: Asael Quesada on 10-25-2024 Bilirubin [Mass/Vol] 0.39 mg/dL 0.00-1.30 [facility] CBC W/Diff, Automatedon 10-04 Absolute Lymph 3.19 X10 3/uL Normal 0.83-4.51 [facility] Comment on above: Performed By: #### L 100.0100, L500.4050, L501.2450, [id number] #### [facility] [address] [place], [address] Absolute Neut 6.0 X10 3/uL Normal 2.0-7.7 [facility] Comment on above: Performed By: #### L 100.0100, L500.4050, L501.2450, [id number] #### [facility] [address] [place], [address] Basophils/100 WBC (Bld) 0.5 % Normal 0-[address] [facility] Comment on above: Performed By: #### L 100.0100, [id number], L501.2450, [id number] #### [facility] [address] [place], [address] Eosinophils/100 WBC (Bld) 0.4 % Normal 0-5 [facility] Comment on above: Performed By: #### L 100.0100, [id number], L501.2450, [id number] #### [facility] [address] [place], [address] Erythrocyte distribution width (RBC) [Ratio] 14.0 % Normal 11.6-14.6 [facility] Comment on above: Performed By: #### L 100.0100, [id number], [id number], [id number] #### [facility] [address] [place], [address] Hematocrit (Bld) [Volume fraction] 42.7 % Normal 37-47 [facility] Comment on above: Performed By: #### L 100.0100, [id number], [id number], [id number] #### [facility] [address] [place], [address] Hemoglobin (Bld) [Mass/Vol] 13.2 g/dL Normal 12.0-15.0 [facility] Comment on above: Performed By: #### L 100.0100, [id number], [id number], [id number] #### [facility] [address] [place], [address] IG% 0.300 Normal 0.0-0.9 [facility] Comment on above: Result Comment: IG% - Immature Granulocytes (promyelocytes, myelocytes and metamyelocytes) > 1% indicates that a LEFT SHIFT is Present. Performed By: #### L 100.0100, L500.4050, L501.2450, L700.6800 #### [facility] [address] [place], [address] Lymphocytes/100 WBC (Bld) 32.5 % Normal 19-41 [facility] Comment on above: Performed By: #### L 100.0100, L500.4050, L501.2450, L700.6800 #### [facility] [address] [place], [address] MCH (RBC) [Entitic mass] 23.2 pg Low 27.0-32.0 [facility] Comment on above: Performed By: #### L 100.0100, L500.4050, L501.2450, L700.6800 #### [facility] [address] [place], [address] MCHC (RBC) [Mass/Vol] 30.9 g/dL Low 32-36 [facility] Comment on above: Performed By: #### L 100.0100, L500.4050, L501.2450, L700.6800 #### [facility] [address] [place], [address] MCV (RBC) [Entitic vol] 75.0 fL Low 81-[address] [facility] Comment on above: Performed By: #### L 100.0100, L500.4050, L501.2450, L700.6800 #### [facility] [address] [place], [address] Monocytes/100 WBC (Bld) 4.7 % Normal 0-10 [facility] Comment on above: Performed By: #### L 100.0100, L500.4050, L501.2450, L700.6800 #### [facility] [address] [place], [address] Neutrophils/100 WBC (Bld) 61.6 % Normal 47-70 [facility] Comment on above: Performed By: #### L 100.0100, L500.4050, L501.2450, L700.6800 #### [facility] [address] [place], [address] Nucleated RBC (Bld) [#/Vol] 0 10*3/uL Normal 0-5 [facility] Comment on above: Performed By: #### L 100.0100, L500.4050, L501.2450, L700.6800 #### [facility] [address] [place], [address] Platelet mean volume (Bld) [Entitic vol] 10.6 fL Normal 6.2-12.0 [facility] Comment on above: Performed By: #### L 100.0100, L500.4050, L501.2450, L700.6800 #### [facility] [address] [place], [address] Platelets (Bld) [#/Vol] 442 10*3/uL Normal 150-450 [facility] Comment on above: Performed By: #### L 100.0100, L500.4050, L501.2450, L700.6800 #### [facility] [address] [place], [address] RBC (Bld) [#/Vol] 5.69 10*6/uL High 4.2-5.4 [facility] Comment on above: Performed By: #### L 100.0100, L500.4050, L501.2450, L700.6800 #### [facility] [address] [place], [address] RDW SD 37.2 fl Normal 35.1-43.9 [facility] Comment on above: Performed By: #### L 100.0100, L500.4050, L501.2450, L700.6800 #### [facility] [address] [place], [address] WBC (Bld) [#/Vol] 9.8 10*3/uL Normal 4.4-11.0 [facility] Comment on above: Performed By: #### L 100.0100, L500.4050, L501.2450, L700.6800 #### [facility] [address] [place], [address] Carbon dioxide, total [Moles /volume] in Central venous bloodOrdered By: Asael Quesada on 10-25-2024 CO2 [Moles/Vol] 21.1 mmol/L 21.0-32.0 [facility] Chloride assayOrdered By: Adi Quesada on 10-25-2024 Chloride [Moles/Vol] 103 mmol/L 98-108 [facility] Comprehensive Metabolic Prof ilon 10-25-2024 Albumin [Mass/Vol] 5.1 g/dL High 3.5-5.0 [facility] Comment on above: Performed By: #### L 100.0100, L500.4050, L501.2450, L700.6800 #### [facility] [address] [place], [address] Albumin/Globulin [Mass ratio] 1.3 {ratio} Normal 0.9-2.4 [facility] Comment on above: Performed By: #### L 100.0100, L500.4050, L501.2450, L700.6800 #### [facility] [address] [place], [address] ALK PHOS 89 U/L Normal 35-104 [facility] Comment on above: Performed By: #### L 100.0100, L500.4050, L501.2450, L700.6800 #### [facility] [address] [place], [address] ALT [Catalytic activity/Vol] 31 U/L Normal <=34 [facility] Comment on above: Performed By: #### L 100.0100, L500.4050, L501.2450, L700.6800 #### [facility] [address] [place], [address] AST [Catalytic activity/Vol] 26 U/L Normal <=31 [facility] Comment on above: Performed By: #### L 100.0100, L500.4050, L501.2450, L700.6800 #### [facility] [address] [place], [address] Bilirubin [Mass/Vol] 0.39 mg/dL Normal 0.00-1.30 [facility] Comment on above: Performed By: #### L 100.0100, L500.4050, L501.2450, L700.6800 #### [facility] [address] [place], [address] BUN/CRE 12.3 RATIO Normal 10-20 [facility] Comment on above: Performed By: #### L 100.0100, L500.4050, L501.2450, L700.6800 #### [facility] [address] [place], [address] Calcium [Mass/Vol] 9.6 mg/dL Normal 7.6-11.0 [facility] Comment on above: Performed By: #### L 100.0100, L500.4050, L501.2450, L700.6800 #### [facility] [address] [place], [address] Chloride [Moles/Vol] 103 mmol/L Normal 98-108 [facility] Comment on above: Performed By: #### L 100.0100, L500.4050, L501.2450, L700.6800 #### [facility] [address] [place], [address] CO2 [Moles/Vol] 21.1 mmol/L Normal 21.0-32.0 [facility] Comment on above: Performed By: #### L 100.0100, L500.4050, L501.2450, L700.6800 #### [facility] [address] [place], [address] Creatinine [Mass/Vol] 1.15 mg/dL Normal 0.70-1.20 [facility] Comment on above: Performed By: #### L 100.0100, L500.4050, L501.2450, L700.6800 #### [facility] [address] [place], [address] ECRCL 83.04 ml/min Normal 50-250 [facility] Comment on above: Performed By: #### L 100.0100, L500.4050, L501.2450, L700.6800 #### [facility] [address] [place], [address] GAP 17 High 5-15 [facility] Comment on above: Performed By: #### L 100.0100, L500.4050, L501.2450, L700.6800 #### [facility] [address] [place], [address] GFR/1.73 sq M.predicted among non-blacks MDRD (S/P/Bld) [Vol rate/Area] 67 mL/min/{1.73_m2} Normal >60 [facility] Comment on above: Result Comment: mL/m in/1.73m2 CKD-EPI Creatinine Equation (2020) Performed By: #### L 100.0100, L500.4050, L501.2450, L700.6800 #### [facility] [address] [place], [address] Globulin (S) [Mass/Vol] 4.0 g/dL Normal 2.2-4.2 [facility] Comment on above: Performed By: #### L 100.0100, L500.4050, L501.2450, L700.6800 #### [facility] [address] [place], [address] Glucose [Mass/Vol] 103 mg/dL High 70-99 [facility] Comment on above: Performed By: #### L 100.0100, L500.4050, L501.2450, L700.6800 #### [facility] [address] [place], [address] Potassium [Moles/Vol] 3.3 mmol/L Normal 3.3-5.1 [facility] Comment on above: Performed By: #### L 100.0100, L500.4050, L501.2450, L700.6800 #### [facility] [address] [place], [address] Sodium [Moles/Vol] 141 mmol/L Normal 133-145 [facility] Comment on above: Performed By: #### L 100.0100, L500.4050, L501.2450, L700.6800 #### [facility] [address] [place], [address] T PROT 9.1 g/dL High 5.9-8.4 [facility] Comment on above: Performed By: #### L 100.0100, L500.4050, L501.2450, L700.6800 #### [facility] [address] [place], [address] Urea nitrogen [Mass/Vol] 14 mg/dL Normal 4-19 [facility] Comment on above: Performed By: #### L 100.0100, L500.4050, L501.2450, L700.6800 #### [facility] [address] [place], [address] Emergency Department Summary on 10-25-2024 Emergency Department Summary [facility] Medical Records Department [address] [place] [address] Emergency Department Summary 10/25/24 MR#: [id number] Acct: [id number] Name: ISABEL OREILLY Rep #: [id number] : 2000 24 From: Asael Quesada MD PCP: Status:REG ER Location: ED HPI HPI - GI History of Present Illness Chief Complaint: Nausea/Vomiting Informant: patient Narrative Narrative: 24-year-old female with a history of cyclic vomiting syndrome, she states she is having a bad flareup of it for the past 3 to 4 days. Periumbilical and epigastric abdominal discomfort has been mild but gradually worsening after each vomiting. She states she has been vomiting a lot this past day. Trying to drink sips of fluid. She is urinating and it is unremarkable. No hematochezia or hematemesis, no melena. Similar symptoms she has had in the past, she states she only comes to the ER when she can get through an episode, and this is a particularly bad 1 and she has not had one like this in a while, the pain is worse than it had been in the past as well. It is still the same pain in the same location, feels like things are tightening up and squeezing. States typically when she has these episodes at home, she takes hot showers, and tries not to eat anything that will make it worse, and eventually wakes up in the morning and things are better but not this time. She had prior cholecystectomy and appendectomy to try to help with the symptoms although they were unsuccessful. [facility] Medical History Cyclic vomiting syndrome Home Medications ???Medication ???Instructions ???Recorded ???Last Taken ???Type promethazine 25 mg tablet 25 mg PO Q6H PRN PRN Nausea #12 Unknown Rx TABLETS Allergy/AdvReac Type Severity Reaction Status Date / Time chlorpromazine (From AdvReac Other Verified 10/25/24 20:02 Thorazine) Surgical History Hx of appendectomy Hx of cholecystectomy Social History Smoking Status: Never smoker ROS ROS ED Constitutional Constitutional ED: Denies chills or fever(s) Eyes Eyes: Denies change in vision or diplopia ENT ENT ED: Denies rhinorrhea or sore throat Cardiovascular Cardiovascular: Denies chest pain or palpitations Respiratory/Chest Respiratory/Chest: Denies cough or dyspnea Gastrointestinal Gastrointestinal: Reports abdominal pain, nausea and vomiting; Denies diarrhea or melena Genitourinary Genitourinary ED: Denies dysuria or hematuria Musculoskeletal Musculoskeletal: Denies back pain or neck pain Integumentary Denies abscess or rash Neurologic Neurologic: Denies headache(s), paresthesias or weakness Psychiatric Psychiatric: Denies anxiety or suicidal thoughts EXAM Physical Exam Const Vital Signs: 10/25/24 20:01 10/25/24 22:01 10/26/24 00:00 Temperature 96.6 F L 98.5 F Temperature Source Oral Oral Pulse Rate 115 H 94 89 Respiratory Rate 20 H 20 H 18 Blood Pressure 136/101 H 145/91 H 139/79 H Blood Pressure Mean 112 109 99 Pulse Ox 99 100 100 Oxygen Delivery Method Room Air Room Air 10/26/24 01:23 10/26/24 02:57 10/26/24 04:00 Temperature Temperature Source Pulse Rate 79 82 91 Respiratory Rate 16 16 16 Blood Pressure 131/82 H 144/97 H 132/89 H Blood Pressure Mean 98 112 103 Pulse Ox 100 100 99 Oxygen Delivery Method Room Air Room Air Room Air Positive well nourished, well developed and obese General Appearance ED: well developed and NAD Nutritional Appearance: obese HEENT Reports moist mucous membranes normocephalic and atraumatic Eyes PERRL and EOMs intact bilaterally Neck full ROM and supple Resp normal respiratory effort and clear to auscultation bilaterally Cardio regular rate, regular rhythm and no murmurs GI non-distended GI Narrative: Subjectively patient states hurts to palpate, but objectively exam is benign. Auscultation: normoactive bowel sounds Palpation: soft Back/Spine no CVA tenderness General Back: other FROM Extremity normal to inspection General Extremety ED: Negative for edema, pulses abnormal or tenderness General Extremity: Negative for edema or pulses abnormal Neuro oriented x3, CN's II-XII intact bilaterally and no sensory deficits noted Sensorium / Orientation: awake and alert Motor Exam: strength 5/5 throughout Skin no rashes or lesions noted and no wounds MDM MDM MDM Narrative Medical decision making narrative: Patient with a fairly benign abdomen, normal vital signs except for mild tachycardia. I did labs which are unremarkable including liver enzymes and lipase. Serum is negative ruling out ectopic. I do not (more content not included)... Normal [facility] Eosinophil percentageOrdered By: Asael Quesada on 10-25-2024 Eosinophils/100 WBC (Bld) 0.4 % 0-5 [facility] Erythrocyte distribution wid th ratioOrdered By: Asael Quesada on 10-25-2024 Erythrocyte distribution width (RBC) [Ratio] 14.0 % 11.6-14.6 [facility] Erythrocyte distribution wid th standard deviationOrdered By: Asael Quesada on 10-25-2024 Erythrocyte distribution width (RBC) [Ratio] 37.2 fl 35.1-43.9 [facility] Glomerular filtration rate ( GFR) estimation/1.73 sq m using serum, plasma, or whole bOrdered By: Asael Quesada on 10-25-2024 GFR/1.73 sq M.predicted among non-blacks MDRD (S/P/Bld) [Vol rate/Area] 67 mL/min/{1.73_m2} >60 [facility] Comment on above: mL/min/1.73m2 CKD-EP I Creatinine Equation (2020) Hematocrit Auto (Bld) [Volum e fraction]Ordered By: Asael Quesada on 10-25-2024 Hematocrit (Bld) [Volume fraction] 42.7 % 37-47 [facility] Hemoglobin measurementOrdere d By: Asael Quesada on 10-25-2024 Hemoglobin (Bld) [Mass/Vol] 13.2 g/dL 12.0-15.0 [facility] Immature granulocytes/100 WB C Auto (Bld)Ordered By: Asael Quesada on 10-25-2024 Immature granulocytes/100 WBC (Bld) 0.300 % 0.0-0.9 [facility] Comment on above: IG% - Immature Granu locytes (promyelocytes, myelocytes and metamyelocytes) > 1% indicates that a LEFT SHIFT is Present. Laboratory - Chemistry and C hemistry - challengeOrdered By: Asael Quesada on 10-25-2024 AST [Catalytic activity/Vol] 26 U/L <32 [facility] Lipaseon 10-25-2024 Lipase [Catalytic activity/Vol] 38 U/L Normal 13-75 [facility] Comment on above: Result Comment: Maged workman note: LIPASE revised reference range effective 22. New Lipase methodology. Expected to produce lower values than the previous assay method. NEW Reference Range: 13 - 75 U/L Performed By: #### L 100.0100, L500.4050, L501.2450, L700.6800 #### [facility] [address] [place], [place], [id number] Lipase measurementOrdered By : Asael Quesada on 10-25-2024 Lipase [Catalytic activity/Vol] 38 U/L 13-75 [facility] Comment on above: Please note:LIPASE r evised reference range effective 22. New Lipase methodology. Expected to produce lower values than the previous assay method. NEW Reference Range: 13 - 75 U/L MCV (mean corpuscular volume ) determinationOrdered By: Asael Quesada on 10-25-2024 MCV (RBC) [Entitic vol] 75.0 fL Low 81-[address] [facility] Mean corpuscular hemoglobin (MCH) determinationOrdered By: Asael Quesada on 10-25-2024 MCH (RBC) [Entitic mass] 23.2 pg Low 27.0-32.0 [facility] Mean corpuscular hemoglobin concentration (MCHC) determinationOrdered By: Asael Quesada on 10-25-2024 MCHC (RBC) [Mass/Vol] 30.9 g/dL Low 32-36 [facility] Mean platelet volume determi nationOrdered By: Asael Quesada on 10-25-2024 Platelet mean volume (Bld) [Entitic vol] 10.6 fL 6.2-12.0 [facility] Monocyte percentageOrdered B y: Asael Quesada on 10-25-2024 Monocytes/100 WBC (Bld) 4.7 % 0-[address] [facility] Neutrophil percentageOrdered By: Asael Quesada on 10-25-2024 Neutrophils/100 WBC (Bld) 61.6 % 47-70 [facility] Nucleated red blood cell per centageOrdered By: Asael Quesada on 10-25-2024 Nucleated RBC/100 WBC (Bld) [Ratio] 0 % 0-5 [facility] Platelet countOrdered By: Adi Quesada on 10-25-2024 Platelets (Bld) [#/Vol] 442 10*3/uL 150-450 [facility] Potassium measurement (mass/ volume)Ordered By: Asael Quesada on 10-25-2024 Potassium (Unsp spec) [Mass/Vol] 3.3 mmol/L 3.3-5.1 [facility] ,Serum,hCG Quali.on 10-25-2024 HCG, SERUM QUAL Negative Normal [facility] Comment on above: Performed By: #### L 100.0100, L500.4050, L501.2450, L700.6800 #### [facility] [place], [address] RBC Auto (Bld) [#/Vol]Ordere d By: Asael Quesada on 10-25-2024 RBC (Bld) [#/Vol] 5.69 10*6/uL High 4.2-5.4 [facility] Serum beta-hCG test, qualita tiveOrdered By: Asael Quesada on 10-25-2024 Beta HCG ( test) Ql Negative [facility] Serum creatinine measurement (mass/volume)Ordered By: Asael Quesada on 10-25-2024 Creatinine [Mass/Vol] 1.15 mg/dL 0.70-1.20 [facility] Serum globulin measurementOr dered By: Asael Quesada on 10-25-2024 Globulin (S) [Mass/Vol] 4.0 g/dL 2.2-4.[address] [facility] Serum glucose measurement (m ass/volume)Ordered By: Asael Quesada on 10-25-2024 Glucose [Mass/Vol] 103 mg/dL High 70-99 [facility] Serum or plasma alanine ferrari otransferase (ALT) measurementOrdered By: Asael Quesada on 10-25-2024 ALT [Catalytic activity/Vol] 31 U/L <35 [facility] Serum or plasma albumin yanick urement (mass/volume)Ordered By: Asael Quesada on 10-25-2024 Albumin [Mass/Vol] 5.1 g/dL High 3.5-5.0 [facility] Serum or plasma albumin/glob ulin mass ratioOrdered By: Asael Quesada on 10-25-2024 Albumin/Globulin [Mass ratio] 1.3 {ratio} 0.9-2.4 [facility] Serum or plasma alkaline thanh sphatase measurementOrdered By: Asael Quesada on 10-25-2024 ALP [Catalytic activity/Vol] 89 U/L 35-104 [facility] Serum or plasma calcium yanick urement (mass/volume)Ordered By: Asael Quesada on 10-25-2024 Calcium [Mass/Vol] 9.6 mg/dL 7.6-11.0 [facility] Serum or plasma urea nitroge n measurement (mass/volume)Ordered By: Asael Quesada on 10-25-2024 Urea nitrogen [Mass/Vol] 14 mg/dL 4-19 [facility] Sodium levelOrdered By: Valdo Quesada on 10-25-2024 Sodium [Moles/Vol] 141 mmol/L 133-145 [facility] Total proteinOrdered By: Toan fieldnaif Sangita on 10-25-2024 Protein [Mass/Vol] 9.1 g/dL High 5.9-8.4 [facility] White blood cell (WBC) count Ordered By: Asael Quesada on 10-25-2024 WBC (Bld) [#/Vol] 9.8 10*3/uL 4.4-11.0 [facility] Ankle min 3 Viewson 12-17-19 Ankle min 3 Views [facility] Imaging Services [address] [place], [place] [address] Ankle min 3 Views MR#: [id number] Acct: [id number] Name: ISABEL OREILLY Rep #: [id number] : 2000 F 23 From: Saturnino Capps MD PCP: Dr. Fanny Sharif MD Status: PRE ER Study: Ankle min 3 Views Date of Exam: 12/17/23 Exam# [id number] Ordering Dr: Clifton Johnson MD [id number] STUDY: X-RAY - RIGHT ANKLE REASON FOR EXAM: Female, 23 years old. Twisted right ankle. Pain. TECHNIQUE: 3 view(s) of the ankle. COMPARISON: None. FINDINGS: Normal visualized distal tibia and fibula. Normal medial and lateral malleoli. Normal tibiotalar articulation and ankle mortise. Normal visualized talus and calcaneus. The visualized subtalar, talonavicular, calcaneocuboid and tarsal articulations are normal. Mild diffuse soft tissue swelling. RAD/Ankle min 3 Views IMPRESSION: Mild diffuse soft tissue swelling. No other abnormality. Electronically Signed: Saturnino Capps MD at 10:19 EDT Reading Location ID and State: [address] [place] [address] , Service support , CC: Dr. Clifton Johnson MD; Dr. Fanny Sharif MD Nurse [facility]: Signed Normal [facility] Emergency Department Summary on 12-17-2023 Emergency Department Summary [facility] Medical Records Department [address] [place] [address] Emergency Department Summary 12/17/23 MR#: [id number] Acct: [id number] Name: ISABEL OREILLY Rep #: [id number] : 2000 23 From: Clifton Johnson MD PCP: Dr. Emil Jackson MD Status:DEP ER Location: ED HPI History of Present Illness HPI Narrative: 23-year-old female history of cyclic vomiting. Stepped on a shoe twisted her right ankle 2 days ago on Friday and fell down 2-3 steps. No LOC. Only complaints of right ankle. She wanting an x-ray. Chief Complaint: Lower Extremity Injury Informant: patient Occured/Mechanism Mechanism/Context: Yes injury and Yes blunt trauma Onset/Context/Timing Onset: Days Context: Sudden Onset Timing: Continuous Quality of Pain: Dull and Aching Current Severity: Mild Maximum Severity: Mild Narrative Narrative: 23-year-old female injured her right ankle 2 days ago. Prior similar symptoms: Yes Recent Illness/Hospitalizati on: No PFSH PFSH Medical History Cyclic vomiting syndrome Home Medications ???Medication ???Instructions ???Recorded ???Last Taken ???Type L norgest/E estradiol-E estrad 1 ea PO DAILY 09/27/19 Unknown History 0.15 mg-30 mcg (84)/10 mcg(7) tabs,3mos Allergy/AdvReac Type Severity Reaction Status Date / Time chlorpromazine (From AdvReac Other Verified 12/17/23 09:42 Thorazine) Surgical History Hx of appendectomy Hx of cholecystectomy Social History Smoking Status: Never smoker ROS ROS ED ROS Narrative Denies recent illness. Constitutional Constitutional ED: Denies chills or fever(s) Eyes Eyes: Denies blurry vision ENT ENT ED: Denies ear pain Cardiovascular Cardiovascular: Denies chest pain Respiratory/Chest Respiratory/Chest: Denies cough Gastrointestinal Gastrointestinal: Denies abdominal pain Genitourinary Genitourinary ED: Denies dysuria Musculoskeletal Musculoskeletal: Denies arthralgias Integumentary Denies abscess Neurologic Neurologic: Denies headache(s) Psychiatric Psychiatric: Denies anxiety Endocrine Endocrinology: Denies polydipsia Hematologic/Lymphatic Hematologic/Lymphatic : Denies easy bleeding or easy bruising Allergic/Immunologic Allergic/Immunologic ED: Denies mouth swelling, tongue swelling or urticaria EXAM Physical Exam Narrative Exam Narrative: Well-appearing 23-year-old female. Vital signs stable afebrile. H EENT exam pupils are round and reactive light. No trauma to her face or scalp. Nontender. Neck nontender. Back and spine nontender. Lungs clear. Heart regular rhythm rate about 95 no murmur. Chest wall ribs nontender. Abdomen soft nontender. Pelvic girdle intact. Moving all 4 extremities. Normal range of motion. She has mild tenderness right lateral ankle. Minimal swelling. Dorsi and plantarflexion limited due to discomfort. Medial malleolus nontender. Achilles intact. Foot nontender. Normal DP pulse intact sensation. Able to wiggle her toes. Const Vital Signs: 12/17/23 09:42 Temperature 97 F L Temperature Source Temporal Pulse Rate 97 Respiratory Rate 18 Blood Pressure 166/95 H Blood Pressure Mean 118 Pulse Ox 99 Oxygen Delivery Method Room Air Positive well nourished and well developed; Negative for cachectic, contractures or unkempt General Appearance ED: well developed and NAD; Negative for unkempt, cachectic or contractures Nutritional Appearance: Negative for cachectic HEENT Reports moist mucous membranes normocephalic and atraumatic; Negative for trauma or tenderness Eyes PERRL General Eye ED: Negative for other Neck full ROM and supple Thyroid: Negative for tender Lymph Lymphatic: Negative for other Chest Wall inspection of chest normal and palpation of chest normal Chest: Negative for other Resp normal respiratory effort, no retractions and clear to auscultation bilaterally Effort and Inspection: Negative for pain with movement Auscultation: Negative for rales, rhonchi, wheezes or diminished lung sounds Cardio regular rate, regular rhythm, S1 normal heart sound, S2 normal heart sound and no murmurs Rate: Negative for bradycardia or tachycardic Rhythm: Negative for abnormal rhythm Bruits: Negative for other GI non-tender, non-distended and no masses Inspection: Negative for abdominal distention Auscultation: normoactive bowel sounds Palpation: soft; Negative for tender, guarding or rebound tenderness present Back/Spine no CVA tenderness General Back: Negative for CVA tenderness or swelling Cervical Spine: Negative for cervical spine tenderness Thoracic Spine / Upper Back: Negative for thoracic spinal tender (more content not included)... Normal 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 Unfortunately Pelon will be unavailable on this date. I left her a voicemail and also sent her a detailed [employer] Solutionst message. If patient returns contact, please assist her in rescheduling this appointment. Thank you, Loreto Galaviz 02/03/2023 10:32 AM Signed I spoke with Isabel this morning and we have rescheduled her appointment for Friday. She is bringing her current insurance information with her so we can update our records. Thank you, Loreto Lopez Allergies As of Date: 01/31/2023 Noted Allergy Reaction THORAZINE (CHLORPROMAZINE) 06/25/2019 14 - Other: See Comments Comments: Pt states numbness and tingling Date Reviewed: 12/05/2022 Reviewed by: Pelon Britt APRN.DISPUTE SPECIALIST - Fully Assessed Reason for Visit: Appointment [186] Prescriptions as of 02/03/2023 - norgestimate 0.25 mg-ethinyl estradiol 35 mcg 0.25-35 mg-mcg per tablet Take 1 tablet by mouth once daily. Skip placebo week of pills and start a new pack immediately Problem List As Of Date 01/31/2023 Noted Resolved Dislocation of patella, left, closed [S83.005A] 03/01/2014 01/19/2015 Enteritis [K52.9] 01/15/2015 01/19/2015 Gastritis [K29.70] 01/15/2015 01/19/2015 Nausea [R11.0] 01/15/2015 01/19/2015 Thalassemia trait [D56.3] 01/15/2015 Elevated AST (SGOT) [R74.01] 03/13/2015 12/03/2016 Recurrent vomiting [R11.10] 03/13/2015 12/05/2022 Cyclic vomiting syndrome [R11.15] 06/16/2015 05/24/2016 Dehydration [E86.0] 06/16/2015 11/29/2015 Nausea [R11.0] 06/16/2015 11/29/2015 Nausea AND vomiting [R11.2] 06/19/2015 06/19/2015 Vomiting [R11.10] 11/25/2015 11/29/2015 Hypertension [I10] 11/29/2015 12/05/2022 Cyclical vomiting [R11.15] 12/22/2015 03/21/2016 Obesity [E66.9] 03/21/2016 12/05/2022 Cyclic vomiting syndrome [R11.15] 06/07/2016 12/05/2022 Vomiting [R11.10] 08/06/2017 08/09/2017 Obesity, Class II, BMI 35-39.9 E66.9 [E66.9] 08/07/2017 Nausea AND vomiting [R11.2] 10/09/2017 10/12/2017 Emesis [R11.10] 11/29/2017 12/02/2017 Encounter Status:Closed by LORETO LOPEZ on 02/03/23 [facility] CNOVon 12-05-2022 CNOV Office Visit (FPWADS ) ISABEL OREILLY V ([id number]) 2000 F CHT Date Time Provider Department 12/05/22 1:00 PM PELON BRITT FPWADS During your visit today, we recorded the following information about you: Pulse Blood pressure Weight Height 92/minute 124/82 95.7 kg 1.626 m Last Period 11/16/22 Pelon Britt APRN.DISPUTE SPECIALIST 12/05/2022 2:28 PM Signed This note was created using MyUnfoldter. Subjective Isabel Oreilly is a 22 year old female. Patient here for a physical. 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 Hasn't seen PCP since 2020. Updated PMFSH. Previous immunity testing showed negative for mumps so needs one MMR booster. Also needs 3rd Hep B. Wants refill on control. Previously on Sprintec but stopped it when she ws dealing with cyclic vomiting syndrome thinking that was a contributor, but that issue has resolved and she'd like to get back on it. Does have a lot of cramping a couple days before period and the first couple days on her menses. No heavy bleeding. Currently sexually active with one mail partner, uses condoms currently. Has had one PAP at age 21-22 which was normal. No history of migraines or blood clots, nonsmoker. Works out at [employer] twice weekly. Mostly cooks at home, tries to eat healthy. Her weight was around 190 when she was dealing with the vomiting syndrome but since that has resolved, her weight has increased. The history is provided by the patient. Review of Systems Constitutional: Negative for chills, fever and unexpected weight change. HENT: Negative for congestion, ear pain, hearing loss, rhinorrhea and sore throat. Eyes: Negative for visual disturbance. Respiratory: Negative for cough, shortness of breath and wheezing. Cardiovascular: Negative for chest pain, palpitations and leg swelling. Gastrointestinal: Negative for abdominal pain, constipation, diarrhea, nausea and vomiting. Endocrine: Negative for polydipsia and polyuria. Genitourinary: Positive for menstrual problem. Negative for dysuria, flank pain, frequency, hematuria, pelvic pain, urgency and vaginal discharge. Musculoskeletal: Negative for back pain, joint swelling and neck pain. Skin: Negative for rash. Allergic/Immunologic: Negative for immunocompromised state. Neurological: Negative for dizziness, syncope, weakness, numbness and headaches. Hematological: Negative for adenopathy. Does not bruise/bleed easily. Psychiatric/Behaviora l: Negative for dysphoric mood. The patient is not nervous/anxious. PAST MEDICAL HISTORY Diagnosis Date Cyclic vomiting syndrome 06/07/2016 Menarche PAST SURGICAL HISTORY Procedure Laterality Date LAP APPENDECTOMY AT TIME OTHER SURGERY 07/05/2019 with cholecystectomy LAPAROSCOPY SURG CHOLECYSTECTOMY 07/08/2019 [facility]. NONE ALLERGIES Thorazine [Chlorpromazine] MEDICATIONS norgestimate 0.25 mg-ethinyl estradiol 35 mcg 0.25-35 mg-mcg per tablet Take 1 tablet by mouth once daily. Skip placebo week of pills and start a new pack immediately FAMILY HISTORY Problem Relation Age of Onset None Mother Heart Attack Father CT age 54 Coronary Artery Disease Father No Known Problems Sister Colon Cancer Maternal Grandfather Diabetes Paternal Grandmother Diabetes Paternal Grandfather Breast Cancer Paternal Grandfather diagnosed in 60's Social History Tobacco Use Smoking status: Never Smokeless tobacco: Never Vaping Use Vaping Use: Never used Substance Use Topics Alcohol use: No Drug use: No Objective BP 132/95 Pulse 92 Ht 162.6 cm (5' 4.02) Wt 95.7 kg (211 lb) LMP 11/16/2022 (Exact Date) BMI 36.20 kg/m? BP 124/82 (BP Site: Right Arm, BP Position: Sitting, BP Cuff Size: Large Adult) Pulse 92 Ht 162.6 cm (5' 4.02) Wt 95.7 kg (211 lb) LMP 11/16/2022 (Exact Date) BMI 36.20 kg/m? Physical Exam Vitals and nursing note reviewed. Constitutional: Appearance: She is obese. She is not ill-appearing. HENT: Head: Normocephalic. Right Ear: Tympanic membrane and ear canal normal. Left Ear: Tympanic membrane and ear canal normal. Mouth/Throat: Mouth: Mucous membranes are moist. Eyes: Extraocular Movements: Extraocular movements intact. Conjunctiva/sclera: Conjunctivae normal. Pupils: Pupils are equal, round, and reactive to light. Neck: Thyroid: Thyromegaly present. No thyroid mass or thyroid tenderness. Cardiovascular: Rate and Rhythm: Normal rate and regular rhythm. Pulses: Normal pulses. Heart sounds: Normal heart sounds. Pulmonary: Effort: Pulmonary effort is normal. Breath sounds: Normal breath sounds and air entry. Abdominal: General: Abdomen is flat. Bowel sounds are normal. Palpations: Abdomen is soft. Musculoskeletal: General: Normal range of motion. Cervical back: Normal range of motion. No tenderness. Right lower leg: No edema. Left lower leg: No edema. Lymphadenopa (more content not included)... Normal [facility] Tele[facility] (FPAKTDS) ISABEL OREILLY V ([id number]) 2000 F CHT Date Time Provider Department 12/04/22 SIRI JACKSON During your visit today, we recorded the following information about you: Rosemary Yanez, RN 12/04/2022 2:45 PM Signed Patient is scheduled for a physical with Dr. 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 Offer 40 min slot. Allergies As of Date: 12/04/2022 Noted Allergy Reaction THORAZINE (CHLORPROMAZINE) 06/25/2019 14 - Other: See Comments Comments: Pt states numbness and tingling Date Reviewed: 04/02/2021 Reviewed by: Malissa Salmon MA - Fully Assessed Reason for Visit: Appointment [186] Prescriptions as of 12/04/2022 - amitriptyline (ELAVIL) 25 mg tablet Take 1 tablet by mouth daily at bedtime. - promethazine (PHENERGAN) 50 mg tab(s) Take 1 tablet by mouth every 8 hours as needed. - norgestimate 0.25 mg-ethinyl estradiol 35 mcg (SPRINTEC, ORTHO-CYCLEN) 0.25-35 mg-mcg per tablet Take 1 tablet by mouth once daily. Skip placebo week of pills and start a new pack immediately Problem List As Of Date 12/04/2022 Noted Resolved Dislocation of patella, left, closed [S83.005A] 03/01/2014 01/19/2015 Enteritis [K52.9] 01/15/2015 01/19/2015 Gastritis [K29.70] 01/15/2015 01/19/2015 Nausea [R11.0] 01/15/2015 01/19/2015 Thalassemia trait [D56.3] 01/15/2015 Elevated AST (SGOT) [R74.01] 03/13/2015 12/03/2016 Recurrent vomiting [R11.10] 03/13/2015 Cyclic vomiting syndrome [R11.15] 06/16/2015 05/24/2016 Dehydration [E86.0] 06/16/2015 11/29/2015 Nausea [R11.0] 06/16/2015 11/29/2015 Nausea AND vomiting [R11.2] 06/19/2015 06/19/2015 Vomiting [R11.10] 11/25/2015 11/29/2015 Hypertension [I10] 11/29/2015 Cyclical vomiting [R11.15] 12/22/2015 03/21/2016 Obesity [E66.9] 03/21/2016 Cyclic vomiting syndrome [R11.15] 06/07/2016 Vomiting [R11.10] 08/06/2017 08/09/2017 Obesity, Class II, BMI 35-39.9 E66.9 [E66.9] 08/07/2017 Nausea AND vomiting [R11.2] 10/09/2017 10/12/2017 Emesis [R11.10] 11/29/2017 12/02/2017 Encounter Status:Closed by ROSEMARY YANEZ on 12/04/22 [facility] Telephone (FPWADS) ISABEL OREILLY V ([id number]) 2000 F CHT Date Time Provider Department 12/04/22 SIRI JACKSON During your visit today, we recorded the following information about you: Krista Landeros 12/04/2022 3:01 PM Signed Called patient to let her know appt time changed Allergies As of Date: 12/04/2022 Noted Allergy Reaction THORAZINE (CHLORPROMAZINE) 06/25/2019 14 - Other: See Comments Comments: Pt states numbness and tingling Date Reviewed: 04/02/2021 Reviewed by: Malissa Salmon MA - Fully Assessed Reason for Visit: Patient Question [4374] Prescriptions as of 12/04/2022 - amitriptyline (ELAVIL) 25 mg tablet Take 1 tablet by mouth daily at bedtime. - promethazine (PHENERGAN) 50 mg tab(s) Take 1 tablet by mouth every 8 hours as needed. - norgestimate 0.25 mg-ethinyl estradiol 35 mcg (SPRINTEC, ORTHO-CYCLEN) 0.25-35 mg-mcg per tablet Take 1 tablet by mouth once daily. Skip placebo week of pills and start a new pack immediately Problem List As Of Date 12/04/2022 Noted Resolved Dislocation of patella, left, closed [S83.005A] 03/01/2014 01/19/2015 Enteritis [K52.9] 01/15/2015 01/19/2015 Gastritis [K29.70] 01/15/2015 01/19/2015 Nausea [R11.0] 01/15/2015 01/19/2015 Thalassemia trait [D56.3] 01/15/2015 Elevated AST (SGOT) [R74.01] 03/13/2015 12/03/2016 Recurrent vomiting [R11.10] 03/13/2015 Cyclic vomiting syndrome [R11.15] 06/16/2015 05/24/2016 Dehydration [E86.0] 06/16/2015 11/29/2015 Nausea [R11.0] 06/16/2015 11/29/2015 Nausea AND vomiting [R11.2] 06/19/2015 06/19/2015 Vomiting [R11.10] 11/25/2015 11/29/2015 Hypertension [I10] 11/29/2015 Cyclical vomiting [R11.15] 12/22/2015 03/21/2016 Obesity [E66.9] 03/21/2016 Cyclic vomiting syndrome [R11.15] 06/07/2016 Vomiting [R11.10] 08/06/2017 08/09/2017 Obesity, Class II, BMI 35-39.9 E66.9 [E66.9] 08/07/2017 Nausea AND vomiting [R11.2] 10/09/2017 10/12/2017 Emesis [R11.10] 11/29/2017 12/02/2017 Encounter Status:Closed by KRISTA LANDEROS on 12/04/22 Normal [facility] CBC WITH AUTO DIFFERENTIALon 08-20-2019 Basophils (Bld) [#/Vol] 0.05 10*3/uL [facility] Basophils/100 WBC (Bld) 0.4 % [facility] Eosinophils (Bld) [#/Vol] 0.06 10*3/uL [facility] Eosinophils/100 WBC (Bld) 0.5 % [facility] Erythrocyte distribution width (RBC) [Entitic vol] 14.7 % 11.6 - 14.8 % [facility] Hematocrit (Bld) [Volume fraction] 43.4 % 36 - 46 % [facility] Hemoglobin (Bld) [Mass/Vol] 12.8 g/dL 12 - 16 g/dL [facility] Immature granulocytes (Bld) [#/Vol] 0.05 10*3/uL [facility] Immature granulocytes/100 WBC (Bld) 0.40 % [facility] Comment on above: The IG parameter is the percentage of metamyelocytes, myelocytes, and promyelocytes. Interpretation and review of laboratory results Abnormal [facility] Lymphocytes (Bld) [#/Vol] 3.73 10*3/uL [facility] Lymphocytes/100 WBC (Bld) 33.3 % [facility] MCH (RBC) [Entitic mass] 22.4 pg Low 26 - [address] [facility] MCHC (RBC) [Mass/Vol] 29.5 g/dL Low 31 - 37 g/dL [facility] MCV (RBC) [Entitic vol] 76.0 fL Low 80 - [address] [facility] Monocytes (Bld) [#/Vol] 0.69 10*3/uL [facility] Monocytes/100 WBC (Bld) 6.2 % [facility] Neutrophils (Bld) [#/Vol] 6.63 10*3/uL [facility] Neutrophils/100 WBC (Bld) 59.2 % [facility] Nucleated RBC (Bld) [#/Vol] 0.00 10*3/uL [facility] Nucleated RBC/100 WBC (Bld) [Ratio] 0.0 % [facility] Platelet mean volume (Bld) [Entitic vol] 11.1 fL 9 - 15.[address] [facility] Platelets (Bld) [#/Vol] 493 10*3/uL High [facility] RBC (Bld) [#/Vol] 5.71 10*6/uL High [facility] WBC (Bld) [#/Vol] 11.21 10*3/uL High [facility] Comprehensive Metabolic Pane rudy 08-20-2019 Albumin [Mass/Vol] 5.0 g/dL 3.2 - 5.2 g/dL [facility] ALP [Catalytic activity/Vol] 84 U/L 40 - 140 U/L [facility] ALT [Catalytic activity/Vol] 46 U/L 14 - 65 U/L [facility] Anion gap [Moles/Vol] 11 mmol/L 10 - 2 0 mmol/L [facility] AST [Catalytic activity/Vol] 19 U/L 0 - 45 U/L [facility] Bilirubin [Mass/Vol] 0.6 mg/dL 0 - 1.3 mg/dL [facility] Calcium [Mass/Vol] 9.4 mg/dL 8.4 - 10. 2 mg/dL [facility] Chloride [Moles/Vol] 100 mmol/L 98 - 10 8 mmol/L [facility] Creatinine [Mass/Vol] 1.11 mg/dL High 0.40 - 1.10 [facility] GFR/1.73 sq M predicted among non-blacks MDRD (S/P/Bld) [Vol rate/Area] The eGFR should be used for monitoring renal function only and not for medication dosing. [facility] GFR/1.73 sq M.predicted CKD-EPI (S/P/Bld) [Vol rate/Area] 71 >=60 mL/min/1.[address] [facility] Glucose [Mass/Vol] 104 mg/dL High 65 - 99 mg/dL [facility] HCO3 [Moles/Vol] 27 mmol/L 21 - 32 mmol/L [facility] Interpretation and review of laboratory results Abnormal [facility] Potassium [Moles/Vol] 3.2 mmol/L Low 3.5 - 5.1 mmol/L [facility] Protein [Mass/Vol] 9.2 g/dL High 6 - 8 g/dL [facility] Sodium [Moles/Vol] 135 mmol/L 135 - 145 mmol/L [facility] Urea nitrogen [Mass/Vol] 22 mg/dL 8 - 25 mg/dL [facility] Urea nitrogen/Creatinine [Mass ratio] 19.8 mg/mg [facility] Lipaseon 08-20-2019 Interpretation and review of laboratory results Normal [facility] Lipase [Catalytic activity/Vol] 84 U/L 73 - 393 U/L [facility] Otheron 08-20-2019 Extra Tube Hold for add-ons. [facility] Comment on above: Auto resulted. , Urineon 0 HCG ( test) Ql (U) Negative Negative [facility] Interpretation and review of laboratory results Normal [facility] URINALYSISon 08-20-2019 Bacteria Auto Ql (U) Rare Abnormal None Se en /hpf [facility] Bilirubin Ql (U) Negative Negative [facility] Clarity Refractometry automated (U) Hazy Abnormal Clear [facility] Color (U) Red Abnormal Colorless, Yellow [facility] Epithelial cells.squamous Auto (Urine sed) [#/Area] [address] [facility] Glucose Auto test strip (U) [Mass/Vol] Negative Negative mg/dL [facility] Hemoglobin Auto test strip Ql (U) Large Abnormal Negative [facility] Interpretation and review of laboratory results Abnormal [facility] Ketones (U) [Mass/Vol] 20 Abnormal Negat jazmin mg/dL [facility] Leukocyte esterase Auto test strip Ql (U) Moderate Abnormal Negative [facility] Mucus Auto (Urine sed) [#/Area] Few Abnormal None Seen, Rare /lpf [facility] Nitrite Auto test strip Ql (U) Negative Negative [facility] pH (U) 6.0 [pH] [facility] Protein (U) [Mass/Vol] 100 Abnormal Negat jazmin mg/dL [facility] RBC Auto (Urine sed) [#/Area] >[address] [facility] Specific gravity (U) [Rel density] 1.[address] [facility] Urobilinogen (U) [Mass/Vol] <2.0 <2.0 mg/dL [facility] WBC Auto (Urine sed) [#/Area] [address] [facility] Microscopic examination is performed on all urinalysis samples and only positive findings are reported. The test for blood on the chemical analytic portion of urinalysis may also be positive due to hemoglobinuria and myoglobinuria and if red blood cells are present they are quantified by microscopic examination. [facility] TISSUE EXAMon 07-09-2019 Case Report Surgical Pathology Report Case: [id number] Authorizing Provider: Nuris Tobias MD Collected: 07/08/2019 11:16 AM Ordering Location: [facility] Received: 07/08/2019 12:39 PM Pathologist: Brian Venegas MD Specimens: A) - Gallbladder B) - Appendix [facility] Clinical information [id number] yM [id number] EwMzNcZnRuYmpcdWMxXGR [id number] JHBoQeJ1yRZeCARgqLBfY 815FIGiUIqwa8ixc8LsQB YaqVEeq3S5UESXmdzqmEr 9lJqjG48tg1J4KyznA6th TQUhDKFuZ4WtHF6tVEZsB vy9YIA5CPZ1BSIrUWDhU3 ZvLT8hKKIdnEPeREq3u8p cdYnnCBEcHGM0m7igXVpz laWwSZ7wzi4bgQw7q6lye zEgRGVmYXVsdCBQYXJhZ3 YsyQcuPg9zpKp2nQtcPdi rGSR5Swj9CQ9gmn03poj4 rTftUYMgcbopSlL3AWpdZ ABrhhjoQXh4ARndSKBryC cyMFxtYXJncjcyMFxtYXJ cyBP2JISnxLXpN6WhZNPn JDrbMTXrjyc0ZrOtOm9xc NZvuUMwfr2iuy03IGW7y0 NsjWozJPW6WQB4FdAzZm0 ncWMiEVYbJM6dNkZanMDx WIEmcq23zUjvGSummbNyr N1hPpZtSBAofSMeYYMzXD 3deWItLGBteJ8vozahBCE nYnJkcmhlYWRccGdicmRy Wv2csRonSCA1DPigX5lpg I4rUxK5ZCheA6qxpH7kGC r2CNbgdAU8JWPkmL9xMQ0 zpkhku5pmVgGtCQ7ucytr j1lwDcMkQF0rcvh7i3dqW YJ1NUkmVPCaBhX8hwX6OW EkxESeIWBifXqvIZdnk70 8AKM1JLfgAouvNEdoEMKr bmNvbnRccGduZGVjXHBsY WluXHBsYWluXGYwXGZzMj XigLgvjHiuuM1bKrHlDaZ oWNwhXY4yPGVbX5ajtEPd ZDIyMZDkX8prIzKmnF0cp FxmMVxmczIwIEJpbGlhcn ojDSohn0exMWFyXTKnqZO yfQ== [facility] Pathology report final diagnosis Narrative r5akyEVhRAKvmZGhFhKhZ APwGQFwa9dzVWUkaUWcNf EwMzNcZnRuYmpcdWMxXGR kAdBsb3esp740qYJdr0cb LTVyRcC0zCCjWZVyhHEhN 771FTAtZDqvw3ghh0RyLD MjpICld2E9QXTLaxdosUn 9yDobM97gb1I8LpwgH7mv RTXfWPCcI5CsPH7cBMDlB uq6CSY5ZNV8OJAmOYYfQ5 FeFP1fQUFwsCJlUFlcgjU yJsR1PGriITSdVlV5ANTs rHAjNVfjG479RFA0gOrde 8nkFYK6AUPaWSQpUtXcDp 0efSNkJ398DBZqUBVVZRT ioCw2QLVwdmBazyYuuDFA w527O945q7hwJTTqwfIbj DxNqmqol0vrU317TBWusK VydzEyMjQwXHBhcGVyaDE 9DCHvKZ3pmhjoXrEmWF6v gfcbGlOpYL9snti3DGT2X WoiIJGyMkN4PANvyLAySI MgxUogFGfoo135SUJ7QTq on6lcm3klhUHtRzp4TWYr AhTnAvrmSOqag0Veb4gjZ QBily2zHWM3uQLioTdpt3 N3oHAvKIWouSYomgWoHXJ nXiQ8WNeaYY0crd75ASDy IOQ1hb4szIJztPjzyfHsc KDaAZlyA1MtXVPqb592CW YaB1SpMKZhi5Q4xmUuNiM kOHMdxAQ6vzJ7TPBfCXq8 xIBswiH6hwHahBFiM6zbw I82ZgFexWZzV7UiyM40Qi UabZYaO7OibH3nHKUfNF5 etlnvl1eaBLU1FYwiCZTb NCP8WoCnKBAxg7FokeodP TVet3OcX9HzgElqW76nhF ofK50yWTTdwJqoyA5sdXw byJ4lXpYyCuSjKFzhlCfw bGFpblxmMVxmczIwXGxhb lxiKRMuUJzwI3wpJrQwBN XdyQknOYcab3PsOJWuZDE lTuxsgwYvSCTbKJ7dDKoa bGFpblxmMVxmczIwXGxhb orhYIUsIZdlS7qhXbVqNC CfxOtfLCvbx8WfZYVkJIK mMlxmczIwXGJccHJvdGVj uGswMcfgwUL7KFoqAbusl Z4cwVJXLJJLWjwJLxdapa PgTS9ORPKKWkQIYX58XqI cAKD7UEorhOodAepiefYw qCOxJlSkzJ3zsNelvU3hX oPzKwRkLSwcGK8gCZJuS2 sqyBMeGWCfMGZvS9odNaG qhG3biWmpQGtnUeUbXaQb OMmrCFRfz2SyR4ElN5Xbo MYhKXCrHRUlYYZuo6fyI0 rzhMOmxS3lxOnchRieyC0 bQdNnHjQnYLydZE8pIHSi L8utbXRwKZDyJWQwT2tzL vLglC2ovEthFAgeVeZxGf PuBSqhGUKev8BrJ1I6OWT mLTrks6cdVKZpDLbcn0Io IYfACJVLFS6QDN5hjNR5U SeGGEIBZFreLVA5SRqcrN Y4u8ymmZJtt9s6HTmhQBJ 9fVxwbGFpblxmMVxmczIw KFsjfkhaHVNbFUvfO9ugF wCkVYTekJfuABhta1GlGA YxXGZzMjBccGFyXGxpNzI wXHBsYWluXGYwXGZzMjRc nKixeI8hVoAvBdSgWVzaU P1cZCNqA9fycFXuSFTdEI ZgE6cvXqJsaW3heCcmSSz gmgSmWXDno6qae2Mlew6k s0Ipfv4knMMjFKgbDYxtw SEaeibxAUiqsuH8NZNeDS luXGYxXGZzMjBcbGFuZzE wMzNcaGljaFxmMVxkYmNo UQBfJGozJ5xyEsSbEdIkQ UnrWZJuyYumyU7nKcVdJt LyPBocVF3eITSoW5sgoYV tOMIrTQRxN7skQmNdjZ6x aFxmMVxjZjJcZnMyMFxiI BBpSTAlvTbhtA7cKpQyQm IvLGrwTZ1nMWMrY8czeUC tJEUcTDQaJ1hiPzGzfU5s aFxmMVxjZjJcZnMyMFxiX FRbr9JnX2R5DFKuMXkwk6 msIXOsYVmer2RkFTcNZYT ABG5JRU9naOL6GOjZMQSF L5zYqYM5YnW3wHG1ED15E PWmMULfeLIuLYxyR312CZ BsYWluXGYxXGZzMjBcbGF uZzEwMzNcaGljaFxmMVxk QwFwHBNpCHofX3nnTmQmG 8UqZRHcDkDbNvadic95LR D6SFZmyJKnALk9PPOqiHP thvWlY5OgnSb4YAOoTVjp XGYxXGZzMjBcbGFuZzEwM zNcaGljaFxmMVxkYmNoXG SdBMaxU5oeGxSjU0MuOGP gQzEtGswcod84ZZF4x9bn bONrLDpiNdbnbQHmkgP2R NmDSTHYIKuOFcMiFM4vVM xLX5GSCvQ2YsOiDUN4KZk xfXtcZmxkcnNsdCBcJzFj zH3jpLbfnU9xHxXfKhAxG ZbyTV4mBIJjN8kjhOIpFM YyIJPxX6dxHlZabF4wkPd mMVxmczIwXHBhclxsaTcy KZwhcUVqxrtiMHkzngY5I HBsYWluXGYxXGZzMjBcbG FuZzEwMzNcaGljaFxmMVx yDnZqZYObRZrkM5puBuUu OjAePCIIaFHhlsAuiXE0m GPdk9L8NZNjUUfou3S5eV WzMXPra3YoNPlllYkxPGC pmO96DVKxdP2xgXwqJCPu lLGoEVAjUyKhdIWeRKH2H lxwYXJcbGkwXHBsYWluXG OuFNKqCfExrWiwnL7eIhS qSvEqUPfiHN9sVSKyC4ae lPGfSWRpTCXaO2ipFzEco B8utFhyNGjvnkCkBKAxgl loGPHfgyBQQYBTKMpQN9A sULFYKPNIHXZjEyKBRR6j EhXcIVE0IO17WXp8KwS9U iC5rPJ6JGw3OxMGUKKDHW pQQ4ErANRPGWULMQSnXE2 HEYuGQYHMTNOVK17BFQKT BGQTW5CAW0bXGKvYGBPQC XATJ20NOQQTRRIQI6DLWW KKNZHBNXqCVZMYCu4XKIV VUTIKNB5QFSjCBkWiZFqP PHSwpgEzQfF3WmG0GH2kM YzRHFJqcoTrMaB7AkS0PJ 9oXGePI4JTC8hZFIRaKGP KYBZVZOJaEH1LZYhHGC2Z QVJfTUVUQURBVEFfQkVHS Y3rEHtXZP9ILVIhVJGEAE EMLNYaBF4JUQJMHI3CGPP MYIOII21SIQQCBMLOO4QP C5sBUDCGBHSXPoYPUwKNM M1VCXTBVYCLZO5JEiJ5 [facility] Pathology report gross observation Narrative a3shfQRnCMOsuHVoByIwN EIxTEJrn5kfKPRozEAxLm EwMzNcZnRuYmpcdWMxXGR cKwXje8dgr000kTOck7bw KVPmWxK2wMIkZLYnhRLkK 974WOPcVEnqz5khv3RmMK ObgCJew3D8OPUZrwjwaIh 5zEkcL96xj8Z8FrnhT8ec FEAgUHThG6KzEN4dJMOjR nm5YQW2WMD6GZJfIQYsL3 JrDP4jJQFdmBIkTTe1e7j ieWarJOYqCNW5h9puTJih uvJkBK6inr9inUr9j1yjk zEgRGVmYXVsdCBQYXJhZ3 DinLfuCy5bbFk4iGliNjh iVUA6Euw6CV2eqg73mvv5 xMriJJWcqrfuMoM5WWazR XHcgtjwVVa1YLpoAOLvpX cyMFxtYXJncjcyMFxtYXJ ayXP4DBNjbGIoJ2DlBDFc JQxrIJMvowx5LbXhLy0xt FKrjTEcst5yuw14BZJ5b1 GzqQdcZIW4GVZ5ZoEnKl1 rmWCeQDJkKU2nCvBchSCd HBEyzl19nOudFGywftKox J1bGlQpCQAiwXNsVJNrLH 8gqPPmENAizZ7uhiokVLV nYnJkcmhlYWRccGdicmRy Kj0wdNyoEJQ8FHlsI1nnw Y1yJmW3QDbzB1qdxR5rXS t5AMgkqSV2WQDwqB0aPT9 pbszzz0ahPlEuJD8rybmt d2tgAuZhAS4gshz5e7gaY JU0YJhhRFGyUeJ4pnA6WO UujMUvPCMbeLmtZLanz48 7AQK0ABqbSjswUBszHKGu bmNvbnRccGduZGVjXHBsY WluXHBsYWluXGYwXGZzMj RgdZojvBtloP5qTyJdXvC aMDbjVO5zENKfQ4wjnKNj UJFbMUHgC5poUjEyvR3zf FxmMVxmczIwIEEuICBUaG Nfg5BjS2wwGE3pb0PcoCn 9fXQeXXzqBMKqyc7xyYsr HTNoxjIya9TjUI0lFRnnw RvwbFDlDEQqFT5dJSE1ic rkBgH9JhHjS02zbE1keXE yE7KzZJQwUVBbIV6qwG6l MKLvQNPoBCDqQ29soN1yQ PsgkSL9IUFqQHHEgLCuN0 BjzUKfHVSvVHPkbCZoo0C jwsDvTQEtRUJad912BF33 wkEixBVwvZ5rZT2wIOeeb VlaqX6mTUXwDTBzXP2qmS BpZGVudGlmaWVkLiAgVGh sTVtjsVspqTBaCQOaOV20 V09tCWNsMK8rykC5noY7X HYcC3nytREsjCJlr0iid7 lzLiAgVGhlIGdhbGxibGF nRJSlCWuxdXyjtElgW9px KKKyYZ6gDUH3asIgCMHsA OVqpD4hWYEarSByk1WmlF G3vUXkZFDpY0Xlo64dYSC pHEKmjUTvwYN1XPGzdE2z YZLwCHWeKBW9DX9blTRtH HBhciBCLiAgVGhlIHNwZW UtiQCnVPF1Ex6qmHWxLWQ hxdDdr9YwHUutavLoe21s hSF3ecHpHlQtbUHwujIea CBtZWFzdXJpbmcgNyBjbS MqhwMwHR0mnTozUL3jERM uNSBjbSBpbiBkaWFtZXRl ko8wHNMpkdjwmAGzPEO8w G4etuYvTpTtaCQyeuPeuY EkPN8yuxQ3cvK2FAYzRDL ynEBzFLbhlELetIXjyI5v bCBmbHVpZCBhbmQgYXJlI M85fDVph8gsUUV5ypIsxH Svt2HbzSZvCAMEhFKpWBZ iHE9kfCpnvZTzCG99rSXj xIree3StuLg9gAXsLPdcE JGsD2Vcx5Z3mIYnFfqfMP NdlMXbFWxFM9VkwlLwnMY xEMGovtXKxn4thmBkaKLv wH6boPixxqRiEKDzj1UaT WFyRTP0NB2qsrQkdEEdSN NTj0WwbTGdkCJrCZXjKVZ KhCKmr02wjwKKfvPuuOOl JWXiv2QaXHuvTAHEYEY3X InwP4kdKJI1 [facility] Pathology report microscopic observation Narrative Other stain d0udjWBlGVDtlPDaTpEyR WWtWQAhh7qqYYTxmUXdLv EwMzNcZnRuYmpcdWMxXGR zLwRox7ykd488nLWvd4ml HSWnUlJ4fJEiIXHfmVIaO 536TFQuRHpzq9qdh5KyJK AcqATqq6C0CJKOndgwkBv 9oQcrC87qa4T0JjtfB1hu SSLpKGYbV9EqJU4gZNXnJ ka8KNB5RVI5IEUnZCRkW5 MsGE0mORIepKAfQKz6o3f ubLgxOKNjJGX6g4qtEErz ohZwGM0atn7nhVy7b2wbc zEgRGVmYXVsdCBQYXJhZ3 RgcRewKk7lfKo5uXnuEeh cWYZ4Wki2KW7nvs68agn8 jAdeHNBuvivfPmN0SPbtQ IKegtiyDCs3GXukBSRhoN E8MBEebSUmO8VwZYGfTN0 dtmt9WLL9MGjwWESzRkU4 NDBcaGVhZGVyeTcyMFxmb 184KWX3ViZnVM7bY5Lbi0 S4jT9bjXMgQEZgqMQjEzA gBIIvba2nfYOzQJufs5Qj YUD0zuF5bLImjCMhZUTjW D55Rzncs8BjWbxfBFK9HY LwdpHvn5Kve8urNcEmcgD hF3iwL3PoMHJwKROdPACe CaJecnZik6Ahu8VmxXElj Cy1q3amKZJwASJdoKwpk6 mePQF9VOGsB2J6hTNep3q cMXwsGMHdrFB1kvH3QHYy yQTwK2PpnJ2oRTExIM3vi kq6x5pgYZU0QSzcCXSrFl F0imE8YKRqpBPjWHDxpAr lFNerq119ZOL1WdHuMVKg y2RhD8GcqLkzK64reQmtH 12oNOFvaPouzX2zyPclkR 5cZjBcZnMyNFxxbFxwbGF pblxmMVxmczIwXGxhbmcx PAZsNGulF3qfPlAqIGWca HswXSfub1UePBZaRMCvGx YcDYnmhw3aF39bzYQnECz fhDjjXUVfj21paDNogWZw Op2fuWQrYmkyGVE8 [facility] POC , Urineon 07-07 HCG ( test) Ql (U) Negative Negative [facility] Internal Control Pass [facility] Interpretation and review of laboratory results Normal [facility] Specific gravity (U) [Rel density] [facility] Basic Metabolic Panelon 06-06 Calcium [Mass/Vol] 10.4 mg/dL Normal 8.4-10.4 [facility] Comment on above: Performed By: #### H EMOG, BMP3, LFT3, QWAL #### [address] [address] Glucose [Mass/Vol] 103 mg/dL High 70-100 [facility] Comment on above: Performed By: #### H EMOG, BMP3, LFT3, QWAL #### [address] [address] Urea nitrogen [Mass/Vol] 18 mg/dL Normal 7-20 [facility] Comment on above: Performed By: #### H EMOG, BMP3, LFT3, QWAL #### [place] [address] [address] [place], [place] Anion gap [Moles/Vol] 15 Normal [facility] Comment on above: Performed By: #### H EMOG, BMP3, LFT3, QWAL #### [place] [address] [address] [place], [place] CO2 [Moles/Vol] 26 mmol/L Normal 22-30 [facility] Comment on above: Performed By: #### H EMOG, BMP3, LFT3, QWAL #### [place] [address] [address] [place], [place] Creatinine [Mass/Vol] 0.89 mg/dL Normal 0.52-1.25 [facility] Comment on above: Performed By: #### H EMOG, BMP3, LFT3, QWAL #### [place] [address] [address] [place], [place] GFR/1.73 sq M predicted among blacks MDRD (S/P/Bld) [Vol rate/Area] mL/min/{1.73_m2} Normal >60 [facility] Comment on above: Performed By: #### H EMOG, BMP3, LFT3, QWAL #### [place] [address] [address] [place], [place] GFR/1.73 sq M predicted among non-blacks MDRD (S/P/Bld) [Vol rate/Area] mL/min/{1.73_m2} Normal >60 [facility] Comment on above: Result Comment: Sour ce- MDRD equation with creatinine calibration to IDMS(NKDEP) eGFR not recommended for drug dose adjustment Performed By: #### H EMOG, BMP3, LFT3, QWAL #### [place] [address] [address] [place], [place] Potassium [Moles/Vol] 3.6 mmol/L Normal 3.5-5.1 [facility] Comment on above: Performed By: #### H EMOG, BMP3, LFT3, QWAL #### [place] [address] [address] [place], [place] Sodium [Moles/Vol] 139 mmol/L Normal 135-145 [facility] Comment on above: Performed By: #### H EMOG, BMP3, LFT3, QWAL #### [facility] [address] [place] [address] Chloride [Moles/Vol] 98 mmol/L Normal 98-107 [facility] Comment on above: Performed By: #### H EMOG, BMP3, LFT3, QWAL #### [facility] [address] [place] [address] Anion gap [Moles/Vol] 15 mmol/L [place], [place] Calcium [Mass/Vol] 10.4 mg/dL 8.4 - 10. 4 mg/dL [place], [place] Chloride [Moles/Vol] 98 mmol/L 98 - 10 7 mmol/L [place] CO2 [Moles/Vol] 26 mmol/L 22 - 30 mmol/L [place] Creatinine [Mass/Vol] 0.89 mg/dL 0.52 - 1.25 mg/dL [place] EGFR IF NonAfrican Iranian >60.0 >60 mL/min [place] Comment on above: Source- MDRD equatio n with creatinine calibration to IDMS(NKDEP) eGFR not recommended for drug dose adjustment GFR/1.73 sq M predicted among blacks MDRD (S/P/Bld) [Vol rate/Area] mL/min/{1.73_m2} >60 mL/min [place] Glucose [Mass/Vol] 103 mg/dL High 70 - 100 mg/dL [place] Potassium [Moles/Vol] 3.6 mmol/L 3.5 - 5.1 mmol/L [place] Sodium [Moles/Vol] 139 mmol/L 135 - 145 mmol/L [place] Urea nitrogen [Mass/Vol] 18 mg/dL 7 - 20 mg/dL [place] Comprehensive Panelon 2019 ALP [Catalytic activity/Vol] 74 U/L Normal 45-117 [facility] Comment on above: Performed By: #### P 14 #### [facility] [address] [place], [place] [address] Bilirubin [Mass/Vol] 0.4 mg/dL Normal 0.2-1.0 [facility] Comment on above: Performed By: #### P 14 #### [facility] [address] [place], [place] [address] Protein [Mass/Vol] 8.9 g/dL High 6.4-8.2 [facility] Comment on above: Performed By: #### P 14 #### [facility] [address] [place], [place] [address] ALT [Catalytic activity/Vol] 18 U/L Normal 12-78 [facility] Comment on above: Performed By: #### P 14 #### [facility] [address] [place], [place] [address] AST [Catalytic activity/Vol] 6 U/L Low 15-37 [facility] Comment on above: Performed By: #### P 14 #### [facility] [address] [place], [place] [address] Creatinine [Mass/Vol] 0.82 mg/dL Normal 0.51-0.95 [facility] Comment on above: Result Comment: Use of this assay is not recommended for patients undergoing treatment with phenindione, due to the potential for falsely depressed results. Performed By: #### P 14 #### [facility] [address] [place], [place] [address] Albumin [Mass/Vol] 4.8 g/dL Normal 3.4-5.0 [facility] Comment on above: Performed By: #### P 14 #### [facility] [address] [place], [place] [address] Anion gap [Moles/Vol] 10 mmol/L Normal 8-16 [facility] Comment on above: Performed By: #### P 14 #### [facility] [address] [place], [place] [address] Calcium [Mass/Vol] 9.7 mg/dL Normal 8.5-10.1 [facility] Comment on above: Performed By: #### P 14 #### [facility] [address] [place], [place] [address] CO2 [Moles/Vol] 26 mmol/L Normal 21-32 [facility] Comment on above: Performed By: #### P 14 #### [facility] [address] [place], [place] [address] Glucose [Mass/Vol] 114 mg/dL High 70-99 [facility] Comment on above: Performed By: #### P 14 #### [facility] [address] [place], [place] [address] Urea nitrogen [Mass/Vol] 16 mg/dL Normal 7-18 [facility] Comment on above: Performed By: #### P 14 #### [facility] [address] [place], [place] [address] Chloride [Moles/Vol] 104 mmol/L Normal 98-107 [facility] Comment on above: Performed By: #### P 14 #### [facility] [address] [place], [place] [address] Potassium [Moles/Vol] 3.6 mmol/L Normal 3.5-5.1 [facility] Comment on above: Performed By: #### P 14 #### [facility] [address] [place], [place] [address] Sodium [Moles/Vol] 136 mmol/L Normal 136-145 [facility] Comment on above: Performed By: #### P 14 #### [facility] [address] [place], [place] [address] ED Triage Noteon 06-26-2019 ED Triage Note HNO ID: [id number] Author: Erum Michele (Pa) Service: Emergency Medicine Author Type: Physician Purchasing Department Clerk Type: ED Triage Notes Filed: 06/25/2019 10:59 PM Note Text: ED INTAKE NOTE Patient Name: Isabel Oreilly Service Date: 06/25/19 Provider in triage BRIEF HPI: Patient is a 18 year old female with history of cyclic vomiting syndrome comes in today with concerns for upper abdominal pain, nausea, vomiting x 2 days. States she can't keep anything down. Denies urinary symptoms. Hasn't had a bowel movement in approximately 3 days, which can be normal during a flare. BRIEF EXAM: Constitutional: Well-developed, well-nourished, NAD. HEENT: Normocephalic, atraumatic. Respiratory: CTA bilaterally, no respiratory distress. Cardiac: RRR, heart sounds normal. Abdomen: Soft, NABS x4. Generalized abdominal pain. Musculoskeltal: HOOVER x4. Patient ambulating in triage without difficulty. Neuro: AANDOx3. Skin: Warm and dry. INTAKE WORKUP: Bloodwork: CBC CMP Lipase Urinalysis Test SIGNATURE: Erum Michele PA-C Normal [facility] HCG Qualitative, Serumon hCG Qual Negative m[IU]/mL [place], [place] Comment on above: REF RANGE: Negative .... < 3 Questionable Rpt 48-72 Hr Positive ..... > 10 Test Performed by [address] Hemogramon 06-26-2019 Erythrocyte distribution width (RBC) [Ratio] 16.2 % High 11.5-14.5 [facility] Comment on above: Performed By: #### H EMOG, BMP3, LFT3, QWAL #### [address] Hematocrit (Bld) [Volume fraction] 39.1 % Normal 35.0-47.0 [facility] Comment on above: Performed By: #### H EMOG, BMP3, LFT3, QWAL #### [address] Hemoglobin (Bld) [Mass/Vol] 12.9 g/dL Normal 11.7-16.0 [facility] Comment on above: Performed By: #### H EMOG, BMP3, LFT3, QWAL #### [address] MCH (RBC) [Entitic mass] 23.5 pg Low 26.0-34.0 [facility] Comment on above: Performed By: #### H EMOG, BMP3, LFT3, QWAL #### [address] MCHC (RBC) [Mass/Vol] 33.1 % Normal 32.0-36.0 [facility] Comment on above: Performed By: #### H EMOG, BMP3, LFT3, QWAL #### [place] [address] [address] [place], [place] MCV (RBC) [Entitic vol] 70.8 fL Low 79.0-98.0 [facility] Comment on above: Performed By: #### H EMOG, BMP3, LFT3, QWAL #### [place] [address] [address] [place], [place] Platelet mean volume (Bld) [Entitic vol] 8.9 fL Normal 7.4-10.4 [facility] Comment on above: Performed By: #### H EMOG, BMP3, LFT3, QWAL #### [place] [address] [address] [place], [place] Platelets (Bld) [#/Vol] 404 10*3/uL Normal 140-440 [facility] Comment on above: Performed By: #### H EMOG, BMP3, LFT3, QWAL #### [place] [address] [address] [place], [place] RBC (Bld) [#/Vol] 5.51 10*6/uL High 3.80-5.20 [facility] Comment on above: Performed By: #### H EMOG, BMP3, LFT3, QWAL #### [place] [address] [address] [place], [place] WBC (Bld) [#/Vol] 9.9 10*3/uL Normal 3.6-10.7 [facility] Comment on above: Performed By: #### H EMOG, BMP3, LFT3, QWAL #### [place] [address] [address] [place], [place] Hemogram (CBC)on 06-26-2019 Erythrocyte distribution width (RBC) [Ratio] 16.2 % High 11.5 - 14.5 % [place], [place] Hematocrit (Bld) [Volume fraction] 39.1 % 35 - 47 % [place] Hemoglobin (Bld) [Mass/Vol] 12.9 g/dL 11.7 - 16 g/dL [place] Interpretation and review of laboratory results Abnormal [place] MCH (RBC) [Entitic mass] 23.5 pg Low 26 - 34 pg [place] MCHC (RBC) [Mass/Vol] 33.1 % 32 - 36 % [place] MCV (RBC) [Entitic vol] 70.8 fL Low 79 - 98 fL [place], [place] Platelet mean volume (Bld) [Entitic vol] 8.9 fL 7.4 - 10.4 fL [place] Platelets (Bld) [#/Vol] 404 10*3/uL 140 - 440 10*3/uL [place] RBC (Bld) [#/Vol] 5.51 10*6/uL High 3.8 - 5.2 10*6/uL [place] WBC (Bld) [#/Vol] 9.9 10*3/uL 3.6 - 10.7 10*3/uL [place] Test Performed by [id number] [place] [address] Hemogram/Diffon 06-26-2019 Abs Immature Grans 0.04 thou/cmm Normal 0.00-0.05 [facility] Comment on above: Performed By: #### C BCD1 #### [place] [address] Abs Neut (ANC) 6.49 thou/cmm High 1.56-6.13 [facility] Comment on above: Performed By: #### C BCD1 #### [facility] [address] [place] [address] Abs. Baso 0.03 thou/cmm Normal 0.01-0.08 [facility] Comment on above: Performed By: #### C BCD1 #### [facility] [address] [place] [address] Abs. Heard 0.60 thou/cmm Normal 0.27-0.70 [facility] Comment on above: Performed By: #### C BCD1 #### [place] [address] Basophils/100 WBC (Bld) 0.3 % Normal [facility] Comment on above: Performed By: #### C BCD1 #### [facility] [address] [place], [place] [address] Eosinophils (Bld) [#/Vol] 0.01 thou/cmm Normal 0.00-0.31 [facility] Comment on above: Performed By: #### C BCD1 #### [facility] [address] [place], [place] [address] Eosinophils/100 WBC (Bld) 0.1 % Normal [facility] Comment on above: Performed By: #### C BCD1 #### [facility] [address] [place], [place] [address] Erythrocyte distribution width (RBC) [Ratio] 15.2 % High 11.7-14.4 [facility] Comment on above: Performed By: #### C BCD1 #### [facility] [address] [place] [address] Hematocrit (Bld) [Volume fraction] 41.0 % Normal 34.1-44.9 [facility] Comment on above: Performed By: #### C BCD1 #### [facility] [address] [place], [place] [address] Hemoglobin (Bld) [Mass/Vol] 12.3 g/dL Normal 11.2-15.7 [facility] Comment on above: Performed By: #### C BCD1 #### [facility] [address] [place], [place] [address] Immature Grans 0.40 % Normal [facility] Comment on above: Performed By: #### C BCD1 #### [facility] [address] [place], [place] [address] Lymphocytes (Bld) [#/Vol] 2.30 thou/cmm Normal 1.18-3.74 [facility] Comment on above: Performed By: #### C BCD1 #### [facility] [address] [place], [place] [address] Lymphocytes/100 WBC (Bld) 24.3 % Normal [facility] Comment on above: Performed By: #### C BCD1 #### [facility] [address] [place], [place] [address] MCH (RBC) [Entitic mass] 22.4 pg Low 25.6-32.2 [facility] Comment on above: Performed By: #### C BCD1 #### [facility] [address] [place], [place] [address] MCHC (RBC) [Mass/Vol] 30.0 % Low 31.6-34.8 [facility] Comment on above: Performed By: #### C BCD1 #### [facility] [address] [place], [place] [address] MCV (RBC) [Entitic vol] 74.7 fL Low 79.4-94.8 [facility] Comment on above: Performed By: #### C KLAUDIAD1 #### [facility] [address] [place], [place] [address] Monocytes/100 WBC (Bld) 6.3 % Normal [facility] Comment on above: Performed By: #### C KLAUDIAD1 #### [facility] [address] [place], [place] [address] Platelet mean volume (Bld) [Entitic vol] 10.8 fL Normal 9.4-12.3 [facility] Comment on above: Performed By: #### C BCD1 #### [facility] [address] [place], [place] [address] Platelets (Bld) [#/Vol] 439 thou/cmm High 182-369 [facility] Comment on above: Performed By: #### C BCD1 #### [facility] [address] [place], [place] [address] RBC (Bld) [#/Vol] 5.49 mil/cmm High 3.93-5.22 [facility] Comment on above: Performed By: #### C BCD1 #### [facility] [address] [place], [place] [address] RDW SD 41.2 fl Normal 36.4-46.3 [facility] Comment on above: Performed By: #### C KLAUDIAD1 #### [facility] [address] [place], [place] [address] Seg Neutrophil 68.6 % Normal [facility] Comment on above: Performed By: #### C BCD1 #### [facility] [address] [place], [place] [address] WBC (Bld) [#/Vol] 9.46 thou/cmm Normal 3.98-10.04 [facility] Comment on above: Performed By: #### C BCD1 #### [facility] [address] [place] [id number] Hepatic Functionon 0 ALP [Catalytic activity/Vol] 83 U/L Normal 38-126 [facility] Comment on above: Performed By: #### H EMOG, BMP3, LFT3, QWAL #### [address] ALT [Catalytic activity/Vol] 24 U/L Normal 13-69 [facility] Comment on above: Performed By: #### H EMOG, BMP3, LFT3, QWAL #### [address] AST [Catalytic activity/Vol] 23 U/L Normal 15-46 [facility] Comment on above: Performed By: #### H EMOG, BMP3, LFT3, QWAL #### [address] Bilirubin [Mass/Vol] 0.5 mg/dL Normal 0.2-1.3 [facility] Comment on above: Performed By: #### H EMOG, BMP3, LFT3, QWAL #### [address] Bilirubin.direct [Mass/Vol] 0.0 mg/dL Normal 0.0-0.3 [facility] Comment on above: Performed By: #### H EMOG, BMP3, LFT3, QWAL #### [address] Protein [Mass/Vol] 9.6 g/dL High 6.3-8.2 [facility] Comment on above: Performed By: #### H EMOG, BMP3, LFT3, QWAL #### [place] [address] [place] [address] Albumin [Mass/Vol] 5.4 g/dL High 3.5-5.0 [facility] Comment on above: Performed By: #### H EMOG, BMP3, LFT3, QWAL #### [facility] [address] [place] [address] Hepatic Function Panelon Albumin [Mass/Vol] 5.4 g/dL High 3.5 - 5 g/dL [place], [place] ALP [Catalytic activity/Vol] 83 U/L 38 - 126 U/L [place] ALT [Catalytic activity/Vol] 24 U/L 13 - 69 U/L [place] AST [Catalytic activity/Vol] 23 U/L 15 - 46 U/L [place] Bilirubin Ql (U) 0.5 mg/dL 0.2 - 1.3 mg/dL [place] Bilirubin.direct [Mass/Vol] 0.0 mg/dL 0 - 0.3 mg/dL [place] Protein [Mass/Vol] 9.6 g/dL High 6.3 - 8.2 g/dL [place] Lipase Bloodon 06-26-2019 Lipase Blood 61 U/L Low 73-393 [facility] Comment on above: Performed By: #### L IP #### [place] [address] MDRD GFRon 06-26-2019 GFR/1.73 sq M predicted among non-blacks MDRD (S/P/Bld) [Vol rate/Area] mL/min/{1.73_m2} Normal >60mL/min/1. 73m2 [facility] Comment on above: Result Comment: If t he patient is , multiply the result by 1.210. Performed By: #### G FR #### [facility] [address] [place] [address] Otheron 06-26-2019 Interpretation and review of laboratory results Abnormal [place], [place] Test Performed by [facility], [address] [place] [address] [place], [place] hCG Qual Pregon 06-26-2019 hCG Qual Preg Negative Normal [facility] Comment on above: Result Comment: REF RANGE: Negative .... < 3 Questionable Rpt 48-72 Hr Positive ..... > 10 Performed By: #### H EMOG, BMP3, LFT3, QWAL #### [facility] [address] [place] [address] Comprehensive Panelon 2019 ALP [Catalytic activity/Vol] 78 U/L Normal 45-117 [facility] Comment on above: Performed By: #### P 14 #### [facility] [address] [place], [place] [address] Creatinine [Mass/Vol] 0.75 mg/dL Normal 0.51-0.95 [facility] Comment on above: Result Comment: Use of this assay is not recommended for patients undergoing treatment with phenindione, due to the potential for falsely depressed results. Performed By: #### P 14 #### [facility] [address] [place], [place] [address] Bilirubin [Mass/Vol] 0.5 mg/dL Normal 0.2-1.0 [facility] Comment on above: Performed By: #### P 14 #### [facility] [address] [place], [place] [address] Protein [Mass/Vol] 9.1 g/dL High 6.4-8.2 [facility] Comment on above: Performed By: #### P 14 #### [facility] [address] [place], [place] [address] AST [Catalytic activity/Vol] 8 U/L Low 15-37 [facility] Comment on above: Performed By: #### P 14 #### [facility] [address] [place], [place] [address] ALT [Catalytic activity/Vol] 24 U/L Normal 12-78 [facility] Comment on above: Performed By: #### P 14 #### [facility] [address] [place], [place] [address] Albumin [Mass/Vol] 5.0 g/dL Normal 3.4-5.0 [facility] Comment on above: Performed By: #### P 14 #### [facility] [address] [place], [place] [address] Anion gap [Moles/Vol] 15 mmol/L Normal 8-16 [facility] Comment on above: Performed By: #### P 14 #### [facility] [address] [place], [place] [address] Calcium [Mass/Vol] 10.0 mg/dL Normal 8.5-10.1 [facility] Comment on above: Performed By: #### P 14 #### [facility] [address] [place], [place] [address] CO2 [Moles/Vol] 21 mmol/L Normal 21-32 [facility] Comment on above: Performed By: #### P 14 #### [facility] [address] [place], [place] [address] Glucose [Mass/Vol] 117 mg/dL High 70-99 [facility] Comment on above: Performed By: #### P 14 #### [facility] [address] [place], [place] [address] Urea nitrogen [Mass/Vol] 17 mg/dL Normal 7-18 [facility] Comment on above: Performed By: #### P 14 #### [facility] [address] [place], [place] [address] Chloride [Moles/Vol] 108 mmol/L High 98-107 [facility] Comment on above: Performed By: #### P 14 #### [facility] [address] [place], [place] [address] Potassium [Moles/Vol] 3.6 mmol/L Normal 3.5-5.1 [facility] Comment on above: Performed By: #### P 14 #### [facility] [address] [place], [place] [address] Sodium [Moles/Vol] 140 mmol/L Normal 136-145 [facility] Comment on above: Performed By: #### P 14 #### [facility] [address] [place], [place] [address] ED NOTEon 06-17-2019 ED NOTE HNO ID: [id number] Author: Doris BlissRn) KIRBY Terrell Service: Emergency Medicine Author Type: Registered Nurse Type: ED Notes Filed: 06/17/2019 9:30 PM Note Text: Patient discharged to home, accompanied by family. Discharge instructions given to patient, discharge teaching performed, Patient verbalized understanding of discharge instructions and follow-up care, Patient AANDOx4 MAEx4. Patient ambulates without difficulty. Belongings remain with patient, Valuables remain with patient. [facility] ED NOTE HNO ID: [id number] Author: Tracy (Rn) KIRBY Kelley Service: ? Author Type: Registered Nurse Type: ED Notes Filed: 06/17/2019 4:33 PM Note Text: Bed: 47-ED Expected date: Expected time: Means of arrival: Comments: TRIAGE WHEN CLEAN [facility] ED PROV NOTEon 06-17-2019 ED PROV NOTE HNO ID: [id number] Author: Al Trotter DO Service: Emergency Medicine Author Type: Physician Type: ED Provider Notes Filed: 06/17/2019 7:23 PM Note Text: The patient was seen and evaluated with the resident physician. I performed a separate HANDP. Please see the resident's note for further details. I agree with the resident's assessment and plan. History of present illness: Patient presents with vomiting and some abdominal pain. The patient has a history of cyclical vomiting syndrome. She is complaining of upper abdominal pain. This is like her typical symptoms. She has symptoms nearly monthly, and has been having symptoms for the past 5 years, near when she started her period. Exam: She has upper abdominal pain. Bowel sounds are present throughout. No abdominal distention. GCS is 15. Heart regular rate and rhythm. She is actively vomiting in the room. Al Trotter DO 06/17/19 192 [facility] ED PROV NOTE HNO ID: [id number] Author: Al Trotter DO Service: Family Practice Author Type: Physician Type: ED Provider Notes Filed: 06/18/2019 12:11 AM Note Text: ED Provider Note Patient Name: Isabel rOeilly SERVICE DATE: 06/17/19 History Isabel Oreilly is a 18 year old F with history of cyclic vomiting syndrome presenting to the ED with intractable vomiting. It started 2 days ago with no triggering factors. She reports to have had about 10 episodes of emesis since this AM. Reports some epigastric pain radiating to her entire abdomen. Denies any diarrhea and urinary symptoms. She reports that her menses ended 2 days ago and she is currently undergoing work up to find the cause of the nausea and vomiting. She has been suffering from nausea and vomiting on and off for a long time now. She is following up with PCP and general surgery. PAST MEDICAL HISTORY Diagnosis Date - Cyclic vomiting syndrome 06/07/2016 - Menarche PAST SURGICAL HISTORY Procedure Laterality Date - NONE FAMILY HISTORY Problem Relation Age of Onset - None Mother - None Father - Diabetes Maternal Grandmother type 2 - Hypertension Maternal Grandmother - Diabetes Maternal Grandfather type 2 - Hypertension Maternal Grandfather Social History Tobacco Use - Smoking status: Never Smoker - Smokeless tobacco: Never Used Substance and Sexual Activity - Alcohol use: No - Drug use: No - Sexual activity: Yes control/protection: Pill ALLERGIES No Known Allergies Review of Systems Constitutional: Negative for chills, fatigue and fever. HENT: Negative for congestion, postnasal drip, rhinorrhea and sore throat. Respiratory: Negative for apnea, cough, chest tightness, shortness of breath and wheezing. Cardiovascular: Negative for chest pain, palpitations and leg swelling. Gastrointestinal: Positive for abdominal pain, nausea and vomiting. Negative for abdominal distention, blood in stool, constipation and diarrhea. Genitourinary: Positive for menstrual problem. Negative for difficulty urinating, dysuria, flank pain, hematuria, pelvic pain and vaginal pain. Musculoskeletal: Negative for back pain, gait problem, joint swelling, myalgias, neck pain and neck stiffness. Neurological: Positive for light-headedness and headaches. Negative for dizziness, speech difficulty, weakness and numbness. Physical Exam BP 102/91 Pulse 96 Temp (Src) 97.9 (Oral) Resp 16 Ht 5' 4 (1.63m) Wt 195 lb (88.5kg) SpO2 99% BMI 33.46 kg/(m2). O2 Therapy: Room Air Physical Exam Vitals signs reviewed. Constitutional: Appearance: She is well-developed. HENT: Head: Normocephalic and atraumatic. Eyes: Extraocular Movements: Extraocular movements intact. Pupils: Pupils are equal, round, and reactive to light. Cardiovascular: Rate and Rhythm: Normal rate and regular rhythm. Heart sounds: No murmur. No friction rub. No gallop. Pulmonary: Effort: Pulmonary effort is normal. Breath sounds: Normal breath sounds. Abdominal: General: There is no distension. There are no signs of injury. Tenderness: There is abdominal tenderness in the epigastric area. There is no right CVA tenderness, left CVA tenderness, guarding or rebound. Negative signs include Agrawal's sign, Rovsing's sign, McBurney's sign, psoas sign and obturator sign. Musculoskeletal: Normal range of motion. Skin: General: Skin is warm and dry. Neurological: Mental Status: She is alert and oriented to person, place, and time. Diagnostic Testing ED Labs Ordered and Reviewed COMPREHENSIVE METABOLIC PANEL (AK,AV,EU,FV,HL,MADONNA,MM ,SP) - Abnormal; Notable for the following components: Result Value Ref Range Chloride 108 (*) 98 - 107 mEq/L Glucose 117 (*) 70 - 99 mg/dL Protein, Total 9.1 (*) 6.4 - 8.2 g/dL AST 8 (*) 15 - 37 U/L All other components within normal limits CBC + AUTO DIFF (AK,AV,EU,FV,HL,MADONNA,MM ,SP) - Abnormal; Notable for the following components: WBC 10.35 (*) 3.98 - 10.04 thou/cmm RBC 5.67 (*) 3.93 - 5.22 mil/cmm MCV 73.4 (*) 79.4 - 94.8 fl MCH 22.2 (*) 25.6 - 32.2 pg MCHC 30.3 (*) 31.6 - 34.8 % RDW 15.1 (*) 11.7 - 14.4 % Platelet Count 469 (*) 182 - 369 thou/cmm Abs. Neut(Anc) 8.69 (*) 1.56 - 6.13 thou/cmm Abs. Heard 0.21 (*) 0.27 - 0.70 thou/cmm All other components within normal limits HCG QUALITATIVE URINE (AK,AV,EU,FV,HL,MADONNA,MM ,SP) LIPASE BLOOD (AK,AV,EU,FV,HL,MADONNA,MM ,SP) HCG QUANTITATIVE BLOOD (AK,AV,EU,FV,HL,MADONNA,MM ,SP) MDRD GFR URINALYSIS WITH MICROSCOPIC (AK,AV,EU,FV,HL,MADONNA,MM ,SP) Procedures ED Course / Clinical Impression Clinical Impressions as of Jun 17 2120 Intractable cyclical vomiting MDM / Disposition / Plan MDM Isabel Oreilly is a 18 year old F with history of cyclic vomiting syndrome presenting to the ED with intractable vomiting. Patient's labs remain unremarkable. Patient received IV fluids, Zofran, reglan and Pepcid. She felt better and she remains clinically and hemodynamically stable. The patient was DISCHARGED: Counseled patient regarding lab results AND suspected diagnosis AND need for follow-up. Discharged home with verbal and written instructions. They were instructed to return as needed for persistent or worsening symptoms or any new concerns. Condition at time of disposition: stable SIGNATURE: MD Sasha Saravia (Amina) Manoj Resident 06/17/192121 Please see the attending note. The patient was seen and evaluated. Attending note was also performed. Al Trotter, 06/18/19 0011 Normal [facility] ED Triage Noteon 06-17-2019 ED Triage Note HNO ID: [id number] Author: ERIC Kruse (Pa) Service: Emergency Medicine Author Type: Physician Purchasing Department Clerk Type: ED Triage Notes Filed: 06/17/2019 4:33 PM Note Text: ED INTAKE NOTE Patient Name: Isabel Oreilly Service Date: 06/17/19 BRIEF HPI: 18y F c/o midline upper abdominal pain with vomiting x 2d. Endorses at least 10 episodes of emesis without blood today. Denies urinary symptoms, diarrhea, constipation, hematochezia, melena, vaginal symptoms, fever. BRIEF EXAM: Awake and Alert RRR CTAB INTAKE WORKUP: Bloodwork: CBC CMP lipase Urinalysis Test SIGNATURE: JOYCE KruseC Normal [facility] HCG,Totalon 06-17-2019 HCG Qn m[IU]/mL Normal [facility] Comment on above: Result Comment: Male < or = 1 Non- female 1-3 Gestational Age: 0.2-1 Week 5 - 50 1-2 Weeks 50 - 500 2-3 Weeks 100 - 5000 3-4 Weeks 500 - 61519 4-5 weeks 1000 - 10168 5-6 weeks 06089 - 100,000 6-8 weeks 99649 - 200,000 2-3 months 30519 - 100,000 Performed By: #### H CG #### [facility] [address] [place] [address] Hemogram/Diffon 06-17-2019 Abs Immature Grans 0.04 thou/cmm Normal 0.00-0.05 [facility] Comment on above: Performed By: #### C BCD1 #### [facility] [address] [place] [address] Abs Neut (ANC) 8.69 thou/cmm High 1.56-6.13 [facility] Comment on above: Performed By: #### C BCD1 #### [facility] [address] [place] [address] Abs. Baso 0.02 thou/cmm Normal 0.01-0.08 [facility] Comment on above: Performed By: #### C BCD1 #### [place] [address] Abs. Heard 0.21 thou/cmm Low 0.27-0.70 [facility] Comment on above: Performed By: #### C BCD1 #### [place] [address] Basophils/100 WBC (Bld) 0.2 % Normal [facility] Comment on above: Performed By: #### C BCD1 #### [place] [address] Eosinophils (Bld) [#/Vol] 0.00 thou/cmm Normal 0.00-0.31 [facility] Comment on above: Performed By: #### C BCD1 #### [facility] [address] [place] [address] Eosinophils/100 WBC (Bld) 0.0 % Normal [facility] Comment on above: Performed By: #### C BCD1 #### [facility] [address] [place] [address] Erythrocyte distribution width (RBC) [Ratio] 15.1 % High 11.7-14.4 [facility] Comment on above: Performed By: #### C BCD1 #### [facility] [address] [place] [address] Hematocrit (Bld) [Volume fraction] 41.6 % Normal 34.1-44.9 [facility] Comment on above: Performed By: #### C BCD1 #### [facility] [address] [place] [address] Hemoglobin (Bld) [Mass/Vol] 12.6 g/dL Normal 11.2-15.7 [facility] Comment on above: Performed By: #### C BCD1 #### [facility] [address] [place] [address] Immature Grans 0.40 % Normal [facility] Comment on above: Performed By: #### C BCD1 #### [facility] [address] [place] [address] Lymphocytes (Bld) [#/Vol] 1.39 thou/cmm Normal 1.18-3.74 [facility] Comment on above: Performed By: #### C BCD1 #### [facility] [address] [place] [address] Lymphocytes/100 WBC (Bld) 13.4 % Normal [facility] Comment on above: Performed By: #### C BCD1 #### [facility] [address] [place] [address] MCH (RBC) [Entitic mass] 22.2 pg Low 25.6-32.2 [facility] Comment on above: Performed By: #### C BCD1 #### [facility] [address] [place] [address] MCHC (RBC) [Mass/Vol] 30.3 % Low 31.6-34.8 [facility] Comment on above: Performed By: #### C BCD1 #### [facility] [address] [place] [address] MCV (RBC) [Entitic vol] 73.4 fL Low 79.4-94.8 [facility] Comment on above: Performed By: #### C BCD1 #### [facility] [address] [place] [address] Monocytes/100 WBC (Bld) 2.0 % Normal [facility] Comment on above: Performed By: #### C BCD1 #### [facility] [address] [place] [address] Platelet mean volume (Bld) [Entitic vol] 10.8 fL Normal 9.4-12.3 [facility] Comment on above: Performed By: #### C BCD1 #### [facility] [address] [place], [place] [address] Platelets (Bld) [#/Vol] 469 thou/cmm High 182-369 [facility] Comment on above: Performed By: #### C BCD1 #### [facility] [address] [place] [address] RBC (Bld) [#/Vol] 5.67 mil/cmm High 3.93-5.22 [facility] Comment on above: Performed By: #### C BCD1 #### [facility] [address] [place] [address] RDW SD 39.2 fl Normal 36.4-46.3 [facility] Comment on above: Performed By: #### C BCD1 #### [facility] [address] [place] [address] Seg Neutrophil 84.0 % Normal [facility] Comment on above: Performed By: #### C BCD1 #### [facility] [address] [place], [place] [address] WBC (Bld) [#/Vol] 10.35 thou/cmm High 3.98-10.04 [facility] Comment on above: Performed By: #### C BCD1 #### [facility] [address] [place] [address] Lipase Bloodon 06-17-2019 Lipase Blood 89 U/L Normal 73-393 [facility] Comment on above: Performed By: #### L IP #### [facility] [address] [place] [address] MDRD GFRon 06-17-2019 GFR/1.73 sq M predicted among non-blacks MDRD (S/P/Bld) [Vol rate/Area] mL/min/{1.73_m2} Normal >60mL/min/1. 73m2 [facility] Comment on above: Result Comment: If t he patient is , multiply the result by 1.210. Performed By: #### G FR #### [facility] [address] [place] [id number] NM HEPATOBILIARY W EJECTION FRACTIONon 05-31-2019 NM HEPATOBILIARY W EJECTION FRACTION EXAMINATION: NM HEPATOBILIARY W EJECTION FRACTION HISTORY: Dx: Periumbilical abdominal pain R10.33 (ICD-10-CM). TECHNIQUE: Following the intravenous administration of 5.4 mCi of technetium-99m mebrofenin, sequential abdominal images were obtained. In order to evaluate the contractile response of the gallbladder, a fatty meal consisting of 8 oz of a lactose-free fat-containing meal supplement was administered orally, and sequential images were obtained. A region of interest was drawn over the gallbladder, and the ejection fraction was calculated. COMPARISON: No relevant comparison available. FINDINGS: There is prompt, uniform accumulation of the tracer by the liver. There is normal filling of the intrahepatic ducts, common bile duct and gallbladder, and normal excretion of the tracer into the duodenum. There is abnormal contraction of the gallbladder. The calculated gallbladder ejection fraction is 13% (normal > 33%). There is no enterogastric reflux. IMPRESSION: Abnormal contractile response of the gallbladder compatible with gallbladder dysfunction. Of note, certain medications may inhibit gallbladder contraction, including opiates, atropine, benzodiazepines, ethanol, octreotide, nicotine, nifedipine, pirenzepine, progesterone, theophylline, and histamine H2 receptor antagonists. Workstation ID: [id number] Dictated by: MONAE MCKENZIE on FriMay 31, 2019 1:39:12 PM EST Transcribed by: MONAE MCKENZIE on FriMay 31, 2019 1:39:12 PM EST Finalized by: MONAE MCKENZIE on FriMay 31, 2019 1:39:12 PM EST Normal [facility] Comment on above: Order Comment: Injur y/Trauma or Illness?:Illness/Other How long have you had these symptoms (acute/chronic)?:Chronic Reason for exam?:Periumbilical abdominal pain, nausea, some vomiting. symptoms present w/ food (primarily spicy food) for past 3 years. Type of Exam?:Ongoing Additional signs and symptoms?:abdominal pain worse w/ eatting. patient NPO since midnight, no opiates. NM Hepatobiliary With Ejecti on Fractionon 05-31-2019 Abnormal contractile response of the gallbladder compatible with gallbladder dysfunction. Of note, certain medications may inhibit gallbladder contraction, including opiates, atropine, benzodiazepines, ethanol, octreotide, nicotine, nifedipine, pirenzepine, progesterone, theophylline, and histamine H2 receptor antagonists. Workstation ID: [id number] [facility] EXAMINATION: NM HEPATOBILIARY W EJECTION FRACTION HISTORY: Dx: Periumbilical abdominal pain R10.33 (ICD-10-CM). TECHNIQUE: Following the intravenous administration of 5.4 mCi of technetium-99m mebrofenin, sequential abdominal images were obtained. In order to evaluate the contractile response of the gallbladder, a fatty meal consisting of 8 oz of a lactose-free fat-containing meal supplement was administered orally, and sequential images were obtained. A region of interest was drawn over the gallbladder, and the ejection fraction was calculated. COMPARISON: No relevant comparison available. FINDINGS: There is prompt, uniform accumulation of the tracer by the liver. There is normal filling of the intrahepatic ducts, common bile duct and gallbladder, and normal excretion of the tracer into the duodenum. There is abnormal contraction of the gallbladder. The calculated gallbladder ejection fraction is 13% (normal > 33%). There is no enterogastric reflux. [facility] Interface, Rad In Francescai Speechq - 05/31/2019 1:42 PM EST EXAMINATION: NM HEPATOBILIARY W EJECTION FRACTION HISTORY: Dx: Periumbilical abdominal pain R10.33 (ICD-10-CM). TECHNIQUE: Following the intravenous administration of 5.4 mCi of technetium-99m mebrofenin, sequential abdominal images were obtained. In order to evaluate the contractile response of the gallbladder, a fatty meal consisting of 8 oz of a lactose-free fat-containing meal supplement was administered orally, and sequential images were obtained. A region of interest was drawn over the gallbladder, and the ejection fraction was calculated. COMPARISON: No relevant comparison available. FINDINGS: There is prompt, uniform accumulation of the tracer by the liver. There is normal filling of the intrahepatic ducts, common bile duct and gallbladder, and normal excretion of the tracer into the duodenum. There is abnormal contraction of the gallbladder. The calculated gallbladder ejection fraction is 13% (normal > 33%). There is no enterogastric reflux. IMPRESSION: Abnormal contractile response of the gallbladder compatible with gallbladder dysfunction. Of note, certain medications may inhibit gallbladder contraction, including opiates, atropine, benzodiazepines, ethanol, octreotide, nicotine, nifedipine, pirenzepine, progesterone, theophylline, and histamine H2 receptor antagonists. Workstation ID: [id number] [facility] .GFRon 04-16-2018 GFR Non- 85 ml/min/1.73sqm [facility] ([place]) Comment on above: Result Comment: GFR Population mean for , Non- Americans Ages 20-29 = 116 mL/min/1.73 sq.m. Ages 30-39 = 107 mL/min/1.73 sq.m. Ages 40-49 = 99 mL/min/1.73 sq.m. Ages 50-59 = 93 mL/min/1.73 sq.m. Ages 60-69 = 85 mL/min/1.73 sq.m. Ages 70+ = 75 mL/min/1.73 sq.m.Chronic Kidney Disease: Less than 60 mL/min/1.73 square metersEnd Stage Renal Disease: Less than 15 mL/min/1.73 square meters Performed By: #### C PATRICIA RUDOLPH MORPH, ANEU ####[address] [place] [address]#### LIP, CMP, GFR, CBCPR ####[place] [address] GFR 103 ml/min/1.73sqm [facility] ([place]) Comment on above: Result Comment: GFR Population mean for , Non- Americans Ages 20-29 = 116 mL/min/1.73 sq.m. Ages 30-39 = 107 mL/min/1.73 sq.m. Ages 40-49 = 99 mL/min/1.73 sq.m. Ages 50-59 = 93 mL/min/1.73 sq.m. Ages 60-69 = 85 mL/min/1.73 sq.m. Ages 70+ = 75 mL/min/1.73 sq.m.Chronic Kidney Disease: Less than 60 mL/min/1.73 square metersEnd Stage Renal Disease: Less than 15 mL/min/1.73 square meters Performed By: #### C BC, ADROBER, MORPH, ANEU ####[address] [place], [place] [address]#### LIP, CMP, GFR, CBCPR ####[place] [address] .Urinalysis Microscopic (AO) on 04-16-2018 RBC Test strip #/vol (U) LOADED Invalid Interpretation Code None Seen [facility] ([place]) Comment on above: Performed By: #### C BC, ADIFF, MORPH, ANEU ####[place] [address]#### LIP, CMP, GFR, CBCPR ####[place] [address] UA Squam Epithelial 0-5 Invalid Interpretation Code None Seen [facility] ([place]) Comment on above: Performed By: #### C BC, ADIFF, MORPH, ANEU ####[place] [address]#### LIP, CMP, GFR, CBCPR ####[place] [address] UA WBC None Seen Normal None Seen [facility] ([place]) Comment on above: Performed By: #### C BC, ADIFF, MORPH, ANEU ####[place] [address]#### LIP, CMP, GFR, CBCPR ####[place] [address] BMPon 04-16-2018 Calcium mass conc 9.6 mg/dL Normal 8.4-10.2 [facility] ([place]) Comment on above: Performed By: #### C BC, ADIFF, MORPH, ANEU ####[place] [address]#### LIP, CMP, GFR, CBCPR ####[place] [address] Chloride molar conc 103 mmol/L Normal 98-107 [facility] ([place]) Comment on above: Performed By: #### C BC, ADIFF, MORPH, ANEU ####[place] [address] [place] [address]#### LIP, CMP, GFR, CBCPR ####[address] [address] CO2 molar conc 24 mmol/L Normal 22-29 [facility] ([place]) Comment on above: Performed By: #### C BC, ADIFF, MORPH, ANEU ####[facility] [place] [address]#### LIP, CMP, GFR, CBCPR ####[address] [address] Creatinine mass conc 0.86 mg/dL Normal 0.55-1.02 [facility] ([place]) Comment on above: Performed By: #### C BC, ADIFF, MORPH, ANEU ####[place] [address]#### LIP, CMP, GFR, CBCPR ####[place] [address] Electrolyte Balance 14.0 mEq/L Normal [facility] ([place]) Comment on above: Performed By: #### C BC, ADIFF, MORPH, ANEU ####[place] [address]#### LIP, CMP, GFR, CBCPR ####[place] [address] Glucose mass conc 105 mg/dL Normal 70-105 [facility] ([place]) Comment on above: Performed By: #### C BC, ADIFF, MORPH, ANEU ####[place] [address]#### LIP, CMP, GFR, CBCPR ####[address] [address] Potassium molar conc 4.2 mmol/L Normal 3.5-5.1 [facility] ([place]) Comment on above: Performed By: #### C BC, ADIFF, MORPH, ANEU ####[place] [address] [place] [address]#### LIP, CMP, GFR, CBCPR ####[address] [address] Sodium molar conc 141 mmol/L Normal 136-145 [facility] ([place]) Comment on above: Performed By: #### C BC, ADIFF, MORPH, ANEU ####[address] [place], [place] [address]#### LIP, CMP, GFR, CBCPR ####[place] [address] [address] [place] [address] Urea nitrogen mass conc 11 mg/dL Normal 7-18 [facility] ([place]) Comment on above: Performed By: #### C BC, ADIFF, MORPH, ANEU ####[address] [place] [address]#### LIP, CMP, GFR, CBCPR ####[address] [address] Urea nitrogen/Creatinine mass ratio 13 ratio Normal - [facility] ([place]) Comment on above: Performed By: #### C BC, ADIFF, MORPH, ANEU ####[address] [place] [address]#### LIP, CMP, GFR, CBCPR ####[address] [address] MGon 04-16-2018 Magnesium mass conc 2.0 mg/dL Normal 1.8-2.4 [facility] ([place]) Comment on above: Performed By: #### C BC, ADIFF, MORPH, ANEU ####[address] [place] [address]#### LIP, CMP, GFR, CBCPR ####[address] [address] UAon 04-16-2018 Color Nom (U) Yellow Normal [facility] ([place]) Comment on above: Performed By: #### C BC, ADIFF, MORPH, ANEU ####[address] [place] [address]#### LIP, CMP, GFR, CBCPR ####[address] [address] Glucose mass conc (U) Negative Normal Negative [facility] ([place]) Comment on above: Performed By: #### C BC, ADIFF, MORPH, ANEU ####[place] [address] [place] [address]#### LIP, CMP, GFR, CBCPR ####[facility] [place] [address] Ketones Ql (U) >=80 Invalid Interpretation Code Negative [facility] ([place]) Comment on above: Performed By: #### C BC, ADIFF, MORPH, ANEU ####[facility] [place] [address]#### LIP, CMP, GFR, CBCPR ####[facility] [place] [address] UA Appear Cloudy Invalid Interpretation Code Clear [facility] ([place]) Comment on above: Performed By: #### C BC, ADIFF, MORPH, ANEU ####[address] [place] [address]#### LIP, CMP, GFR, CBCPR ####[place] [address] UA Blood Large Invalid Interpretation Code Negative [facility] ([place]) Comment on above: Performed By: #### C BC, ADIFF, MORPH, ANEU ####[place] [address]#### LIP, CMP, GFR, CBCPR ####[place] [address] UA Leuk Est Small Invalid Interpretation Code Negative [facility] ([place]) Comment on above: Performed By: #### C BC, ADIFF, MORPH, ANEU ####[address] [place] [address]#### LIP, CMP, GFR, CBCPR ####[facility] [place] [address] UA Nitrite Negative Normal Negative [facility] ([place]) Comment on above: Performed By: #### C BC, ADIFF, MORPH, ANEU ####[address] [place] [address]#### LIP, CMP, GFR, CBCPR ####[facility] [place] [address] UA pH 8.5 Invalid Interpretation Code [facility] ([place]) Comment on above: Performed By: #### C BC, ADIFF, MORPH, ANEU ####[place] [address]#### LIP, CMP, GFR, CBCPR ####[place] [address] UA Protein 30 mg/dL Normal Negative [facility] ([place]) Comment on above: Performed By: #### C BC, ADIFF, MORPH, ANEU ####[place] [address]#### LIP, CMP, GFR, CBCPR ####[place] [address] UA Spec Grav 1.010 Invalid Interpretation Code [facility] ([place]) Comment on above: Performed By: #### C BC, ADIFF, MORPH, ANEU ####[place] [address]#### LIP, CMP, GFR, CBCPR ####[place] [address] UA Specimen Type Clean Catch Normal [facility] ([place]) Comment on above: Performed By: #### C BC, ADIFF, MORPH, ANEU ####[place] [address]#### LIP, CMP, GFR, CBCPR ####[place] [address] UA Urobilinogen 0.2 E.U./dL Normal [facility] ([place]) Comment on above: Performed By: #### C BC, ADIFF, MORPH, ANEU ####[place] [address]#### LIP, CMP, GFR, CBCPR ####[place] [address] Urobilinogen Test strip Qn (U) Negative Normal Negative [facility] ([place]) Comment on above: Performed By: #### C BC, ADIFF, MORPH, ANEU ####[address] [place] [address]#### LIP, CMP, GFR, CBCPR ####[address] [address] .Auto Diffon 04-02-2018 Ammonia mass conc (P) 0.40 10 3/mcL Normal 0.15-1.00 [facility] ([place]) Comment on above: Performed By: #### C BC, ADIFF, MORPH, ANEU ####[address] [place] [address]#### LIP, CMP, GFR, CBCPR ####[place] [address] Basophils Auto #/vol (Bld) 0.00 10 3/mcL Normal 0.00-0.19 [facility] ([place]) Comment on above: Performed By: #### C BC, ADIFF, MORPH, ANEU ####[address] [place] [address]#### LIP, CMP, GFR, CBCPR ####[place] [address] Basophils/100 WBC Auto (Bld) 0.5 % Normal 0.0-2.5 [facility] ([place]) Comment on above: Performed By: #### C BC, ADIFF, MORPH, ANEU ####[address] [place] [place] [address]#### LIP, CMP, GFR, CBCPR ####[place] [address] Eosinophils Auto #/vol (Bld) 0.00 10 3/mcL Normal 0.00-0.40 [facility] ([place]) Comment on above: Performed By: #### C BC, ADIFF, MORPH, ANEU ####[address] [place] [address]#### LIP, CMP, GFR, CBCPR ####[place] [address] Eosinophils/100 WBC Auto (Bld) 0.5 % Normal 0.0-7.0 [facility] ([place]) Comment on above: Performed By: #### C BC, ADIFF, MORPH, ANEU ####[address] [place] [address]#### LIP, CMP, GFR, CBCPR ####[address] [address] Lymphocytes Auto #/vol (Bld) 2.90 10 3/mcL Normal 0.77-3.85 [facility] ([place]) Comment on above: Performed By: #### C BC, ADIFF, MORPH, ANEU ####[place] [address]#### LIP, CMP, GFR, CBCPR ####[address] [address] Lymphocytes/100 WBC Auto (Bld) 40.0 % Normal 10.0-50.0 [facility] ([place]) Comment on above: Performed By: #### C BC, ADIFF, MORPH, ANEU ####[place] [address]#### LIP, CMP, GFR, CBCPR ####[address] [address] Monocytes/100 WBC Auto (Bld) 5.3 % Normal 1.7-13.0 [facility] ([place]) Comment on above: Performed By: #### C BC, ADIFF, MORPH, ANEU ####[place] [address]#### LIP, CMP, GFR, CBCPR ####[address] [address] Neutrophils/100 WBC Auto (Bld) 53.7 % Normal 37.0-80.0 [facility] ([place]) Comment on above: Performed By: #### C BC, ADIFF, MORPH, ANEU ####[place] [address]#### LIP, CMP, GFR, CBCPR ####[address] [address] .NEUABSon 04-02-2018 Neutrophil, Absolute 3.90 10 3/mcL Normal 2.85-6.16 [facility] ([place]) Comment on above: Performed By: #### C BC, ADIFF, MORPH, ANEU ####[place] [address]#### LIP, CMP, GFR, CBCPR ####[place] [address] CBCon 04-02-2018 Erythrocyte distribution width Auto Ratio (RBC) 15.6 % High 11.5-14.5 [facility] ([place]) Comment on above: Performed By: #### C BC, ADIFF, MORPH, ANEU ####[place] [address]#### LIP, CMP, GFR, CBCPR ####[place] [address] Hematocrit Auto Volume Fraction (Bld) 31.6 % Low 37.0-47.0 [facility] ([place]) Comment on above: Performed By: #### C BC, ADIFF, MORPH, ANEU ####[place] [address]#### LIP, CMP, GFR, CBCPR ####[place] [address] Hemoglobin mass conc (Bld) 9.7 G/dL Low 12.0-16.0 [facility] ([place]) Comment on above: Performed By: #### C BC, ADIFF, MORPH, ANEU ####[place] [address]#### LIP, CMP, GFR, CBCPR ####[place] [address] MCH Auto Entitic mass (RBC) 21.6 pg Low 27.0-31.2 [facility] ([place]) Comment on above: Performed By: #### C BC, ADIFF, MORPH, ANEU ####[place] [address]#### LIP, CMP, GFR, CBCPR ####[place] [address] MCHC Auto mass conc (RBC) 30.7 G/dL Low 33.0-37.0 [facility] ([place]) Comment on above: Performed By: #### C BC, ADIFF, MORPH, ANEU ####[place] [address]#### LIP, CMP, GFR, CBCPR ####[place] [address] MCV Auto Entitic volume (RBC) 70.4 fL Low 80.0-94.0 [facility] ([place]) Comment on above: Performed By: #### C BC, ADIFF, MORPH, ANEU ####[place] [address]#### LIP, CMP, GFR, CBCPR ####[place] [address] Platelet mean volume Auto Entitic volume (Bld) 9.1 fL Normal 7.4-10.4 [facility] ([place]) Comment on above: Performed By: #### C BC, ADIFF, MORPH, ANEU ####[place] [address]#### LIP, CMP, GFR, CBCPR ####[place] [address] Platelets Auto #/vol (Bld) 310 10 3/mcL Normal 130-400 [facility] ([place]) Comment on above: Performed By: #### C BC, ADIFF, MORPH, ANEU ####[place] [address]#### LIP, CMP, GFR, CBCPR ####[place] [address] RBC Auto #/vol (Bld) 4.49 10 6/mcL Normal 4.20-5.40 [facility] ([place]) Comment on above: Performed By: #### C BC, ADIFF, MORPH, ANEU ####[place] [address]#### LIP, CMP, GFR, CBCPR ####[place] [address] WBC Auto #/vol (Bld) 7.20 10 3/mcL Normal 4.60-10.80 [facility] ([place]) Comment on above: Performed By: #### C BC, ADIFF, MORPH, ANEU ####[place] [address]#### LIP, CMP, GFR, CBCPR ####[place] [address] .Auto Diffon 04-01-2018 Ammonia mass conc (P) 0.30 10 3/mcL Normal 0.15-1.00 [facility] ([place]) Comment on above: Performed By: #### C BC, ADIFF, MORPH, ANEU ####[place] [address]#### LIP, CMP, GFR, CBCPR ####[place] [address] Basophils Auto #/vol (Bld) 0.10 10 3/mcL Normal 0.00-0.19 [facility] ([place]) Comment on above: Performed By: #### C BC, ADIFF, MORPH, ANEU ####[place] [address]#### LIP, CMP, GFR, CBCPR ####[place] [address] Basophils/100 WBC Auto (Bld) 0.9 % Normal 0.0-2.5 [facility] ([place]) Comment on above: Performed By: #### C BC, ADIFF, MORPH, ANEU ####[place] [address]#### LIP, CMP, GFR, CBCPR ####[place] [address] Eosinophils Auto #/vol (Bld) 0.00 10 3/mcL Normal 0.00-0.40 [facility] ([place]) Comment on above: Performed By: #### C BC, ADIFF, MORPH, ANEU ####[place] [address]#### LIP, CMP, GFR, CBCPR ####Jessica [address] [place] [address] Eosinophils/100 WBC Auto (Bld) 0.3 % Normal 0.0-7.0 [facility] ([place]) Comment on above: Performed By: #### C BC, ADIFF, MORPH, ANEU ####Jessica [address] [place], [place] [address]#### LIP, CMP, GFR, CBCPR ####[address] [address] Lymphocytes Auto #/vol (Bld) 1.60 10 3/mcL Normal 0.77-3.85 [facility] ([place]) Comment on above: Performed By: #### C BC, ADIFF, MORPH, ANEU ####[place] [address]#### LIP, CMP, GFR, CBCPR ####[address] [address] Lymphocytes/100 WBC Auto (Bld) 17.2 % Normal 10.0-50.0 [facility] ([place]) Comment on above: Performed By: #### C BC, ADIFF, MORPH, ANEU ####[place] [address]#### LIP, CMP, GFR, CBCPR ####[address] [address] Monocytes/100 WBC Auto (Bld) 2.9 % Normal 1.7-13.0 [facility] ([place]) Comment on above: Performed By: #### C BC, ADIFF, MORPH, ANEU ####[place] [address] [address]#### LIP, CMP, GFR, CBCPR ####[address] [address] Neutrophils/100 WBC Auto (Bld) 78.7 % Normal 37.0-80.0 [facility] ([place]) Comment on above: Performed By: #### C BC, ADIFF, MORPH, ANEU ####Jessica [address] [place] [address]#### LIP, CMP, GFR, CBCPR ####Jessica [address] [place] [address] .GFRon 04-01-2018 GFR 133 ml/min/1.73sqm Normal [facility] ([place]) Comment on above: Result Comment: GFR Population mean for , Non- Americans Ages 20-29 = 116 mL/min/1.73 sq.m. Ages 30-39 = 107 mL/min/1.73 sq.m. Ages 40-49 = 99 mL/min/1.73 sq.m. Ages 50-59 = 93 mL/min/1.73 sq.m. Ages 60-69 = 85 mL/min/1.73 sq.m. Ages 70+ = 75 mL/min/1.73 sq.m.Chronic Kidney Disease: Less than 60 mL/min/1.73 square metersEnd Stage Renal Disease: Less than 15 mL/min/1.73 square meters Performed By: #### C BC, ADIFF, MORPH, ANEU ####Jessica [address] [place], [place] [address]#### LIP, CMP, GFR, CBCPR ####[address] [address] GFR Non- 110 ml/min/1.73sqm Normal [facility] ([place]) Comment on above: Result Comment: GFR Population mean for , Non- Americans Ages 20-29 = 116 mL/min/1.73 sq.m. Ages 30-39 = 107 mL/min/1.73 sq.m. Ages 40-49 = 99 mL/min/1.73 sq.m. Ages 50-59 = 93 mL/min/1.73 sq.m. Ages 60-69 = 85 mL/min/1.73 sq.m. Ages 70+ = 75 mL/min/1.73 sq.m.Chronic Kidney Disease: Less than 60 mL/min/1.73 square metersEnd Stage Renal Disease: Less than 15 mL/min/1.73 square meters Performed By: #### C BC, ADIFF, MORPH, ANEU ####Jessica [address] [place], [place] [address]#### LIP, CMP, GFR, CBCPR ####[place] [address] .NEUABSon 04-01-2018 Neutrophil, Absolute 7.30 10 3/mcL High 2.85-6.16 [facility] ([place]) Comment on above: Performed By: #### C BC, ADIFF, MORPH, ANEU ####[place] [address] [place] [address]#### LIP, CMP, GFR, CBCPR ####[place] [address] BMPon 04-01-2018 Calcium mass conc 9.8 mg/dL Normal 8.4-10.2 [facility] ([place]) Comment on above: Performed By: #### C BC, ADIFF, MORPH, ANEU ####[place] [address] [address]#### LIP, CMP, GFR, CBCPR ####[place] [address] Chloride molar conc 101 mmol/L Normal 98-107 [facility] ([place]) Comment on above: Performed By: #### C BC, ADIFF, MORPH, ANEU ####[place] [address]#### LIP, CMP, GFR, CBCPR ####[place] [address] CO2 molar conc 24 mmol/L Normal 22-29 [facility] ([place]) Comment on above: Performed By: #### C BC, ADIFF, MORPH, ANEU ####[place] [address]#### LIP, CMP, GFR, CBCPR ####[place] [address] Creatinine mass conc 0.69 mg/dL Normal 0.55-1.02 [facility] ([place]) Comment on above: Performed By: #### C BC, ADIFF, MORPH, ANEU ####[facility] [place] [address]#### LIP, CMP, GFR, CBCPR ####[place] [address] Electrolyte Balance 15.0 mEq/L Normal [facility] ([place]) Comment on above: Performed By: #### C BC, ADIFF, MORPH, ANEU ####[address] [address]#### LIP, CMP, GFR, CBCPR ####[address] [address] Glucose mass conc 108 mg/dL High 70-105 [facility] ([place]) Comment on above: Performed By: #### C BC, ADIFF, MORPH, ANEU ####[address] [address]#### LIP, CMP, GFR, CBCPR ####[address] [address] Potassium molar conc 4.7 mmol/L Normal 3.5-5.1 [facility] ([place]) Comment on above: Performed By: #### C BC, ADIFF, MORPH, ANEU ####[place] [address]#### LIP, CMP, GFR, CBCPR ####[address] [address] Sodium molar conc 140 mmol/L Normal 136-145 [facility] ([place]) Comment on above: Performed By: #### C BC, ADIFF, MORPH, ANEU ####[address] [address]#### LIP, CMP, GFR, CBCPR ####[address] [address] Urea nitrogen mass conc 9 mg/dL Normal 7-18 [facility] ([place]) Comment on above: Performed By: #### C BC, ADIFF, MORPH, ANEU ####[place] [address] [place], [place] [address]#### LIP, CMP, GFR, CBCPR ####[address] [address] Urea nitrogen/Creatinine mass ratio 13 ratio Normal 7-27 [facility] ([place]) Comment on above: Performed By: #### C BC, ADIFF, MORPH, ANEU ####[facility] [place] [address]#### LIP, CMP, GFR, CBCPR ####[place] [address] CBCon 04-01-2018 Erythrocyte distribution width Auto Ratio (RBC) 15.9 % High 11.5-14.5 [facility] ([place]) Comment on above: Performed By: #### C BC, ADIFF, MORPH, ANEU ####[place] [address]#### LIP, CMP, GFR, CBCPR ####[place] [address] Hematocrit Auto Volume Fraction (Bld) 40.2 % Normal 37.0-47.0 [facility] ([place]) Comment on above: Performed By: #### C BC, ADIFF, MORPH, ANEU ####[place] [address]#### LIP, CMP, GFR, CBCPR ####[place] [address] Hemoglobin mass conc (Bld) 12.6 G/dL Normal 12.0-16.0 [facility] ([place]) Comment on above: Performed By: #### C BC, ADIFF, MORPH, ANEU ####[place] [address]#### LIP, CMP, GFR, CBCPR ####[place] [address] MCH Auto Entitic mass (RBC) 21.8 pg Low 27.0-31.2 [facility] ([place]) Comment on above: Performed By: #### C BC, ADIFF, MORPH, ANEU ####[place] [address]#### LIP, CMP, GFR, CBCPR ####[place] [address] MCHC Auto mass conc (RBC) 31.4 G/dL Low 33.0-37.0 [facility] ([place]) Comment on above: Performed By: #### C BC, ADIFF, MORPH, ANEU ####[place] [address]#### LIP, CMP, GFR, CBCPR ####[address] [address] MCV Auto Entitic volume (RBC) 69.4 fL Low 80.0-94.0 [facility] ([place]) Comment on above: Performed By: #### C BC, ADIFF, MORPH, ANEU ####[place] [address]#### LIP, CMP, GFR, CBCPR ####[place] [address] Platelet mean volume Auto Entitic volume (Bld) 8.8 fL Normal 7.4-10.4 [facility] ([place]) Comment on above: Performed By: #### C BC, ADIFF, MORPH, ANEU ####[place] [address]#### LIP, CMP, GFR, CBCPR ####[place] [address] Platelets Auto #/vol (Bld) 477 10 3/mcL High 130-400 [facility] ([place]) Comment on above: Performed By: #### C BC, ADIFF, MORPH, ANEU ####[place] [address]#### LIP, CMP, GFR, CBCPR ####[place] [address] RBC Auto #/vol (Bld) 5.79 10 6/mcL High 4.20-5.40 [facility] ([place]) Comment on above: Performed By: #### C BC, ADIFF, MORPH, ANEU ####[place] [address]#### LIP, CMP, GFR, CBCPR ####[place] [address] WBC Auto #/vol (Bld) 9.30 10 3/mcL Normal 4.60-10.80 [facility] ([place]) Comment on above: Performed By: #### C BC, ADIFF, MORPH, ANEU ####[facility] [place] [address]#### LIP, CMP, GFR, CBCPR ####[place] [address] .Urinalysis Microscopic (AO) on 03-27-2018 RBC Test strip #/vol (U) None Seen Normal None Seen [facility] ([place]) Comment on above: Performed By: #### C BC, ADIFF, MORPH, ANEU ####[place] [address]#### LIP, CMP, GFR, CBCPR ####[place] [address] UA Squam Epithelial None Seen Normal None Seen [facility] ([place]) Comment on above: Performed By: #### C BC, ADIFF, MORPH, ANEU ####[place] [address]#### LIP, CMP, GFR, CBCPR ####[place] [address] UA WBC None Seen Normal None Seen [facility] ([place]) Comment on above: Performed By: #### C BC, ADIFF, MORPH, ANEU ####[place] [address]#### LIP, CMP, GFR, CBCPR ####[place] [address] PREGUon 03-27-2018 HCG ( test) Ql (U) Negative Normal [facility] ([place]) Comment on above: Performed By: #### C BC, ADIFF, MORPH, ANEU ####[place] [address] [place] [address]#### LIP, CMP, GFR, CBCPR ####[place] [address] test (u) int HCG not detected. Invalid Interpretation Code [facility] ([place]) Comment on above: Performed By: #### C BC, ADIFF, MORPH, ANEU ####[facility] [place] [address]#### LIP, CMP, GFR, CBCPR ####[place] [address] TOXSCon 03-27-2018 U TCA (AO) Positive [facility] ([place]) Comment on above: Performed By: #### C BC, ADIFF, MORPH, ANEU ####[place] [address] [place] [address]#### LIP, CMP, GFR, CBCPR ####[place] [address] QC TOXSC Valid [facility] ([place]) Comment on above: Performed By: #### C BC, ADIFF, MORPH, ANEU ####[place] [address]#### LIP, CMP, GFR, CBCPR ####[place] [address] U Ampheta (AO) Negative [facility] ([place]) Comment on above: Performed By: #### C BC, ADIFF, MORPH, ANEU ####[place] [address]#### LIP, CMP, GFR, CBCPR ####[place] [address] U Geeta (AO) Negative [facility] ([place]) Comment on above: Performed By: #### C BC, ADIFF, MORPH, ANEU ####Jess[place] Y[address] [place] [address]#### LIP, CMP, GFR, CBCPR ####[place] [address] U Tin (AO) Negative [facility] ([place]) Comment on above: Performed By: #### C BC, ADIFF, MORPH, ANEU ####[place] [address] [place] [address]#### LIP, CMP, GFR, CBCPR ####[place] [address] U Cannab (AO) Negative [facility] ([place]) Comment on above: Performed By: #### C BC, ADIFF, MORPH, ANEU ####[place] Qtr[address] [place] [address]#### LIP, CMP, GFR, CBCPR ####[address] [address] U Cocaine (AO) Negative [facility] ([place]) Comment on above: Performed By: #### C BC, ADIFF, MORPH, ANEU ####[place] [address] [address]#### LIP, CMP, GFR, CBCPR ####[place] [address] U Methadone (AO) Negative [facility] ([place]) Comment on above: Performed By: #### C BC, ADIFF, MORPH, ANEU ####[place] [address]#### LIP, CMP, GFR, CBCPR ####[place] [address] U PCP (AO) Negative [facility] ([place]) Comment on above: Performed By: #### C BC, ADIFF, MORPH, ANEU ####[place] [address] [address]#### LIP, CMP, GFR, CBCPR ####[place] [address] Urine Opiates (AO) Negative [facility] ([place]) Comment on above: Performed By: #### C BC, ADIFF, MORPH, ANEU ####Jess[place] [address] [place] [address]#### LIP, CMP, GFR, CBCPR ####[place] [address] UAon 03-27-2018 Color Nom (U) Yellow [facility] ([place]) Comment on above: Performed By: #### C BC, ADIFF, MORPH, ANEU ####Jess[place] [address] [place] [address]#### LIP, CMP, GFR, CBCPR ####[facility] [place] [address] Glucose mass conc (U) Negative Normal Negative [facility] ([place]) Comment on above: Performed By: #### C BC, ADIFF, MORPH, ANEU ####[place] [id number]#### LIP, CMP, GFR, CBCPR ####[place] [address] Ketones Ql (U) 80 mg/dL Invalid Interpretation Code Negative [facility] ([place]) Comment on above: Performed By: #### C BC, ADIFF, MORPH, ANEU ####[place] [address]#### LIP, CMP, GFR, CBCPR ####[place] [address] UA Appear Clear Normal Clear [facility] ([place]) Comment on above: Performed By: #### C BC, ADIFF, MORPH, ANEU ####[place] [address]#### LIP, CMP, GFR, CBCPR ####[place] [address] UA Blood Negative Normal Negative [facility] ([place]) Comment on above: Performed By: #### C BC, ADIFF, MORPH, ANEU ####[place] [address]#### LIP, CMP, GFR, CBCPR ####[place] [address] UA Leuk Est Negative Normal Negative [facility] ([place]) Comment on above: Performed By: #### C BC, ADIFF, MORPH, ANEU ####[facility] [place] [address]#### LIP, CMP, GFR, CBCPR ####[place] [address] UA Nitrite Negative Normal Negative [facility] ([place]) Comment on above: Performed By: #### C BC, ADIFF, MORPH, ANEU ####Jessica [address]wt[address] [place] [address]#### LIP, CMP, GFR, CBCPR ####[place] [address] UA pH 6.5 [facility] ([place]) Comment on above: Performed By: #### C BC, ADIFF, MORPH, ANEU ####[place] [address]#### LIP, CMP, GFR, CBCPR ####[place] [address] UA Protein Negative Normal Negative [facility] ([place]) Comment on above: Performed By: #### C BC, ADIFF, MORPH, ANEU ####[place] [address]#### LIP, CMP, GFR, CBCPR ####[place] [address] UA Spec Grav 1.025 [facility] ([place]) Comment on above: Performed By: #### C BC, ADIFF, MORPH, ANEU ####[place] [address]#### LIP, CMP, GFR, CBCPR ####[place] [address] UA Specimen Type Clean Catch [facility] ([place]) Comment on above: Performed By: #### C BC, ADIFF, MORPH, ANEU ####[place] [address]#### LIP, CMP, GFR, CBCPR ####[place] [address] UA Urobilinogen 0.2 E.U./dL [facility] ([place]) Comment on above: Performed By: #### C BC, ADIFF, MORPH, ANEU ####Jessica [address] [place] [address]#### LIP, CMP, GFR, CBCPR ####[place] [address] Urobilinogen Test strip Qn (U) Negative Normal Negative [facility] ([place]) Comment on above: Performed By: #### C BC, ADIFF, MORPH, ANEU ####[place] [address]#### LIP, CMP, GFR, CBCPR ####[place] [address] .Auto Diffon 03-10-2018 Ammonia mass conc (P) 0.50 10 3/mcL Normal 0.15-1.00 [facility] ([place]) Comment on above: Performed By: #### C BC, ADIFF, MORPH, ANEU ####[place] [address]#### LIP, CMP, GFR, CBCPR ####[place] [address] Basophils Auto #/vol (Bld) 0.00 10 3/mcL Normal 0.00-0.19 [facility] ([place]) Comment on above: Performed By: #### C BC, ADIFF, MORPH, ANEU ####[place] [address]#### LIP, CMP, GFR, CBCPR ####[place] [address] Basophils/100 WBC Auto (Bld) 0.4 % Normal 0.0-2.5 [facility] ([place]) Comment on above: Performed By: #### C BC, ADIFF, MORPH, ANEU ####[place] [address]#### LIP, CMP, GFR, CBCPR ####[place] [address] Eosinophils Auto #/vol (Bld) 0.00 10 3/mcL Normal 0.00-0.40 [facility] ([place]) Comment on above: Performed By: #### C BC, ADIFF, MORPH, ANEU ####[place] [address]#### LIP, CMP, GFR, CBCPR ####[address] [place], [place] [address] Eosinophils/100 WBC Auto (Bld) 0.2 % Normal 0.0-7.0 [facility] ([place]) Comment on above: Performed By: #### C BC, ADIFF, MORPH, ANEU ####Jess[place] [address] [place], [place] [address]#### LIP, CMP, GFR, CBCPR ####[address] [address] Lymphocytes Auto #/vol (Bld) 2.50 10 3/mcL Normal 0.77-3.85 [facility] ([place]) Comment on above: Performed By: #### C BC, ADIFF, MORPH, ANEU ####[place] [address]xf[address] [place] [address]#### LIP, CMP, GFR, CBCPR ####[address] [address] Lymphocytes/100 WBC Auto (Bld) 23.4 % Normal 10.0-50.0 [facility] ([place]) Comment on above: Performed By: #### C BC, ADIFF, MORPH, ANEU ####[place] Hor[address] [place] [address]#### LIP, CMP, GFR, CBCPR ####[address] [address] Monocytes/100 WBC Auto (Bld) 4.3 % Normal 1.7-13.0 [facility] ([place]) Comment on above: Performed By: #### C BC, ADIFF, MORPH, ANEU ####[place] I[address]ryxq[address] [place] [address]#### LIP, CMP, GFR, CBCPR ####[address] [address] Neutrophils/100 WBC Auto (Bld) 71.7 % Normal 37.0-80.0 [facility] ([place]) Comment on above: Performed By: #### C BC, ADIFF, MORPH, ANEU ####Jessica Elia[address] [place] [address]#### LIP, CMP, GFR, CBCPR ####[address] [place] [address] .GFRon 03-10-2018 GFR Non- 82 ml/min/1.73sqm Normal [facility] ([place]) Comment on above: Result Comment: GFR Population mean for , Non- Americans Ages 20-29 = 116 mL/min/1.73 sq.m. Ages 30-39 = 107 mL/min/1.73 sq.m. Ages 40-49 = 99 mL/min/1.73 sq.m. Ages 50-59 = 93 mL/min/1.73 sq.m. Ages 60-69 = 85 mL/min/1.73 sq.m. Ages 70+ = 75 mL/min/1.73 sq.m.Chronic Kidney Disease: Less than 60 mL/min/1.73 square metersEnd Stage Renal Disease: Less than 15 mL/min/1.73 square meters Performed By: #### C BC, ADIFF, MORPH, ANEU ####[place] [place], [place] [address]#### LIP, CMP, GFR, CBCPR ####[address] [address] GFR 99 ml/min/1.73sqm Normal [facility] ([place]) Comment on above: Result Comment: GFR Population mean for , Non- Americans Ages 20-29 = 116 mL/min/1.73 sq.m. Ages 30-39 = 107 mL/min/1.73 sq.m. Ages 40-49 = 99 mL/min/1.73 sq.m. Ages 50-59 = 93 mL/min/1.73 sq.m. Ages 60-69 = 85 mL/min/1.73 sq.m. Ages 70+ = 75 mL/min/1.73 sq.m.Chronic Kidney Disease: Less than 60 mL/min/1.73 square metersEnd Stage Renal Disease: Less than 15 mL/min/1.73 square meters Performed By: #### C BC, ADIFF, MORPH, ANEU ####Jessica [address] [place], [place] [address]#### LIP, CMP, GFR, CBCPR ####[place] [address] .NEUABSon 03-10-2018 Neutrophil, Absolute 7.50 10 3/mcL High 2.85-6.16 [facility] ([place]) Comment on above: Performed By: #### C BC, ADIFF, MORPH, ANEU ####[place] [address] [place] [address]#### LIP, CMP, GFR, CBCPR ####[place] [address] BMPon 03-10-2018 Calcium mass conc 9.7 mg/dL Normal 8.4-10.2 [facility] ([place]) Comment on above: Performed By: #### C BC, ADIFF, MORPH, ANEU ####[place] [address]nsq[address] [address]#### LIP, CMP, GFR, CBCPR ####[place] [address] Chloride molar conc 101 mmol/L Normal 98-107 [facility] ([place]) Comment on above: Performed By: #### C BC, ADIFF, MORPH, ANEU ####[place] [address]#### LIP, CMP, GFR, CBCPR ####[place] [address] CO2 molar conc 23 mmol/L Normal 22-29 [facility] ([place]) Comment on above: Performed By: #### C BC, ADIFF, MORPH, ANEU ####[place] [address]#### LIP, CMP, GFR, CBCPR ####[place] [address] Creatinine mass conc 0.89 mg/dL Normal 0.55-1.02 [facility] ([place]) Comment on above: Performed By: #### C BC, ADIFF, MORPH, ANEU ####[facility] [place] [address]#### LIP, CMP, GFR, CBCPR ####[place] [address] Electrolyte Balance 14.0 mEq/L Normal [facility] ([place]) Comment on above: Performed By: #### C BC, ADIFF, MORPH, ANEU ####[address] [address]#### LIP, CMP, GFR, CBCPR ####[address] [address] Glucose mass conc 98 mg/dL Normal 70-105 [facility] ([place]) Comment on above: Performed By: #### C BC, ADIFF, MORPH, ANEU ####[address] [address]#### LIP, CMP, GFR, CBCPR ####[address] [address] Potassium molar conc 4.3 mmol/L Normal 3.5-5.1 [facility] ([place]) Comment on above: Performed By: #### C BC, ADIFF, MORPH, ANEU ####[place] [address]#### LIP, CMP, GFR, CBCPR ####[address] [address] Sodium molar conc 138 mmol/L Normal 136-145 [facility] ([place]) Comment on above: Performed By: #### C BC, ADIFF, MORPH, ANEU ####[address] [address]#### LIP, CMP, GFR, CBCPR ####[address] [address] Urea nitrogen mass conc 10 mg/dL Normal 7-18 [facility] ([place]) Comment on above: Performed By: #### C BC, ADIFF, MORPH, ANEU ####[place] [address] [place], [place] [address]#### LIP, CMP, GFR, CBCPR ####[address] [address] Urea nitrogen/Creatinine mass ratio 11 ratio Normal 7-27 [facility] ([place]) Comment on above: Performed By: #### C BC, ADIFF, MORPH, ANEU ####[place] [address] [place] [address]#### LIP, CMP, GFR, CBCPR ####[place] [address] CBCon 03-10-2018 Erythrocyte distribution width Auto Ratio (RBC) 16.3 % High 11.5-14.5 [facility] ([place]) Comment on above: Performed By: #### C BC, ADIFF, MORPH, ANEU ####[place] [address]#### LIP, CMP, GFR, CBCPR ####[place] [address] Hematocrit Auto Volume Fraction (Bld) 38.2 % Normal 37.0-47.0 [facility] ([place]) Comment on above: Performed By: #### C BC, ADIFF, MORPH, ANEU ####[place] [address]#### LIP, CMP, GFR, CBCPR ####[place] [address] Hemoglobin mass conc (Bld) 11.8 G/dL Low 12.0-16.0 [facility] ([place]) Comment on above: Performed By: #### C BC, ADIFF, MORPH, ANEU ####[place] [address]#### LIP, CMP, GFR, CBCPR ####[place] [address] MCH Auto Entitic mass (RBC) 21.3 pg Low 27.0-31.2 [facility] ([place]) Comment on above: Performed By: #### C BC, ADIFF, MORPH, ANEU ####[place] [address]#### LIP, CMP, GFR, CBCPR ####[place] [address] MCHC Auto mass conc (RBC) 30.8 G/dL Low 33.0-37.0 [facility] ([place]) Comment on above: Performed By: #### C BC, ADIFF, MORPH, ANEU ####[facility] [place] [address]#### LIP, CMP, GFR, CBCPR ####[address] [address] MCV Auto Entitic volume (RBC) 69.3 fL Low 80.0-94.0 [facility] ([place]) Comment on above: Performed By: #### C BC, ADIFF, MORPH, ANEU ####[place] [address]#### LIP, CMP, GFR, CBCPR ####[place] [address] Platelet mean volume Auto Entitic volume (Bld) 8.4 fL Normal 7.4-10.4 [facility] ([place]) Comment on above: Performed By: #### C BC, ADIFF, MORPH, ANEU ####[place] [address]#### LIP, CMP, GFR, CBCPR ####[place] [address] Platelets Auto #/vol (Bld) 337 10 3/mcL Normal 130-400 [facility] ([place]) Comment on above: Performed By: #### C BC, ADIFF, MORPH, ANEU ####[place] [address]#### LIP, CMP, GFR, CBCPR ####[place] [address] RBC Auto #/vol (Bld) 5.52 10 6/mcL High 4.20-5.40 [facility] ([place]) Comment on above: Performed By: #### C BC, ADIFF, MORPH, ANEU ####[place] [address]#### LIP, CMP, GFR, CBCPR ####[address] [address] WBC Auto #/vol (Bld) 10.50 10 3/mcL Normal 4.60-10.80 [facility] ([place]) Comment on above: Performed By: #### C BC, ADIFF, MORPH, ANEU ####[address] [place] [address]#### LIP, CMP, GFR, CBCPR ####[address] [address] .CBC Path Reviewon 8 CBC Path Review Microcytic hypochromic anemia noted with mild anisocytosis and occasional ovalocytes noted. Also, mild leukocyotosis with a normal differential and morphology. The CBC data raise the possibility of a mild thalasemia, although correlation with iron studies may also be helpful. Recommend clinical pathologic correlation and follow-up as indicated. Normal [facility] ([place]) Comment on above: Result Comment: Elec tronically signed by: CARLOS RAE MD03.09.2018 08:37 EST Performed By: #### C BC, ADIFF, MORPH, ANEU ####[place] [address]#### LIP, CMP, GFR, CBCPR ####[place] [address] .Auto Diffon 03-06-2018 Ammonia mass conc (P) 0.40 10 3/mcL Normal 0.15-1.00 [facility] ([place]) Comment on above: Performed By: #### C BC, ADIFF, MORPH, ANEU ####[address] [place] [place] [address]#### LIP, CMP, GFR, CBCPR ####[place] [address] Basophils Auto #/vol (Bld) 0.10 10 3/mcL Normal 0.00-0.19 [facility] ([place]) Comment on above: Performed By: #### C BC, ADIFF, MORPH, ANEU ####Jessica [address] [place] [address]#### LIP, CMP, GFR, CBCPR ####[place] [address] Basophils/100 WBC Auto (Bld) 0.6 % Normal 0.0-2.5 [facility] ([place]) Comment on above: Performed By: #### C BC, ADIFF, MORPH, ANEU ####[place] [address] [place] [address]#### LIP, CMP, GFR, CBCPR ####[address] [address] Eosinophils Auto #/vol (Bld) 0.00 10 3/mcL Normal 0.00-0.40 [facility] ([place]) Comment on above: Performed By: #### C BC, ADIFF, MORPH, ANEU ####Jessica [address] [address]#### LIP, CMP, GFR, CBCPR ####[address] [address] Eosinophils/100 WBC Auto (Bld) 0.1 % Normal 0.0-7.0 [facility] ([place]) Comment on above: Performed By: #### C BC, ADIFF, MORPH, ANEU ####[place] [address]#### LIP, CMP, GFR, CBCPR ####[address] [address] Lymphocytes Auto #/vol (Bld) 2.40 10 3/mcL Normal 0.77-3.85 [facility] ([place]) Comment on above: Performed By: #### C BC, ADIFF, MORPH, ANEU ####[place] [address]#### LIP, CMP, GFR, CBCPR ####[address] [address] Lymphocytes/100 WBC Auto (Bld) 16.4 % Normal 10.0-50.0 [facility] ([place]) Comment on above: Performed By: #### C BC, ADIFF, MORPH, ANEU ####Jessica [address] [address]#### LIP, CMP, GFR, CBCPR ####[address] [address] Monocytes/100 WBC Auto (Bld) 2.9 % Normal 1.7-13.0 [facility] ([place]) Comment on above: Performed By: #### C BC, ADIFF, MORPH, ANEU ####Jessica [address] [place], [place] [address]#### LIP, CMP, GFR, CBCPR ####[place] [address] [place] [address] Neutrophils/100 WBC Auto (Bld) 80.0 % Normal 37.0-80.0 [facility] ([place]) Comment on above: Performed By: #### C BC, ADIFF, MORPH, ANEU ####Jessica [address] [place], [place] [address]#### LIP, CMP, GFR, CBCPR ####[address] [address] .GFRon 03-06-2018 GFR Non- 70 ml/min/1.73sqm Normal [facility] ([place]) Comment on above: Result Comment: GFR Population mean for , Non- Americans Ages 20-29 = 116 mL/min/1.73 sq.m. Ages 30-39 = 107 mL/min/1.73 sq.m. Ages 40-49 = 99 mL/min/1.73 sq.m. Ages 50-59 = 93 mL/min/1.73 sq.m. Ages 60-69 = 85 mL/min/1.73 sq.m. Ages 70+ = 75 mL/min/1.73 sq.m.Chronic Kidney Disease: Less than 60 mL/min/1.73 square metersEnd Stage Renal Disease: Less than 15 mL/min/1.73 square meters Performed By: #### C BC, ADIFF, MORPH, ANEU ####Jessica [address] [place], [place] [address]#### LIP, CMP, GFR, CBCPR ####[place] [address] [place] [address] GFR 85 ml/min/1.73sqm Normal [facility] ([place]) Comment on above: Result Comment: GFR Population mean for , Non- Americans Ages 20-29 = 116 mL/min/1.73 sq.m. Ages 30-39 = 107 mL/min/1.73 sq.m. Ages 40-49 = 99 mL/min/1.73 sq.m. Ages 50-59 = 93 mL/min/1.73 sq.m. Ages 60-69 = 85 mL/min/1.73 sq.m. Ages 70+ = 75 mL/min/1.73 sq.m.Chronic Kidney Disease: Less than 60 mL/min/1.73 square metersEnd Stage Renal Disease: Less than 15 mL/min/1.73 square meters Performed By: #### C BC, ADIFF, MORPH, ANEU ####Jessica [address] [place] [address]#### LIP, CMP, GFR, CBCPR ####[place] [address] .Monion 03-06-2018 Anisocytosis Auto Ql (Bld) Slight Normal [facility] ([place]) Comment on above: Performed By: #### C BC, ADIFF, MORPH, ANEU ####[place] [address]#### LIP, CMP, GFR, CBCPR ####[place] [address] Hypochrom Slight Normal [facility] ([place]) Comment on above: Performed By: #### C BC, ADIFF, MORPH, ANEU ####Jessica [address] [place] [address]#### LIP, CMP, GFR, CBCPR ####[place] [address] Microcytosis Moderate Normal [facility] ([place]) Comment on above: Performed By: #### C BC, ADIFF, MORPH, ANEU ####Jessica [address] [place] [address]#### LIP, CMP, GFR, CBCPR ####[place] [address] Ovalocytes Few Normal [facility] ([place]) Comment on above: Performed By: #### C BC, ADIFF, MORPH, ANEU ####Jessica [address] [place] [address]#### LIP, CMP, GFR, CBCPR ####[place] [address] Platelets Auto #/vol (Bld) Slt Increased Normal [facility] ([place]) Comment on above: Performed By: #### C BC, ADIFF, MORPH, ANEU ####[facility] [place] [address]#### LIP, CMP, GFR, CBCPR ####[place] [address] Spherocyte Rare Normal [facility] ([place]) Comment on above: Performed By: #### C BC, ADIFF, MORPH, ANEU ####[place] [address] [place] [address]#### LIP, CMP, GFR, CBCPR ####[place] [address] .NEUABSon 03-06-2018 Neutrophil, Absolute 11.80 10 3/mcL High 2.85-6.16 [facility] ([place]) Comment on above: Performed By: #### C BC, ADIFF, MORPH, ANEU ####[place] [address] [place] [address]#### LIP, CMP, GFR, CBCPR ####[place] [address] .Urinalysis Microscopic (AO) on 03-06-2018 RBC Test strip #/vol (U) None Seen Normal None Seen [facility] ([place]) Comment on above: Performed By: #### C BC, ADIFF, MORPH, ANEU ####[facility] [place] [address]#### LIP, CMP, GFR, CBCPR ####[place] [address] UA Squam Epithelial 5-10 Invalid Interpretation Code None Seen [facility] ([place]) Comment on above: Performed By: #### C BC, ADIFF, MORPH, ANEU ####[facility] [place] [address]#### LIP, CMP, GFR, CBCPR ####[place] [address] UA WBC 0-5 Invalid Interpretation Code None Seen [facility] ([place]) Comment on above: Performed By: #### C BC, ADIFF, MORPH, ANEU ####[place] [address] [place] [address]#### LIP, CMP, GFR, CBCPR ####[place] [address] CBCon 03-06-2018 Erythrocyte distribution width Auto Ratio (RBC) 15.8 % High 11.5-14.5 [facility] ([place]) Comment on above: Performed By: #### C BC, ADIFF, MORPH, ANEU ####[place] [address]#### LIP, CMP, GFR, CBCPR ####[place] [address] Hematocrit Auto Volume Fraction (Bld) 39.9 % Normal 37.0-47.0 [facility] ([place]) Comment on above: Performed By: #### C BC, ADIFF, MORPH, ANEU ####[place] [address]#### LIP, CMP, GFR, CBCPR ####[place] [address] Hemoglobin mass conc (Bld) 12.4 G/dL Normal 12.0-16.0 [facility] ([place]) Comment on above: Performed By: #### C BC, ADIFF, MORPH, ANEU ####[place] [address]#### LIP, CMP, GFR, CBCPR ####[place] [address] MCH Auto Entitic mass (RBC) 21.2 pg Low 27.0-31.2 [facility] ([place]) Comment on above: Performed By: #### C BC, ADIFF, MORPH, ANEU ####[place] [address] [place] [address]#### LIP, CMP, GFR, CBCPR ####[place] [address] MCHC Auto mass conc (RBC) 31.1 G/dL Low 33.0-37.0 [facility] ([place]) Comment on above: Performed By: #### C BC, ADIFF, MORPH, ANEU ####Jessica [address] [address]#### LIP, CMP, GFR, CBCPR ####[place] [address] MCV Auto Entitic volume (RBC) 68.0 fL Low 80.0-94.0 [facility] ([place]) Comment on above: Performed By: #### C BC, ADIFF, MORPH, ANEU ####[place] [address]#### LIP, CMP, GFR, CBCPR ####[place] [address] Platelet mean volume Auto Entitic volume (Bld) 8.4 fL Normal 7.4-10.4 [facility] ([place]) Comment on above: Performed By: #### C BC, ADIFF, MORPH, ANEU ####[place] [address]#### LIP, CMP, GFR, CBCPR ####[place] [address] Platelets Auto #/vol (Bld) 422 10 3/mcL High 130-400 [facility] ([place]) Comment on above: Performed By: #### C BC, ADIFF, MORPH, ANEU ####Jess[place] [address] [address]#### LIP, CMP, GFR, CBCPR ####[place] [address] RBC Auto #/vol (Bld) 5.87 10 6/mcL High 4.20-5.40 [facility] ([place]) Comment on above: Performed By: #### C BC, ADIFF, MORPH, ANEU ####[place] [address]#### LIP, CMP, GFR, CBCPR ####[place] [address] WBC Auto #/vol (Bld) 14.80 10 3/mcL High 4.60-10.80 [facility] ([place]) Comment on above: Performed By: #### C BC, ADIFF, MORPH, ANEU ####[place] [address]#### LIP, CMP, GFR, CBCPR ####[place] [address] CMPon 03-06-2018 Albumin mass conc 5.0 G/dL Normal 3.5-5.0 [facility] ([place]) Comment on above: Performed By: #### C BC, ADIFF, MORPH, ANEU ####[place] [address]#### LIP, CMP, GFR, CBCPR ####[place] [address] Albumin/Globulin mass ratio 1.4 {ratio} Normal 1.1-2.5 [facility] ([place]) Comment on above: Performed By: #### C BC, ADIFF, MORPH, ANEU ####[place] [address]#### LIP, CMP, GFR, CBCPR ####[place] [address] ALP enzyme act/vol 78 U/L Normal 40-135 [facility] ([place]) Comment on above: Performed By: #### C BC, ADIFF, MORPH, ANEU ####[place] [address]#### LIP, CMP, GFR, CBCPR ####[place] [address] ALT enzyme act/vol 25 U/L Normal 10-35 [facility] ([place]) Comment on above: Performed By: #### C BC, ADIFF, MORPH, ANEU ####[place] [address] [place] [address]#### LIP, CMP, GFR, CBCPR ####[place] [address] AST enzyme act/vol 12 U/L Normal 10-40 [facility] ([place]) Comment on above: Performed By: #### C BC, ADIFF, MORPH, ANEU ####Jess[address] [place] [address]#### LIP, CMP, GFR, CBCPR ####[place] [address] Bili Total 0.7 mg/dL Normal 0.2-1.0 [facility] ([place]) Comment on above: Performed By: #### C BC, ADIFF, MORPH, ANEU ####[place] [address]#### LIP, CMP, GFR, CBCPR ####[place] [address] Calcium mass conc 10.0 mg/dL Normal 8.4-10.2 [facility] ([place]) Comment on above: Performed By: #### C BC, ADIFF, MORPH, ANEU ####[place] [address]#### LIP, CMP, GFR, CBCPR ####[place] [address] Chloride molar conc 95 mmol/L Low 98-107 [facility] ([place]) Comment on above: Performed By: #### C BC, ADIFF, MORPH, ANEU ####[place] [address]#### LIP, CMP, GFR, CBCPR ####[place] [address] CO2 molar conc 26 mmol/L Normal 22-29 [facility] ([place]) Comment on above: Performed By: #### C BC, ADIFF, MORPH, ANEU ####Jessica [address] [place] [address]#### LIP, CMP, GFR, CBCPR ####[place] [address] Creatinine mass conc 1.02 mg/dL Normal 0.55-1.02 [facility] ([place]) Comment on above: Performed By: #### C BC, ADIFF, MORPH, ANEU ####[place] [address]#### LIP, CMP, GFR, CBCPR ####[place] [address] Electrolyte Balance 15.0 mEq/L Normal [facility] ([place]) Comment on above: Performed By: #### C BC, ADIFF, MORPH, ANEU ####[place] [address]#### LIP, CMP, GFR, CBCPR ####[place] [address] Globulin Calculated mass conc (S) 3.7 G/dL Normal [facility] ([place]) Comment on above: Performed By: #### C BC, ADIFF, MORPH, ANEU ####[place] [address]#### LIP, CMP, GFR, CBCPR ####[place] [address] Glucose mass conc 94 mg/dL Normal 70-105 [facility] ([place]) Comment on above: Performed By: #### C BC, ADIFF, MORPH, ANEU ####[place] [address]#### LIP, CMP, GFR, CBCPR ####[place] [address] Potassium molar conc 3.6 mmol/L Normal 3.5-5.1 [facility] ([place]) Comment on above: Performed By: #### C BC, ADIFF, MORPH, ANEU ####[place] [address]#### LIP, CMP, GFR, CBCPR ####[address] [address] Protein mass conc 8.7 G/dL High 6.4-8.2 [facility] ([place]) Comment on above: Performed By: #### C BC, ADIFF, MORPH, ANEU ####[facility] [place] [address]#### LIP, CMP, GFR, CBCPR ####[address] [address] Sodium molar conc 136 mmol/L Normal 136-145 [facility] ([place]) Comment on above: Performed By: #### C BC, ADIFF, MORPH, ANEU ####[place] [address]#### LIP, CMP, GFR, CBCPR ####[address] [address] Urea nitrogen mass conc 23 mg/dL High 7-18 [facility] ([place]) Comment on above: Performed By: #### C BC, ADIFF, MORPH, ANEU ####[place] [address]#### LIP, CMP, GFR, CBCPR ####[address] [address] Urea nitrogen/Creatinine mass ratio 23 ratio Normal 7-27 [facility] ([place]) Comment on above: Performed By: #### C BC, ADIFF, MORPH, ANEU ####[place] [address]#### LIP, CMP, GFR, CBCPR ####[address] [address] LIPon 03-06-2018 Lipase Level 100 U/L Normal 73-393 [facility] ([place]) Comment on above: Performed By: #### C BC, ADIFF, MORPH, ANEU ####[place] [address]#### LIP, CMP, GFR, CBCPR ####[place] [address] PREGUon 03-06-2018 HCG ( test) Ql (U) Negative Normal [facility] ([place]) Comment on above: Performed By: #### U A, PREGU, UAMICAO ####[place] [address] [place] [address] test (u) int HCG not detected. Invalid Interpretation Code [facility] ([place]) Comment on above: Performed By: #### U A, PREGU, UAMICAO ####Jess[address] [place], [place] [address] UAon 03-06-2018 Color Nom (U) Yellow Normal [facility] ([place]) Comment on above: Performed By: #### U A, PREGU, UAMICAO ####Jess[address] [place] [address] Glucose mass conc (U) Negative Normal Negative [facility] ([place]) Comment on above: Performed By: #### U A, PREGU, UAMICAO ####Jess[address] [place] [address] Ketones Ql (U) 80 mg/dL Invalid Interpretation Code Negative [facility] ([place]) Comment on above: Performed By: #### U A, PREGU, UAMICAO ####[address] [place] [address] UA Appear Slightly Cloudy Invalid Interpretation Code Clear [facility] ([place]) Comment on above: Performed By: #### U A, PREGU, UAMICAO ####[address] [place] [address] UA Blood Negative Normal Negative [facility] ([place]) Comment on above: Performed By: #### U A, PREGU, UAMICAO ####[address] [place] [address] UA Leuk Est Negative Normal Negative [facility] ([place]) Comment on above: Performed By: #### U A, PREGU, UAMICAO ####[address] [place] [address] UA Nitrite Negative Normal Negative [facility] ([place]) Comment on above: Performed By: #### U A, PREGU, UAMICAO ####[address] [place] [address] UA pH 7.5 Normal [facility] ([place]) Comment on above: Performed By: #### U A, PREGU, UAMICAO ####Jessica [address] [place], [place] [address] UA Protein Trace Normal Negative [facility] ([place]) Comment on above: Performed By: #### U [place] KuhnU UAMICAO ####Jessica [address] [place], [place] [address] UA Spec Grav 1.015 Normal [facility] ([place]) Comment on above: Performed By: #### U A PREGU UAMICAO ####[address] [place], [place] [address] UA Specimen Type Clean Catch Normal [facility] ([place]) Comment on above: Performed By: #### U [place] KuhnU UAMICCEDRIC ####[address] [place], [place] [address] UA Urobilinogen 0.2 E.U./dL Normal [facility] ([place]) Comment on above: Performed By: #### U A PREGU UAMICAO ####[address] [place], [place] [address] Urobilinogen Test strip Qn (U) Negative Normal Negative [facility] ([place]) Comment on above: Performed By: #### [place] AshrafU UAMICCEDRIC ####[address] [place], [place] [address] PROGRESSon 11-20-2017 Protein HNO ID: [id number]: Rosette Miramonteservice: (none)Author Type: PhysicianType: Progress NotesFiled: 11/20/2017 5:37 PMNote Text:Positive Chlamydia. Pt will need to be treated with azithromycin 1000mg POonce. Rx e-scripted to patient's pharmacy. All partners in the last 60days should also be treated. Recommended refrain from sexual activity for7 days after treatment. Encouraged 100% condom use. Will need to repeattesting in 3 months.The following approved medication requests have been transmittedelectronic ally.Signed Prescriptions Disp Refills azithromycin (ZITHROMAX) 500 mg tablet 2 tablet 0 Sig: Take 2 tablets by mouth one time only for 1 dose.Rosette Del Angel MD [facility] ER Physician Documentationon 02-13-2017 ER Physician Documentation [facility] Emergency [facility] Patient: ISABEL OREILLY1 Daniela Medel. : [address] [place], [place] [address] Location: ER [phone] [id number] Physician Documentation Service Date:01/20/17 ER Provider: Cheyenne Pizarro DO HPI - Vomiting / Diarrhea Time Seen by Provider: 01/20/17 17:05 Arrival Mode: Private Vehicle Historian: Patient Limited by: none - History of Present Illness Stated Complaint: CYCLIC VOMITING SYNDROME Symptoms Began: Today Symptoms Still Occurring: Still Present Timing: sudden onset Current Associated Symptoms: Nausea, Vomiting. denies: Diarrhea Severity: Moderate 16 y/o female presents to the ED due to vomiting. Pt has a history of cyclic vomiting and has a GI that she sees in [place]. Pt is currently stressed about school which brought on symptoms today around 7AM. Pt denied diarrhea, fever, and chills. Pt stated current episode is similar to previous episodes. Zofran has not helped today. Pt denied chance of . Past Medical History Allergies/Adverse Reactions: Allergies/Adverse Reactions No Known Drug Allergy Allergy (Verified 01/20/17 17:08) Home Medications: Home Medications Ondansetron HCl [Zofran] 4 mg PO Q6HPRN PRN 12/27/16 [History Confirmed 01/20/17] Promethazine HCl [Phenergan Supp] 25 mg UT Q6HPRN PRN #20 sup 01/08/17 [Rx Confirmed 01/20/17] Additional GI Information: cyclic vomiting - Other PMH Additional Medical Information: cyclic vomiting syndrome - Social History Exposed to second hand smoke/ parent smoke: No Alcohol Amount: None Street Drugs: None Review and agree with Nursing - Past Medical History: Agree Review and agree with Nursing - Social History: Agree Review and agree with Nursing - Family History: Agree Review of Systems Constitutional: denies: Fever, Chills EENT: No symptoms Respiratory: No symptoms Abdomen/GI: Nausea, Vomiting. denies: Diarrhea Genitourinary: No symptoms Skin: No symptoms Musculoskeletal: No symptoms Neurological: No symptoms Endocrine: No symptoms Hematologic/Lymphatic : No symptoms Psychiatric: No symptoms All other systems: Reviewed and negative except HPI Exam - Physical Exam Patient presentation: Well appearing, No apparent distress General Skin: Warm, Dry General Habitus: Normal General Mental Status: Alert General hydration: Moist mucous membranes ENT Exam: Tympanic membranes normal, Pharynx normal, Neck supple Eye exam: PERRL, EOMI, Conjunctivi normal Cardiovascular Exam: Regular rate and rhythm, No edema Heart sounds: Normal Pulmonary exam: Lungs clear, No respiratory distress, Chest non-tender Respirations: Normal Gastrointestinal Exam: Normal bowel sounds, non tender, Soft, No organomegaly, Non distended, Other - actively retching Auscultation of Abdomen: Normal - Musculoskeletal Exam Musculoskeletal Exam: Full ROM, No edema, Neurovascular intact - Skin Exam Intact, Warm,dry, No rash - Progress note 17:29 Dr. Cheyenne Pizarro examined pt. Pt will have labs drawn, UA, and will receive Benadryl, Toradol, Phenergan, and fluids. Pt understands and agrees to POC. 19:15 Pt continues to retch. Pt will receive Haldol. 19:45 Pt was sleeping upon reevaluation. Pt will be discharged. - Orders/Results Orders Basic Metabolic,Non-Fasting Urgent Lab 01/20/17 18:03 Completed Complete Blood Count Urgent Lab 01/20/17 18:03 Completed Laboratory 01/20/17 18:03: WBC 10.5, RBC 5.45 H, Hgb 11.6 L, Hct 37.5, MCV 68.8 L, MCH 21.4 L, MCHC 31.1 L, RDW 16.2 H, Plt Count 362, Neut % (Auto) 89.9, Lymph % (Auto) 8.2, Heard % (Auto) 1.6, Eos % (Auto) 0.0, Baso % (Auto) 0.3, Nucleat RBC Rel Count 0.0, Absolute Neuts (auto) 9400 H, Absolute Lymphs (auto) 900 L, Absolute Monos (auto) 200, Absolute Eos (auto) 0, Absolute Basos (auto) 0, Hypochromasia 3+, Microcytosis 1+, RBC Morph Comment Test not performed 01/20/17 18:03: Sodium 133 L, Potassium 4.3, Chloride 101, Carbon Dioxide 23, Anion Gap 9, BUN 9, Creatinine 0.71, GFR Calculation , Random Glucose 116 H, Calcium 9.6, Total Bilirubin 0.5, AST 25, ALT 24, Alkaline Phosphatase 72, Total Protein 8.2 H, Albumin 5.5 H, Albumin/Globulin Ratio 2.0, Lipase 17 L - Pulse Oximetry Oxygen delivery method: Room Air Patient Hypoxic: No Vital Signs 01/20/17 16:06 97.7 F 88 20 168/108 H 98 Departure Print Language: [place] Disposition*: Discharge from ER Condition*: Good Clinical Impression*: Nausea AND vomiting Qualifiers: Vomiting type: cyclical vomiting Vomiting Intractability: non-intractable Qualified Code(s): G43.A0 - Cyclical vomiting, not intractable Instructions: Acute Nausea and Vomiting (ED), Acute Abdominal Pain (ED) Forms: ED Additional Information - Scribe Attestation By electronically signing this emergency patient record, the Emergency Physician attests that all entries made into the electronic medical record by the scribe prior to the Physician electronic signature reflect an accurate accounting of the evaluation and care rendered by that Emergency Physician. The Emergency Physician assumes full responsibility for those entries. The Emergency Physician also attests that any patient testing and treatment that was instituted by nursing staff in accordance with Emergency Department Preemptive Guidelines have been reviewed and unless so stated elsewhere in this patient chart, the physician agrees with the testing and care provided. IVanda, documented HPI, ROS, PE, and progress notes for Dr. Cheyenne Pizarro. cc: None Dictated by: Vanda Santiago on 01/20/171748 Transcribed by: Vanda Marrero on 01/20/171748 Report Signed by: Vanda SANTIAGO on 02/01/17 1859 < > Report Signed by: Cheyenne Pizarro DO on 02/12/172252 < > Report Signed by: on Report Signed by: on Co-Signer: Cheyenne Pizarro DO on 02/12/172252 < > Normal [facility] Complete Blood Counton 01-20 Abs Baso Count 0 /cmm Normal 0-200 [facility] Comment on above: Performed By: #### L 400.0052, L400.0076 ####Main Laboratory ([facility])[address], [place] [phone] Nivar, MD Abs Eos Count 0 /cmm Normal 0-500 [facility] Comment on above: Performed By: #### L 400.0052, L400.0076 ####Main Laboratory ([facility])[address] [place], [place] [phone] Nivar, MD Abs Heard Count 200 /cmm Normal 0-800 [facility] Comment on above: Performed By: #### L 400.0052, L400.0076 ####Main Laboratory ([facility])[address] [place], [place] [phone] Nivar, MD Abs Neut Count 9400 /cmm High 9270-1251 [facility] Comment on above: Performed By: #### L 400.0052, L400.0076 ####Main Laboratory ([facility])[address] [place], [place] [phone] Nivar, MD Basophils Auto #/vol (Bld) 0.3 % Normal [facility] Comment on above: Performed By: #### L 400.0052, L400.0076 ####Main Laboratory ([facility])[address], [place] [phone] Nivar, MD EOS-Auto Diff 0.0 % Normal [facility] Comment on above: Performed By: #### L 400.0052, [id number] ####Main Laboratory ([facility])[address], [place] [phone] Nivar, MD Erythrocytes (RBC) 0.0 /100 WBC Normal [facility] Comment on above: Performed By: #### L 400.0052, L400.0076 ####Main Laboratory ([facility])[address], [place] [phone] Nivar, MD Hypochromasia 3+ Normal [facility] Comment on above: Performed By: #### L 400.0052, L400.0076 ####Main Laboratory ([facility])[address], [place] [phone] Nivar, MD Lymphocytes 900 /cmm Low 0770-5875 [facility] Comment on above: Performed By: #### L 400.0052, L400.0076 ####Main Laboratory ([facility])[address], [place] [phone] Nivar, MD Lymphocytes/100 leukocytes 8.2 % Normal [facility] Comment on above: Performed By: #### L 400.0052, [id number] ####Main Laboratory ([facility])[address], [place] [phone] Nivar, MD Microcytosis 1+ Normal [facility] Comment on above: Performed By: #### L 400.0052, [id number] ####Main Laboratory ([facility])[address], [place] [phone] Nivar, MD Heard- Auto Diff 1.6 % Normal [facility] Comment on above: Performed By: #### L 400.0052, [id number] ####Main Laboratory ([facility])[address], [place] [phone] Nivar, MD Neut-Auto Diff 89.9 % Normal [facility] Comment on above: Performed By: #### L 400.0052, [id number] ####Main Laboratory ([facility])[address], [place] [phone] Nivar, MD Erythrocyte distribution width Auto Ratio (RBC) 16.2 % High 12.0-16.0 [facility] Comment on above: Performed By: #### L 400.0052, [id number] ####Main Laboratory ([facility])[address], [place] [phone] Nivar, MD Erythrocytes (RBC) 5.45 mil/cmm High 4.00-5.10 [facility] Comment on above: Performed By: #### L 400.0052, L400.0076 ####Main Laboratory ([facility])[address] [phone] Nivar, MD Hematocrit (HCT) 37.5 % Normal 35.0-44.0 [facility] Comment on above: Performed By: #### L 400.0052, L400.0076 ####Main Laboratory ([facility])[address] [place] [phone] Nivar, MD Hemoglobin mass conc (Bld) 11.6 g/dL Low 12.0-15.0 [facility] Comment on above: Performed By: #### L 400.0052, L400.0076 ####Main Laboratory ([facility])[address] [phone] Nivar, MD MCH 21.4 pg Low 27.5-33.0 [facility] Comment on above: Performed By: #### L 400.0052, L400.0076 ####Main Laboratory ([facility])[address] [phone] Nivar, MD MCHC mass conc (RBC) 31.1 g/dL Low 33.0-36.0 [facility] Comment on above: Performed By: #### L 400.0052, L400.0076 ####Main Laboratory ([facility])[address] [phone] Nivar, MD MCV 68.8 CU DARCI Low 80-97 [facility] Comment on above: Performed By: #### L 400.0052, L400.0076 ####Main Laboratory ([facility])[address] [phone] Nivar, MD Platelets 362 th/cmm Normal 150-400 [facility] Comment on above: Performed By: #### L 400.0052, L400.0076 ####Main Laboratory ([facility])[address] [place] [phone] Nivar, MD WBC (Leukocytes) 10.5 th/cmm Normal 4.4-10.5 [facility] Comment on above: Performed By: #### L 400.0052, L400.0076 ####Main Laboratory ([facility])[address], [place] [phone] Nivar, MD Comprehensive Metabolic Pane rudy 01-20-2017 Albumin 5.5 g/dL High 3.5-5.0 [facility] Comment on above: Performed By: #### L 400.0052, L400.0076 ####Main Laboratory ([facility])[address] [place] [phone] Nivar, MD Albumin/Globulin Ratio 2.0 {ratio} Normal 1.5-2.5 L [facility] Comment on above: Performed By: #### L 400.0052, L400.0076 ####Main Laboratory ([facility])[address], [place] [phone] Nivar, MD Alk Phos 72 IU/L Normal 35-124 [facility] Comment on above: Performed By: #### L 400.0052, L400.0076 ####Main Laboratory ([facility])[address], [place] [phone] Nivar, MD ALT/SGPT 24 IU/L Normal 10-40 [facility] Comment on above: Performed By: #### L 400.0052, L400.0076 ####Main Laboratory ([facility])[address], [place] [phone] Nivar, MD AST/SGOT 25 IU/L Normal 15-41 [facility] Comment on above: Performed By: #### L 400.0052, L400.0076 ####Main Laboratory ([facility])[address], [place] [phone] Nivar, MD Bili,Total 0.5 mg/dL Normal 0.2-1.0 [facility] Comment on above: Performed By: #### L 400.0052, L400.0076 ####Main Laboratory ([facility])[address], [place] [phone] Nivar, MD Urea nitrogen 9 mg/dL Normal 7-20 [facility] Comment on above: Performed By: #### L 400.0052, L400.0076 ####Main Laboratory ([facility])[address] [phone] Nivar, MD Anion gap 9 mmol/L Normal 4-12 [facility] Comment on above: Performed By: #### L 400.0052, L400.0076 ####Main Laboratory ([facility])[address] [phone] Nivar, MD Calcium 9.6 mg/dL Normal 8.8-10.5 [facility] Comment on above: Performed By: #### L 400.0052, L400.0076 ####Main Laboratory ([facility])[address] [place] [phone] Nivar, MD Chloride 101 mmol/L Normal 101-111 [facility] Comment on above: Performed By: #### L 400.0052, L400.0076 ####Main Laboratory ([facility])[address] [phone] Nivar, MD CO2 23 mmol/L Normal 21-32 [facility] Comment on above: Performed By: #### L 400.0052, L400.0076 ####Main Laboratory ([facility])[address], [place] [phone] Nivar, MD Creatinine 0.71 mg/dL Normal 0.60-1.30 [facility] Comment on above: Performed By: #### L 400.0052, L400.0076 ####Main Laboratory ([facility])[address] [place] [phone] Nivar, MD eGFR (non-black) Normal [facility] Comment on above: Result Comment: GFR not reported on patients <20 years old.Chronic Kidney Disease stages by NKDFStage eGFR I >90 II 60-89 III 30-59 IV 15-29 V <15 or dialysis Performed By: #### L 400.0052, L400.0076 ####Main Laboratory ([facility])[address] [place] [phone] Nivar, MD Glucose mass conc 116 mg/dL High 70-110 [facility] Comment on above: Performed By: #### L 400.0052, L400.0076 ####Main Laboratory ([facility])[address] [place] [phone] Nivar, MD Potassium molar conc 4.3 mmol/L Normal 3.6-5.0 [facility] Comment on above: Performed By: #### L 400.0052, L400.0076 ####Main Laboratory ([facility])[address] [place] [phone] Nivar, MD Protein 8.2 g/dL High 6.2-8.0 [facility] Comment on above: Performed By: #### L 400.0052, L400.0076 ####Main Laboratory ([facility])[address] [place] [phone] Nivar, MD Sodium 133 mmol/L Low 135-145 [facility] Comment on above: Performed By: #### L 400.0052, L400.0076 ####Main Laboratory ([facility])[address] [place] [phone] Nivar, MD Lipaseon 01-20-2017 Lipase 17 U/L Low 21-51 [facility] Comment on above: Performed By: #### L 400.0052, L400.0076 ####Main Laboratory ([facility])[address], [place] [phone] Nivar, MD Basic Metabolic,Non-Fastingo n 01-08-2017 Urea nitrogen 10 mg/dL Normal 7-20 [facility] Comment on above: Performed By: #### L 400.0152 ####Main Laboratory ([facility])[address] [place] [phone] Nivar, MD Anion gap 10 mmol/L Normal 4-12 [facility] Comment on above: Performed By: #### L 400.0152 ####Main Laboratory ([facility])[address] [place] [phone] Nivar, MD Calcium 8.9 mg/dL Normal 8.8-10.5 [facility] Comment on above: Performed By: #### L 400.0152 ####Main Laboratory ([facility])[address] [place] [phone] Nivar, MD Chloride 104 mmol/L Normal 101-111 [facility] Comment on above: Performed By: #### L 400.0152 ####Main Laboratory ([facility])[address] [place] [phone] Nivar, MD CO2 23 mmol/L Normal 21-32 [facility] Comment on above: Performed By: #### L 400.0152 ####Main Laboratory ([facility])[address] [place] [phone] Nivar, MD Creatinine 0.76 mg/dL Normal 0.60-1.30 [facility] Comment on above: Performed By: #### L 400.0152 ####Main Laboratory ([facility])[address] [place], [place] [phone] Nivar, MD eGFR (non-black) Normal [facility] Comment on above: Result Comment: GFR not reported on patients <20 years old.Chronic Kidney Disease stages by NKDFStage eGFR I >90 II 60-89 III 30-59 IV 15-29 V <15 or dialysis Performed By: #### L 400.0152 ####Main Laboratory ([facility])[address] [place] [phone] Nivar, MD Glucose mass conc 117 mg/dL High 70-110 [facility] Comment on above: Performed By: #### L 400.0152 ####Main Laboratory ([facility])[address] [place] [phone] Nivar, MD Potassium molar conc 3.8 mmol/L Normal 3.6-5.0 [facility] Comment on above: Performed By: #### L 400.0152 ####Main Laboratory ([facility])[address] [place] [phone] Nivar, MD Sodium 137 mmol/L Normal 135-145 [facility] Comment on above: Performed By: #### L 400.0152 ####Main Laboratory ([facility])[address] [place] [phone] Nivar, MD Complete Blood Counton 01-08 Anisocytosis presence 1+ Normal [facility] Comment on above: Performed By: #### L 100.0000, L100.3600, L150.0305 ####Main Laboratory ([facility])[address] [place], [place] [phone] Nivar, MD Abs Baso Count 100 /cmm Normal 0-200 [facility] Comment on above: Performed By: #### L 100.0000, L100.3600, L150.0305 ####Main Laboratory ([facility])[address], [place] [phone] Nivar, MD Abs Eos Count 0 /cmm Normal 0-500 [facility] Comment on above: Performed By: #### L 100.0000, L100.3600, L150.0305 ####Main Laboratory ([facility])[address], [place] [phone] Nivar, MD Abs Heard Count 600 /cmm Normal 0-800 [facility] Comment on above: Performed By: #### L 100.0000, L100.3600, L150.0305 ####Main Laboratory ([facility])[address], [place] [phone] Nivar, MD Abs Neut Count 84922 /cmm High 6456-5649 [facility] Comment on above: Performed By: #### L 100.0000, L100.3600, L150.0305 ####Main Laboratory ([facility])[address], [place] [phone] Nivar, MD Basophils Auto #/vol (Bld) 0.5 % [facility] Comment on above: Performed By: #### L 100.0000, L100.3600, L150.0305 ####Main Laboratory ([facility])[address], [place] [phone] Nivar, MD EOS-Auto Diff 0.2 % [facility] Comment on above: Performed By: #### L 100.0000, L100.3600, L150.0305 ####Main Laboratory ([facility])[address], [place] [phone] Nivar, MD Erythrocytes (RBC) 0.0 /100 WBC Normal [facility] Comment on above: Performed By: #### L 100.0000, L100.3600, L150.0305 ####Main Laboratory ([facility])[address], [place] [phone] Nivar, MD Hypochromasia 3+ Normal [facility] Comment on above: Performed By: #### L 100.0000, L100.3600, L150.0305 ####Main Laboratory ([facility])[address], [place] [phone] Nivar, MD Lymphocytes 2600 /cmm Normal 4982-6471 [facility] Comment on above: Performed By: #### L 100.0000, L100.3600, L150.0305 ####Main Laboratory ([facility])[address], [place] [phone] Nivar, MD Lymphocytes/100 leukocytes 18.5 % Normal [facility] Comment on above: Performed By: #### L 100.0000, L100.3600, L150.0305 ####Main Laboratory ([facility])[address], [place] [phone] Nivar, MD Microcytosis 1+ Normal [facility] Comment on above: Performed By: #### L 100.0000, L100.3600, L150.0305 ####Main Laboratory ([facility])[address], [place] [phone] Nivar, MD Heard- Auto Diff 4.3 % Normal [facility] Comment on above: Performed By: #### L 100.0000, L100.3600, L150.0305 ####Main Laboratory ([facility])[address], [place] [phone] Nivar, MD Neut-Auto Diff 76.5 % Normal [facility] Comment on above: Performed By: #### L 100.0000, L100.3600, L150.0305 ####Main Laboratory ([facility])[address], [place] [phone] Nivar, MD Erythrocyte distribution width Auto Ratio (RBC) 15.9 % Normal 12.0-16.0 [facility] Comment on above: Performed By: #### L 100.0000, L100.3600, L150.0305 ####Main Laboratory ([facility])[address], [place] [phone] Nivar, MD Erythrocytes (RBC) 5.01 mil/cmm Normal 4.00-5.10 [facility] Comment on above: Performed By: #### L 100.0000, L100.3600, L150.0305 ####Main Laboratory ([facility])[address] [place] [phone] Nivar, MD Hematocrit (HCT) 34.8 % Low 35.0-44.0 [facility] Comment on above: Performed By: #### L 100.0000, L100.3600, L150.0305 ####Main Laboratory ([facility])[address] [place] [phone] Nivar, MD Hemoglobin mass conc (Bld) 10.9 g/dL Low 12.0-15.0 [facility] Comment on above: Performed By: #### L 100.0000, L100.3600, L150.0305 ####Main Laboratory ([facility])[address] [place] [phone] Nivar, MD MCH 21.7 pg Low 27.5-33.0 [facility] Comment on above: Performed By: #### L 100.0000, L100.3600, L150.0305 ####Main Laboratory ([facility])[address], [place] [phone] Nivar, MD [facility] mass conc (RBC) 31.3 g/dL Low 33.0-36.0 [facility] Comment on above: Performed By: #### L 100.0000, L100.3600, L150.0305 ####Main Laboratory ([facility])[address] [phone] Nivar, MD MCV 69.4 CU DARCI Low 80-97 [facility] Comment on above: Performed By: #### L 100.0000, L100.3600, L150.0305 ####Main Laboratory ([facility])[address] [place] [phone] Nivar, MD Platelets 307 th/cmm Normal 150-400 [facility] Comment on above: Performed By: #### L 100.0000, L100.3600, L150.0305 ####Main Laboratory ([facility])[address], [place] [phone] Nivar, MD WBC (Leukocytes) 13.9 th/cmm High 4.4-10.5 [facility] Comment on above: Performed By: #### L 100.0000, L100.3600, L150.0305 ####Main Laboratory ([facility])[address] [phone] Nivar, MD ER Physician Documentationon 01-08-2017 ER Physician Documentation [facility] Emergency Center Patient: ISABEL OREILLY [address] : 2000 [place], [place] [address] Location: ER [phone] [id number] Physician Documentation Service Date:01/08/17 ER Provider: Asael Bah DO HPI - Vomiting / Diarrhea Time Seen by Provider: 01/08/17 00:43 Arrival Mode: Private Vehicle Historian: Patient - History of Present Illness Stated Complaint: VOMITING Symptoms Began: Other - 01/07 since 19:00 Symptoms Still Occurring: Still Present Current Associated Symptoms: Nausea, Vomiting Severity: Mild 16 y/o female presents to the ED with c/o emesis. Pt states that she has been having bouts of cyclic vomiting syndrome that she has been evaluated for recently in the [facility] ED. Pt states that her present bout of persistent emesis and nausea sx began on 01/07 at 19:00. Pt states that she takes an Rx of Lamictal, Zofran, and Amitriptyline with no relief in her emesis sx. Pt denies any sx of diarrhea or chance of . Past Medical History Allergies/Adverse Reactions: Allergies/Adverse Reactions No Known Drug Allergy Allergy (Verified 01/08/17 01:51) Home Medications: Home Medications Ondansetron HCl [Zofran] 4 mg PO Q6HPRN PRN 12/27/16 [History Confirmed 01/08/17] Promethazine HCl [Phenergan Supp] 25 mg UT Q6HPRN PRN #10 sup 12/27/16 [Rx Confirmed 01/08/17] Promethazine HCl [Phenergan Supp] 25 mg UT Q6HPRN PRN #20 sup 01/08/17 [Rx] Additional GI Information: cyclic vomiting - Social History Exposed to second hand smoke/ parent smoke: No Alcohol Amount: None Street Drugs: None Review and agree with Nursing - Past Medical History: Agree Review and agree with Nursing - Social History: Agree Review and agree with Nursing - Family History: Agree Review of Systems Constitutional: No symptoms EENT: No symptoms Respiratory: No symptoms Cardiac: No symptoms Abdomen/GI: Nausea, Vomiting. denies: Diarrhea Genitourinary: No symptoms Skin: No symptoms Musculoskeletal: No symptoms Neurological: No symptoms Endocrine: No symptoms Hematologic/Lymphatic : No symptoms Psychiatric: No symptoms All other systems: Reviewed and negative except HPI Exam - Physical Exam Patient presentation: Well appearing, No apparent distress General Skin: Warm, Dry General Habitus: Normal General Mental Status: Alert General hydration: Moist mucous membranes ENT Exam: Pharynx normal, Neck supple Eye exam: PERRL, EOMI, Conjunctivi normal Cardiovascular Exam: Regular rate and rhythm, No edema Heart sounds: Normal Pulmonary exam: Lungs clear, No respiratory distress, Chest non-tender Oxygen Mode: Room Air Respirations: Normal Gastrointestinal Exam: Normal bowel sounds, non tender, Soft, No organomegaly, Non distended Auscultation of Abdomen: Normal - Musculoskeletal Exam Musculoskeletal Exam: Full ROM, No edema, Neurovascular intact - Skin Exam Intact, Warm,dry, No rash - Progress note 01/08/17 00:45 Dr. Valdo Bah, DO examined the pt. Pt has a normal physical exam. Pt will receive blood work, serum quant test, Saline, and Phenergan. Pt agrees and understands the POC. All questions and concerns were addressed. 01/08/17 01:43 Dr. Bah f/u with the pt and informed the pt of her normal lab results. Pt is agreeable with being d/c home with an Rx of suppositories. All questions and concerns were addressed. - Orders/Results Orders Basic Metabolic,Non-Fasting Urgent Lab 01/08/17 01:09 Completed Complete Blood Count Urgent Lab 01/08/17 01:09 Completed RBC Morphology Urgent Lab 01/08/17 01:09 Completed Laboratory 01/08/17 01:09: WBC 13.9 H, RBC 5.01, Hgb 10.9 L, Hct 34.8 L, MCV 69.4 L, MCH 21.7 L, MCHC 31.3 L, RDW 15.9, Plt Count 307, Neut % (Auto) 76.5, Lymph % (Auto) 18.5, Heard % (Auto) 4.3, Eos % (Auto) 0.2, Baso % (Auto) 0.5, Nucleat RBC Rel Count 0.0, Absolute Neuts (auto) 98196 H, Absolute Lymphs (auto) 2600, Absolute Monos (auto) 600, Absolute Eos (auto) 0, Absolute Basos (auto) 100, Hypochromasia 3+, Anisocytosis 1+, Microcytosis 1+, Ovalocytes Slight, RBC Morph Comment Test not performed, Serum , Qual Negative 01/08/17 01:09: Sodium 137, Potassium 3.8, Chloride 104, Carbon Dioxide 23, Anion Gap 10, BUN 10, Creatinine 0.76, GFR Calculation , Random Glucose 117 H, Calcium 8.9 - Pulse Oximetry Oxygen delivery method: Room Air Patient Hypoxic: No Vital Signs 01/08/17 00:43 98.5 F 80 18 153/100 H 100 Departure Disposition*: Discharge from ER Condition*: Good Clinical Impression*: Vomiting Qualifiers: Vomiting type: psychogenic vomiting Nausea presence: unspecified Qualified Code(s): F50.89 - Other specified eating disorder Instructions: Acute Nausea and Vomiting (ED) Additional Instructions: See your doctor in 1-2 days, return here if worse. Referrals: None,Physician [Primary Care Provider] - Forms: ED Additional Information Prescriptions: Promethazine HCl [Phenergan Supp] 25 mg UT Q6HPRN PRN #20 sup PRN Reason: Nausea And Vomiting - Scribe Attestation By electronically signing this emergency patient record, the Emergency Physician attests that all entries made into the electronic medical record by the scribe prior to the Physician electronic signature reflect an accurate accounting of the evaluation and care rendered by that Emergency Physician. The Emergency Physician assumes full responsibility for those entries. The Emergency Physician also attests that any patient testing and treatment that was instituted by nursing staff in accordance with Emergency Department Preemptive Guidelines have been reviewed and unless so stated elsewhere in this patient chart, the physician agrees with the testing and care provided. I, Humble Norris, documented the HPI, ROS, PE, and Progress Note for Dr. Valdo Bah DO. cc: None Dictated by: Humble Norris Scribe on 01/08/1746 Transcribed by: Humble Norris on 01/08/1746 Report Signed by: Asael Bah DO on 01/08/17439 < > Report Signed by: on Report Signed by: on Report Signed by: on Co-Signer: Asael Bah DO on 01/08/17439 < > Normal [facility] RBC Morphologyon 01-08-2017 Ovalocytes Slight Normal [facility] Comment on above: Performed By: #### L 100.0000, L100.3600, L150.0305 ####Main Laboratory ([facility])[address], [place] [phone] Nivar, MD Serum Qualitativeo n 01-08-2017 Result Negative Normal Negative [facility] Comment on above: Performed By: #### L 400.0052, L400.0076 ####Main Laboratory ([facility])[address], [place] [phone] Nivar, MD ER Physician Documentationon 01-01-2017 ER Physician Documentation [facility] Emergency Center Patient: ISABEL OREILLY[address] : 2000 [place], [place] [address] Location: ER [phone] Unit #: [id number] ER Physician Documentation Service Date:12/27/16 ER Provider: Sonu Eldridge MD - Abdominal Pain Time Seen by Provider: 12/27/16 17:31 Arrival Mode: Private Vehicle Historian: Patient Limited by: none - History of Present Illness Stated Complaint: VOMITING Symptoms Began: Today Symptoms Still Occurring: Still Present Timing: intermittent Quality: Pain Location: Centralized Associated Symptoms: Nausea, Vomiting 12/27/1741 16 year old female arrives at the ED presenting with vomiting. Pt states she was diagnosed with Cyclic Vomiting Syndrome 2 years ago and is having an episode today. Pt states she began puking this morning and has vomited 15 times. Pt states the last two times there have been coffee ground looking spec in her vomit. Pt states she takes Zofran, Benadryl, and Amitriptyline at home for her vomiting. Pt denies fever, chills, urinary symptoms, light headedness, dizzy, chest pain, and SOB. Pt states she has never had abdominal surgeries. Pt denies smoking, alcohol use, or street drug use. Pt states her last period was a week ago. Past Medical History Allergies/Adverse Reactions: Allergies/Adverse Reactions No Known Drug Allergy Allergy (Verified 12/27/16 18:08) Home Medications: Home Medications Amitriptyline HCl [Elavil] 100 mg PO QHS 12/27/16 [History Confirmed 12/27/16] Hyoscyamine Sulfate Sl [Levsin SL] 0.125 mg PO Q4HPRN PRN 12/27/16 [History Confirmed 12/27/16] Iron Polysaccharide [Ferrex 150] 150 mg PO DAILY 12/27/16 [History Confirmed 12/27/16] Ondansetron HCl [Zofran] 4 mg PO Q6HPRN PRN 12/27/16 [History Confirmed 12/27/16] Promethazine HCl [Phenergan Supp] 25 mg UT Q6HPRN PRN #10 sup 12/27/16 [Rx] - Social History Exposed to second hand smoke/ parent smoke: No Alcohol Amount: None Street Drugs: None Review and agree with Nursing - Past Medical History: Agree Review and agree with Nursing - Social History: Agree Review and agree with Nursing - Family History: Agree Review of Systems Constitutional: denies: Fever, Chills EENT: No symptoms Respiratory: denies: Trouble breathing Cardiac: denies: Chest pain Abdomen/GI: Nausea, Vomiting, Pain Genitourinary: No symptoms Skin: No symptoms Musculoskeletal: No symptoms Neurological: No symptoms Endocrine: No symptoms Hematologic/Lymphatic : No symptoms Psychiatric: No symptoms All other systems: Reviewed and negative except HPI Exam - Physical Exam Patient presentation: Well appearing, No apparent distress General Skin: Warm, Dry General Habitus: Normal General Mental Status: Alert General hydration: Moist mucous membranes ENT Exam: Pharynx normal, Neck supple Eye exam: PERRL, EOMI, Conjunctivi normal Cardiovascular Exam: Regular rate and rhythm, No edema Heart sounds: Normal Pulmonary exam: Lungs clear, No respiratory distress, Chest non-tender Respirations: Normal Gastrointestinal Exam: Normal bowel sounds, Soft, No organomegaly, Non distended, Tender - diffused generalized abd pain Auscultation of Abdomen: Normal - Musculoskeletal Exam Musculoskeletal Exam: Full ROM, No edema, Neurovascular intact - Skin Exam Intact, Warm,dry, No rash - Progress note 12/27/1741 ERIC Seth examined the pt. Pt has diffused generalized abdominal pain. Pt was vomiting on exam. Vomitus was trace positive. Labs and UA were ordered. Pt understands and agrees with the POC. 19:57 Pt found to be actively gagging herself to induce vomiting. When approached about it she states it relieves her symptoms, so she feels she needs to do it. 12/27/16 20:42 Pt was found gagging herself in the bathroom trying to induce vomiting while she was giving a urine sample. PT was sleeping for over a half an hour, and when she was woke up and informed that we would be discharging her home for follow up she began gagging herself again trying to induce vomiting. The patient was in no distress up until she was told she would be discharged. Pts lab values were normal, she was not dehydrated, and she does not meet admission criteria. The patient will be discharged. - Orders/Results Orders INT Insertion (ED) [ED Insert INT] NOW ED Tx 12/27/16 17:48 Active Laboratory 12/27/16 18:10: WBC 8.5, RBC 5.70 H, Hgb 12.2, Hct 39.9, MCV 70.0 L, MCH 21.5 L, MCHC 30.7 L, RDW 16.2 H, Plt Count 348, Neut % (Auto) 87.4, Lymph % (Auto) 11.2, Heard % (Auto) 1.3, Eos % (Auto) 0.0, Baso % (Auto) 0.1, Nucleat RBC Rel Count 0.0, Absolute Neuts (auto) 7500, Absolute Lymphs (auto) 1000, Absolute Monos (auto) 100, Absolute Eos (auto) 0, Absolute Basos (auto) 0, Hypochromasia 3+, RBC Morph Comment Test not performed 12/27/16 18:10: Sodium 134 L, Potassium 4.1, Chloride 100 L, Carbon Dioxide 24, Anion Gap 10, BUN 10, Creatinine 0.73, GFR Calculation , Random Glucose 111 H, Calcium 9.7, Total Bilirubin 0.4, AST 23, ALT 29, Alkaline Phosphatase 73, Total Protein 8.8 H, Albumin 6.0 H, Albumin/Globulin Ratio 2.1, Lipase 19 L 12/27/16 20:00: Urine Color Straw, Urine Appearance Clear, Urine pH 7.0, Ur Specific [place] 1.012, Urine Protein Negative, Urine Ketones 20 mg/dL H, Urine Blood Negative, Urine Nitrite Negative, Urine Bilirubin Negative, Urine Urobilinogen <2.0 E.U./dL, Ur Leukocyte Esterase Negative, Urine Bacteria (Auto) Trace, Urine RBC None, Ur WBC Total Counted 0-5, Ur Squamous Epith Cells 0-5, Urine Mucus (Auto) Present, Ur Culture Indicated? No, Urine Glucose Negative, Urine Test Negative 12/27/16 20:00: Urine Opiates Screen Negative, Ur Oxycodone Screen Negative, Ur Barbiturates Screen Negative, Ur Phencyclidine Scrn Negative, Ur Amphetamines Screen Negative, U Benzodiazepines Scrn Negative, Urine Cocaine Screen Negative, U Cannabinoids Screen Negative, Drug Screen Comment - Pulse Oximetry Oxygen delivery method: Room Air Patient Hypoxic: No Vital Signs 12/27/16 16:33 97.9 F 86 15 173/90 H 99 Departure Disposition*: Discharge from ER Condition*: Good Clinical Impression*: Vomiting Qualifiers: Vomiting type: unspecified Vomiting Intractability: unspecified Nausea presence: unspecified Qualified Code(s): R11.10 - Vomiting, unspecified Instructions: Acute Abdominal Pain (ED), Acute Nausea and Vomiting (ED) Additional Instructions: Take Phenergan as prescribed. Follow up with primary care provider in 1-2 days. Return to the Emergency Room if symptoms worsen. Continue home medication. Referrals: [facility],Referral [Other] - in one week Forms: ED Additional Information Prescriptions: Promethazine HCl [Phenergan Supp] 25 mg UT Q6HPRN PRN #10 sup PRN Reason: Nausea And Vomiting - Shared Attending Note 18:07 Dr. Eldridge examined pt and agrees to POC provided by ERIC Seth. Pt has mild epigastric tenderness on exam. ED will attempt to get pt's vomiting under control. All questions were answered. - Supervision/Review Statement Evaluation and management services were performed by the SECURITY ADVISOR/PA-C/Resident under my supervision/collabora tion with my participation. I have reviewed all pertinent clinical information, including history, physical exam and plan. Dr. Sonu Eldridge MD - Scribe Attestation By electronically signing this emergency patient record, the Emergency Physician attests that all entries made into the electronic medical record by the scribe prior to the Physician electronic signature reflect an accurate accounting of the evaluation and care rendered by that Emergency Physician. The Emergency Physician assumes full responsibility for those entries. The Emergency Physician also attests that any patient testing and treatment that was instituted by nursing staff in accordance with Emergency Department Preemptive Guidelines have been reviewed and unless so stated elsewhere in this patient chart, the physician agrees with the testing and care provided. I Darius Michaud documented the HPI, ROS, PE, and progress note for ERIC Seth By electronically signing this emergency patient record, the Emergency Physician attests that all entries made into the electronic medical record by the scribe prior to the Physician electronic signature reflect an accurate accounting of the evaluation and care rendered by that Emergency Physician. The Emergency Physician assumes full responsibility for those entries. The Emergency Physician also attests that any patient testing and treatment that was instituted by nursing staff in accordance with Emergency Department Preemptive Guidelines have been reviewed and unless so stated elsewhere in this patient chart, the physician agrees with the testing and care provided. IVanda, documented S/A for Dr. Eldridge. cc: None Dictated by: Darius Santiago on 12/27/161745 Transcribed by: Darius Michaud on 12/27/161745 Report Signed by: Cachorro Gama PA-C on 01/01/171654 < > Report Signed by: Sonu Eldridge MD on 12/28/16 0616 < > Report Signed by: on Report Signed by: on Co-Signer: Cachorro Gama PA-C on 01/01/171654 < > Normal [facility] Complete Blood Counton 12-27 Abs Baso Count 0 /cmm Normal 0-200 [facility] Comment on above: Performed By: #### L 100.0000 ####Main Laboratory ([facility])[address], [place] [phone] Nivar, MD Abs Eos Count 0 /cmm Normal 0-500 [facility] Comment on above: Performed By: #### L 100.0000 ####Main Laboratory ([facility])[address], [place] [phone] Nivar, MD Abs Heard Count 100 /cmm Normal 0-800 [facility] Comment on above: Performed By: #### L 100.0000 ####Main Laboratory ([facility])[address], [place] [phone] Nivar, MD Abs Neut Count 7500 /cmm Normal 0226-8386 [facility] Comment on above: Performed By: #### L 100.0000 ####Main Laboratory ([facility])[address], [place] [phone] Nivar, MD Basophils Auto #/vol (Bld) 0.1 % Normal [facility] Comment on above: Performed By: #### L 100.0000 ####Main Laboratory ([facility])[address], [place] [phone] Nivar, MD EOS-Auto Diff 0.0 % Normal [facility] Comment on above: Performed By: #### L 100.0000 ####Main Laboratory ([facility])[address], [place] [phone] Nivar, MD Erythrocytes (RBC) 0.0 /100 WBC Normal [facility] Comment on above: Performed By: #### L 100.0000 ####Main Laboratory ([facility])[address], [place] [phone] Nivar, MD Hypochromasia 3+ Normal [facility] Comment on above: Performed By: #### L 100.0000 ####[facility] ([facility])[address], [place] [phone] Nivar, MD Lymphocytes 1000 /cmm Normal 4568-4163 [facility] Comment on above: Performed By: #### L 100.0000 ####Main Laboratory ([facility])[address] [phone] Nivar, MD Lymphocytes/100 leukocytes 11.2 % Normal [facility] Comment on above: Performed By: #### L 100.0000 ####[facility] ([facility])[address] [phone] Nivar, MD Heard- Auto Diff 1.3 % Normal [facility] Comment on above: Performed By: #### L 100.0000 ####Main [facility] ([facility])[address] [phone] Nivar, MD Neut-Auto Diff 87.4 % Normal [facility] Comment on above: Performed By: #### L 100.0000 ####[facility] ([facility])[address] [phone] Nivar, MD Erythrocyte distribution width Auto Ratio (RBC) 16.2 % High 12.0-16.0 [facility] Comment on above: Performed By: #### L 100.0000 ####[facility] ([facility])[address] [place] [phone] Nivar, MD Erythrocytes (RBC) 5.70 mil/cmm High 4.00-5.10 [facility] Comment on above: Performed By: #### L 100.0000 ####[facility] ([facility])[address] [place] [phone] Nivar, MD Hematocrit (HCT) 39.9 % Normal 35.0-44.0 [facility] Comment on above: Performed By: #### L 100.0000 ####Main Laboratory ([facility])[address] [place] [phone] Nivar, MD Hemoglobin mass conc (Bld) 12.2 g/dL Normal 12.0-15.0 [facility] Comment on above: Performed By: #### L 100.0000 ####[facility] ([facility])[address] [place] [phone] Nivar, MD MCH 21.5 pg Low 27.5-33.0 [facility] Comment on above: Performed By: #### L 100.0000 ####Main Laboratory ([facility])[address] [place] [phone] Nivar, MD MCHC mass conc (RBC) 30.7 g/dL Low 33.0-36.0 [facility] Comment on above: Performed By: #### L 100.0000 ####[facility] ([facility])[address], [place] [phone] Nivar, MD MCV 70.0 CU DARCI Low 80-97 [facility] Comment on above: Performed By: #### L 100.0000 ####[facility] ([facility])[address], [place] [phone] Nivar, MD Platelets 348 th/cmm Normal 150-400 [facility] Comment on above: Performed By: #### L 100.0000 ####[facility] ([facility])[address], [place] [phone] Nivar, MD WBC (Leukocytes) 8.5 th/cmm Normal 4.4-10.5 [facility] Comment on above: Performed By: #### L 100.0000 ####[facility] ([facility])[address] [phone] Nivar, MD Comprehensive Metabolic Pane rudy 12-27-2016 Albumin 6.0 g/dL High 3.5-5.0 [facility] Comment on above: Performed By: #### L 400.0052, L400.0076 ####[facility] ([facility])[address], [place] [phone] Nivar, MD Albumin/Globulin Ratio 2.1 {ratio} Normal 1.5-2.5 L [facility] Comment on above: Performed By: #### L 400.0052, L400.0076 ####[facility] ([facility])[address] [phone] Nivar, MD Alk Phos 73 IU/L Normal 35-124 [facility] Comment on above: Performed By: #### L 400.0052, L400.0076 ####[facility] ([facility])[address] [phone] Nivar, MD ALT/SGPT 29 IU/L Normal 10-40 [facility] Comment on above: Performed By: #### L 400.0052, L400.0076 ####[facility] ([facility])[address], [place] [phone] Nivar, MD AST/SGOT 23 IU/L Normal 15-41 [facility] Comment on above: Performed By: #### L 400.0052, L400.0076 ####[facility] ([facility])[address], [place] [phone] Nivar, MD Bili,Total 0.4 mg/dL Normal 0.2-1.0 [facility] Comment on above: Performed By: #### L 400.0052, L400.0076 ####[facility] ([facility])[address], [place] [phone] Nivar, MD Urea nitrogen 10 mg/dL Normal 7-20 [facility] Comment on above: Performed By: #### L 400.0052, L400.0076 ####[facility] ([facility])[address], [place] [phone] Nivar, MD Anion gap 10 mmol/L Normal 4-12 [facility] Comment on above: Performed By: #### L 400.0052, L400.0076 ####[facility] ([facility])[address], [place] [phone] Nivar, MD Calcium 9.7 mg/dL Normal 8.8-10.5 [facility] Comment on above: Performed By: #### L 400.0052, L400.0076 ####[facility] ([facility])[address], [place] [phone] Nivar, MD Chloride 100 mmol/L Low 101-111 [facility] Comment on above: Performed By: #### L 400.0052, L400.0076 ####[facility] ([facility])[address], [place] [phone] Nivar, MD CO2 24 mmol/L Normal 21-32 [facility] Comment on above: Performed By: #### L 400.0052, L400.0076 ####[facility] ([facility])[address] [place] [phone] Nivar, MD Creatinine 0.73 mg/dL Normal 0.60-1.30 [facility] Comment on above: Performed By: #### L 400.0052, L400.0076 ####[facility] ([facility])[address] [phone] Nivar, MD eGFR (non-black) Normal [facility] Comment on above: Result Comment: GFR not reported on patients <20 years old.Chronic Kidney Disease stages by NKStage eGFR I >90 II 60-89 III 30-59 IV 15-29 V <15 or dialysis Performed By: #### L 400.0052, L400.0076 ####[facility] ([facility])[address] [phone] Nivar, MD Glucose mass conc 111 mg/dL High 70-110 [facility] Comment on above: Performed By: #### L 400.0052, L400.0076 ####[facility] ([facility])[address] [place] [phone] Nivar, MD Potassium molar conc 4.1 mmol/L Normal 3.6-5.0 [facility] Comment on above: Performed By: #### L 400.0052, L400.0076 ####[facility] ([facility])[address] [phone] Nivar, MD Protein 8.8 g/dL High 6.2-8.0 [facility] Comment on above: Performed By: #### L 400.0052, L400.0076 ####[facility] ([facility])[address] [phone] Nivar, MD Sodium 134 mmol/L Low 135-145 [facility] Comment on above: Performed By: #### L 400.0052, L400.0076 ####[facility] ([facility])[address], [place] [phone] Nivar, MD Drug Screen Urineon 12-27- 17 Barbiturates Negative Normal Negative [facility] Comment on above: Performed By: #### L 402.4000 ####[facility] ([facility])[address], [place] [phone] Nivar, MD Urine, amphetamines presence Negative Normal Negative [facility] Comment on above: Performed By: #### L 402.4000 ####[facility] ([facility])[address], [place] [phone] Nivar, MD Urine, benzodiazepines presence Negative Normal Negative [facility] Comment on above: Performed By: #### L 402.4000 ####[facility] ([facility])[address], [place] [phone] Nivar, MD Urine, cannabinoids presence Negative Normal Negative [facility] Comment on above: Performed By: #### L 402.4000 ####[facility] ([facility])[address], [place] [phone] Nivar, MD Urine, cocaine presence Negative Normal Negative [facility] Comment on above: Performed By: #### L 402.4000 ####[facility] ([facility])[address], [place] [phone] Nivar, MD Urine, opiates presence Negative Normal Negative [facility] Comment on above: Performed By: #### L 402.4000 ####[facility] ([facility])[address], [place] [phone] Nivar, MD Urine, phencyclidine presence Negative Normal Negative [facility] Comment on above: Performed By: #### L 402.4000 ####[facility] ([facility])[address] [place] [phone] Nivar, MD Comment Normal [facility] Comment on above: Result Comment: This drug of abuse screen is not intended for employmentrelated testing and is intended for use in clinicalmanagement of patients. Cut-off Concentrations for Positive ResultsPhencyclidine 25 ng/mLBenzodiazepines 200 ng/mLCocaine 300 ng/mLAmphetamines 1000 ng/mLCannabinoids 100 ng/mLOpiates 300 ng/mLBarbiturates 200 ng/mLOxycodone 100 ng/mL Performed By: #### L 402.4000 ####[facility] ([facility])[address] [place] [phone] Nivar, MD Oxycodone Negative Normal Negative [facility] Comment on above: Performed By: #### L 402.4000 ####[facility] ([facility])[address] [place] [phone] Nivar, MD Lipaseon 12-27-2016 Lipase 19 U/L Low 21-51 [facility] Comment on above: Performed By: #### L 400.0052, L400.0076 ####[facility] ([facility])[address] [place] [phone] Nivar, MD Urinalysis with Reflex Cultu reon 12-27-2016 Bilirubin (total) Negative Normal Negative [facility] Comment on above: Order Comment: Urine Source Urine, Clean Catch Performed By: #### L 300.3000, L300.7701 ####[facility] ([facility])[address] [phone] Nivar, MD Epi,Squamous 0-5 Normal [facility] Comment on above: Order Comment: Urine Source Urine, Clean Catch Performed By: #### L 300.3000, L300.7701 ####[facility] ([facility])[address] [phone] Nivar, MD Erythrocytes (RBC) None Normal [facility] Comment on above: Order Comment: Urine Source Urine, Clean Catch Performed By: #### L 300.3000, L300.7701 ####[facility] ([facility])[address], [place] [phone] Nivar, MD Glucose mass conc Negative Normal Negative [facility] Comment on above: Order Comment: Urine Source Urine, Clean Catch Performed By: #### L 300.3000, L300.7701 ####[facility] ([facility])[address], [place] [phone] Nivar, MD Hemoglobin mass conc (Bld) Negative Normal Negative [facility] Comment on above: Order Comment: Urine Source Urine, Clean Catch Performed By: #### L 300.3000, L300.7701 ####[facility] ([facility])[address] [phone] Nivar, MD Mucous Present Normal [facility] Comment on above: Order Comment: Urine Source Urine, Clean Catch Performed By: #### L 300.3000, L300.7701 ####[facility] ([facility])[address] [phone] Nivar, MD pH of blood 7.0 [pH] Normal 5.0-8.0 [facility] Comment on above: Order Comment: Urine Source Urine, Clean Catch Performed By: #### L 300.3000, L300.7701 ####[facility] ([facility])[address] [phone] Nivar, MD Protein Negative Normal Negative [facility] Comment on above: Order Comment: Urine Source Urine, Clean Catch Performed By: #### L 300.3000, L300.7701 ####[facility] ([facility])[address] [phone] Nivar, MD UA Reflex Culture No Normal [facility] Comment on above: Order Comment: Urine Source Urine, Clean Catch Result Comment: Cult ure not done per lab protocol Performed By: #### L 300.3000, L300.7701 ####[facility] ([facility])[address] [phone] Nivar, MD Urine, appearance Clear Normal [facility] Comment on above: Order Comment: Urine Source Urine, Clean Catch Performed By: #### L 300.3000, L300.7701 ####[facility] ([facility])[address] [phone] Nivar, MD Urine, bacteria in sediment Trace Normal [facility] Comment on above: Order Comment: Urine Source Urine, Clean Catch Performed By: #### L 300.3000, L300.7701 ####[facility] ([facility])[address] [phone] Nivar, MD Urine, color Straw Normal [facility] Comment on above: Order Comment: Urine Source Urine, Clean Catch Performed By: #### L 300.3000, L300.7701 ####[facility] ([facility])[address] [phone] Nivar, MD Urine, ketones presence 20 mg/dL High Negative [facility] Comment on above: Order Comment: Urine Source Urine, Clean Catch Performed By: #### L 300.3000, L300.7701 ####[facility] ([facility])[address] [phone] Nivar, MD Urine, nitrite presence Negative Normal Negative [facility] Comment on above: Order Comment: Urine Source Urine, Clean Catch Performed By: #### L 300.3000, L300.7701 ####Main Laboratory ([facility])[address] [phone] Nivar, MD Urine, specific gravity 1.012 Normal 1.000-1.035 [facility] Comment on above: Order Comment: Urine Source Urine, Clean Catch Performed By: #### L 300.3000, L300.7701 ####Main Laboratory ([facility])[address] [phone] Nivar, MD Urine, urobilinogen {Valeri'U}/dL Normal 0.2-1.0 L [facility] Comment on above: Order Comment: Urine Source Urine, Clean Catch Performed By: #### L 300.3000, L300.7701 ####Main Laboratory ([facility])[address] [phone] Nivar, MD WBC (Leukocytes) Negative Normal Negative [facility] Comment on above: Order Comment: Urine Source Urine, Clean Catch Performed By: #### L 300.3000, L300.7701 ####Main Laboratory ([facility])[address] [phone] Nivar, MD WBC (Leukocytes) 0-5 Normal [facility] Comment on above: Order Comment: Urine Source Urine, Clean Catch Performed By: #### L 300.3000, L300.7701 ####Main Laboratory ([facility])[address] [phone] Nivar, MD Urine Pregnancyon 12-27-2016 Result Negative Normal Negative [facility] Comment on above: Order Comment: Urine Source Urine, Clean Catch Performed By: #### L 300.3000, L300.7701 ####Main Laboratory ([facility])[address], [place] [phone] Nivar, MD Vital Signs Date Time Vital Sign Value Performing Clinician Facility 10-26-2024 06:33-0400 Body temperature 97.1 [degF] Dr. Asael Quesada MD Work Phone: [facility] 10-26-2024 06:33-0400 Diastolic blood pressure 67 mm[Hg] Dr. Asael Quesada MD Work Phone: [facility] 10-26-2024 06:33-0400 Heart rate 74 /min Dr. Asael Quesada MD Work Phone: [phone] [place] [address] 10-26-2024 06:33-0400 Respiratory rate 16 /min Dr. Asael Quesada MD Work Phone: [phone] [place] [address] 10-26-2024 06:33-0400 SaO2% (BldA) [Mass fraction] 96 % Dr. Asael Quesada MD Work Phone: [phone] [place] [address] 10-26-2024 06:33-0400 Systolic blood pressure 129 mm[Hg] Dr. Asael Quesada MD Work Phone: [phone] [place] [address] 10-25-2024 20:01-0400 Body height 162.[address] Asael Quesada MD Work Phone: [phone] [place] [address] 10-25-2024 20:01-0400 Body mass index (BMI) [Ratio] 36.1 kg/m2 Dr. Asael Quesada MD Work Phone: [facility] 10-25-2024 20:01-0400 Body weight 95.[address] Asael Quesada MD Work Phone: [facility] 12-05-2022 13:20-0400 Diastolic blood pressure 82 mm[Hg] Pelon Prema MASTER MERCHANDISER.DISPUTE SPECIALIST Work Phone: [facility] 12-05-2022 13:20-0400 Systolic blood pressure 124 mm[Hg] Pelon Prema MASTER MERCHANDISER.DISPUTE SPECIALIST Work Phone: [facility] 12-05-2022 13:01-0400 Body height 162.6 cm Pelon Prema MASTER MERCHANDISER.DISPUTE SPECIALIST Work Phone: [facility] 12-05-2022 13:01-0400 Body weight 95.71 kg Pelon Prema MASTER MERCHANDISER.YAMILE Work Phone: [facility] 12-05-2022 13:01-0400 Heart rate 92 /min Pelon Britt APRN.YAMILE Work Phone: [facility] 08-21-2019 16:05-0400 Body Temperature 98.71 [degF] [facility] 08-21-2019 16:05-0400 BP Diastolic 70 mm[Hg] [facility] 08-21-2019 16:05-0400 BP Systolic 102 mm[Hg] [facility] 08-21-2019 16:05-0400 Pulse (Heart Rate) 72 /min [facility] 08-21-2019 16:05-0400 Pulse Oximetry 99 % [facility] 08-21-2019 16:05-0400 Respiratory Rate 16 /min [facility] 08-20-2019 23:30-0400 BMI (Body Mass Index) 32.35 kg/m2 [facility] 08-20-2019 23:30-0400 Body weight 85.5 kg [facility] Comment on above: Bed scale 08-20-2019 23:30-0400 Height 162.6 cm [facility] 07-22-2019 10:38-0400 BMI (Body Mass Index) 32.44 kg/m2 [facility] 07-22-2019 10:38-0400 Body Temperature 98.49 [degF] [facility] 07-22-2019 10:38-0400 Body weight 85.73 kg [facility] 07-22-2019 10:38-0400 BP Diastolic 80 mm[Hg] [facility] 07-22-2019 10:38-0400 BP Systolic 119 mm[Hg] [facility] 07-22-2019 10:38-0400 Pulse (Heart Rate) 93 /min [facility] 07-14-2019 15:54-0400 Body Temperature 98.71 [degF] Elisha Goodman [facility] 07-14-2019 15:54-0400 BP Diastolic 91 mm[Hg] Elisha Goodman [facility] 07-14-2019 15:54-0400 BP Systolic 135 mm[Hg] Elisha Goodman [facility] 07-14-2019 15:54-0400 Pulse (Heart Rate) 88 /min Elisha Goodman [facility] 07-14-2019 15:54-0400 Pulse Oximetry 100 % Elisha Goodman [facility] 07-14-2019 15:54-0400 Respiratory Rate 16 /min Elisha Goodman [facility] 07-14-2019 15:51-0400 BMI (Body Mass Index) 34.33 kg/m2 Elisha Goodman [facility] 07-14-2019 15:51-0400 Body weight 90.72 kg Elisha Goodman [facility] 07-14-2019 15:51-0400 Height 162.6 cm Elisha Goodman [facility] 07-10-2019 10:27-0500 Respiratory Rate 16 /min [facility] 07-10-2019 06:49-0500 BP Diastolic 61 mm[Hg] [facility] 07-10-2019 06:49-0500 BP Systolic 95 mm[Hg] [facility] 07-10-2019 06:49-0500 Pulse (Heart Rate) 105 /min [facility] 07-10-2019 06:49-0500 Pulse Oximetry 98 % [facility] 07-10-2019 05:13-0500 Body Temperature 99 [degF] [facility] 07-09-2019 06:00-0500 BMI (Body Mass Index) 34.36 kg/m2 [facility] 07-09-2019 06:00-0500 Body weight 90.8 kg [facility] 07-08-2019 09:15-0500 Height 162.6 cm [facility] 06-26-2019 05:49-0500 BMI (Body Mass Index) 32.61 kg/m2 [facility] [place] 06-26-2019 05:49-0500 Body Temperature 98.71 [degF] [facility] [place] 06-26-2019 05:49-0500 Body weight 86.[address] [facility] [place] 06-26-2019 05:49-0500 BP Diastolic 106 mm[Hg] [facility] [place] 06-26-2019 05:49-0500 BP Systolic 151 mm[Hg] Narinder Sandra [facility] [place] 06-26-2019 05:49-0500 Height 162.6 cm Narinder Sandra [facility] [place] 06-26-2019 05:49-0500 Pulse (Heart Rate) 97 /min Narinder Sandra [facility] [place] 06-26-2019 05:49-0500 Pulse Oximetry 98 % [facility] [place] 06-26-2019 05:49-0500 Respiratory Rate 16 /min Narinder Sandra [facility] [place] 06-21-2019 15:13-0500 BMI (Body Mass Index) 33.99 kg/m2 [facility] 06-21-2019 15:13-0500 Body Temperature 98.1 [degF] [facility] 06-21-2019 15:13-0500 Body weight 89.81 kg [facility] 06-21-2019 15:13-0500 BP Diastolic 76 mm[Hg] [facility] 06-21-2019 15:13-0500 BP Systolic 113 mm[Hg] [facility] 06-21-2019 15:13-0500 Height 162.6 cm [facility] 06-21-2019 15:13-0500 Pulse (Heart Rate) 85 /min [facility] 06-21-2019 15:13-0500 Pulse Oximetry 98 % [facility] 04-22-2019 16:00-0500 Body Temperature 98.6 [degF] [facility] 04-22-2019 16:00-0500 BP Diastolic 68 mm[Hg] [facility] 04-22-2019 16:00-0500 BP Systolic 128 mm[Hg] [facility] 04-22-2019 16:00-0500 Pulse (Heart Rate) 92 /min [facility] Encounters Encounter Date Encounter Type Care Provider Facility Start: 10-25-2024 End: 10-26-2024 Emergency department patient visit Dr. Asael Quesada MD Work Phone: -Emergency Department Work Phone: Start: 12-17-2023 Telephone encounter Siri Jackson MD Work Phone: [facility] Comment on above: Received Outside Med ical Records ([facility] 12/16) Start: 12-17-2023 End: 12-17-2023 Emergency department patient visit Clifton Johnson Facility:[facility] Start: 12-05-2022 End: 12-05-2022 ambulatory PELON BRITT Facility:[facility] Start: 12-05-2022 End: 12-05-2022 Patient encounter procedure Pelon Britt MASTER MERCHANDISER.DISPUTE SPECIALIST Work Phone: [facility] Comment on above: Well adult exam (Jennifer haven Dx); Elevated BP without diagnosis of hypertension; Oral contraception initial prescription; Dysmenorrhea; Obesity, Class II, BMI 35-39.9; Thyromegaly; Screening for lipid disorders; Need for bfyltep-wtwgm-wqtirkd (MMR) vaccine; Need for hepatitis B booster vaccination Start: 12-05-2022 End: 12-05-2022 Patient encounter status Pelon Britt MASTER MERCHANDISER.DISPUTE SPECIALIST Work Phone: [facility] Work Phone: Start: 12-04-2022 Telephone encounter Siri Jackson MD Work Phone: [facility] Comment on above: Patient Question Appointment Start: 04-17-2022 ambulatory Pelon Britt APRN.DISPUTE SPECIALIST Work Phone: [facility] Start: 11-13-2021 [facility] [place] Comment on above: Population Health Na vigation Outreach (HCC) Start: 08-20-2019 End: 08-21-2019 [facility] Start: 08-20-2019 End: 08-21-2019 Emergency department patient visit Concord Praneeth Work Phone: [facility] Comment on above: Intractable nausea a nd vomiting (Primary Dx); Cyclic vomiting syndrome Start: 07-22-2019 End: 07-22-2019 Patient encounter procedure NURIS TOBIAS [facility] Start: 07-22-2019 End: 07-22-2019 Postop follow up visit related to original px Nuris Tobias Work Phone: [facility] Comment on above: Encounter for surgic al aftercare following surgery of digestive system (Primary Dx) Start: 07-14-2019 End: 07-14-2019 Emergency department patient visit FANNY SHARIF [facility] Start: 07-14-2019 End: 07-14-2019 Emergency department patient visit Elisha Goodman Work Phone: [facility] Comment on above: Visit for wound chec k (Primary Dx) Start: 07-08-2019 End: 07-10-2019 Patient encounter procedure [facility] Start: 07-08-2019 End: 07-10-2019 Subsequent hospital visit by physician Nuris Tobias Work Phone: [facility] Comment on above: Post-op pain (Primar y Dx); Biliary dyskinesia; Biliary dyskinesia; Abdominal pain, right lower quadrant Start: 06-28-2019 End: 07-02-2019 [facility] Start: 06-28-2019 End: 06-28-2019 Patient encounter procedure Nurismarie Tobias Work Phone: [facility] Preadmission Testing Comment on above: Arrived Start: 06-26-2019 End: 06-26-2019 Emergency department patient visit Narinder RayRita Jocy Work Phone: [facility] Emergency Dept Comment on above: Non-intractable vomi ting with nausea, unspecified vomiting type (Primary Dx); Dysmenorrhea Start: 06-21-2019 End: 06-21-2019 Office outpatient visit 25 minutes Nuris Tobias Work Phone: [facility] Comment on above: Biliary dyskinesia ( Primary Dx) Start: 05-31-2019 End: 06-01-2019 [facility] Start: 05-31-2019 End: 05-31-2019 Subsequent hospital visit by physician Nuris Tobias Work Phone: [facility] Nuclear Medicine Comment on above: Periumbilical abdomi nal pain Start: 04-22-2019 End: 04-22-2019 Patient encounter procedure NURIS TOBIAS [facility] Start: 04-22-2019 End: 04-22-2019 Office outpatient new 45 minutes Nuris Tobias Work Phone: [facility] Comment on above: Pain of upper abdome n (Primary Dx); Periumbilical abdominal pain Start: 04-16-2018 End: 04-16-2018 Emergency department patient visit SOUN MILLAN Facility:B Start: 04-01-2018 End: 04-02-2018 Patient encounter procedure FANNY CARDGETT Facility:[facility] Start: 03-27-2018 End: 03-27-2018 Emergency department patient visit CLINT Nita DURBIN Facility:[facility] Start: 03-10-2018 End: 03-10-2018 Emergency department patient visit SARAVANAN OWEN Facility:[facility] Start: 03-06-2018 End: 03-06-2018 Emergency department patient visit JANE JAY Facility:[facility] Start: 01-20-2017 End: 01-20-2017 Emergency department patient visit None Facility:[facility] Start: 01-08-2017 End: 01-08-2017 Emergency department patient visit Asael Shi Bah Facility:[facility] Start: 12-27-2016 End: 12-27-2016 Emergency department patient visit Sonu Eldridge Facility:[facility] Procedures Date Procedure Procedure Detail Performing Clinician Start: 10-25-[address] Carmelita Quesada MD Work Phone: Start: 03-02-2021 Adult depression screening assessment Tesha Clark Start: 08-20-2019 Choriogonadotropin ( test) [Presence] in Urine Carlito Dacosta Work Phone: Start: 08-20-2019 Urinalysis Carlito Dacosta Work Phone: Start: 08-20-2019 Complete blood count with white cell differential, automated Carlito Dacosta Work Phone: Start: 08-20-2019 Complete blood count with white cell differential, manual Carlito Dacosta Work Phone: Start: 08-20-2019 Comprehensive metabolic 2000 panel - Serum or Plasma Carlito Dacosta Work Phone: Start: 08-20-2019 MONTES TOP Carlito Dacosta Work Phone: Start: 08-20-2019 LAVENDER TOP Carlito Dacosta Work Phone: Start: 08-20-2019 LIGHT BLUE TOP Carlito Dacosta Work Phone: Start: 08-20-2019 LIGHT GREEN TOP Carlito Dacosta Work Phone: Start: 08-20-2019 Lipase [Enzymatic activity/volume] in Serum or Plasma Carlito Dacosta Work Phone: Start: 08-20-2019 MINT GREEN TOP Carlito Dacosta Work Phone: Start: 08-20-2019 RAINBOW DRAW aCrlito Dacosta Work Phone: Start: 07-08-2019 Procedure on tissue specimen Nuris bah Work Phone: Start: 07-08-2019 End: 07-08-2019 CHOLECYSTECTOMY LAPAROSCOPIC Nuris bah Work Phone: Start: 07-08-2019 Choriogonadotropin ( test) [Presence] in Urine Nuris Tobias Work Phone: Start: 06-26-2019 Basic metabolic panel calcium total Narinder Sandra Work Phone: Start: 06-26-2019 Blood count complete automated Narinder Thomas Burch Jocy Work Phone: Start: 06-26-2019 Gonadotropin chorionic qualitative Narinder Sandra Work Phone: Start: 06-26-2019 Hepatic function panel Narinder ZamanLorenzo Jocy Work Phone: Start: 05-31-2019 Hepatobil syst imag inc gb w/pharma intervenj Nuris Tobias Work Phone: Plan of Treatment Date Care Activity Detail Author Start: 03-25-2029 Tetanus vaccination [facility] Start: 03-25-2029 Urine microalbumin profile [facility] Start: 10-26-2024 [facility] Start: 01-04-2024 Influenza vaccination Influenza Vacc ine (#1) [facility] Start: 01-03-2023 Covid-19 Vaccine ( season) Covid-19 Vaccine ( season) [facility] Start: 01-03-2023 Influenza vaccination INFLUENZA (#1) [facility] Start: 12-05-2022 End: 02-04-2023 Basic metabolic 2000 panel - Serum or Plasma BASIC METABOLIC PNL Lab Routine Elevated BP without diagnosis of hypertension Expected: 12/05/2022, Expires: 02/04/2023 [facility] Work Phone: Comment on above: Expected: 12/05/2022 , Expires: 02/04/2023 Start: 12-05-2022 End: 02-04-2023 Lipid 1996 panel - Serum or Plasma LIPID PANEL BASIC Lab Routine Screening for lipid disorders Expected: 12/05/2022, Expires: 02/04/2023 [facility] Work Phone: Comment on above: Expected: 12/05/2022 , Expires: 02/04/2023 Start: 12-05-2022 End: 02-04-2023 Thyrotropin [Units/volume] in Serum or Plasma TSH BLD Lab Routine Thyromegaly Expected: 12/05/2022, Expires: 02/04/2023 [facility] Work Phone: Comment on above: Expected: 12/05/2022 , Expires: 02/04/2023 Start: 09-02-2022 PAP TESTING PAP TESTING [facility] Start: 09-02-2022 Screening for malign ant neoplasm of cervix Cervical Cancer Screening [facility] Start: 05-05-2022 DEPRESSION ASSESSMENT DEPRESSION ASS ESSMENT [facility] Start: 04-02-2022 ANNUAL PCP TEAM REINSURANCE CLAIM ANALYST AMPARO DISEASE VISIT ANNUAL PCP TEAM CHRONIC DISEASE VISIT [facility] Start: 03-02-2022 Adult depression screening assessment DEPRESSION SCREENING [facility] Start: 01-03-2022 Influenza vaccination INFLUENZA (#1) [facility] Start: 07-26-2021 COVID-19 VACCINE (3 - Booster for Moderna series) COVID-19 VACCINE (3 - Booster for Moderna series) [facility] Start: 04-22-2021 COVID-19 VACCINE (3 - Booster for Moderna series) COVID-19 VACCINE (3 - Booster for Moderna series) [facility] Start: 04-22-2021 COVID-19 VACCINE (3 - Moderna series) COVID-19 VACCINE (3 - Moderna series) [facility] Start: 10-10-2020 HEPATITIS B (3 of 3 - 19+ 3-dose series) HEPATITIS B (3 of 3 - 19+ 3-dose series) [facility] Start: 09-26-2020 HEPATITIS B (3 of 3 - 19+ 3-dose series) HEPATITIS B (3 of 3 - 19+ 3-dose series) [facility] Start: 07-22-2019 End: 07-22-2019 Follow-Up 07/22/2019 Follow-Up General Surgery Nuris Tobias MD [address] [facility] [address] [place] [address] [phone] [facility] Start: 07-08-2019 End: 07-08-2019 Hospital Encounter [facility] Comment on above: Biliary dyskinesia CHOLECYSTECTOMY LAPA ROSCOPIC Start: 06-10-2019 End: 06-10-2019 Office Visit 06/10/2019 Office Visit General Surgery Nuris Tobias MD [address] [facility] [address] [place] [address] [phone] [facility] Start: 05-31-2019 End: 05-31-2019 Appointment 05/31/2019 Appointment Radiology Nuris Tobias MD [address] [facility] [address] [place] [address] [phone] [facility] Start: 01-03-2019 Influenza vaccination Flu vaccine (# 1) [facility] [place] Start: 01-03-2019 Influenza vaccinatio n given SEQUENTIAL INFLUENZA VACCINE (#1) [facility] Start: 11-30-2018 CHLAMYDIA SCREENING (18-24) CHLAMYDIA SCREENING (18-24) [facility] Start: 11-30-2018 GC (GONORRHEA) SCREE MATTHEW (18-24) GC (GONORRHEA) SCREENING (18-24) [facility] Start: 2016 Anxiety Screening Anxiety Screening [facility] Start: 2016 BP CONTROLLED (<130/80) BP CONTROLLE D (<130/80) [facility] Start: 2016 Depression Screening Depression Sarah howe [facility] Start: 2016 HEPATITIS C SCREENING HEPATITIS C [facility] Start: 2016 Hepatitis C screening Hepatitis C [facility] Start: 2016 HIV SCREENING HIV SCREENING [facility] Start: 2016 [facility] Start: 2014 Meningococcal B Vacc ine: Consider Based On Risk (1 of 2 - Patient Seeks Protection) Meningococcal B Vaccine: Consider Based On Risk (1 of 2 - Patient Seeks Protection) [facility] Start: 2014 MENINGOCOCCAL B: Con rn transitional care based on risk (1 of 2 - Patient Seeks Protection) MENINGOCOCCAL B: Consider based on risk (1 of 2 - Patient Seeks Protection) [facility] Start: 2012 PEDS TO ADULT TRANSI TION ANNUAL ASSESSMENT PEDS TO ADULT TRANSITION ANNUAL ASSESSMENT [facility] Start: 2010 PEDS TO ADULT TRANSI TION INITIAL DISCUSSION PEDS TO ADULT TRANSITION INITIAL DISCUSSION [facility] Start: 2009 Vaccination for chuy n papillomavirus HPV VACCINES (1 - Female 2-dose series) [facility] Start: 2008 MENINGOCOCCAL B: Con rn transitional care based on risk (1 of 2 - Risk Bexsero 2-dose series) MENINGOCOCCAL B: Consider based on risk (1 of 2 - Risk Bexsero 2-dose series) [facility] Start: 2004 PNEUMOCOCCAL (1 - PCV) PNEUMOCOCCAL (1 - PCV) [facility] Start: 2001 History and physical examination, annual for health maintenance Wellness Visit [facility] Start: 1998 Screening for Chlamy aime trachomatis Chlamydia Screening [facility] Start: 1998 Screening for malign ant neoplasm of cervix Pap Smear [facility] Start: 1998 Tetanus vaccination TETANUS EVERY [address] [facility] End: 04-22-2020 NM Hepatobiliary With Ejection Fraction NM Hepatobiliary With Ejection Fraction Imaging Routine Periumbilical abdominal pain 1 Occurrences starting 04/22/2019 until 04/22/[address] [facility] Comment on above: 1 Occurrences starti ng 04/22/2019 until 04/22/2020 Patient Education ED Cyclic Vomi ting Syndrome ED Diet Vomiting Diarrhea [facility] Work Phone: Porphibilinogen, Uri ne, Quantitative Porphibilinogen, Urine, Quantitative Lab Routine 08/21/2019 1:44 PM EDT [facility] Immunizations Immunization Date Immunization Notes Care Provider Piyush ramos 06-09-2023 Hepatitis B vaccine (recombinant), CpG adjuvanted Siri Jackson MD Work Phone: [facility] 12-05-2022 hepatitis B vaccine, adult dosage Pelon Prema MASTER MERCHANDISER.DISPUTE SPECIALIST Work Phone: [facility] 12-05-2022 measles, mumps and rubella virus vaccine Pelon Prema MASTER MERCHANDISER.DISPUTE SPECIALIST Work Phone: [facility] 01-23-2021 COVID-19 vaccine, fu ll dose (MODERNA) [facility] 05-12-2020 hepatitis B vaccine, adult dosage [facility] Work Phone: 05-12-2020 hepatitis B vaccine, unspecified formulation Pelon Prema MASTER MERCHANDISER.DISPUTE SPECIALIST Work Phone: [facility] 03-29-2020 hepatitis B vaccine, adult dosage [facility] 03-29-2020 measles, mumps and rubella virus vaccine [facility] 03-29-2020 varicella virus vaccine [facility] 02-03-2020 influenza, injectabl e, quadrivalent, contains preservative [facility] 02-03-2020 influenza virus vacc ine, unspecified formulation Siri Jcakson MD Work Phone: [facility] 03-25-2019 tetanus toxoid, redu demetrice diphtheria toxoid, and acellular pertussis vaccine, adsorbed [facility] 03-16-2019 influenza, injectabl e, quadrivalent, preservative free [facility] 12-03-2016 Human Papillomavirus 9-valent vaccine [facility] 06-06-[address] Asael Quesada MD Work Phone: [facility] 06-06-2016 influenza, seasonal, injectable, preservative free [facility] 05-24-2016 influenza, injectabl e, quadrivalent, preservative free [facility] 03-19-2016 Human Papillomavirus 9-valent vaccine [facility] Work Phone: 03-20-2015 human papilloma viru s vaccine, quadrivalent [facility] 03-20-2015 influenza, injectabl e, quadrivalent, contains preservative [facility] 03-20-2015 influenza, seasonal, injectable [facility] 03-20-2015 meningococcal polysaccharide (groups A, C, Y and W-135) diphtheria toxoid conjugate vaccine (MCV4P) [facility] 11-29-2010 Meningococcal, MCV4, unspecified conjugate formulation(groups A, C, Y and W-135) [facility] Work Phone: 11-29-2010 tetanus toxoid, redu demetrice diphtheria toxoid, and acellular pertussis vaccine, adsorbed [facility] Work Phone: Payers Date Payer Category Payer Unknown [id number] 2023 Self-pay 2022 Medicaid [id number] 2018 Medicaid [employer] xxxxxxxxxxx 2018-Present [id number] 2018 Medicaid [employer] [id number] 2018-Present [phone] [address] [place] [address] Medicaid [id number] 2018 Medicaid [id number] 2015 Unknown [id number] 1998 Unknown [id number] 1998 Unknown [id number] [id number] 1998 Unknown [id number] [id number] 1998 Unknown [id number] [id number] 1998 Unknown [id number] [id number] 1998 Unknown [id number] [id number] 1998 Unknown [id number] 2.16.840.1.169457.3.579.2.903 1998 Unknown [id number] 2.16.840.1.866792.3.579.2.903 1998 Unknown [id number] 2.16.840.1.471468.3.579.2.903 1998 Unknown [id number] [id number] 1998 Unknown [id number] [id number] 1998 Unknown [id number] [id number] Unknown [employer] [facility] [id number] Unknown [id number] [id number] Unknown [id number] Social History Date Type Detail Facility Start: 04-22-2019 End: 10-25-2024 Tobacco smoking status NHIS Never smoker [facility] Start: 04-22-2019 End: 07-22-2019 Alcohol intake Lifetime non-drinker (finding) [facility] Start: 04-22-2019 History SDOH Alcohol Frequency [address] [facility] Start: 2000 Sex Assigned At Not on file [facility] Exposure to SARS-CoV -2 (event) Not sure [facility] Start: 04-02-2021 End: 12-05-2022 Alcohol intake Current non-drinker of alcohol (finding) [facility] Start: 05-17-2014 End: 12-05-2022 Tobacco use and exposure Smokeless tobacco non-user [facility] Start: 04-02-2021 End: 12-05-2022 History of Social function [facility] Start: 04-02-2021 End: 12-05-2022 Tobacco use panel [facility] Adult Depression Screening Assessment 0 [facility] Do you belong to any clubs or organizations such as christian groups, unions, fraternal or athletic groups, or school groups? No [facility] Are you now , , , , never or living with a partner? Never [facility] How often to you hav e a drink containing alcohol? 2-4 times a month [facility] How many standard dr inks containing alcohol do you have on a typical day? 3 or 4 [facility] How often do you hav e 6 or more drinks on 1 occasion? Never [facility] How hard is it for y ou to pay for the very basics like food, housing, medical care, and heating Not very hard [facility] Do you feel stress - tense, restless, nervous, or anxious, or unable to sleep at night because your mind is troubled all the time - these days [OSQ] Not at all [facility] (I/We) worried wheth er (my/our) food would run out before (I/we) got money to buy more. Never true [facility] Start: 07-24-2020 Alcohol Alcohol [facility] Start: 07-24-2020 Lives [facility] Start: 03-19-2019 Tobacco Use Tobacco Use [facility] Start: 2000 Sex Assigned At Female [facility] Clinical Notes 11-29-2017 to 10-26-2024 Note Date & Type Note Facility 10-26-2024 Discharge summary [facility] 10-25-2024 Discharge summary Note Date/Time October 26, 2024 6:18am [facility] Medical Records Department [address] [place] [address] Emergency Department Summary 10/25/24 MR#: [id number] Acct: [id number] Name: ISABEL OREILLY Rep #:[id number] : 2000 24 From: Asael Quesada MD PCP: Status:REG ER Location: ED HPI HPI - GI History of Present Illness Chief Complaint: Nausea/Vomiting Informant: patient Narrative Narrative: 24-year-old female with a history of cyclic vomiting syndrome, she states she ishaving a bad flareup of it for the past 3 to 4 days. Periumbilical and epigastric abdominal discomfort has been mild but gradually worsening after each vomiting. She states she has been vomiting a lot this past day. Trying to drink sips of fluid. She is urinating and it is unremarkable. No hematochezia or hematemesis, no melena. Similar symptoms she has had in the past, she statesshe only comes to the ER when she can get through an episode, and this is a particularly bad 1 and she has not had one like this in a while, the pain is worse than it had been in the past as well. It is still the same pain in the same location, feels like things are tightening up and squeezing. States typically when she has these episodes at home, she takes hot showers, and tries not to eat anything that will make it worse, and eventually wakes up in the morning and things are better but not this time. She had prior cholecystectomy and appendectomy to try to help with the symptoms although they were unsuccessful. [facility] Medical History Cyclic vomiting syndrome Home Medications ?Medication ?Instructions ?Recorded ?Last Taken ?Type promethazine 25 mg tablet 25 mg PO Q6H PRN PRN Nausea #12 10/26/24 Unknown Rx TABLETS Allergy/AdvReac Type Severity Reaction Status Date / Time chlorpromazine (From AdvReac Other Verified 10/25/24 20:02 Thorazine) Surgical History Hx of appendectomy Hx of cholecystectomy Social History Smoking Status: Never smoker ROS ROS ED Constitutional Constitutional ED: Denies chills or fever(s) Eyes Eyes: Denies change in vision or diplopia ENT ENT ED: Denies rhinorrhea or sore throat Cardiovascular Cardiovascular: Denies chest pain or palpitations Respiratory/Chest Respiratory/Chest: Denies cough or dyspnea Gastrointestinal Gastrointestinal: Reports abdominal pain, nausea and vomiting; Denies diarrhea or melena Genitourinary Genitourinary ED: Denies dysuria or hematuria Musculoskeletal Musculoskeletal: Denies back pain or neck pain Integumentary Denies abscess or rash Neurologic Neurologic: Denies headache(s), paresthesias or weakness Psychiatric Psychiatric: Denies anxiety or suicidal thoughts EXAM Physical Exam Const Vital Signs: 10/25/24 20:01 10/25/24 22:01 10/26/24 00:00 Temperature 96.6 F L 98.5 F Temperature Source Oral Oral Pulse Rate 115 H 94 89 Respiratory Rate 20 H 20 H 18 Blood Pressure 136/101 H 145/91 H 139/79 H Blood Pressure Mean 112 109 99 Pulse Ox 99 100 100 Oxygen Delivery Method Room Air Room Air 10/26/24 01:23 10/26/24 02:57 10/26/24 04:00 Temperature Temperature Source Pulse Rate 79 82 91 Respiratory Rate 16 16 16 Blood Pressure 131/82 H 144/97 H 132/89 H Blood Pressure Mean 98 112 103 Pulse Ox 100 100 99 Oxygen Delivery Method Room Air Room Air Room Air Positive well nourished, well developed and obese General Appearance ED: well developed and NAD Nutritional Appearance: obese HEENT Reports moist mucous membranes normocephalic and atraumatic Eyes PERRL and EOMs intact bilaterally Neck full ROM and supple Resp normal respiratory effort and clear to auscultation bilaterally Cardio regular rate, regular rhythm and no murmurs GI non-distended GI Narrative: Subjectively patient states hurts to palpate, but objectively exam is benign. Auscultation: normoactive bowel sounds Palpation: soft Back/Spine no CVA tenderness General Back: other FROM Extremity normal to inspection General Extremety ED: Negative for edema, pulses abnormal or tenderness General Extremity: Negative for edema or pulses abnormal Neuro oriented x3, CN's II-XII intact bilaterally and no sensory deficits noted Sensorium / Orientation: awake and alert Motor Exam: strength 5/5 throughout Skin no rashes or lesions noted and no wounds MDM MDM MDM Narrative Medical decision making narrative: Patient with a fairly benign abdomen, normal vital signs except for mild tachycardia. I did labs which are unremarkable including liver enzymes and lipase. Serum is negative ruling out ectopic. I do not think she needs advanced imaging of the abdomen/pelvis given that she has had the symptomsmultiple times in the past with her cyclic vomiting and has had normal CT scans in the past under these circumstances. Initially she was given Reglan, Benadryl, Toradol, she did not have a lot of relief from that so we added Compazine, morphine, Ativan which really seem to help. She wanted to relax for a little while without trying any oral fluids or other medications so we observed her for about 2.5 hours, and on reevaluation she is feeling much betterand wants to go home and sleep and requesting a prescription for some promethazine which was also given. Lab Data Attestation: I reviewed the patient's lab results. Labs: Laboratory Results - last 24 hr 10/25/24 21:15 WBC 9.8 RBC 5.69 H Hgb 13.2 Hct 42.7 MCV 75.0 L MCH 23.2 L MCHC 30.9 L RDW Std Deviation 37.2 RDW Coeff of Iggy 14.0 Plt Count 442 MPV 10.6 Immature Gran % (Auto) 0.300 Neut % (Auto) 61.6 Lymph % (Auto) 32.5 Heard % (Auto) 4.7 Eos % (Auto) 0.4 Baso % (Auto) 0.5 Absolute Neuts (auto) 6.0 Absolute Lymphs (auto) 3.19 Nucleated RBC % 0 Sodium 141 Potassium 3.3 Chloride 103 Carbon Dioxide 21.1 Anion Gap 17 H BUN 14 Creatinine 1.15 Estim Creat Clear Calc 83.04 Est GFR (MDRD) Non-Af 67 BUN/Creatinine Ratio 12.3 Glucose 103 H Calcium 9.6 Total Bilirubin 0.39 AST 26 ALT 31 Alkaline Phosphatase 89 Total Protein 9.1 H Albumin 5.1 H Globulin 4.0 Albumin/Globulin Ratio 1.3 Lipase 38 Serum , Qual NEGATIVE Discharge Plan Triage Chief Complaint: Nausea/Vomiting ED Provider: Asael Quesada Dx/Rx/DC Orders Clinical Impression: N&V (nausea and vomiting), Cyclic vomiting syndrome, Diffuse abdominal pain Instructions: ED Cyclic Vomiting Syndrome, ED Diet Vomiting Diarrhea Prescriptions: New promethazine 25 mg tablet 25 mg PO Q6H PRN PRN (Reason: Nausea) Qty: 12 0RF Print Language: [place] Helen[place] Disposition Disposition: Home, Self Care What to do if you have Problems For any increased pain, shortness of breath, bleeding, nausea or vomiting, chestpain, or any unexpected problems, contact your Primary Care Provider. Call [facility] ([phone]) or report to the closest Emergency Room. Call 911 if necessary. 10/26/24617 <Electronically signed by Asael Quesada MD> Cosigner Signature (if applicable): CC: ~ Signed [facility] Work Phone: 1(231) 604-816108-14-2024 Telephone encounter Note* Telephone Encounter - Azar Lord LPN - 12/17/2023 5:37 PM EDT Received ED visit summary from [facility]. Placed in provider's inbox for review. Route to MA scanning [facility]08-14-2024 Miscellaneous Notes* Telephone Encounter - Azar Lord LPN - 12/17/2023 5:37 PM EDT Received ED visit summary from [facility]. Placed in provider's inbox for review. Route to MA scanning documented [facility]23 NoteHNO ID: [id number] Author: Pelon Britt APRN.DISPUTE SPECIALIST Service: ? Author Type: Nurse Practitioner Type: Progress Notes Filed: 12/05/2022 2:28 PM Note Text: This note was created using [employer]. Subjective Isabel Oreilly is a 22 year old female. Patient here for a physical. 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 Hasn't seen PCP since 2020. Updated PMFSH. Previous immunity testing showed negative for mumps so needs one MMR booster. Also needs 3rd Hep B. Wants refill on control. Previously on Sprintec but stopped it when she ws dealing with cyclic vomiting syndrome thinking that was a contributor, but that issue has resolved and she'd like to get back on it. Does have a lot of cramping a couple days before period and the first couple days on her menses. No heavy bleeding. Currently sexually active with one mail partner, uses condoms currently. Has had one PAP at age 21-22 which was normal. No history of migraines or blood clots, nonsmoker. Works out at [employer] twice weekly. Mostly cooks at home, tries to eat healthy. Her weight was around 190 when she was dealing with the vomiting syndrome but since that has resolved, her weight has increased. The history is provided by the patient. Review of Systems Constitutional: Negative for chills, fever and unexpected weight change. HENT: Negative for congestion, ear pain, hearing loss, rhinorrhea and sore throat. Eyes: Negative for visual disturbance. Respiratory: Negative for cough, shortness of breath and wheezing. Cardiovascular: Negative for chest pain, palpitations and leg swelling. Gastrointestinal: Negative for abdominal pain, constipation, diarrhea, nausea and vomiting. Endocrine: Negative for polydipsia and polyuria. Genitourinary: Positive for menstrual problem. Negative for dysuria, flank pain, frequency, hematuria, pelvic pain, urgency and vaginal discharge. Musculoskeletal: Negative for back pain, joint swelling and neck pain. Skin: Negative for rash. Allergic/Immunologic: Negative for immunocompromised state. Neurological: Negative for dizziness, syncope, weakness, numbness and headaches. Hematological: Negative for adenopathy. Does not bruise/bleed easily. Psychiatric/Behavioral: Negative for dysphoric mood. The patient is not nervous/anxious. PAST MEDICAL HISTORY Diagnosis Date Cyclic vomiting syndrome 06/07/2016 Menarche PAST SURGICAL HISTORY Procedure Laterality Date LAP APPENDECTOMY AT TIME OTHER SURGERY 07/05/2019 with cholecystectomy LAPAROSCOPY SURG CHOLECYSTECTOMY 07/08/2019 [facility]. NONE ALLERGIES Thorazine [Chlorpromazine] MEDICATIONS norgestimate 0.25 mg-ethinyl estradiol 35 mcg 0.25-35 mg-mcg per tablet Take 1 tablet by mouth once daily. Skip placebo week of pills and start a new pack immediately FAMILY HISTORY Problem Relation Age of Onset None Mother Heart Attack Father CT age 54 Coronary Artery Disease Father No Known Problems Sister Colon Cancer Maternal Grandfather Diabetes Paternal Grandmother Diabetes Paternal Grandfather Breast Cancer Paternal Grandfather diagnosed in 60's Social History Tobacco Use Smoking status: Never Smokeless tobacco: Never Vaping Use Vaping Use: Never used Substance Use Topics Alcohol use: No Drug use: No Objective BP 132/95 Pulse 92 Ht 162.6 cm (5' 4.02) Wt 95.7 kg (211 lb) LMP 11/16/2022 (Exact Date) BMI 36.20 kg/m? BP 124/82 (BP Site: Right Arm, BP Position: Sitting, BP Cuff Size: Large Adult) Pulse 92 Ht 162.6 cm (5' 4.02) Wt 95.7 kg (211 lb) LMP 11/16/2022 (Exact Date) BMI 36.20 kg/m? Physical Exam Vitals and nursing note reviewed. Constitutional: Appearance: She is obese. She is not ill-appearing. HENT: Head: Normocephalic. Right Ear: Tympanic membrane and ear canal normal. Left Ear: Tympanic membrane and ear canal normal. Mouth/Throat: Mouth: Mucous membranes are moist. Eyes: Extraocular Movements: Extraocular movements intact. Conjunctiva/sclera: Conjunctivae normal. Pupils: Pupils are equal, round, and reactive to light. Neck: Thyroid: Thyromegaly present. No thyroid mass or thyroid tenderness. Cardiovascular: Rate and Rhythm: Normal rate and regular rhythm. Pulses: Normal pulses. Heart sounds: Normal heart sounds. Pulmonary: Effort: Pulmonary effort is normal. Breath sounds: Normal breath sounds and air entry. Abdominal: General: Abdomen is flat. Bowel sounds are normal. Palpations: Abdomen is soft. Musculoskeletal: General: Normal range of motion. Cervical back: Normal range of motion. No tenderness. Right lower leg: No edema. Left lower leg: No edema. Lymphadenopathy: Cervical: No cervical adenopathy. Skin: General: Skin is warm and dry. Capillary Refill: Capillary refill takes less than 2 seconds. Neurological: Mental Status: She is alert and oriented to person, place, and time. Cranial Nerves: No cranial nerve deficit. (more content not included)... [facility]08-03-2023 History of Present illness Narrative* Pelon Britt APRN.DISPUTE SPECIALIST - 12/05/2022 1:08 PM EDT This note was created using [employer]. Subjective Isabel Oreilly is a 22 year old female. Patient here for a physical. 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 Hasn't seen PCP since 2020. Updated PMFSH. Previous immunity testing showed negative for mumps so needs one MMR booster. Also needs 3rd Hep B. Wants refill on control. Previously on Sprintec but stopped it when she ws dealing with cyclic vomiting syndrome thinking that was a contributor, but that issue has resolved and she'd like to get back on it. Does have a lot of cramping a couple days before period and the first couple days on her menses. No heavy bleeding. Currently sexually active with one mail partner, uses condoms currently. Has had one PAP at age 21-22 which was normal. No history of migraines or blood clots, nonsmoker. Works out at [employer] twice weekly. Mostly cooks at home, tries to eat healthy. Her weight was around 190 when she was dealing with the vomiting syndrome but since that has resolved, her weighthas increased. The history is provided by the patient. Review of Systems Constitutional: Negative for chills, fever and unexpected weight change. HENT: Negative for congestion, ear pain, hearing loss, rhinorrhea and sore throat. Eyes: Negative for visual disturbance. Respiratory: Negative for cough, shortness of breath and wheezing. Cardiovascular: Negative for chest pain, palpitations and leg swelling. Gastrointestinal: Negative for abdominal pain, constipation, diarrhea, nausea and vomiting. Endocrine: Negative for polydipsia and polyuria. Genitourinary: Positive for menstrual problem. Negative for dysuria, flank pain, frequency, hematuria, pelvic pain, urgency and vaginal discharge. Musculoskeletal: Negative for back pain, joint swelling and neck pain. Skin: Negative for rash. Allergic/Immunologic: Negative for immunocompromised state. Neurological: Negative for dizziness, syncope, weakness, numbness and headaches. Hematological: Negative for adenopathy. Does not bruise/bleed easily. Psychiatric/Behavioral: Negative for dysphoric mood. The patient is not nervous/anxious. PAST MEDICAL HISTORY Diagnosis Date Cyclic vomiting syndrome 06/07/2016 Menarche PAST SURGICAL HISTORY Procedure Laterality Date LAP APPENDECTOMY AT TIME OTHER SURGERY 07/05/2019 with cholecystectomy LAPAROSCOPY SURG CHOLECYSTECTOMY 07/08/2019 [facility]. NONE ALLERGIES Thorazine [Chlorpromazine] MEDICATIONS norgestimate 0.25 mg-ethinyl estradiol 35 mcg 0.25-35 mg-mcg per tablet Take 1 tablet by mouth oncedaily. Skip placebo week of pills and start a new pack immediately FAMILY HISTORY Problem Relation Age of Onset None Mother Heart Attack Father CT age 54 Coronary Artery Disease Father No Known Problems Sister Colon Cancer Maternal Grandfather Diabetes Paternal Grandmother Diabetes Paternal Grandfather Breast Cancer Paternal Grandfather diagnosed in 60's Social History Tobacco Use Smoking status: Never Smokeless tobacco: Never Vaping Use Vaping Use: Never used Substance Use Topics Alcohol use: No Drug use: No Objective BP 132/95 Pulse 92 Ht 162.6 cm (5' 4.02) Wt 95.7 kg (211 lb) LMP 11/16/2022 (Exact Date) BMI 36.20 kg/m BP 124/82 (BP Site: Right Arm, BP Position: Sitting, BP Cuff Size: Large Adult) Pulse 92 Ht 162.6 cm (5' 4.02) Wt 95.7 kg (211 lb) LMP 11/16/2022 (Exact Date) BMI 36.20 kg/m Physical Exam Vitals and nursing note reviewed. Constitutional: Appearance: She is obese. She is not ill-appearing. HENT: Head: Normocephalic. Right Ear: Tympanic membrane and ear canal normal. Left Ear: Tympanic membrane and ear canal normal. Mouth/Throat: Mouth: Mucous membranes are moist. Eyes: Extraocular Movements: Extraocular movements intact. Conjunctiva/sclera: Conjunctivae normal. Pupils: Pupils are equal, round, and reactive to light. Neck: Thyroid: Thyromegaly present. No thyroid mass or thyroid tenderness. Cardiovascular: Rate and Rhythm: Normal rate and regular rhythm. Pulses: Normal pulses. Heart sounds: Normal heart sounds. Pulmonary: Effort: Pulmonary effort is normal. Breath sounds: Normal breath sounds and air entry. Abdominal: General: Abdomen is flat. Bowel sounds are normal. Palpations: Abdomen is soft. Musculoskeletal: General: Normal range of motion. Cervical back: Normal range of motion. No tenderness. Right lower leg: No edema. Left lower leg: No edema. Lymphadenopathy: Cervical: No cervical adenopathy. Skin: General: Skin is warm and dry. Capillary Refill: Capillary refill takes less than 2 seconds. Neurological: Mental Status: She is alert and oriented to person, place, and time. Cranial Nerves: No cranial nerve deficit. Gait: Gait normal. Psychiatric: Mood and Affect: Mood normal. Behavior: Behavior normal. Thought Content: Thought content normal. Assessment and Plan 1. Well adult exam - ICD9: V70.0, ICD10: Z00.00 (primary diagnosis) - Counseled on healthy diet and regular exercise - Calcium intake with supplements or by diet of 1000 mg/day for under 50, 1200- 1500 mg/day for 50+ - Follow up for annual exam in one year 2. Elevated BP without diagnosis of hypertension - ICD9: 796.2, ICD10: R03.0 - Encouraged dietary sodium restriction/DASH diet - Recommended regular aerobic exercise. - Recommend home blood pressure monitoring, to bring results in on next visit - Goal of BP <130/80 - BASIC METABOLIC PNL 3. Oral contraception initial prescription - ICD9: V25.01, ICD10: Z30.011 - RX given today. - discussed with patient on how to take OCP's. - counseled on benefits, risks and possible severe side effects of OCP's. 4. Dysmenorrhea - ICD9: 625.3, ICD10: N94.6 - NORGESTIMATE 0.25 MG-ETHINYL ESTRADIOL 35 MCG TABLET 5. Obesity, Class II, BMI 35-39.9 - ICD9: 278.00, ICD10: E66.9 Weight increasing - Behavioral intervention 6. Thyromegaly - ICD9: 240.9, ICD10: E01.0 - TSH BLD 7. Screening for lipid disorders - ICD9: V77.91, ICD10: Z13.220 - LIPID PANEL BASIC 8. Need for yslxxkx-rodqj-shtccdf (MMR) vaccine - ICD9: V06.4, ICD10: Z23 9. Need for hepatitis B booster vaccination - ICD9: V05.3, ICD10: Z23 Pelon Britt APRN.DISPUTE SPECIALIST documented in this encounterWex[facility] Center08-02-2023 Miscellaneous Notes* Telephone Encounter - Krista Landeros - 12/04/2022 2:53 PM EDT Called patient to let her know appt time changed documented in this encounterWexner Medical Center08-02-2023 Miscellaneous Notes* Telephone Encounter - Rosemary Yanez RN - 12/04/2022 2:36 PM EDT Patient is scheduled for a physical with Dr. 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 Offer 40 min slot. documented in this encounterWexner Medical Center01-16-2023 NoteHNO ID: [id number] Author: Gardenia Boudreaux Service: ? Author Type: ? Type: Progress Notes Filed: 05/20/2022 9:45 AM Note Text: 3rd attempt. Left patient VM. Did not have outgoing message for Som.[facility]01-08-2023 NoteHNO ID: [id number] Author: Loreto Lopez Service: ? Author Type: ? Type: Progress Notes Filed: 05/12/2022 9:59 AM Note Text: 2nd attempt did reach a voicemail when I called but it did not allow me to leave a message and I believe the voicemail says Hi you have reached Som, not matching name. Loreto PatelWadsworth[facility]12-29-2022 NoteHNO ID: [id number] Author: Loreto Lopez Service: ? Author Type: ? Type: Progress Notes Filed: 05/02/2022 7:01 PM Note Text: 1st attempt to schedule 40 minute annual visit, MyChart message sent. Loreto LopezAdena [facility] Center12-29-2022 History of Present illness Narrative* Loreto Patelovan - 05/02/2022 7:01 PM EST 1st attempt to schedule 40 minute annual visit, Intern [employer] Americah[employer] message sent. Loretodain Patelovan * Pelon Britt APRN.CNP - 04/17/2022 3:50 PM EST Patient is overdue for a yearly visit with PCP. Please offer to schedule an appointment for a physical in a 40 minute slot. Pelon Britt APRN.CNP documented [facility]22 NoteHNO ID: [id number] Author: Pelon Britt APRN.CNP Service: ? Author Type: Nurse Practitioner Type: Progress Notes Filed: 05/02/2022 7:01 PM Note Text: Patient is overdue for a yearly visit with PCP. Please offer to schedule an appointment for a physical in a 40 minute slot. Pelon Britt [facility]N.CNPA[facility]12-14-2022 NotePatient Outreach (FPWADS) ISABEL OREILLY V ([id number]) 2000 F [facility] Date Time Provider Department 04/17/22 PELON BRITT During your visit today, we recorded the following information about you: Pelon Britt APRN.CNP 05/02/2022 7:01 PM Signed Patient is overdue for a yearly visit with PCP. Please offer to schedule an appointment for a physical in a 40 minute slot. DERRICK Olvera 05/02/2022 7:01 PM Signed 1st attempt to schedule 40 minute annual visit, [employer] message sent. Loreto Lopez 05/12/2022 9:59 AM Signed 2nd attempt did reach a voicemail when I called but it did not allow me to leave a message and I believe the voicemail says Hi you have reached Som, not matching name. Loreto Boudreaux 05/20/2022 9:45 AM Signed 3rd attempt. Left patient VM. Did not have outgoing message for Som. Allergies As of Date: 04/17/2022 Noted Allergy Reaction THORAZINE (CHLORPROMAZINE) 06/25/2019 14 - Other: See Comments Comments: Pt states numbness and tingling Date Reviewed: 04/02/2021 Reviewed by: Malissa Samlon MA - Fully Assessed Prescriptions as of 05/20/2022 - amitriptyline (ELAVIL) 25 mg tablet Take 1 tablet by mouth daily at bedtime. - promethazine (PHENERGAN) 50 mg tab(s) Take 1 tablet by mouth every 8 hours as needed. - norgestimate 0.25 mg-ethinyl estradiol 35 mcg (SPRINTEC, ORTHO-CYCLEN) 0.25-35 mg-mcg per tablet Take 1 tablet by mouth once daily. Skip placebo week of pills and start a new pack immediately Problem List As Of Date 04/17/2022 Noted Resolved Dislocation of patella, left, closed [S83.005A] 03/01/2014 01/19/2015 Enteritis [K52.9] 01/15/2015 01/19/2015 Gastritis [K29.70] 01/15/2015 01/19/2015 Nausea [R11.0] 01/15/2015 01/19/2015 Thalassemia trait [D56.3] 01/15/2015 Elevated AST (SGOT) [R74.01] 03/13/2015 12/03/2016 Recurrent vomiting [R11.10] 03/13/2015 Cyclic vomiting syndrome [R11.15] 06/16/2015 05/24/2016 Dehydration [E86.0] 06/16/2015 11/29/2015 Nausea [R11.0] 06/16/2015 11/29/2015 Nausea AND vomiting [R11.2] 06/19/2015 06/19/2015 Vomiting [R11.10] 11/25/2015 11/29/2015 Hypertension [I10] 11/29/2015 Cyclical vomiting [R11.15] 12/22/2015 03/21/2016 Obesity [E66.9] 03/21/2016 Cyclic vomiting syndrome [R11.15] 06/07/2016 Vomiting [R11.10] 08/06/2017 08/09/2017 Obesity, Class II, BMI 35-39.9 E66.9 [E66.9] 08/07/2017 Nausea AND vomiting [R11.2] 10/09/2017 10/12/2017 Emesis [R11.10] 11/29/2017 12/02/2017 Encounter Status:Closed by LORETO LOPEZ on 05/02/22[facility] History of Present illness Narrative* Tesha Clark Population Health Navigator - 11/13/2021 10:28 AM EDT POPULATION HEALTH NAVIGATION OUTREACH Action/I I called to schedule annual wellness, voicemail was full, MyChart sent. HCC: I10 - Hypertension D56.3 - Thalassemia trait Pt identified by name and : NO Outreach Outcome/Action Unable to reach patient: Phone number not valid / voicemail full MyChart message sent Did you use a PCP flex slot to schedule this appointment? N/A Reason for Outreach HCC or suspected condition Payer: Payor: [facility] MEDICAID / Plan: [facility] MEDICAID / Product Type: Medicaid / Care Gap Reviewed:: Annual Wellness visit Reminder: Reminder note to check Health Maintenance for items below Health Maintenance items due: PNEUMOCOCCAL(1 - PCV) Never done MENINGOCOCCAL B: Consider based on risk(1 of 2 - Risk Bexsero 2-dose series) Never done HEPATITIS C SCREENING Never done HIV SCREENING Never done BP CONTROLLED (<130/80) Never done GC (GONORRHEA) SCREENING (18-24) due on 11/30/2018 CHLAMYDIA SCREENING (18-24) due on 11/30/2018 COVID-19 VACCINE(3 - Booster for Moderna series) due on 07/26/2021 Message Sent to Practice: No Navigation Signature: Tesha Clark Population Health Navigator November 13, 2021 10:28 AM documented in this encounterWex[facility] Center07-28-2018 History of Past illness Narrative* Problem Noted Date Resolved Date Emesis 11/29/2017 12/02/2017 Nausea & vomiting 10/09/2017 10/12/2017 Vomiting 08/06/2017 08/09/2017 Cyclical vomiting 12/22/2015 03/21/2016 Vomiting 11/25/2015 11/29/2015 Nausea & vomiting 06/19/2015 06/19/2015 Cyclic vomiting syndrome 06/16/2015 017 Dehydration 06/16/2015 11/29/2015 Nausea 06/16/2015 11/29/2015 Elevated AST (SGOT) 03/13/2015 12/03/2016 Overview: AST - 62 on 03/10/15 Enteritis 01/15/2015 01/19/2015 Gastritis 01/15/2015 01/19/2015 Nausea 01/15/2015 01/19/2015 Dislocation of patella, left, closed 03/01/2014 01/19/2015 documented as of this encounter (statuses as of 11/13/2021) [facility] of Past illness Narrative* Problem Noted Date Resolved Date Emesis 11/29/2017 12/02/2017 Nausea & vomiting 10/09/2017 10/12/2017 Vomiting 08/06/2017 08/09/2017 Cyclical vomiting 12/22/2015 03/21/2016 Vomiting 11/25/2015 11/29/2015 Nausea & vomiting 06/19/2015 06/19/2015 Cyclic vomiting syndrome 06/16/2015 017 Dehydration 06/16/2015 11/29/2015 Nausea 06/16/2015 11/29/2015 Elevated AST (SGOT) 03/13/2015 12/03/2016 Overview: AST - 62 on 03/10/15 Enteritis 01/15/2015 01/19/2015 Gastritis 01/15/2015 01/19/2015 Nausea 01/15/2015 01/19/2015 Dislocation of patella, left, closed 03/01/2014 01/19/2015 documented as of this encounter (statuses as of 05/08/2022) [address]28-2018 History of Past illness Narrative* Problem Noted Date Diagnosed Date Resolved Date Emesis 11/29/2017 12/02/2017 Nausea & vomiting 10/09/2017 10/12/2017 Vomiting 08/06/2017 08/09/2017 Cyclical vomiting 12/22/2015 03/21/2016 Vomiting 11/25/2015 11/29/2015 Nausea & vomiting 06/19/2015 06/19/2015 Cyclic vomiting syndrome 06/16/2015 Dehydration 06/16/2015 11/29/2015 Nausea 06/16/2015 11/29/2015 Elevated AST (SGOT) 03/13/2015 12/04/19 17 Overview: AST - 62 on 03/10/15 Enteritis 01/15/2015 01/19/2015 Gastritis 01/15/2015 01/19/2015 Nausea 01/15/2015 01/19/2015 Dislocation of patella, left, closed 03/01/2014 01/19/2015 documented as of this encounter (statuses as of 12/05/2022) [facility] of [facility] illness Narrative* Problem Noted Date Diagnosed Date Resolved Date Emesis 11/29/2017 12/02/2017 Nausea & vomiting 10/09/2017 10/12/2017 Vomiting 08/06/2017 08/09/2017 Cyclic vomiting syndrome 06/07/201607/2022 Obesity 03/21/2016 12/05/2022 Cyclical vomiting 12/22/2015 03/21/2016 Hypertension 11/29/2015 12/05/2022 Vomiting 11/25/2015 11/29/2015 Nausea & vomiting 06/19/2015 06/19/2015 Cyclic vomiting syndrome 06/16/2015 Dehydration 06/16/2015 11/29/2015 Nausea 06/16/2015 11/29/2015 Elevated AST (SGOT) 03/13/2015 12/04/19 17 Overview: AST - 62 on 03/10/15 Recurrent vomiting 03/13/2015 Enteritis 01/15/2015 01/19/2015 Gastritis 01/15/2015 01/19/2015 Nausea 01/15/2015 01/19/2015 Dislocation of patella, left, closed 03/01/2014 01/19/2015 documented as of this encounter (statuses as of 12/06/2022) [facility] note* Diagnosis Well adult exam- Primary Routine general medical examination at a health care facility Elevated BP without diagnosis of hypertension Oral contraception initial prescription Dysmenorrhea Obesity, Class II, BMI 35-39.9 Obesity, unspecified Thyromegaly Goiter, unspecified Screening for lipid disorders Need for tquvkcv-xqzas-pfisois (MMR) vaccine Need for prophylactic vaccination with fwwwvee-frqur-mgovoxz (MMR) vaccine Need for hepatitis B booster vaccination documented in this encounter [facility] noteNo assessment information availableWSt. Mary's Medical Center Work Phone: Reason for referral (narrative)No reason for referral information availableWSt. Mary's Medical Center Work Phone: Summary Purpose Family History No Family History Records Found Relationship Condition Age at Onset Recorded Date/T ruben Unknown Family History?- Unknown September 11, 019 2:32am Family History?- Unknown October 10, 019 12:33am Advance Directives No Advanced Directives Records FoundDocuments on File Type Date Recorded Patient Supervisor Counseling And Guidance Expl anation Advance Directives and Living Will Documents on File Type Date Recorded Patient Supervisor Counseling And Guidance Expl anation Advance Directives and Livin g Will 05/31/2019 9:03 AM Documents on File Type Date Recorded Patient Supervisor Counseling And Guidance Expl anation Advance Directives and Livin g Will 06/28/2019 2:57 PM Documents on File Type Date Recorded Patient Supervisor Counseling And Guidance Expl anation Advance Directives and Livin g Will 08/20/2019 3:50 PM Latest Code Status on File Code Status Date Activated Date Inactivated Comments Full Code 08/20/2019 6:47 PM 08/21/2019 9:24 PM Full Code 07/08/2019 12:18 PM 07/14/2019 3:39 PM Documents on File Type Date Recorded Patient Supervisor Counseling And Guidance Expl anation Advance Directives and Livin g Will 07/08/2019 8:53 AM Latest Code Status on File Code Status Date Activated Date Inactivated Comments Full Code 07/08/2019 12:18 PM Documents on File Type Date Recorded Patient Supervisor Counseling And Guidance Expl anation Advance Directives and Livin g Will 07/14/2019 3:50 PM Latest Code Status on File Code Status Date Activated Date Inactivated Comments Full Code 07/08/2019 12:18 PM 07/14/2019 3:39 PM Documents on File Type Date Recorded Patient Supervisor Counseling And Guidance Expl anation Advance Directives and Livin g Will 05/31/2019 9:03 AM Documents on File Type Date Recorded Patient Supervisor Counseling And Guidance Expl anation Advance Directive(s) 06/17/2019 4:47 PM Advance Directive(s) 12/24/2017 6:04 PM Advance Directive(s) 11/29/2017 10:10 AM Advance Directive(s) 10/09/2017 5:02 PM Advance Directive(s) 08/06/2017 4:01 PM Advance Directive(s) 05/16/2017 2:41 AM Advance Directive(s) 02/26/2017 4:07 PM Advance Directive(s) 12/22/2015 12:17 AM Advance Directive Response Recorded Date/ Time Do you have a Healthcare Power of Director Dietetics Department? No October 25, 2024 8:01pm Advance Directives No May 15, 2017 11:00am Reason for Referral Status Reason Specialty Diagnoses / Procedures Re ferred By Contact Referred To Contact New Request Radiology Diagnoses Periumbilical abdominal pain Procedures NM Hepatobiliary With Ejection Fraction Nuris Tobias MD [address] [place] [address] [place] [address] Status Reason Specialty Diagnoses / Procedures Re ferred By Contact Referred To Contact Authorized Radiology Diagnoses Periumbilical abdominal pain Procedures NM Hepatobiliary With Ejection Fraction Nuris Tobias MD [address] [place] [address] [address] [place] [id number] History of Present Illness * Nuris Tobias MD - 04/22/2019 2:22 PM EST GENERAL SURGERY H+P / CONSULT - 04/22/19 PATIENT: Isabel Oreilly : 2000 AGE: 18 y.o. SEX: female RACE: Declined to Specify [10] PCP: Fanny Sharif MD REFERRAL: No ref. provider found CHART Reviewed ROS Questionnaire Reviewed Historian Patient Quality Good Accompanied by Her mother CC I have abdominal pain with my periods HPI Patient developed abdominal pain at age 2-3 while in [place]. It returned at age 8-9 again while she was in [place] and got a stomach bug. Then at menarche age [age] she developed abdominal pain withher periods. Initially it was mostly vomiting and less pain and since then it is now mostly abdominal pain with some vomiting. Currently the pain is daily, only in the morning especially after a BM, periumbilical / epigastric, non-radiating, graded a 6-7 on good days and 8-9 on worse days, precipitated sometimes by a lack of sleep, emotional state, stress, eating stale food, or taking in Lactose containing foods. Phenergan suppositories and hot showers help the pain. Eating outside food usually worsens the pain. She has associated hard BM's daily. She tries to drink 2 sports bottles amount of water every day. She feels as if she gets a good sleeping medication, she would feel better - shehas taken Melatonin without any effect. She has lost about 20 lbs over the past few years. She has seen physicians at [facility] including Peds GI, Gynecology, and recently belkis started seeing Psychiatry. She had been placed on BCP's (to stop her periods but it didn't work), Propranolol, Elavil, Omeprazole, Zofran, Amitryptilline and none of these really has helped. Shewas also diagnosed with Chlamydia and has been treated for this. She has had an EGD that was reportedly negative, U/S GB that did not show any stones, Hepatitis B negative. She and her family are getting frustrated with the chronicity of the pain and wish to get an opinion from me. She has never had a HIDA scan. REVIEW OF SYSTEMS Systems Reviewed Constitutional, Eyes, ENT/Mouth, CV, Resp, GI, , MS, Skin, Neuro, Psych, Endo, Heme/Lymph, Breasts Symptoms Reviewed Fevers, chills, fatigue, recent weight loss, double vision, cataracts, difficultyswallowing, bloody noses, high blood pressure, chest pain or angina, heart rhythm problems, difficulty breathing with exertion, blood clots, leg swelling, shortness of breath, asthma, cough, sleep apnea, nausea, vomiting, constipation, diarrhea, blood in stools, abdominal pain, appetite changes, blood in urine, painful urination, frequent urination, urine infections, incontinence, arthritis, gout, rashes, skin cancer, seizures, syncope, stroke, weakness, depression, anxiety, high or low blood sugar, thyroid problems, anemia, lymph node enlargement, bleeding problems, breast pain, nipple discharge, breast mass Pertinent Positives Nausea, vomiting, constipation, diarrhea, abdominal pain, depression, anxiety Pertinent Negatives PMH / PSH Past Medical History: Diagnosis Date Ankle sprain Anxiety Anxiety Chlamydia infection Depression Difficulty sleeping Iron deficiency anemia Obesity Otitis media Patellar dislocation Left...Rx with Physical Therapy Thalassemia trait Past Surgical History: Procedure Laterality Date ESOPHAGOGASTRODUODENOSCOPY 2017 negative TATTOOS AND PIERCINGS OB History 0 Para 0 Term 0 0 AB 0 Living 0 SAB 0 TAB 0 Ectopic 0 Multiple 0 Live Births 0 FAM HX Family History Problem Relation Age of Onset Diabetes Paternal Grandmother Hypertension Paternal Grandmother Breast cancer Paternal Grandmother Diabetes Paternal Grandfather Hypertension Paternal Grandfather SOC HX Social History Occupational History Occupation: Works at [employer] Occupation: Student Tobacco Use Smoking status: Never Smoker Smokeless tobacco: Never Used Substance and Sexual Activity Alcohol use: Never Frequency: Never Drug use: Never Sexual activity: Not on file MEDICATIONS has a current medication list which includes the following prescription(s): amitriptyline, esomeprazole, hyoscyamine, naproxen, norgestimate-ethinyl estradiol, ondansetron, phenadoz, polysaccharide iron complex, promethazine, and propranolol. ALLERGIES Allergies Allergen Reactions Thorazine [Chlorpromazine] Other (See Comments) Numbness and tingling EXAM Vitals BP 128/68 Pulse 92 Temp 98.6 F (37 C) Obesity Yes Const Alert, oriented, cooperative, pleasant, NAD HEENT AT/NC, Perr, OC/OP no gross lesions Neck no thyromegaly, no masses, no bruits Cor RRR, no murmurs Lungs clear to auscultation, no wheezes or rales Abd soft, NT, ND, no masses, no HSM, no peritoneal signs Hernia no abdominal wall hernias Musc / Back no CVA tenderness Ext no LE edema, no UE or LE deformities, normal pulses all extremities Neuro CN's grossly intact, no gross deficits Psych normal affect Lymph no neck LA Skin / Other No obvious rashes ASSESSMENT / PLAN Chronic abdominal pain that seems to be related to her periods, oral intake, stress, etc. At this time the differential includes IBS, biliary dyskinesia, endometriosis, PID, etc. Recommend starting with HIDA scan then may need diagnostic laparoscopy. Diff Dx As above. Chronic conditions Depression, Anemia - both clinically stable. Co-morbidities PMH/PSH Yes SH No Age No Anticoagulation No Other Risks Explained Anticipated Anesthesia Morbidity risk (see co-morbidities above) Low Risks / Rationale / Benefits / Alternatives discussed Yes Informed consent obtained Questions answered Yes [facility] ORDERS / F/U HIDA scan then F/u here. [place] is going [place] of the [place] and will be returning in mid May. I'll see her in early June. ICD Pain of upper abdomen [R10.10] Thank you for the privilege of allowing me to participate in the care of this patient Layout PNSHETH documented in this encounter* Nuris Tobias MD - 06/21/2019 3:31 PM EST GENERAL SURGERY H+P / CONSULT - 06/21/19 PATIENT: Isabel Oreilly : 2000 AGE: 18 y.o. SEX: female RACE: Declined to Specify [10] PCP: Fanny Sharif MD REFERRAL: No ref. provider found CHART Reviewed ROS Questionnaire Reviewed Historian Patient Quality Good Accompanied by Her Father CC What did my tests show? HPI Patient was seen initially on 04/22/2019: Patient developed abdominal pain at age 2-3 while in [place]. It returned at age 8-9 again while she was in [place] and got a stomach bug. Then at menarche age 11- 12 she developed abdominal pain with herperiods. Initially it was mostly vomiting and less pain and since then it is now mostly abdominal pain with some vomiting. Currently the pain is daily, only in the morning especially after a BM, periumbilical / epigastric, non-radiating, graded a 6-7 on good days and 8-9 on worse days, precipitatedsometimes by a lack of sleep, emotional state, stress, eating stale food, or taking in Lactose containing foods. Phenergan suppositories and hot showers help the pain. Eating outside food usually wo rsens the pain. She has associated hard BM's daily. She tries to drink 2 sports bottles amount of water every day. She feels as if she gets a good sleeping medication, she would feel better - she hastaken Melatonin without any effect. She has lost about 20 lbs over the past few years. She has seen physicians at [facility] including Peds GI, Gynecology, and recently belkis started seeing Psychiatry. She had been placed on BCP's (to stop her periods but it didn't work), Propranolol, Elavil, Omeprazole, Zofran, Amitryptilline and none of these really has helped. Shewas also diagnosed with Chlamydia and has been treated for this. She has had an EGD that was reportedly negative, U/S GB that did not show any stones, Hepatitis B negative. She and her family are getting frustrated with the chronicity of the pain and wish to get an opinion from me. She has never had a HIDA scan. Today she presents after having blood tests (cbc, CMP, Lipase - all normal except a slightly elevated wbc and platelets) and HIDA scan (showed a 13% EF) for results. Last week she got ill and had to be hospitalized. She denies any changes in her symptoms from the last visit. REVIEW OF SYSTEMS Systems Reviewed Constitutional, Eyes, ENT/Mouth, CV, Resp, GI, , MS, Skin, Neuro, Psych, Endo, Heme/Lymph, Breasts Symptoms Reviewed Fevers, chills, fatigue, recent weight loss, double vision, cataracts, difficultyswallowing, bloody noses, high blood pressure, chest pain or angina, heart rhythm problems, difficulty breathing with exertion, blood clots, leg swelling, shortness of breath, asthma, cough, sleep apnea, nausea, vomiting, constipation, diarrhea, blood in stools, abdominal pain, appetite changes, blood in urine, painful urination, frequent urination, urine infections, incontinence, arthritis, gout, rashes, skin cancer, seizures, syncope, stroke, weakness, depression, anxiety, high or low blood sugar, thyroid problems, anemia, lymph node enlargement, bleeding problems, breast pain, nipple discharge, breast mass Pertinent Positives None Pertinent Negatives PMH / PSH Past Medical History: Diagnosis Date Ankle sprain Anxiety Anxiety Chlamydia infection Depression Difficulty sleeping Iron deficiency anemia Obesity Otitis media Patellar dislocation Left...Rx with Physical Therapy Thalassemia trait Past Surgical History: Procedure Laterality Date ESOPHAGOGASTRODUODENOSCOPY 2017 negative TATTOOS AND PIERCINGS OB History 0 Para 0 Term 0 0 AB 0 Living 0 SAB 0 TAB 0 Ectopic 0 Multiple 0 Live Births 0 FAM HX Family History Problem Relation Age of Onset Diabetes Paternal Grandmother Hypertension Paternal Grandmother Breast cancer Paternal Grandmother Diabetes Paternal Grandfather Hypertension Paternal Grandfather SOC HX Social History Occupational History Occupation: Works at [employer] Occupation: Student Tobacco Use Smoking status: Never Smoker Smokeless tobacco: Never Used Substance and Sexual Activity Alcohol use: Never Frequency: Never Drug use: Never Sexual activity: Not on file MEDICATIONS has a current medication list which includes the following prescription(s): esomeprazole, hyoscyamine, naproxen, norgestimate-ethinyl estradiol, ondansetron, pantoprazole, phenadoz, polysaccharide iron complex, promethazine, propranolol, amitriptyline, and metoclopramide. ALLERGIES Allergies Allergen Reactions Thorazine [Chlorpromazine] Other (See Comments) Numbness and tingling EXAM Vitals BP 113/76 (BP Location: Right arm, Patient Position: Sitting, BP Cuff Size: X-large Adult) Pulse 85 Temp 98.1 F (36.7 C) (Oral) Ht 5' 4 Wt 89.8 kg (198 lb) SpO2 98% BMI 33.99 kg/m Obesity Yes Const Alert, oriented, cooperative, pleasant, NAD HEENT AT/NC, Perr, OC/OP no gross lesions Neck no thyromegaly, no masses, no bruits Cor RRR, no murmurs Lungs clear to auscultation, no wheezes or rales Abd soft, NT, ND, no masses, no HSM, no peritoneal signs Hernia no abdominal wall hernias Musc / Back no CVA tenderness Ext no LE edema, no UE or LE deformities, normal pulses all extremities Neuro CN's grossly intact, no gross deficits Psych normal affect Lymph no neck LA Skin / Other No obvious rashes ASSESSMENT / PLAN Biliary dyskinesia. Recommend cholecystectomy. Discussed laparoscopic vs. Robotic. She wishes to proceed with laparoscopic cholecystectomy. Will look at the appendix and at the pelvis during the procedure also. Diff Dx As above. Chronic conditions Depression, Anemia - both clinically stable. Co-morbidities PMH/PSH Yes SH No Age No Anticoagulation No Other Risks Explained Bleeding, Infection, Risks of Anesthesia, Injury to abdominal structures, non-relief of symptoms Anticipated Anesthesia GET Morbidity risk (see co-morbidities above) Low Risks / Rationale / Benefits / Alternatives discussed Yes Informed consent obtained Yes Questions answered Yes [facility] ORDERS / F/U Schedule OR ICD Biliary dyskinesia [K82.8] Thank you for the privilege of allowing me to participate in the care of this patient Layout PNSHETH documented in this encounter* Curtis Bell, RD - 08/21/2019 2:53 PM EDT Nutrition Care Initial Assessment Reason for visit: Nursing Referral for PO Nutrition Diagnosis: Altered GI function related to abdominal pain as evidenced by emesis. Nutrition Intervention: Meal rounds Nutrition Prescription: Diet: full liquid Nutrition Goals: Tolerate diet advancement Start Date:08/21/2019 Expected End Date:08/27/2019 Nutrition Education: No needs at this time Assessment: Pertinent clinical information: recent choly Past Medical History: Diagnosis Date Ankle sprain Anxiety Anxiety Chlamydia infection Depression Difficulty sleeping Iron deficiency anemia Obesity Otitis media Patellar dislocation Left...Rx with Physical Therapy Thalassemia trait Height: 5' 4 Current weight: 85.5 kg (188 lb 7.9 oz) BMI Body mass index is 32.35 kg/m . Weight hx: 5% weight loss over past 2 months Wt Readings from Last 5 Encounters: 08/20/19 85.5 kg (188 lb 7.9 oz) 07/22/19 85.7 kg (189 lb) 07/14/19 90.7 kg (200 lb) 07/09/19 90.8 kg (200 lb 2.8 oz) 06/21/19 89.8 kg (198 lb) Current diet order: Full liquids Recent intake: 25%. Current intake does not meet estimated needs. Difficulty Chewing/Swallowing: No Skin Integrity: Intact GI Function: abdominal pain Physical Appearance: no signs or symptoms of malnutrition Due to the current COVID-19 infection precautions that are in place, a nutrition-focused physical exam was deferred at this time. If possible, direct patient information was obtained via electronic communication or telephone conversations with bedside nurse or other medical provider, Physician or [facility]. Labs: Recent Labs 08/20/19 1640 NA 135 K 3.2* BICARB 27 CL 100 GLUCOSE 104* BUN 22 CREATININE 1.11* Scheduled Meds: pantoprazole 40 mg Intravenous Daily potassium chloride 20 mEq Intravenous Q2H Continuous Infusions: sodium chloride 0.9 % with KCl 20 mEq 125 mL/hr (08/21/19 1418) sodium chloride 0.9 % Estimated Energy Needs Total Energy Estimated Needs: 1800kcal Method for Estimating Needs: 28kcal/kg adj Total Protein Estimated Needs: 65gm Method for Estimating Needs: 1.0gm/kg Jhon Bell MS, RDN, LD Dietitian Office * Rafa Rasmussen MD - 08/21/2019 12:27 PM EDT [facility] Medicine Inpatient Follow-up 08/21/2019 Rafa Rasmussen MD [facility] Patient: Isabel Oreilly Date of : 2000 (19 y.o.) PCP: Fanny Sharif MD ASSESSMENT/PLAN: Isabel Oreilly 19 y.o. female presented with complains of Active Problems: Nausea & vomiting Nausea vomiting and abdominal pain Hypokalemia Acute kidney injury secondary to vomiting Elevated blood pressure reading might be secondary to stress of pain PLAN: 08/20 Patient still having abdominal pain intermittent nausea but less in severity compared to yesterday patient report recurrent abdominal pain and nausea vomiting at least over 2 years I did not check here medical information from [facility] in [facility] patient had comprehensive work-up for recurrent abdominal pain but I did not see any work-up for porphyria I will order work-up for acuteintermittent porphyria Continue IV fluid CBC and Chem-7 next morning SUBJECTIVE: Aloe up for nausea vomiting and abdominal pain All other systems reviewed and negative other than noted above. OBJECTIVE: Physical Examination: BP 111/74 Pulse 66 Temp 98.1 F (36.7 C) (Oral) Resp 16 Ht 5' 4 Wt 85.5 kg (188 lb 7.9 oz) Comment: Bed scale LMP 08/19/2019 SpO2 99% BMI 32.35 kg/m General Appearance: Alert, well appearing, and in no acute distress. HEENT: Head - Normocephalic, atraumatic. Eyes - REGINALDO bilaterally and EOMI. Ears - normal external appearance, hearing intact. Nose - normal, no erythema. Throat - mucous membranes moist, pharynx without lesions. Neck: Supple, trachea midline. Cardiovascular: S1, S2 normal. No murmurs, rubs, clicks or gallops appreciated. No pedal edema. Respiratory: Lungs clear to auscultation, no wheezes, rales or rhonchi heard. Abdomen: Soft, non-tender, normal bowel sounds, non-distended, no masses or organomegaly appreciated. Neurological: Grossly normal motor and sensory exam. No focal deficits. Musculoskeletal: No joint tenderness, deformity or swelling. Skin: Normal coloration and turgor. No rashes. Psych: Alert, oriented x 3. Normal mood and affect. CURRENT MEDICATIONS: pantoprazole 40 mg Intravenous Daily Results/Medications Reviewed 08/21/19 12:27 PM: Results from last 7 days Lab Units 08/20/19 1640 SODIUM mmol/L 135 POTASSIUM mmol/L 3.2* CHLORIDE mmol/L 100 BUN mg/dL 22 CREATININE mg/dL 1.11* GLUCOSE mg/dL 104* CALCIUM mg/dL 9.4 Results from last 7 days Lab Units 08/20/19 1640 WBC K/mcL 11.21* HGB g/dL 12.8 HCT % 43.4 PLT K/mcL 493* Results from last 7 days Lab Units 08/20/19 1640 ALK PHOS U/L 84 BILIRUBIN TOTAL mg/dL 0.6 TOTAL PROTEIN g/dL 9.2* ALTR U/L 46 AST U/L 19 CULTURES: Reviewed 12:27 PM IMAGING: Reviewed 12:27 PM * Nuris Tobias MD - 08/21/2019 9:28 AM EDT I have not been officially consulted but since this patient is recently s/p appy and choly, and I know her family well, I thought I'd chime in to give some surgical guidance. Pre-op she was having similar symptoms to those that required admission for observation yesterday. She has nausea and emesisas well as vague abdominal pain. She states the emesis was bilious. She is thirsty this morning. Abd: Soft, NT, ND A/P: Will start full liquid diet to see if she tolerates. In regards to a reason for her symptoms that seem cyclic in nature, there are no other GI issues that need to be addressed and I suspect gynecologic pathology (ie. Ruptured ovarian cyst, etc.). 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 Please feel free to reach out to me if you have any questions or need my official involvement. documented in this encounter* Trina Dejesus RN - 07/10/2019 3:14 PM EST AVS printed, reviewed with, and provided to the patient. IV was removed per order without complication; pressure dressing applied. AVS updated with last/next medication administration times. Patient given script for [place] and advised of Phenergan to be picked up. Patient educated on risks of opioids use. Patient educated on incision care, activity restriction/recommendations, bathing, and diet. Patient and her parents verbalized understanding of all discharge instructions and the patient was discharged to home. * Nuris Tobias MD - 07/09/2019 5:43 PM EST GENERAL / TRAUMA SURGEON PROGRESS NOTE - 07/09/19 PATIENT: Isabel Oreilly ROOM: : 2000 AGE: 18 y.o. SEX: female RACE: Declined to Specify [10] SECURITY ADVISOR Note Reviewed and agree. I personally examined the patient around 12:50 PM as below and are responsible for the medical decision making. Subjective Had multiple emesis this am. Sleeping now. Her mother is at bedside. Nausea is slightly better after this am. Objective BP 100/69 Pulse (!) 103 Temp 98.3 F (36.8 C) (Oral) Resp 14 Ht 5' 4 Wt 90.8 kg(200 lb 2.8 oz) LMP 06/22/2019 (Exact Date) SpO2 98% BMI 34.36 kg/m Sleepy, NAD Abd: Soft, Incisions CDI Labs X-rays Assessment + Plan Severe nausea and emesis post-op. Volume replacement. Phenergan. Not ready to go home. Layout PNSHETH * Arti Iraheta, YAMILE - 07/09/2019 9:11 AM EST [facility] DAILY PROGRESS NOTE DIAGNO SIS / REASON FOR CONSULT: * Biliary dyskinesia Assessment & Plan POD 1 from laparoscopic appendectomy and cholecystectomy Continued nausea and vomiting overnight, will give 500 ml bolus and change to phenergan and zofran is not relieving nausea. Encouraged to ambulate OOB Pulmonary hygiene SURGERIES/PROCEDURES: Date Operation/Procedure Provider Name 07/07 Laparoscopic Cholecystectomy Laparoscopic Appendectomy Micheline TODAY' S ASSESSMENT AND PLAN OF CARE: 1. As above DISPOSITION - tbd CHIEF COMPLAINT/ HPI / PFSHx / EVENTS OVER LAST 24HRS: Patient has remained nauseated with vomiting since OR. She reports that zofran does not help. Her pain is relieved by her current regimen. REVIEW OF SYSTEMS: Other than the above items the remainder of the complete ROS is otherwise unchanged from admission. PHYSICAL EXAM: Temp: [97.2 F (36.2 C)-98.8 F (37.1 C)] 98.8 F (37.1 C) Heart Rate: [71-120] 120 Resp: [14-20] 14 BP: (122-160)/(88-111) 122/90 GENERAL: Appears age appropriate. No acute distress. NEUROLOGICAL: Alert and oriented X 3. Follows commands with extremities x4, equal strength. Pupils equal, round, reactive to light. EOMI. No focal neurologic deficits noted. GCS = 15 EYES/EARS/NOSE/MOUTH/THROAT: Atraumatic, normocephalic Neck: supple, symmetrical, trachea midline. Sclera non-icteric. External ear - normal CARDIOVASCULAR: Regular rate and rhythm. No clicks, rubs, murmurs or gallops noted. No peripheral edema noted. 2+ pulses radial/DP/PT bilaterally. RESPIRATORY: Lungs, clear to auscultation bilaterally. No rhonchi, wheezes or crackles. Respiratoryeffort unlabored without use of accessory muscles. ABDOMINAL: Rounded, soft, tender to palpation in bilateral upper quadrants, nondistended, normal bowel sounds. No guarding or peritoneal signs. Lap sites with dressing CDI, no drainage GENITOURINARY: Voiding without difficulty. MUSCULOSKELETAL: No gross deformity - neurovascularly intact x 4 SKIN: Skin warm and dry. Normal turgor. No rashes or lesions. Intake/Output Summary (Last 24 hours) at 07/09/2019 0911 Last data filed at 07/08/2019 1300 Gross per 24 hour Intake 2450 ml Output 5 ml Net 2445 ml IMAGING [briefly note any results pertinent to today's evaluation]: None new LABS No results found for: WBC, HGB, HCT, MCV, EXTMCV, PLT, RBC No results found for: GLUCOSE, CALCIUM, NA, K, CL, BUN, CREATININE No results found for: ALT, AST, GGT, ALKPHOS, BILITOT DAILY CHECKLIST: *Need for Restraints: no *Need for Urinary Catheter: no *Need for Central Access Devices: no *VTE Prophylaxis (Body mass index is 34.36 kg/m ., CrCl cannot be calculated (No successful lab value found.).): SCDs, lovenox *Code Status: Full Associated attestation - Nuris Tobias MD - 07/09/2019 5:43 PM EST See my note * Nuris Tobias MD - 07/08/2019 5:51 PM EST Stopped by to see patient. Her mother is present. Patient does not look good enough to go home today. Will keep overnight. * Krista Drew RN - 07/08/2019 2:58 PM EST Patient educated on the importance of complying with all orders. Patient hysterically crying statesher pain is a 10 out of 10. This nurse administered dilaudid at this time per the patients requests. Within 5 min. Patient became very drowsy and falling alsleep she is easily aroused at this time states her pain is now a 3 out of 10 her family states they are very pleased with the care she is receiving. Unable to educate the patient on further orders at this time related to her current state of sleeping will follow up with patient when more awake. Call light left within reach. documented in this encounter* Nuris Tobias MD - 07/22/2019 10:52 AM EDT PROGRESS NOTE - 07/22/19 PATIENT: Isabel Oreilly : 2000 AGE: 18 y.o. SEX: female RACE: Declined to Specify [10] PCP: Fanny Sharif MD REFERRAL: No ref. provider found Reason for Visit F/u after geetha alanis Subjective Has some intermittent nausea. Her father is present. The following PMH, PSH, MEDS, and ALLERGIES were reviewed and updated as needed during today s encounter. PMH / PSH Past Medical History: Diagnosis Date Ankle sprain Anxiety Anxiety Chlamydia infection Depression Difficulty sleeping Iron deficiency anemia Obesity Otitis media Patellar dislocation Left...Rx with Physical Therapy Thalassemia trait Past Surgical History: Procedure Laterality Date CHOLECYSTECTOMY LAPAROSCOPIC N/A 07/08/2019 biliary dyskinesia, chronic abdominal pain.....Dr. Nuris Tobias ESOPHAGOGASTRODUODENOSCOPY 2017 negative [facility] has a current medication list which includes the following prescription(s): hyoscyamine, metoclopramide, naproxen, norgestimate-ethinyl estradiol, ondansetron, pantoprazole, polysaccharide iron complex, promethazine, and propranolol. ALLERGIES Allergies Allergen Reactions Chlorpromazine Other (See Comments) Numbness and tingling Pt states numbness and tingling Vitals BP 119/80 Pulse 93 Temp 98.5 F (36.9 C) Wt 85.7 kg (189 lb) LMP 06/22/2019 (Exact Date) BMI 32.44 kg/m Exam Alert, NAD, cooperative, gait normal Abd: Incisions CDI - catherine removed. Diagnostic tests (if any) Assessment / Plan Doing well. Recommend Prilosec OTC X 30 days. Follow-up PRN Layout PNSHETH documented in this encounter Assessments Diagnosis Periumbilical abdominal pain Abdominal pain, periumbilic Pain of upper abdomen Diagnosis Biliary dyskinesia Other specified disorder of gallbladder Diagnosis Biliary dyskinesia Other specified disorder of gallbladder Diagnosis Intractable nausea and vomiting Cyclic vomiting syndrome Persistent vomiting Nausea & vomiting Nausea with vomiting Diagnosis Biliary dyskinesia Other specified disorder of gallbladder Abdominal pain, right lower quadrant Post-op pain Other acute postoperative pain Diagnosis Visit for wound check Diagnosis Encounter for surgical aftercare following surgery of digestive system Diagnosis Non-intractable vomiting with nausea, unspecified vomiting type- Primary Dysmenorrhea Diagnosis Periumbilical abdominal pain Abdominal pain, periumbilic Instructions * Patient Instructions* Jhoana Reece CNP - 06/28/2019 3:00 PM EST Preoperative Medication Instructions In preparation for surgery please continue all of your current medications with the following changes: Isabel Oreilly Home Medication Instructions Prior to Surgery SANTA:[id number] Printed on:06/28/19 9783 Medication Information Take last dose on Take the morning of surgery Comment(s) hyoscyamine (LEVSIN/SL) 0.125 mg SL tablet Take 0.125 mg by mouth every 8 (eight) hours as needed . metoclopramide (REGLAN) 10 MG tablet TAKE 1 TABLET BY MOUTH 4 TIMES DAILY FOR 5 DAYS naproxen (NAPROSYN) 500 MG tablet Take 500 mg by mouth 2 (two) times a day as needed . As directed by surgeon norgestimate-ethinyl estradiol (ORTHO-CYCLEN) 0.25-35 mg-mcg per tablet Take 1 tablet by mouth every night at bedtime . ondansetron (ZOFRAN-ODT) 4 MG disintegrating tablet Take as needed pantoprazole (PROTONIX) 40 MG tablet Take 40 mg by mouth daily . Take morning of surgery with a sip of water polysaccharide iron complex (NIFEREX) 150 mg iron capsule Take 150 mg by mouth . promethazine (PHENERGAN) 25 MG tablet Take 25 mg by mouth every 6 (six) hours as needed for nausea . Take as needed propranolol (INDERAL) 80 MG tablet Take 80 mg by mouth every night at bedtime . STOP ( medications that contain aspirin, such as Sue Homer, Pepto-Bismol, Anacin), antiinflammatory medications such as Advil, Motrin, Ibuprofen, Naproxen, Aleve, Sue Homer, Pepto-Bismol, Anacin, Diclofenac, Voltaren, Daypro, Etodolac, Ketoprofen, Piroxicam, Relafen, Nabumetone, etc. Also disc ontinue Vitamin C, Vitamin E, [place]-3 Fatty Acid, Fish Oil or Lovaza, and all herbal medications ASDIRECTED BY SURGEON. Tylenol (acetaminophen) is acceptable(unless you have an allergy to this medication ), but be careful to follow the label directions and do not use with other pain medications. On the morning of surgery, with as little water as possible, ONLY take the medications listed abovein the column Take the morning of surgery. If you are using Eye Drops or Inhalers, please bring them to the hospital. Patient Instructions for [facility]: Prior to surgery: Surgeon's office will contact you with the scheduled time of your surgery. You may use the [employer] parking available at the Main Entrance One family member may accompany you back into the Pre-Op Area. Do not eat or drink anything after midnight or as directed, including gum, mints, and cough drops. No smoking after midnight. No alcohol 24 hours prior to your surgery. Please take any medications you have been instructed to take the morning of your surgery with smallsips of water. Please be sure to wear comfortable, appropriate clothing. Please remove all jewelry and piercing's, including wedding rings. Leave all valuable items at home. Shower using anti-bacterial soap or as advised by your Surgeon's office Do not apply any makeup or lotions. Remove all nail bahraini for surgeries involving extremities. Please remember to bring both your insurance card and a photo ID with you on the day of surgery. After your surgery: If you are having outpatient surgery - you must have a licensed farm truck driver to take you home. The expectation is that this farm truck driver will remain at the hospital for the duration of your procedure. You are advised to have a family member with you for at least 24 hours after being under Anesthesia. If you have sleep apnea and have a CPAP/BIPAP device, please bring it with you the day of surgery. documented in this encounter Discharge Instructions * Discharge Instr - Other Orders* Matias Javed RN - 08/21/2019 6:15 PM EDT BP 102/70 (BP Location: Left arm, Patient Position: Lying) Pulse 72 Temp 98.7 F (37.1 C) (Temporal) Resp 16 Ht 5' 4 Wt 85.5 kg (188 lb 7.9 oz) Comment: Bed scale LMP 08/19/2019 SpO2 99% BMI 32.35 kg/m * Additional Instructions* Matias Javed RN - 08/21/2019 Nausea and Vomiting: Care Instructions Your Care Instructions When you are nauseated, you may feel weak and sweaty and notice a lot of saliva in your mouth. Nausea often leads to vomiting. Most of the time you do not need to worry about nausea and vomiting, butthey can be signs of other illnesses. Two common causes of nausea and vomiting are stomach flu and food poisoning. Nausea and vomiting from viral stomach flu will usually start to improve within 24 hours. Nausea and vomiting from food poisoning may last from 12 to 48 hours. The doctor has checked you carefully, but problems can develop later. If you notice any problems ornew symptoms, get medical treatment right away. Follow-up care is a love part of your treatment and safety. Be sure to make and go to all appointments, and call your doctor if you are having problems. It's also a good idea to know your test resultsand keep a list of the medicines you take. How can you care for yourself at home? To prevent dehydration, drink plenty of fluids, enough so that your urine is light yellow or clear like water. Choose water and other caffeine-free clear liquids until you feel better. If you have kidney, heart, or liver disease and have to limit fluids, talk with your doctor before you increase the amount of fluids you drink. Rest in bed until you feel better. When you are able to eat, try clear soups, mild foods, and liquids until all symptoms are gone for 12 to 48 hours. Other good choices include dry toast, crackers, cooked cereal, and gelatin dessert, such as Jell-O. When should you call for help? Call 911 anytime you think you may need emergency care. For example, call if: You passed out (lost consciousness). Call your doctor now or seek immediate medical care if: You have symptoms of dehydration, such as: ? Dry eyes and a dry mouth. ? Passing only a little dark urine. ? Feeling thirstier than usual. You have new or worsening belly pain. You have a new or higher fever. You vomit blood or what looks like coffee grounds. Watch closely for changes in your health, and be sure to contact your doctor if: You have ongoing nausea and vomiting. Your vomiting is getting worse. Your vomiting lasts longer than 2 days. You are not getting better as expected. Where can you learn more? Log into your personal health record on https://[employer] and enter H591 in the Education box to learn more about Nausea and Vomiting: Care Instructions. Current as of: October 28, 2018 Content Version: 12.3 3103-2140 [employer]. Care instructions adapted under license by your healthcare professional. If you have questions about a medical condition or this instruction, always ask your healthcare professional. [employer] disclaims any warranty or liability for your use of this information. Learning About Cyclic Vomiting Syndrome What is it? An adult or child who has cyclic vomiting syndrome (CVS) has repeated bouts of severe vomiting and nausea. Between the vomiting episodes, the person's health is normal. The cause of CVS isn't known, but it may be related to migraine headaches. What happens when you have CVS? CVS causes severe nausea, vomiting, and drooling. You may not be able to walk or talk during an episode. You may look pale. You may have a fever and feel very tired and thirsty. Some people with CVS have belly pain and diarrhea. Bouts of vomiting can last for a few hours or a few days. People with this condition tend to have atypical pattern of attacks. For example, one person may have bouts of CVS 4 times a year and alwaysin the morning. Another person may have 8 bouts a year and always in the evening. Some people with CVS have triggers that set off the vomiting. People have reported an infection, such as a cold, as a trigger. Other triggers include stress, menstrual cycles, and certain foods like chocolate or cheese. Children tend to have more triggers than adults do. How is CVS treated? Treatment is centered around easing the nausea and vomiting. The doctor may prescribe medicine. During very bad bouts of vomiting, your doctor may want you to stay in the hospital for a while. You may get fluids through a vein (IV) to prevent dehydration. Dehydration can be serious. Your body needs fluids to make enough blood. Without a good supply of blood, vital organs such as the heart andbrain can't work as well as they should. When should you call for help? Call your doctor now or seek immediate medical care if: You have new or worse belly pain. You have a fever. You are vomiting. You cannot pass stools or gas. You have symptoms of dehydration, such as: ? Dry eyes and a dry mouth. ? Passing only a little urine. ? Feeling thirstier than usual. Watch closely for changes in your health, and be sure to contact your doctor if you have any problems. Follow-up care is a love part of your treatment and safety. Be sure to make and go to all appointments, and call your doctor if you are having problems. It's also a good idea to know your test resultsand keep a list of the medicines you take. Where can you learn more? Log into your personal health record on https://[employer] and enter G167 in the Education box to learn more about Learning About Cyclic Vomiting Syndrome. Current as of: December 13, 2018 Content Version: 12.3 8519-2761 [employer]. Care instructions adapted under license by your healthcare professional. If you have questions about a medical condition or this instruction, always ask your healthcare professional. [employer] disclaims any warranty or liability for your use of this information. documented in this encounter* Discharge Instr - AVS First Page* Nuris Tobias MD - 07/10/2019 10:23 AM EST DISCHARGE INSTRUCTIONS TO PATIENT PATIENT: Isabel Oreilly : 2000 AGE: 18 y.o. SEX: female RACE: Declined to Specify [10] PCP: Fanny Sharif MD REFERRAL: No ref. provider found Diet Resume pre-procedure diet as tolerated. Drink Gatorade or a sports drink for electrolyte replacement. Activity ? No heavy lifting (10 pound limit). ? No strenuous exercise. ? No driving. Incision / Wound care ? Remove dressings. ? Wash gently with mild soapy water twice a day and apply Neosporin and cover with a clean dry dressing. ? If you notice redness or warmth of the wound or if you have a fever more than 101.4 degrees, contact our office at [phone]. Showering / Bathing Start tomorrow. Medication instructions ? Prescription written for: Phenergan for Nausea and [place] for pain. ? Once [place] is done or if you feel you do not need [place], use Tylenol. Follow-up Call [phone] to make an appointment to be seen in 7 to 10 days in the office. Other instructions documented in this encounter* Attachments The following attachments cannot be sent through Care Everywhere. * Surgery Post-op: General Info ([facility]) * Wound Check ([facility]) documented in this encounter* Instructions* Narinder Sandra MD - 06/26/2019 Please follow up with your gynaecological oncologist for reassessment * Attachments The following attachments cannot be sent through Care Everywhere. * Dysmenorrhea ([facility]) * Nausea and Vomiting ([facility]) documented in this encounter Hospital Course * Nuris Tobias MD - 07/10/2019 10:20 AM EST DISCHARGE SUMMARY Patient: Isabel Oreilly Date of : 2000 Site: [facility] Family Provider: Fanny Shraif MD Admit Date: 07/08/2019 Discharge Date/Time: 07/10/19 Disposition: Home Clinical Summary Hospital Course: Isabel Oreilly is a 18 y.o. female patient of Fanny Sharif MD with a history of abdominal pain and biliary dyskinesia. Discharge Diagnoses: Biliary dyskinesia and abdominal pain. Surgeries: 07/08/19 CHOLECYSTECTOMY LAPAROSCOPIC 07/08/2019 Appendectomy, laparoscopic Consults: Allergies: Thorazine [chlorpromazine] Discharge Diet: Regular diet as tolerated Condition: Good Discharge Medications: Current Discharge Medication List START taking these medications Details HYDROcodone-acetaminophen (NORCO) 5-325 mg per tablet Take 1 (one) tablet by mouth every 6 (six) hours as needed for pain (Days supply per fill: 3) . Qty: 12 tablet, Refills: 0 Associated Diagnoses: Post-op pain CONTINUE these medications which have CHANGED Details promethazine (PHENERGAN) 25 MG tablet Take 1 (one) tablet (25 mg total) by mouth every 6 (six) hours as needed for nausea . Qty: 10 tablet, Refills: 0 CONTINUE these medications which have NOT CHANGED Details norgestimate-ethinyl estradiol (ORTHO-CYCLEN) 0.25-35 mg-mcg per tablet Take 1 tablet by mouth every night at bedtime . polysaccharide iron complex (NIFEREX) 150 mg iron capsule Take 150 mg by mouth . hyoscyamine (LEVSIN/SL) 0.125 mg SL tablet Take 0.125 mg by mouth every 8 (eight) hours as needed . metoclopramide (REGLAN) 10 MG tablet TAKE 1 TABLET BY MOUTH 4 TIMES DAILY FOR 5 DAYS naproxen (NAPROSYN) 500 MG tablet Take 500 mg by mouth 2 (two) times a day as needed . Refills: 0 ondansetron (ZOFRAN-ODT) 4 MG disintegrating tablet pantoprazole (PROTONIX) 40 MG tablet Take 40 mg by mouth daily . propranolol (INDERAL) 80 MG tablet Take 80 mg by mouth every night at bedtime . Physician(s) Family Provider: Fanny Sharif MD, Address: [facility] [address] / [place] [id number] Follow Up: Dr. Tobias in 1 week - call for appointment Additional Information: She had protracted nausea and emesis post-op. Patient instructions, including activity, were given to the patient/family at discharge. Please seethe After Visit Summary in the electronic medical record for details. Time spent on discharge: N/A as post-op Completed by: Nuris Tobias MD on 07/10/19, 10:20 AM documented in this encounter Chief Complaint and Reason for Visit Chief Complaint Admit Date nv October 25, 2024 8:01 pm Additional Source Comments INFORMATION SOURCE (unrecogn ized section and content) DATE CREATED AUTHOR 10/28/2017 [facility] DATE CREATED AUTHOR AUTHOR'S ORGANIZ ATION 11/22/2017 [facility] DATE CREATED AUTHOR AUTHOR'S ORGANIZ ATION 05/01/2018 [facility] ([place]) DATE CREATED AUTHOR AUTHOR'S ORGANIZ ATION 06/26/2019 [facility] DATE CREATED AUTHOR AUTHOR'S ORGANIZ ATION 06/26/2019 [facility] DATE CREATED AUTHOR AUTHOR'S ORGANIZ ATION 06/30/2019 [facility] DATE CREATED AUTHOR AUTHOR'S ORGANIZ ATION 07/22/2019 [facility] DATE CREATED AUTHOR AUTHOR'S ORGANIZ ATION 09/19/2019 [facility] DATE CREATED AUTHOR AUTHOR'S ORGANIZ ATION 02/08/2023 [facility] DATE CREATED AUTHOR AUTHOR'S ORGANIZ ATION 10/27/2024 [facility] Reason for Visit (unrecogniz ed section and content) Reason Comments Consult abdominal pain Reason Comments Follow-up HIDA scan 05/31/19 Reason Comments Emesis Status Reason Specialty Diagnoses / Procedures Referre d By Contact Referred To Contact Diagnoses Cyclic vomiting syndrome Intractable nausea and vomiting Nausea & vomiting Status Reason Specialty Diagnoses / Procedures Referre d By Contact Referred To Contact Diagnoses Biliary dyskinesia Biliary dyskinesia [K82.8] Procedures UT LAP,CHOLECYSTECTOMY Nuris Tobias MD [address] [place] [id number] Reason Comments Wound Check Reason Comments Follow-up LAP ISI Reason Comments Nausea Pt coming in c/o n/v and weakness for the past 3 days. Status Reason Specialty Diagnoses / Procedures Re ferred By Contact Referred To Contact Authorized Radiology Diagnoses Periumbilical abdominal pain Procedures NM Hepatobiliary With Ejection Fraction Nuris Tobias MD [address] [place] [id number] [address] [place] [id number] Reason Onset Date Comments Population Health Navigation Outreach 11/13/2021 HCC Reason Comments Patient Question Reason Onset Date Comments Appointment 12/04/2022 Reason Comments Physical Forms for school vac cinations Reason Comments Received Outside Medical Records [facility] ED 12/16 OR Jhoana Crow CNP - 06/28/2019 3:00 PM EST OR Notes (unrecognized secti on and content) ANESTHESIA PREPROCEDURE EVALUATION Physical Exam Airway Mallampati: II Neck ROM: full Mouth opening: >3 FB Cardiovascular Rhythm: regular Pulmonary Breath sounds are clear to auscultation Neurological Mental Status: alert Dental Dental exam is normal and age appropriate Review of Systems / Medical History History of anesthetic complications: patient has never had GA; denies family history of complications Pulmonary - negative Cardiovascular - negative Gastrointestinal / Hepatic / Renal Comment: Cholelithiasis Positive: GERD Other Negative: smoker and substance abuse documented in this encounter Pre-Procedure Instructions - Honey Shanks RN - 06/28/2019 3:10 PM ESTPlan of Care - Elisha Eric RN - 08/21/2019 3:43 AM EDTPlan of Care - Zeke Crabtree RN - 07/09/2019 1:45 AM EST Miscellaneous Notes (unrecog nized section and content) Preoperative Medication Instructions In preparation for surgery please continue all of your current medications with the following changes: Isabel Oreilly Home Medication Instructions Prior to Surgery SANTA:[id number] Printed on:06/28/19 1510 Medication Information Take last dose on Take the morning of surgery Comment(s) amitriptyline (ELAVIL) 50 MG tablet Take 50 mg by mouth . esomeprazole (NEXIUM) 20 MG capsule Take 20 mg by mouth every night at bedtime . hyoscyamine (LEVSIN/SL) 0.125 mg SL tablet Take 0.125 mg by mouth every 8 (eight) hours as needed . metoclopramide (REGLAN) 10 MG tablet TAKE 1 TABLET BY MOUTH 4 TIMES DAILY FOR 5 DAYS naproxen (NAPROSYN) 500 MG tablet Take 500 mg by mouth 2 (two) times a day as needed . norgestimate-ethinyl estradiol (ORTHO-CYCLEN) 0.25-35 mg-mcg per tablet Take 1 tablet by mouth every night at bedtime . ondansetron (ZOFRAN-ODT) 4 MG disintegrating tablet pantoprazole (PROTONIX) 40 MG tablet Take 40 mg by mouth daily . Phenadoz 25 mg suppository INSERT 1 SUPPOSITORY RECTALLY EVERY 6 HOURS NEEDED FOR NAUSEA polysaccharide iron complex (NIFEREX) 150 mg iron capsule Take 150 mg by mouth . promethazine (PHENERGAN) 25 MG tablet Take 25 mg by mouth every 6 (six) hours as needed for nausea . propranolol (INDERAL) 80 MG tablet Take 80 mg by mouth every night at bedtime . STOP ( medications that contain aspirin, such as Sue Homer, Pepto-Bismol, Anacin), antiinflammatory medications such as Advil, Motrin, Ibuprofen, Naproxen, Aleve, Sue Homer, Pepto-Bismol, Anacin, Diclofenac, Voltaren, Daypro, Etodolac, Ketoprofen, Piroxicam, Relafen, Nabumetone, etc. Also discontinue Vitamin C, Vitamin E, [place]-3 Fatty Acid, Fish Oil or Lovaza, and all herbal medications DIRECTED BY SURGEON. Tylenol (acetaminophen) is acceptable(unless you have an allergy to this medication ), but be careful to follow the label directions and do not use with other pain medications. On the morning of surgery, with as little water as possible, ONLY take the medications listed above in the column Take the morning of surgery. If you are using Eye Drops or Inhalers, please bring them to the hospital. Patient Instructions for [facility]: Prior to surgery: Surgeon's office will contact you with the scheduled time of your surgery. You may use the [employer] parking available at the Main Entrance One family member may accompany you back into the Pre-Op Area. Do not eat or drink anything after midnight or as directed, including gum, mints, and cough drops. No smoking after midnight. No alcohol 24 hours prior to your surgery. Please take any medications you have been instructed to take the morning of your surgery with small sips of water. Please be sure to wear comfortable, appropriate clothing. Please remove all jewelry and piercing's, including wedding rings. Leave all valuable items at home. Shower using anti-bacterial soap or as advised by your Surgeon's office Do not apply any makeup or lotions. Remove all nail bahraini for surgeries involving extremities. Please remember to bring both your insurance card and a photo ID with you on the day of surgery. After your surgery: If you are having outpatient surgery - you must have a licensed farm truck driver to take you home. The expectation is that this farm truck driver will remain at the hospital for the duration of your procedure. You are advised to have a family member with you for at least 24 hours after being under Anesthesia. If you have sleep apnea and have a CPAP/BIPAP device, please bring it with you the day of surgery. documented in this encounter Pt educated upon PRN pain medications ordered at this time. Dr. Bedoya contacted about patient having pain of 8 on 0 to 10 pain scale in middle abdomen that is intermittent. Pt requesting pain medication and that patient has nausea and vomited once. Dr. Bedoya notified that patient is requesting something for sleep. Dr. Bedoya orders the following: pt to be NPO, IV Toradol 15mg q 4 hours PRN, Ambien 10mg PO one time order may take and then resume NPO status. Order read back and agreed upon. documented in this encounter Associated Problem(s): Biliary dyskinesia POD 1 from laparoscopic appendectomy and cholecystectomy Problem: Pain Goal: Manage acute pain Outcome: Partially Met Note: Pain being managed by medications at this time - will continue to monitor. Goal: Manage chronic pain Outcome: Partially Met Note: Pain being managed by medications, rest and repositioning at this time - will continue to monitor. Goal: Reduced pain sensation Outcome: Partially Met Note: Pain being managed by medications, rest, and repositioning at this time - will continue to monitor. Goal: Achievement of comfort function goal Outcome: Partially Met Note: Patient resting comfortably at this time - will continue to monitor. Problem: Nausea/Vomiting Goal: Absence of nausea/vomiting Outcome: Partially Met Note: Pt progressing towards goals. Goal: Adequate nutritional intake Outcome: Partially Met Note: Pt progressing towards goals. Problem: Plan for Discharge Goal: Knowledge of discharge plan and instructions Outcome: Partially Met Note: Pt educated on necessary discharge criteria. Problem: Activity Intolerance - Risk of Goal: Able to perform prescribed physical activity Outcome: Partially Met Note: Pt progressing towards goals. Problem: Bowel Function - Altered Goal: Bowel function within specified parameters Outcome: Partially Met Note: Pt progressing towards goals. Problem: Breathing Pattern - Ineffective Goal: Effective breathing pattern Outcome: Partially Met Note: Pt breathing effortlessly at this time - will continue to monitor. Problem: Fluid Volume Imbalance, Risk of Goal: Absence of imbalanced fluid volume signs and symptoms Outcome: Partially Met Note: Pt progressing towards goals. Goal: Balanced intake and output Outcome: Partially Met Note: Pt progressing towards goals. Problem: Infection - Risk of, Surgical Site Infection Goal: Absence of surgical site infection Outcome: Partially Met Note: Pt progressing towards goals. Problem: Urinary Retention Goal: Urinary elimination within specified parameters Outcome: Partially Met Note: Pt progressing towards goals. Problem: Venous Thromboembolism, Risk of Goal: Absence of venous thromboembolism Outcome: Partially Met Note: Pt progressing towards goals. Problem: Infection - Risk of, Urinary Catheter-Associated Urinary Tract Infection Goal: Absence of catheter associated urinary tract infection Outcome: Partially Met Note: No evidence of CAUTI at this time - will continue to monitor. I.S. education completed at this time. The patient was educated on the benefits of using the I.S. pot-op and to use it 10x/hour every hour awake. The patient stated that she was too tired to do it at this time, however at the request of this nurse, the patient completed 2 repetitions at this time accomplishing 1500. Will continue to encourage use of the I.S. POC reviewed with patient and family no questions at this time Dr. Arora made aware of updated BP and pt ok to go to floor. Krista ORR made aware of additional medication and elevated bp. Dr. Arora made aware of elevated BP. This nurse was instructed to give Labetalol OPERATIVE NOTE - 07/08/19 PATIENT: Isabel Oreilly : 2000 AGE: 18 y.o. SEX: female RACE: Declined to Specify [10] PCP: Fanny Sharif MD REFERRAL: No ref. provider found Time Out Performed Yes Site Marking N/A Informed Consent Yes Referring Surgeon Nuris Tobias MD Pre-op Dx Biliary dyskinesia. Chronic abdominal pain. Procedure Laparoscopic Cholecystectomy Laparoscopic Appendectomy Laterality N/A Post-op Dx Same Anesthesia General, Local Purchasing Department Clerk None Positioning Supine Area prepped and draped Abdomen Details of Procedure An umbilical incision was made and taken down through the subcutaneous tissues down to the fascia. The fascia was divided vertically and the peritoneal cavity entered by direct visualization. #0 Vicryl fascial stay sutures were placed and a balloon tip Willard port inserted. A 30-degree laparoscope was inserted after creation of pneumoperitoneum. A 10 mm subxiphoid and two 5 mm right subcostal ports were placed with scopic visualization. All 4 quadrants of the abdominal cavity were visualized. The top of the gallbladder was retracted over the edge of the liver. The medial and lateral peritoneal reflections over the [place] were dissected to reveal the cystic duct and cystic artery. These were individually ligated with Hem-o-uche clips. The gallbladder was taken off the liver with cautery. The gallbladder was removed from the abdominal cavity using an endo-Pouch bag via the umbilical incision and sent to pathology. The appendix was tortuous and long. Due to her chronic pain, it was elected to perform an appendectomy. The mesoappendix was divided using cautery and an Endo- KIRK stapler with vascular catherine. The base of the appendix was ligated using an Endo-KIRK stapler. The appendix was extracted from the abdomen via an Endo-pouch bag and sent to pathology. The uterus was normal. The ovaries had normal cysts. There were parafollicular cysts bilaterally. All ports were removed and the pneumoperitoneum evacuated. The umbilical incision fascia was closed with interrupted #0 Vicryl. The skin at all incisions was closed with catherine. The incisions were dressed with Bacitracin, gauze, and Medipore tape. Sponge / Instrument / Needle counts Good Hemostasis Good EBL 5 ml. Complications None Specimens Gallbladder and contents Appendix Wound Class 2 Sponge / Instrument / Needle Counts Correct Disposition Tolerated well. Transferred to the in stable condition. Layout PNSHETH documented in this encounter Paul Bedoya MD - 08/20/2019 6:47 PM EDNuris Contreras MD - 07/08/2019 10:01 AM Nuris Lyon MD - 06/21/2019 3:31 PM EST H&P Notes (unrecognized sect ion and content) [facility] Medicine Inpatient H&P 08/20/2019 Paul Bedoya MD [facility] Patient: Isabel Oreilly Date of : 2000 (19 y.o.) PCP: Fanny Sharif MD Assessment Isabel Oreilly 19 y.o. female with history of cyclic vomiting syndrome came for nausea vomiting Active Problems: Nausea & vomiting Plan: Admit to the observation Vigorous hydration Replace potassium Zofran IV Switch Protonix to IV Supportive care SUBJECTIVE: Chief Complaint: Nausea vomiting History of Presenting Illness: Isabel Oreilly is a 19 y.o. female presenting from home with complaint of nausea vomiting with history of a cyclic vomiting syndrome every 3 to 4 months, she thinks she has the same symptoms, mild diarrhea no blood with it, mild abdominal discomfort, she has history of cholecystectomy and appendectomy by Dr. Tobias here Review of Systems: 10 systems reviewed and negative other than noted in HPI History: Past Medical History: Diagnosis Date Ankle sprain Anxiety Anxiety Chlamydia infection Depression Difficulty sleeping Iron deficiency anemia Obesity Otitis media Patellar dislocation Left...Rx with Physical Therapy Thalassemia trait Past Surgical History: Procedure Laterality Date CHOLECYSTECTOMY LAPAROSCOPIC N/A 07/08/2019 biliary dyskinesia, with lap appy, parafollicular cysts.....Dr. Nuris Tobias ESOPHAGOGASTRODUODENOSCOPY 2017 negative TATTOOS AND PIERCINGS Family History Problem Relation Age of Onset Diabetes Paternal Grandmother Hypertension Paternal Grandmother Breast cancer Paternal Grandmother Diabetes Paternal Grandfather Hypertension Paternal Grandfather Social History Tobacco Use Smoking Status Never Smoker Smokeless Tobacco Never Used Social History Substance and Sexual Activity Alcohol Use Never Frequency: Never Family and Social History reviewed and non-pertinent to this visit Allergies: Chlorpromazine Home Medications: Outpatient Medications as of 08/20/2019 Medication Sig hyoscyamine (LEVSIN/SL) 0.125 mg SL tablet Take 0.125 mg by mouth every 8 (eight) hours as needed . metoclopramide (REGLAN) 10 MG tablet TAKE 1 TABLET BY MOUTH 4 TIMES DAILY FOR 5 DAYS naproxen (NAPROSYN) 500 MG tablet Take 500 mg by mouth 2 (two) times a day as needed . norgestimate-ethinyl estradiol (ORTHO-CYCLEN) 0.25-35 mg-mcg per tablet Take 1 tablet by mouth every night at bedtime . ondansetron (ZOFRAN-ODT) 4 MG disintegrating tablet pantoprazole (PROTONIX) 40 MG tablet Take 40 mg by mouth daily . polysaccharide iron complex (NIFEREX) 150 mg iron capsule Take 150 mg by mouth . promethazine (PHENERGAN) 25 MG tablet Take 1 (one) tablet (25 mg total) by mouth every 6 (six) hours as needed for nausea . propranolol (INDERAL) 80 MG tablet Take 80 mg by mouth every night at bedtime . OBJECTIVE: Physical Examination: BP (!) 138/111 (BP Location: Left arm, Patient Position: Sitting) Pulse 96 Temp 98.2 F (36.8 C) (Oral) Resp 18 Wt 81.6 kg (180 lb) LMP 08/19/2019 SpO2 98% BMI 30.90 kg/m General Appearance: Moderate distress. HEENT: Head - Normocephalic, atraumatic. Eyes - REGINALDO bilaterally and EOMI. Ears - normal external appearance, hearing intact. Nose - normal, no erythema. Throat - mucous membranes moist, pharynx without lesions. Neck: Supple, trachea midline. Cardiovascular: S1, S2 normal. Respiratory: Lungs clear to auscultation, no wheezes, rales or rhonchi heard. Abdomen: Soft, generalized tenderness no guarding or rebound tenderness Neurological: Grossly normal motor and sensory exam. No focal deficits. Musculoskeletal: No joint tenderness, deformity or swelling. Skin: Normal coloration and turgor. No rashes. Psych: Alert, oriented x 3. Normal mood and affect. Laboratory and Additional Data Reviewed: Results/Medications Reviewed 08/20/19 6:47 PM: Results from last 7 days Lab Units 08/20/19 1640 SODIUM mmol/L 135 POTASSIUM mmol/L 3.2* CHLORIDE mmol/L 100 BUN mg/dL 22 CREATININE mg/dL 1.11* GLUCOSE mg/dL 104* CALCIUM mg/dL 9.4 Results from last 7 days Lab Units 08/20/19 1640 WBC K/mcL 11.21* HGB g/dL 12.8 HCT % 43.4 PLT K/mcL 493* Results from last 7 days Lab Units 08/20/19 1640 ALK PHOS U/L 84 BILIRUBIN TOTAL mg/dL 0.6 TOTAL PROTEIN g/dL 9.2* ALTR U/L 46 AST U/L 19 CULTURES: Reviewed 6:47 PM IMAGING: Reviewed 6:47 PM documented in this encounter INTERVAL HISTORY AND PHYSICAL Patient Name: Isabel Oreilly Admit Date: MR #: [id number] : 2000 The H&P has been reviewed and the patient has been examined. It is appropriate to proceed with the planned procedure. Nuris Tobias MD 07/08/2019 10:01 AM GENERAL SURGERY H+P / CONSULT - 06/21/19 PATIENT: Isabel Oreilly : 2000 AGE: 18 y.o. SEX: female RACE: Declined to Specify [10] PCP: Fanny Sharif MD REFERRAL: No ref. provider found CHART Reviewed ROS Questionnaire Reviewed Historian Patient Quality Good Accompanied by Her Father CC What did my tests show? HPI Patient was seen initially on 04/22/2019: Patient developed abdominal pain at age 2-3 while in [place]. It returned at age 8-9 again while she was in [place] and got a stomach bug. Then at menarche age 13-12 she developed abdominal pain with her periods. Initially it was mostly vomiting and less pain and since then it is now mostly abdominal pain with some vomiting. Currently the pain is daily, only in the morning especially after a BM, periumbilical / epigastric, non-radiating, graded a 6-7 on good days and 8-9 on worse days, precipitated sometimes by a lack of sleep, emotional state, stress, eating stale food, or taking in Lactose containing foods. Phenergan suppositories and hot showers help the pain. Eating outside food usually worsens the pain. She has associated hard BM's daily. She tries to drink 2 sports bottles amount of water every day. She feels as if she gets a good sleeping medication, she would feel better - she has taken Melatonin without any effect. She has lost about 20 lbs over the past few years. She has seen physicians at [facility] including Peds GI, Gynecology, and recently has also started seeing Psychiatry. She had been placed on BCP's (to stop her periods but it didn't work), Propranolol, Elavil, Omeprazole, Zofran, Amitryptilline and none of these really has helped. She was also diagnosed with Chlamydia and has been treated for this. She has had an EGD that was reportedly negative, U/S GB that did not show any stones, Hepatitis B negative. She and her family are getting frustrated with the chronicity of the pain and wish to get an opinion from me. She has never had a HIDA scan. Today she presents after having blood tests (cbc, CMP, Lipase - all normal except a slightly elevated wbc and platelets) and HIDA scan (showed a 13% EF) for results. Last week she got ill and had to be hospitalized. She denies any changes in her symptoms from the last visit. REVIEW OF SYSTEMS Systems Reviewed Constitutional, Eyes, ENT/Mouth, CV, Resp, GI, , MS, Skin, Neuro, Psych, Endo, Heme/Lymph, Breasts Symptoms Reviewed Fevers, chills, fatigue, recent weight loss, double vision, cataracts, difficulty swallowing, bloody noses, high blood pressure, chest pain or angina, heart rhythm problems, difficulty breathing with exertion, blood clots, leg swelling, shortness of breath, asthma, cough, sleep apnea, nausea, vomiting, constipation, diarrhea, blood in stools, abdominal pain, appetite changes, blood in urine, painful urination, frequent urination, urine infections, incontinence, arthritis, gout, rashes, skin cancer, seizures, syncope, stroke, weakness, depression, anxiety, high or low blood sugar, thyroid problems, anemia, lymph node enlargement, bleeding problems, breast pain, nipple discharge, breast mass Pertinent Positives None Pertinent Negatives PMH / PSH Past Medical History: Diagnosis Date Ankle sprain Anxiety Anxiety Chlamydia infection Depression Difficulty sleeping Iron deficiency anemia Obesity Otitis media Patellar dislocation Left...Rx with Physical Therapy Thalassemia trait Past Surgical History: Procedure Laterality Date ESOPHAGOGASTRODUODENOSCOPY 2016 negative TATTOOS AND PIERCINGS OB History 0 Para 0 Term 0 0 AB 0 Living 0 SAB 0 TAB 0 Ectopic 0 Multiple 0 Live Births 0 FAM HX Family History Problem Relation Age of Onset Diabetes Paternal Grandmother Hypertension Paternal Grandmother Breast cancer Paternal Grandmother Diabetes Paternal Grandfather Hypertension Paternal Grandfather SOC HX Social History Occupational History Occupation: Works at [employer] Occupation: Student Tobacco Use Smoking status: Never Smoker Smokeless tobacco: Never Used Substance and Sexual Activity Alcohol use: Never Frequency: Never Drug use: Never Sexual activity: Not on file MEDICATIONS has a current medication list which includes the following prescription(s): esomeprazole, hyoscyamine, naproxen, norgestimate-ethinyl estradiol, ondansetron, pantoprazole, phenadoz, polysaccharide iron complex, promethazine, propranolol, amitriptyline, and metoclopramide. ALLERGIES Allergies Allergen Reactions Thorazine [Chlorpromazine] Other (See Comments) Numbness and tingling EXAM Vitals BP 113/76 (BP Location: Right arm, Patient Position: Sitting, BP Cuff Size: X-large Adult) Pulse 85 Temp 98.1 F (36.7 C) (Oral) Ht 5' 4 Wt 89.8 kg (198 lb) SpO2 98% BMI 33.99 kg/m Obesity Yes Const Alert, oriented, cooperative, pleasant, NAD HEENT AT/NC, Perr, OC/OP no gross lesions Neck no thyromegaly, no masses, no bruits Cor RRR, no murmurs Lungs clear to auscultation, no wheezes or rales Abd soft, NT, ND, no masses, no HSM, no peritoneal signs Hernia no abdominal wall hernias Musc / Back no CVA tenderness Ext no LE edema, no UE or LE deformities, normal pulses all extremities Neuro CN's grossly intact, no gross deficits Psych normal affect Lymph no neck LA Skin / Other No obvious rashes ASSESSMENT / PLAN Biliary dyskinesia. Recommend cholecystectomy. Discussed laparoscopic vs. Robotic. She wishes to proceed with laparoscopic cholecystectomy. Will look at the appendix and at the pelvis during the procedure also. Diff Dx As above. Chronic conditions Depression, Anemia - both clinically stable. Co-morbidities PMH/PSH Yes SH No Age No Anticoagulation No Other Risks Explained Bleeding, Infection, Risks of Anesthesia, Injury to abdominal structures, non-relief of symptoms Anticipated Anesthesia GET Morbidity risk (see co-morbidities above) Low Risks / Rationale / Benefits / Alternatives discussed Yes Informed consent obtained Yes Questions answered Yes [facility] ORDERS / F/U Schedule OR ICD Biliary dyskinesia [K82.8] Thank you for the privilege of allowing me to participate in the care of this patient Layout PNSHETH documented in this encounter Carlito Dacosta MD - 08/20/2019 4:53 PM EDTRajiv-Bigg Cortes RN - 08/20/2019 4:32 PM EDTBFe jamison LPN - 08/20/2019 4:31 PM EDTCElisha hawthorne DO - 07/14/2019 3:53 PM EDT ED Notes (unrecognized secti on and content) [facility] ED Attending Note: NAME: Isabel Oreilly 19 y.o. CSN: [id number] PCP: Fanny Sharif MD History: Chief Complaint: Emesis HPI: The history was obtained from the patient. Isabel is a 19 y.o. female who presents with a chief complaint of Emesis. HPI this is a 19-year-old female, pertinent past medical history of cyclic vomiting syndrome, cholecystectomy, appendectomy, presenting day for evaluation of emesis. The patient states that she has not been able to stop vomiting since Friday. She states that this feels like her cyclic vomiting syndrome, and that nothing she has been able to do has been able to get it to stop. Since she has had so much vomiting, she decided to be evaluated today here in our emergency department. Patient states nothing really ever works for her, the only thing that works for her pain is morphine, and the only thing that works for her vomiting is IV Phenergan. She is hoping we can give her some of this. Her vomiting is NBNB and containing stomach contents. PMHx: Past Medical History: Diagnosis Date Ankle sprain Anxiety Anxiety Chlamydia infection Depression Difficulty sleeping Iron deficiency anemia Obesity Otitis media Patellar dislocation Left...Rx with Physical Therapy Thalassemia trait PMSx: Past Surgical History: Procedure Laterality Date CHOLECYSTECTOMY LAPAROSCOPIC N/A 07/08/2019 biliary dyskinesia, with lap appy, parafollicular cysts.....Dr. Nuris Tobias ESOPHAGOGASTRODUODENOSCOPY 2017 negative [employer] FAM. Hx: Family History Problem Relation Age of Onset Diabetes Paternal Grandmother Hypertension Paternal Grandmother Breast cancer Paternal Grandmother Diabetes Paternal Grandfather Hypertension Paternal Grandfather SOC. Hx: Social History Socioeconomic History Marital status: Single Spouse name: Not on file Number of children: Not on file Years of education: Not on file Highest education level: Not on file Occupational History Occupation: Works at [employer] Occupation: Student Social Needs Financial resource strain: Not on file Food insecurity Worry: Not on file Inability: Not on file Transportation needs Medical: Not on file Non-medical: Not on file Tobacco Use Smoking status: Never Smoker Smokeless tobacco: Never Used Substance and Sexual Activity Alcohol use: Never Frequency: Never Drug use: Never Sexual activity: Not Currently Partners: Male control/protection: Abstinence Lifestyle Physical activity Days per week: Not on file Minutes per session: Not on file Stress: Not on file Relationships Social connections Talks on phone: Not on file Gets together: Not on file Attends jewish service: Not on file Active member of club or organization: Not on file Attends meetings of clubs or organizations: Not on file Relationship status: Not on file Other Topics Concern Not on file Social History Narrative Not on file MEDs: Previous Medications Medication Sig hyoscyamine (LEVSIN/SL) 0.125 mg SL tablet Take 0.125 mg by mouth every 8 (eight) hours as needed . metoclopramide (REGLAN) 10 MG tablet TAKE 1 TABLET BY MOUTH 4 TIMES DAILY FOR 5 DAYS naproxen (NAPROSYN) 500 MG tablet Take 500 mg by mouth 2 (two) times a day as needed . norgestimate-ethinyl estradiol (ORTHO-CYCLEN) 0.25-35 mg-mcg per tablet Take 1 tablet by mouth every night at bedtime . ondansetron (ZOFRAN-ODT) 4 MG disintegrating tablet pantoprazole (PROTONIX) 40 MG tablet Take 40 mg by mouth daily . polysaccharide iron complex (NIFEREX) 150 mg iron capsule Take 150 mg by mouth . promethazine (PHENERGAN) 25 MG tablet Take 1 (one) tablet (25 mg total) by mouth every 6 (six) hours as needed for nausea . propranolol (INDERAL) 80 MG tablet Take 80 mg by mouth every night at bedtime . ALL: Allergies Allergen Reactions Chlorpromazine Other (See Comments) Numbness and tingling Pt states numbness and tingling ROS: Review of Systems Constitutional: Negative for activity change, appetite change and fever. HENT: Negative for congestion and rhinorrhea. Eyes: Negative for photophobia, pain, redness and visual disturbance. Respiratory: Negative for apnea, chest tightness, shortness of breath and wheezing. Cardiovascular: Negative for chest pain and palpitations. Gastrointestinal: Positive for abdominal pain, nausea and vomiting. Negative for constipation and diarrhea. Genitourinary: Negative for difficulty urinating and hematuria. Musculoskeletal: Negative for arthralgias and myalgias. Skin: Negative for color change and rash. Allergic/Immunologic: Negative for food allergies and immunocompromised state. Neurological: Negative for dizziness, syncope, light-headedness, numbness and headaches. Psychiatric/Behavioral: Negative for behavioral problems and confusion. Positives and pertinent negatives as per HPI. All other systems were reviewed and are negative. Physical Exam: Patient Vitals for the past 24 hrs: BP Temp Temp src Pulse Resp SpO2 Weight 08/20/19 1633 (!) 138/111 98.2 F (36.8 C) Oral 96 18 98 % 81.6 kg (180 lb) Physical Exam Constitutional: General: She is not in acute distress. Appearance: She is ill-appearing (Patient is ill-appearing, but in no acute distress.). She is not diaphoretic. HENT: Head: Normocephalic and atraumatic. Right Ear: External ear normal. Left Ear: External ear normal. Nose: Nose normal. No congestion. Mouth/Throat: Mouth: Mucous membranes are moist. Pharynx: Oropharynx is clear. Eyes: General: No scleral icterus. Neck: Vascular: No JVD. Trachea: No tracheal deviation. Cardiovascular: Rate and Rhythm: Normal rate and regular rhythm. Heart sounds: Normal heart sounds. No murmur. No friction rub. No gallop. Pulmonary: Effort: Pulmonary effort is normal. No respiratory distress. Breath sounds: Normal breath sounds. No wheezing or rales. Chest: Chest wall: No tenderness. Abdominal: General: There is no distension. Palpations: Abdomen is soft. There is no mass. Tenderness: There is no abdominal tenderness. There is no rebound. Musculoskeletal: Normal range of motion. General: No tenderness or deformity. Skin: General: Skin is warm and dry. Coloration: Skin is not pale. Findings: No erythema or rash. Neurological: General: No focal deficit present. Mental Status: She is alert and oriented to person, place, and time. Sensory: No sensory deficit. Motor: No weakness. Coordination: Coordination normal. Psychiatric: Mood and Affect: Mood normal. Behavior: Behavior normal. Laboratory & Radiological Imaging (if done): Labs Reviewed COMPREHENSIVE METABOLIC PANEL - Abnormal; Notable for the following components: Result Value Potassium 3.2 (*) Glucose 104 (*) Creatinine 1.11 (*) Total Protein 9.2 (*) All other components within normal limits Narrative: The eGFR should be used for monitoring renal function only and not for medication dosing. CBC WITH AUTO DIFFERENTIAL - Abnormal; Notable for the following components: WBC 11.21 (*) RBC 5.71 (*) MCV 76.0 (*) MCH 22.4 (*) MCHC 29.5 (*) Platelets 493 (*) All other components within normal limits LIPASE - Normal CBC AND DIFFERENTIAL Narrative: The following orders were created for panel order CBC and Differential. Procedure Abnormality Status --------- ------ CBC Auto Differential[[id number]] Abnormal Final result Please view results for these tests on the individual orders. URINALYSIS HCG URINE, QUALITATIVE No orders to display Procedures: Procedures ED Course / Medical Decision Making: This is a 19-year-old female, pertinent past medical history of abdominal surgeries as above, and sickle vomiting syndrome. The patient states that this feels like her typical cyclic vomiting syndrome, and that she is been vomiting since Friday. The patient had approximately 300 out upon arrival to the ER, with an additional 200 mL out after a period of observation here in the emergency department. We did try Reglan, however, while it momentarily relieve the patient symptoms, she was never fully asymptomatic. Additionally, we are giving her fluids. The patient is allergic to Compazine, therefore we cannot try that. The patient states that Phenergan IV does work for her, however, this is not on formulary here. Given that her vomiting continues, and that she has some electrolyte abnormalities, however mild, such as a potassium of 3.2, creatinine of 1.11, we are electing to admit her for observation. We discussed the results of the work up in the emergency department. I spoke with the patient, and discussed with her my plan to admit her for observation, and she is agreement with plan of care including for admission. I spoke with Dr. Bedoya, the hospitalist and service, and he will admit the patient to his observation unit. Clinical Impression: 1. Intractable nausea and vomiting 2. Cyclic vomiting syndrome Disposition: hospitalize to Observation Unit (CDU/OBS) Carlito Dacosta M.D. Attending Physician [facility] Emergency Departments 08/20/2019 Portions of this note may have been dictated utilizing voice recognition software. Unfortunately this leads to occasional typographical errors. If questions arise please do not hesitate to contact my office for clarification. (Please note that portions of this note have been completed with a voice recognition software. Efforts were made to correct any errors, but occasionally words are mis-transcribed.) Carlito Dacosta MD 08/20/191814 PT WAS IN [place] [facility] ED FOR VOMITING. SX STARTED Friday. DENIES ANY CONTACT WITH COVID PTS, DENIES ANY OTHER SX INCLUDING COUGH, FEVER. 300 ML EMESIS DISCARDED UPON ARRIVAL. Bed: 18 Expected date: Expected time: Means of arrival: Comments: Next Patient documented in this encounter ED PROVIDER NOTE [facility] EMERGENCY DEPARTMENT NAME: Isabel Oreilly AGE: 18 y.o. : 2000 VISIT DATE: 07/14/2019 CSN: [id number] PCP: Fanny Sharif MD Chief Complaint Patient presents with Wound Check Patient sent to have wound check she had a lap isi with appendectomy removal last with Dr. Tobias she had some pain at the umbilical port site she has been using Neosporin on her wounds History provided by: Patient Past Medical History: Diagnosis Date Ankle sprain Anxiety Anxiety Chlamydia infection Depression Difficulty sleeping Iron deficiency anemia Obesity Otitis media Patellar dislocation Left...Rx with Physical Therapy Thalassemia trait Past Surgical History: Procedure Laterality Date CHOLECYSTECTOMY LAPAROSCOPIC N/A 07/08/2019 Procedure: CHOLECYSTECTOMY LAPAROSCOPIC; Laparoscopic Appendectomy; Surgeon: Nuris Tobias MD; Location: Main OR; Service: General Surgery ESOPHAGOGASTRODUODENOSCOPY 2017 negative [employer] Family History Problem Relation Age of Onset Diabetes Paternal Grandmother Hypertension Paternal Grandmother Breast cancer Paternal Grandmother Diabetes Paternal Grandfather Hypertension Paternal Grandfather Social History Socioeconomic History Marital status: Single Spouse name: Not on file Number of children: Not on file Years of education: Not on file Highest education level: Not on file Occupational History Occupation: Works at [employer] Occupation: Student Social Needs Financial resource strain: Not on file Food insecurity Worry: Not on file Inability: Not on file Transportation needs Medical: Not on file Non-medical: Not on file Tobacco Use Smoking status: Never Smoker Smokeless tobacco: Never Used Substance and Sexual Activity Alcohol use: Never Frequency: Never Drug use: Never Sexual activity: Not Currently Partners: Male control/protection: Abstinence Lifestyle Physical activity Days per week: Not on file Minutes per session: Not on file Stress: Not on file Relationships Social connections Talks on phone: Not on file Gets together: Not on file Attends jewish service: Not on file Active member of club or organization: Not on file Attends meetings of clubs or organizations: Not on file Relationship status: Not on file Other Topics Concern Not on file Social History Narrative Not on file Previous Medications Medication Sig [] HYDROcodone-acetaminophen (NORCO) 5-325 mg per tablet Take 1 (one) tablet by mouth every 6 (six) hours as needed for pain (Days supply per fill: 3) . hyoscyamine (LEVSIN/SL) 0.125 mg SL tablet Take 0.125 mg by mouth every 8 (eight) hours as needed . metoclopramide (REGLAN) 10 MG tablet TAKE 1 TABLET BY MOUTH 4 TIMES DAILY FOR 5 DAYS naproxen (NAPROSYN) 500 MG tablet Take 500 mg by mouth 2 (two) times a day as needed . norgestimate-ethinyl estradiol (ORTHO-CYCLEN) 0.25-35 mg-mcg per tablet Take 1 tablet by mouth every night at bedtime . ondansetron (ZOFRAN-ODT) 4 MG disintegrating tablet pantoprazole (PROTONIX) 40 MG tablet Take 40 mg by mouth daily . polysaccharide iron complex (NIFEREX) 150 mg iron capsule Take 150 mg by mouth . promethazine (PHENERGAN) 25 MG tablet Take 1 (one) tablet (25 mg total) by mouth every 6 (six) hours as needed for nausea . propranolol (INDERAL) 80 MG tablet Take 80 mg by mouth every night at bedtime . Allergies Allergen Reactions Chlorpromazine Other (See Comments) Numbness and tingling Pt states numbness and tingling Review of Systems Skin: Wound check All other systems reviewed and are negative. Patient Vitals for the past 24 hrs: Height Weight 07/14/19 1551 5' 4 90.7 kg (200 lb) Physical Exam Vitals signs and nursing note reviewed. Exam conducted with a entry level manager present. HENT: Head: Normocephalic. Nose: Nose normal. Mouth/Throat: Mouth: Mucous membranes are moist. Eyes: Pupils: Pupils are equal, round, and reactive to light. Neck: Musculoskeletal: Normal range of motion. Cardiovascular: Rate and Rhythm: Normal rate. Pulmonary: Effort: Pulmonary effort is normal. Abdominal: Comments: Wounds are inspected they are clean dry and intact there are no stigmata of infection Genitourinary: Comments: No CVA tenderness Musculoskeletal: Comments: No obvious injury deformity Skin: General: Skin is warm. Capillary Refill: Capillary refill takes less than 2 seconds. Neurological: General: No focal deficit present. Mental Status: She is alert and oriented to person, place, and time. Psychiatric: Mood and Affect: Mood normal. Behavior: Behavior normal. Laboratory & Radiographic Imaging (if done): No results found for this visit on 07/14/19. No orders to display Procedures MDM Number of Diagnoses or Management Options Visit for wound check: Diagnosis management comments: Patient discussed with Dr. Tobias at 1550 after hearing about her presentation and findings he asked me to kindly discharge the patient have him call the office to arrange follow-up . . Clinical Impression: 1. Visit for wound check ED Disposition ED Disposition Condition Comment Discharge Stable Isabel Oreilly discharged to home/self care in stable condition. Follow-up Information 1. Fanny Sharif MD. Specialty: Pediatrics [address] [facility] [id number] 2. Nuris Tobias MD. Specialties: General Surgery, Breast Surgery, Trauma [address] [facility] [address] [place], [place] [id number] Contact information for after-discharge care Follow-up information has not been specified. Elisha Goodman DO 07/14/19 1555 Pt states she had her gallbladder and appendix out last th with dr Tobias, states she is having pain in her incision sites, it is noted that pt has catherine to her abdomen, sites look well approximated and without redness/swelling/drainage. Pt states she is having sharp pains and nauseated, she was advised by Dr Tobias to come to ER. Bed: 03 Expected date: Expected time: Means of arrival: Comments: NEXT PATIENT documented in this encounter Source Comments (unrecognize d section and content) In the event this informatio n is protected by the Federal Confidentiality of Alcohol and Drug Abuse Patient Records regulations: The Federal rules restrict any use of the information to criminally investigate or prosecute any alcohol or drug abuse patient.[facility] the event this information is protected by the Federal Confidentiality of Alcohol and Drug Abuse Patient Records regulations: The Federal rules restrict any use of the information to criminally investigate or prosecute any alcohol or drug abuse patient.[facility] Center[facility] the event this information is protected by the Federal Confidentiality of Alcohol and Drug Abuse Patient Records regulations: The Federal rules restrict any use of the information to criminally investigate or prosecute any alcohol or drug abuse patient.[facility] Center[facility] the event this information is protected by the Federal Confidentiality of Alcohol and Drug Abuse Patient Records regulations: The Federal rules restrict any use of the information to criminally investigate or prosecute any alcohol or drug abuse patient.[facility] Center[facility] the event this information is protected by the Federal Confidentiality of Alcohol and Drug Abuse Patient Records regulations: The Federal rules restrict any use of the information to criminally investigate or prosecute any alcohol or drug abuse patient.[facility] Center[facility] the event this information is protected by the Federal Confidentiality of Alcohol and Drug Abuse Patient Records regulations: The Federal rules restrict any use of the information to criminally investigate or prosecute any alcohol or drug abuse patient.[facility] Care Teams (unrecognized sec tion and content) Photographer Finish Relationship Specialty Start Date End Date Siri Jackson MD [address] [place] [address] PCP - General Family Practice 04/15/19 Photographer Finish Relationship Specialty Start Date End Date Siri Jackson MD [address] [place], [place] [address] PCP - General Family Medicine 04/15/19 Photographer Finish Relationship Specialty Start Date End Date Siri Jackson MD [address] [place], [place] [address] PCP - General Family Medicine 04/15/19 Photographer Finish Relationship Specialty Start Date End Date Siri Jackson MD [address] [place] [address] PCP - General Family Medicine 04/15/19 Photographer Finish Relationship Specialty Start Date End Date Siri Jackson MD [address] [place], [place] [address] PCP - General Family Medicine 04/15/19 Team Status: Inactive Member Role Status Dates Dr. Asael Quesada MD Emergency Provider Active Start: October 25, 2024 End: October 26, 2024 Goals (unrecognized section and content) Goals may be documented in a n alternate section FOR RECORDS PERTAINING TO PATIENTS WHO ARE OR HAVE BEEN ENROLLED IN A CHEMICAL DEPENDENCY/SUBSTANCEABUSE PROGRAM, SOME INFORMATION MAY BE OMITTED. This clinical summary was aggregated from multiple sources. Caution should be exercised in using it in the provision of clinical care. This summary normalizes information from multiple sources, and as a consequence, information in this document may materially change the coding, format and clinical context of patient data. In addition, data may be omitted in some cases. CLINICAL DECISIONS SHOULD BE BASED ON THE PRIMARY CLINICAL RECORDS. [facility]. provides no warranty or guarantee of the accuracy or completeness of information in this document.
--- NOTE | 2024-10-30 09:33 | ED.VIS.GI ---
HPI HPI - GI History of Present Illness Chief Complaint: Nausea/Vomiting/Diarrhea Informant: patient Abdominal Pain/Flank Pain Onset: Days (6) Context: Sudden Onset Timing: Continuous Quality: Cramping Location: Diffuse Worsened by: Nothing Relieved by: Nothing Nausea/Vomiting/Emesis GI Symptom: Positive for Nausea and Vomiting Quality: Positive for Nonbilious; Negative for Blood streaks, Coffee ground or Hematemesis Diarrhea/Melena/Hematochezia GI Symptom: Negative for Diarrhea, Melena or Hematochezia Associated Symptoms Associated Symptoms: Negative for Dysuria, Frequency or Hematuria LMP: Current Narrative Narrative: Patient presents with cyclic vomiting syndrome that has been constant for the past 6 days. Patient states she has been having some nausea and vomiting over the past 6 days. Patient states it began rather suddenly. Patient states it has been constant. Patient admits to some diffuse abdominal cramping. Patient states nothing makes it better nothing makes it worse. Patient denies any hematemesis or coffee-ground emesis. Patient denies any diarrhea, melena, or hematochezia. Patient denies any urinary complaints. PFSH PFSH Medical History Cyclic vomiting syndrome Home Medications ?Medication ?Instructions ?Recorded ?Last Taken ?Type promethazine 25 mg tablet 25 mg PO Q6H PRN PRN Nausea #12 10/26/24 Unknown Rx TABLETS Allergy/AdvReac Type Severity Reaction Status Date / Time chlorpromazine (From AdvReac Other Verified 10/25/24 20:02 Thorazine) Surgical History Hx of appendectomy Hx of cholecystectomy Social History Smoking Status: Never smoker ROS ROS ED Constitutional Constitutional ED: Denies chills or fever(s) Eyes Eyes: Denies blurry vision or change in vision ENT ENT ED: Reports sore throat; Denies rhinorrhea Cardiovascular Cardiovascular: Denies chest pain or palpitations Respiratory/Chest Respiratory/Chest: Reports cough; Denies dyspnea Gastrointestinal Gastrointestinal: Denies nausea or vomiting Genitourinary Genitourinary ED: Denies dysuria or hematuria Musculoskeletal Musculoskeletal: Denies back pain or neck pain Integumentary Denies abscess or rash Neurologic Neurologic: Denies headache(s) or weakness Allergic/Immunologic Allergic/Immunologic ED: Denies mouth swelling or urticaria EXAM Physical Exam Const Vital Signs: 10/30/24 08:08 10/30/24 10:54 10/30/24 13:16 Temperature 97.5 F L Temperature Source Temporal Pulse Rate 108 H 89 101 H Respiratory Rate 18 18 16 Blood Pressure 149/101 H 129/85 H Blood Pressure Mean 117 99 Pulse Ox 100 98 100 Oxygen Delivery Method Room Air Room Air Positive well nourished and well developed Constitutional Narrative: BMI is 35.2. General Appearance ED: well developed and NAD HEENT Reports moist mucous membranes Neck supple and no JVD Resp normal respiratory effort and clear to auscultation bilaterally Cardio regular rhythm Rate: tachycardic GI non-distended Palpation: soft and tender epigastric, LLQ, RLQ, LUQ, RUQ, periumbilical and suprapubic; Negative for guarding or rebound tenderness present Neuro CN's II-XII intact bilaterally, moves all extremities and no sensory deficits noted Sensorium / Orientation: alert Motor Exam: strength 5/5 throughout Psych mental status grossly normal MDM MDM MDM Narrative Medical decision making narrative: Differential diagnosis includes dehydration, electrolyte abnormality, cyclic vomiting syndrome, pancreatitis, and urinary tract infection. CBC will be obtained to assess for leukocytosis and anemia. Comprehensive metabolic profile will be obtained to assess for hepatic function, renal function, and electrolyte abnormality. Lipase will be obtained to assess for pancreatitis. Serum hCG will be obtained to assess for . Urinalysis will be obtained to assess for urinary tract infection and hematuria. History & Record Review Additional record(s) reviewed:: Prior ED visit and Prior labs Lab Data Attestation: I reviewed the patient's lab results. Lab results narrative: CBC was reviewed. There is a mild leukocytosis of 11.6. Platelets were slightly elevated at 498. The remainder was essentially within normal limits. Comprehensive metabolic profile was reviewed. Potassium is slightly low at 3.0. Chloride was slightly low at 92. BUN was slightly elevated at 27 and creatinine was 1.23. These are consistent with previous results. Serum hCG was reviewed and was negative. Urinalysis was reviewed. Leukocyte esterase was 25 with 5-10 white blood cells. There is no bacteria noted. There are also 5-10 epithelial cells noted. Labs: Laboratory Results - last 24 hr 10/30/24 10/30/24 08:20 10:52 WBC 11.6 H RBC 6.16 H Hgb 14.3 Hct 45.5 MCV 73.9 L MCH 23.2 L MCHC 31.4 L RDW Std Deviation 37.3 RDW Coeff of Iggy 14.4 Plt Count 498 H MPV 10.7 Immature Gran % (Auto) 0.300 Neut % (Auto) 58.5 Lymph % (Auto) 33.5 [place] % (Auto) 7.0 Eos % (Auto) 0.3 Baso % (Auto) 0.4 Absolute Neuts (auto) 6.8 Absolute Lymphs (auto) 3.90 Nucleated RBC % 0 Sodium 137 Potassium 3.0 L Chloride 92 L Carbon Dioxide 23.5 Anion Gap 22 H BUN 27 H Creatinine 1.23 H Estim Creat Clear Calc 76.67 Est GFR (MDRD) Non-Af 62 BUN/Creatinine Ratio 21.6 H Glucose 104 H Calcium 10.1 Total Bilirubin 0.76 AST 40 H ALT 38 H Alkaline Phosphatase 92 Total Protein 9.5 H Albumin 5.4 H Globulin 4.1 Albumin/Globulin Ratio 1.3 Lipase 39 Serum , Qual NEGATIVE Urine Color Yellow Urine Clarity Clear Urine pH 6.5 Ur Specific [place] 1.015 Urine Protein 100 H Urine Glucose (UA) Normal Urine Ketones 50 H Urine Occult Blood 25 H Urine Nitrite Negative Urine Bilirubin Negative Urine Urobilinogen Normal Ur Leukocyte Esterase 25 H Urine RBC 0-5 SEEN Urine WBC 5-10 SEEN Ur Squamous Epith Cells 5-10 SEEN Urine Bacteria 0 SEEN Urine Mucus 1+ Treatment and Re-Evaluation :: Patient was given IV fluids. Patient was given Pepcid, Zofran, and Ativan. Patient was also given a dose of Toradol. Patient was feeling better but was still somewhat nauseated on reevaluation. Patient was given a dose of Reglan and Benadryl. Patient was instructed to rest in a dark quiet room. Patient was instructed to follow-up with her primary care physician in 5 to 7 days. Patient and mother understood and were agreeable with the plan. All questions were answered. Discharge Plan Triage Chief Complaint: Nausea/Vomiting/Diarrhea ED Provider: Abebe Mcintyre Dx/Rx/DC Orders Clinical Impression: Cyclic vomiting syndrome, N&V (nausea and vomiting) Instructions: ED Cyclic Vomiting Syndrome Prescriptions: No Action promethazine 25 mg tablet 25 mg PO Q6H PRN PRN (Reason: Nausea) Qty: 12 0RF Primary Care Provider: Emil Cordova Referrals: Emil Cordova MD [Primary Care Provider] - 5-7 Days Print Language: Japanese Disposition Disposition: Home, Self Care
[2024-10-30] MEDS: Famotidine 200 MG/20 ML MDV 20 MG in 0.9% Normal Saline (Pres. free 8 ML 300 MG IV (09:43)
[2024-10-30] MEDS: Ondansetron 4 MG/2 ML Vial IV (09:43)
[2024-10-30] MEDS: Lorazepam 2 MG/ML WCH Syringe 0.5 MG IV (09:43)
[2024-10-30 09:45] LABS: Absolute Neutrophil Count 6.8 X10^3/uL (2.0-7.7); Basophil# 0.05 X10^3/uL; Basophil% 0.4 % (0-1); Eosinophil# 0.03 X10^3/uL; Eosinophils% 0.3 % (0-5); Hematocrit 45.5 % (37-47); Hemoglobin 14.3 g/dL (12.0-15.0); Lymphocyte % 33.5 % (19-41); Mean Corp Hgb Conc 31.4 g/dL (32-36); Mean Corpuscular Hgb 23.2 pg (27.0-32.0); Mean Corpuscular Volume 73.9 fL (81-99); Mean Platelet Vol. 10.7 fl (6.2-12.0); Monocyte# 0.81 X10^3/uL; NRBC Flagged by Analyzer 0 % (0-5); Neutrophil # 6.81 X10^3/uL (2.7-7.7); Neutrophil % 58.5 % (47-70); Platelet Count 498 K/mm3 (150-450); RBC Distribution Width CV 14.4 % (11.6-14.6); RBC Distribution Width SD 37.3 fl (35.1-43.9); Red Blood Count 6.16 M/mm3 (4.2-5.4); White Blood Count 11.6 K/mm3 (4.4-11.0)
[2024-10-30 10:09] LABS: Internal QC Validated? YES +Cl - CLEAR BKGD; Pregnancy, Serum, hCG Quali. NEGATIVE Negative
[2024-10-30 10:11] LABS: Lipase 39 U/L (13-75)
[2024-10-30 10:14] LABS: ALB/GLOB Ratio 1.3 RATIO (0.9-2.4); AST(SGOT) 40 U/L (<=31); Alanine Aminotransfer ALT/SGPT 38 U/L (<=34); Albumin, Serum 5.4 g/dL (3.5-5.0); Alkaline Phosphatase 92 U/L (35-104); Anion Gap 22 (5-15); BUN 27 mg/dL (4-19); BUN/Creat Ratio 21.6 RATIO (10-20); Calcium,Total 10.1 mg/dL (7.6-11.0); Carbon Dioxide 23.5 mmol/L (21.0-32.0); Chloride 92 mmol/L (98-108); Creatinine, Serum 1.23 mg/dL (0.70-1.20); EST Glomerular Filtration Rate 62 (>60); Estimated Creatinine Clearance 76.67 ml/min (50-250); Globulin 4.1 g/dL (2.2-4.2); Glucose 104 mg/dL (70-99); Protein, Total 9.5 g/dL (5.9-8.4); Sodium Level 137 mmol/L (133-145); Total Bilirubin 0.76 mg/dL (0.00-1.30)
[2024-10-30 10:54] VITALS: PULSE 89; RESP 18; O2SAT 98
[2024-10-30 10:57] LABS: Bacteria 0 SEEN /hpf (None Seen)
[2024-10-30 11:17] LABS: Color, Urine Yellow (Yellow); Glucose, Dipstick Normal (Normal); Ketone-Dipstick 50 mg/dl (Negative); Leukocyte Esterase-Dipstick 25 /ul (Negative); Nitrite-Dipstick Negative (Negative); Occult Blood-Urine 25 /ul (Negative); Protein-Dipstick 100 mg/dl (Negative); Specific Gravity, Urine 1.015 (1.002-1.030); Urine Bilirubin Dipstick Negative (Negative); Urine Clarity Clear (Clear); Urine Urobilinogen Normal (Normal); Urine pH 6.5 (5.0 - 8.0)
[2024-10-30] MEDS: Ketorolac 15 MG/ML Vial IV (11:45)
[2024-10-30 11:47] LABS: Red Blood Cells-Urine 0-5 SEEN /hpf (0-5); Squamous Epithelial Cells - UA 5-10 SEEN /hpf (5-10); White Blood Cells 5-10 SEEN /hpf (0-5)
[2024-10-30 11:49] LABS: Mucous, Urine 1+ /hpf (<or=2+)
[2024-10-30 13:16] VITALS: BP 129/85; PULSE 101; RESP 16; O2SAT 100
[2024-10-30] MEDS: Metoclopramide 10 MG/2 ML Vial IV (13:19)
[2024-10-30] MEDS: DiphenhydrAMINE 50 MG/ML Syringe 25 MG IV (13:19)
[2024-10-30 13:48] VITALS: BP 129/85; PULSE 101; RESP 16; TEMP 36.4; O2SAT 100
== END 2024-10-30 13:49 | disposition home or self-care (01) ==
PROVIDERS: Emergency Provider Emergency Medicine; PCP Family Medicine; Visit Provider Emergency Medicine
DX: R11.15 Cyclical vomiting syndrome unrelated to migraine (principal); R11.2 Nausea with vomiting, unspecified; Z90.49 Acquired absence of other specified parts of digestive tract
CPT/HCPCS: 80053; 81001; 83690; 84703; 85025; 96374; 96375; 99283; A4216; J2405